=== PATIENT | female | born 1950 | race Asian ===

== ENCOUNTER → 2016-06-28 | Outpatient (CLI) | payer MEDICARE, OTHER ==
[2016-05-29 15:00] VITALS: BP 91/62
[~2016-06-28] MED LIST: ACET325T9 PO; ALPR0.5T6 PO; ALPR1TAB6 PO; CARI350T14 PO; DILT180C29 PO; DOCU-27 PO; FAMO20TA5 PO; FENT1PAT17 TD; HYDR-2672 PO; HYDR-2762 PO; LEVE500T56 PO; LEVO250T25 PO; LOSA100T6 PO; LUBI24CA5 PO; MUPI15CR8 TP; OXYC10TA32 PO; PARO20TA2 PO; PARO40TA2 PO
[2016-06-28 16:22] LABS: CREATININE 0.8 mg/dL (0.6-1.0)
== END | disposition home or self-care (01) ==
LOC: LAB 15:21
PROVIDERS: ATTEND Psychiatry & Neurology Neurology
DX: R56.9 Unspecified convulsions (principal)
CPT/HCPCS: 36415; 82565; 82607; 84443; 84450; 84460; 84520

== ENCOUNTER → 2016-06-29 | Outpatient (CLI) | payer MEDICARE, OTHER ==
[2016-05-29 15:00] VITALS: BP 91/62
--- NOTE | 2016-06-30 19:47 | SLEEP ---
DATE OF STUDY: 06/29/2016 The patient is a 65-year-old female with possible seizures, narcolepsy, excessive somnolence, possible sleep paralysis, possible restless legs. Height 5 feet 2 inches, weight 98 pounds, body mass index 18. [place] sleep score 4. INTERPRETATION: Sleep architecture is characterized by a sleep efficiency of 79% across the 7.2 hours of recording time. There is absence of stage III, slow-wave sleep and a decreased amount of REM sleep. Sleep onset latency is 21 minutes. Respiratory monitoring shows a total of 22 events for an apnea-hypopnea index of 3.9 events per hour of sleep. The minimum oxygen saturation is 83%. Periodic limb movements of sleep were not observed. There is no significant cardiac arrhythmia. IMPRESSION: Essentially normal polysomnogram, positive only for absence of slow-wave, stage III sleep, but not showing any evidence of sleep disorder breathing, restless legs, or cardiac arrhythmias. RECOMMENDATIONS: If narcolepsy remains a concern, the patient should be scheduled for a multiple sleep latency test. Also, consider psychophysiologic insomnia. The patient, it should be noted, slept in a recliner during the study and the fiber technician observed a panic attack in the second part of the night and would not go back to sleep. Thank you for letting us help with the patient's care. ANDREZ LARA MD DR: NICHOLAS/joseph JOB#: [id number] / [id number]
== END | disposition home or self-care (01) ==
LOC: RT 18:14
PROVIDERS: ATTEND Internal Medicine
DX: R56.9 Unspecified convulsions (principal); G47.411 Narcolepsy with cataplexy
CPT/HCPCS: 95810

== ENCOUNTER → 2016-08-01 | Outpatient (CLI) | payer MEDICARE, OTHER ==
[2016-05-29 15:00] VITALS: BP 91/62
[~2016-08-01] MED LIST changes: +BUPIVACAINE MPF 0.25% 10 ML VIAL. ONE; +methylPREDNISolone ACETATE 40 MG/ML VIAL. ONE
--- NOTE | 2016-08-02 03:16 | PAIN ---
DATE OF SERVICE: 08/01/2016 PROGRESS NOTE DIAGNOSES: 1. Cervical radiculopathy with post-cervical laminectomy syndrome. 2. Myofascial pain. 3. Lumbar radiculopathy with lumbar degenerative disk disease, spinal stenosis and post-laminectomy syndrome of lumbar region. HISTORY OF PRESENT ILLNESS: The patient is a 65-year-old female, who returns for followup, last seen 03/2016. The patient underwent trigger point injections for pain in neck, left upper extremity and shoulder. The patient reports that she did very well after that with about 75% improvement, but the pain is returning now over the past 3-4 weeks. The patient reports in the base of the neck, left shoulder and left arm radiating into the hand be causing numbness and tingling, also some weakness in the left arm and trying to hold that she is left handed and this makes it more noticeable for the patient reports is painful, tingling, aching and shooting into the left arm, mostly in the anterior deltoid and posterior shoulders as well in the base of the neck on the left side, worse with rotation and motion limited to the left as well as extension, but not with forward flexion. The patient reports she has been doing massage therapies with heat and stiff several different types of topical creams and rubs, noted which have been decreased in the pain more than about 10%-20%. The patient reports no complete loss of motor function, but significant weakness with left upper extremity when the pain is else worst. The patient reports her pain is at10 on a scale of 10 currently. No new motor or sensory deficits or other complaints. PHYSICAL EXAMINATION: VITAL SIGNS: The patient's blood pressure 110/59, pulse 64, respirations 18, temperature 98.1 degrees Fahrenheit, height is 5 feet 2 inches, weight is 96 pounds. GENERAL: The patient is awake, alert, oriented, appropriate, very pleasant demeanor. The patient accompanied by her . HEENT: Head shows normocephalic, atraumatic. Extraocular movements are intact and symmetrical. Oral cavity, mucous membranes are moist and pink. Dentition is intact. NECK: Shows anterior throat supple without palpable lymphadenopathy. No well-healed surgical scars noted on the right in the inferior neck. Swallow reflex is symmetrical. Posterior cervical musculatures in moderate tenderness to palpation and very firm rope-like musculature on the left part of the superior, middle and lateral aspect of the cervical paraspinous musculature is very firm, very tender with palpations with trigger point characteristics of musculature and also this is present in the left trapezius suprascapular and infrascapular regions significantly and the infrascapular region on the left side very firm rope-like musculature, very tender with palpation also in the posterior lateral and anterior aspects of the deltoid, very tender in the lateral and anterior aspect significantly on the left side and some minor pain over the acromioclavicular joint with palpation on the left side only. Right side is nontender and musculature is supple and symmetrical. CHEST: Shows normal on inspection. Breath sounds are clear to auscultation bilaterally. HEART: Shows S1 and S2 clear. ABDOMEN: Soft, nontender, nondistended. EXTREMITIES: Upper extremities show deep tendon reflexes 1+ in the biceps and triceps tendons. Motor exam is strong with approximately 3 on a scale 5 with change release manager strength on the left and ____ on the right. Bicep and tricep flexion 4/5 left, 5/5 on the right. Options were discussed with the patient. At this time, the patient's old chart was reviewed and her current medication regimen updated. Current review of systems updated today as well. We will plan on trigger point injections of the left cervical paraspinous musculature and trapezius musculature superior and infrascapular musculature and anterior and lateral deltoid musculature on the left side. Risks were again discussed including, but not limited to bleeding, infection, possibility of intravascular injection sequelae, spread of local anesthetic and numbness, pneumothorax, side effects of steroid medications and poor results regarding pain control. The patient understands and wishes to proceed. The patient will return to clinic in approximately 2 weeks for followup. She was counseled on return appointment, activity levels, and side effects to be aware of. DIAGNOSES: Myofascial pain with cervical radiculopathy and cervical post-laminectomy syndrome. PROCEDURE: Trigger point injections of the cervical paraspinous musculature, trapezius musculature, superior infrascapular musculature, anterior and lateral deltoid musculature on the left. Using sterile prep and drape and local anesthetic. Medication injected a total of 40 mg Depo-Medrol plus total of 9 mL of 0.25% bupivacaine. CONDITION AT DISCHARGE: Stable. The patient tolerated procedure well, had no complications. HIRA CARBAJAL MD DR: BRANDON/joseph JOB#: [id number] / [id number]
== END | disposition home or self-care (01) ==
LOC: PNCL 09:13
PROVIDERS: ATTEND Anesthesiology
DX: M54.12 Radiculopathy, cervical region (principal); M96.1 Postlaminectomy syndrome, not elsewhere classified; M51.16 Intervertebral disc disorders with radiculopathy, lumbar region; M48.06 Spinal stenosis, lumbar region; I10 Essential (primary) hypertension; J44.9 Chronic obstructive pulmonary disease, unspecified; F41.9 Anxiety disorder, unspecified; F32.9 Major depressive disorder, single episode, unspecified; Z90.49 Acquired absence of other specified parts of digestive tract; Z90.710 Acquired absence of both cervix and uterus; Z98.42 Cataract extraction status, left eye; Z98.41 Cataract extraction status, right eye
CPT/HCPCS: 20553; J1030; J3490

== ENCOUNTER → 2016-08-16 | Outpatient (CLI) | payer MEDICARE, OTHER ==
[2016-05-29 15:00] VITALS: BP 91/62
[~2016-08-16] MED LIST changes: -BUPIVACAINE MPF 0.25% 10 ML VIAL. ONE; -PARO20TA2 PO; +PARO20TA3 PO; -PARO40TA2 PO; +PARO40TA3 PO; +methylPREDNISolone ACETATE 80 MG/ML VIAL. ONE
--- NOTE | 2016-08-17 05:35 | PAIN ---
DATE OF SERVICE: 08/16/2016 DIAGNOSES: 1. Cervical radiculopathy with post-cervical laminectomy syndrome. 2. Myofascial pain. 3. Lumbar radiculopathy with lumbar degenerative disk disease, spinal stenosis and post-lumbar laminectomy syndrome. HISTORY OF PRESENT ILLNESS: The patient is a 65-year-old female who returns for followup status post trigger point injections with some relief and some muscular pain she had in her neck and left shoulder, but still significantly radiating pain in the left upper extremity and tingling and numbness in the left hand with some loss of strength. The patient reports no complete motor loss, but significant fatigability of the left arm and loss of strength with picking up items with repetitive motions or even carrying her purse on the left arm. The patient reports it is becoming difficult to get dressed as the pain is worse with raising her arm over her head on the left side, as well as manipulating her neck to the left side. The patient reports it is sharp, alternating with aching pain rated as 9 on a scale of 10. The patient reports no new motor or sensory deficits or other complaints, but still significant pain noted. PHYSICAL EXAMINATION: VITAL SIGNS: Shows blood pressure 122/73, pulse 73, respirations 18, temperature 98.5 degrees Fahrenheit, height 5 feet 2 inches, weight is 94 pounds. GENERAL: The patient is awake, alert, oriented, appropriate, very pleasant demeanor. HEENT: Head shows normocephalic, atraumatic. Extraocular movements are intact and symmetrical. Oral cavity, mucous membranes are moist and pink. Dentition is intact. NECK: Shows anterior throat supple without palpable lymphadenopathy noted. Swallow reflex is symmetrical. CHEST: Shows normal on inspection. Breath sounds are clear to auscultation bilaterally. HEART: Shows S1 and S2 clear. ABDOMEN: Soft, nontender, nondistended. No palpable organomegaly is noted. No rebound or guarding demonstrated. BACK: Shows spine grossly midline. Cervical paraspinous musculature shows some significant tenderness in the superior, medial and lateral trapezius as well as the superior aspect of the trapezius laterally on the left side compared to the right, appears symmetrical, no radiation on palpation. The patient still has some trigger point in the areas in the suprascapular and infrascapular region as well as the rhomboid region on the left side. EXTREMITIES: Upper extremities showed deep tendon reflexes at 1+ in the biceps and triceps tendons. Motor exam is strong with approximately 4/5 on the left and 5/5 on the right with edge sander strength. Options were discussed with the patient at this time, the patient's old chart was reviewed as her current medication regimen updated. Current review of systems updated today as well. We will proceed with a cervical epidural steroid injection today as the first in the series. Risks were again discussed including, but not limited to bleeding, infection, possibility of epidural hematoma, subsequent neurologic compromise, dural puncture, headaches, spinal cord and/or nerve damage, side effects of steroid medication and poor results regarding pain control. The patient understands and wishes to proceed. The patient will return to clinic in approximately 2 weeks for followup. She was counseled on return appointment, activity level and side effects to be aware of. DIAGNOSIS: Cervical radiculopathy with post-cervical laminectomy syndrome. PROCEDURE: Cervical epidural steroid injection in translaminar approach with C-arm fluoroscopic guidance under sterile prep and drape using local anesthetic. Medication injected 120 mg Depo-Medrol plus 5 mL of preservative-free normal saline and 0 contrast for patient allergy. CONDITION AT DISCHARGE: Stable. The patient tolerated procedure well, had no complications. HIRA CARBAJAL MD DR: BRANDON/joseph JOB#: [id number] / [id number]
== END | disposition home or self-care (01) ==
LOC: PNCL 09:16
PROVIDERS: ATTEND Anesthesiology
DX: M54.12 Radiculopathy, cervical region (principal); M96.1 Postlaminectomy syndrome, not elsewhere classified; I10 Essential (primary) hypertension; J44.9 Chronic obstructive pulmonary disease, unspecified; F41.9 Anxiety disorder, unspecified; F32.9 Major depressive disorder, single episode, unspecified; Z72.0 Tobacco use; Z90.710 Acquired absence of both cervix and uterus; Z90.49 Acquired absence of other specified parts of digestive tract; Z98.41 Cataract extraction status, right eye; Z98.42 Cataract extraction status, left eye
CPT/HCPCS: 62321; J1030; J1040

== ENCOUNTER → 2016-08-22 | Outpatient (CLI) | payer MEDICARE, OTHER ==
[2016-05-29 15:00] VITALS: BP 91/62
[~2016-08-22] MED LIST changes: -methylPREDNISolone ACETATE 40 MG/ML VIAL. ONE; -methylPREDNISolone ACETATE 80 MG/ML VIAL. ONE
--- NOTE | 2016-08-22 11:14 | KCIC ---
PROCEDURE Cervical spine MRI without contrast. HISTORY Cervical radiculopathy. TECHNIQUE Multiplanar and multi sequence magnetic resonance imaging of the cervical spine was performed without contrast. COMPARISON 03/07/2016 FINDINGS There are findings consistent with instrumented anterior spinal fusion and interbody fusion and C5 through C7. There is minimal retrolisthesis of C6 on C7 and straightening of cervical lordosis at the fused levels. There is mild anterolisthesis of C4 on C5. There is endplate remodeling at multiple levels, described in detail below. There is abnormal signal within the right C4 and C5 facets, stable compared to the prior study and slightly greater than expected for a degenerative etiology. There is slight deformation of the ventral aspect of the spinal cord at multiple levels. There is no convincing myelomalacia or demyelination. There is a prominent central canal within the cervical spinal cord, without syringohydromyelia. At C2-C3, there is a posterior central disc protrusion. There is no stenosis. At C3-C4, there is a posterior central disc protrusion. There is mild facet arthropathy. There is slight deformation of the ventral aspect of the spinal cord without significant stenosis. At C4-C5, there is a broad-based posterior disc protrusion superimposed on right posterior lateral endplate remodeling. There is moderate right and mild left facet arthropathy. There is moderate right foraminal stenosis. There is flattening of the ventral aspect of the spinal cord with mild central canal stenosis measuring 9.0 mm in anterior-posterior dimension. At C5-C6, there is a posterior central to left paracentral disc protrusion with thin inferior extrusion. There is mild right facet arthropathy. There is mild right foraminal stenosis. There is deformation of the left ventral aspect of the spinal cord without significant central canal stenosis. At C6-C7, there is a diffuse disc bulge and endplate remodeling. There is mild facet arthropathy. There is uncovertebral arthropathy. There is moderate right and moderate to severe left foraminal stenosis. At C7-T1, there is no stenosis. At T1-T2, there is a posterior central disc protrusion. There is mild facet arthropathy. There is mild bilateral foraminal stenosis. IMPRESSION 1. Instrumented anterior spinal fusion and interbody fusion at C5 through C7, stable in appearance. 2. Stable abnormal signal consistent with edema within the right C4 and C5 facets. The stability compared to the prior study does not favor a posttraumatic etiology. The differential includes a stress reaction as well as asymmetric advanced degenerative change. 3. Multilevel degenerative change within the cervical spine, similar compared to the prior study. This results in moderate right foraminal stenosis and mild central canal stenosis at C4-C5, mild right foraminal stenosis at C5-C6, and moderate right and moderate to severe left foraminal stenosis at C6-C7. There is also deformation of the spinal cord at additional levels, without evidence of myelomalacia or cord edema. Electronically signed by: Charisma Moreira (Aug 22, 2016 11:12:52)
== END | disposition home or self-care (01) ==
LOC: KCIC MRI 10:05
PROVIDERS: ATTEND Neurological Surgery
DX: M48.02 Spinal stenosis, cervical region (principal)
CPT/HCPCS: 72141

== ENCOUNTER → 2016-09-12 | Outpatient (CLI) | payer MEDICARE, OTHER ==
[2016-05-29 15:00] VITALS: BP 91/62
--- NOTE | 2016-09-12 13:11 | KCIC ---
PROCEDURE CT cervical spine without contrast. HISTORY Radiculopathy. Neck pain. Prior fusion in August,. TECHNIQUE Axial images and coronal and sagittal re-formatted images are provided. One or more of the following individualized dose reduction techniques were utilized for this exam: 1. Automated exposure control. 2. Adjustment of the mA and/or kV according to patient's size. 3. Use of iterative reconstruction technique. COMPARISON MRI from August 22, 2016. FINDINGS There is straightening of cervical lordosis. There is 2-3 millimeters of anterolisthesis at C4-C5. Anterior cervical fusion from C5 through C7 with interbody bone cages is noted, no definite incorporation of the bone cages at this time. There is no lucency about the screws. Alignment is not changed. There is no fracture. Craniovertebral junction is unremarkable. Canal and foraminal evaluation is limited without intrathecal contrast. Degenerative findings do not appear appreciably changed from the MRI from 3 weeks ago. There is a 13 millimeter right thyroid nodule. There is apical emphysema. There is a right apical opacity, could represent an area of scarring although no definite correlate on cervical radiographs from March 07, 2016 or chest radiograph from July 24, 2015. IMPRESSION 1. Anterior cervical fusion from C5 through C7. 2. No change in alignment. Degenerative findings also probably unchanged, better evaluated by the recent MRI. 3. Right thyroid nodule. 4. Apical emphysema with right apical opacity which could represent an area of scarring although appears to be a change from prior radiographs. Comparison to any prior CT chest or CT cervical spine would be of benefit. Alternatively, three-month follow-up CT chest could be considered. Electronically signed by: Carlos Barry MD (Sep 12, 2016 13:08:52)
== END | disposition home or self-care (01) ==
LOC: KCIC CT 10:53
PROVIDERS: ATTEND Neurological Surgery
DX: M54.12 Radiculopathy, cervical region (principal); M43.22 Fusion of spine, cervical region; J43.9 Emphysema, unspecified; E04.1 Nontoxic single thyroid nodule
CPT/HCPCS: 72125

== ENCOUNTER 2016-12-01 13:49 | Emergency (ER) | payer MEDICARE, OTHER ==
[~2016-12-01] VITALS: Ht 157.5 cm; Wt 44.0 kg
[~2016-12-01 13:49] MED LIST changes: +DOCU-109 PO; -DOCU-27 PO; -HYDR-2672 PO; +HYDR-2766 PO; -LUBI24CA5 PO; +LUBI24CA7 PO; -OXYC10TA32 PO; +OXYC10TA45 PO
[2016-12-01 14:00] VITALS: BP 149/71
[2016-12-01] MEDS ORDERED: HYDROcodone/APAP 5/325MG 1 TAB TABLET PO ONE (14:30)
--- NOTE | 2016-12-01 14:37 | PHYS DOC ---
Past Medical History Past Medical History: A-Fib, Anxiety, COPD, Depression, Hypertension Additional Past Medical Histor: CATARACTS Past Surgical History: Cholecystectomy, Hysterectomy, Other Additional Past Surgical Histo: BACK SX, CERVICAL SX Alcohol Use: Occasionally Drug Use: None Adult General Chief Complaint Chief Complaint: MECHANICAL FALL HPI HPI Patient is a 66 year old female with history of hypertension COPD A. fib and depression who presents today with moderate right ankle pain that began today after she fell. Patient states she was walking down some steps when she missed the last step and rolled her ankle and fell. Patient denies any loss of consciousness. Denies hitting her head on the ground. PCP Dr. Magaña Review of Systems Review of Systems Constitutional: Denies fever or chills [] Eyes: Denies change in visual acuity, redness, or eye pain [] Musculoskeletal: moderate right ankle pain Integument: Denies rash or skin lesions [] Neurologic: Denies headache, focal weakness or sensory changes [] Endocrine: Denies polyuria or polydipsia [] Current Medications Current Medications Current Medications Medications (Trade) Dose Ordered Sig/John Start Time Stop Time Status Last Admin Dose Admin Acetaminophen/ Hydrocodone Bitart (Lortab 5/325) 1 tab 1X ONCE 12/01/16 14:30 12/01/16 14:32 DC 12/01/16 14:55 1 TAB Morphine Sulfate 5 mg 1X ONCE 12/01/16 16:00 12/01/16 16:01 DC Allergies Allergies Allergies Coded Allergies Type Severity Reaction Last Updated Verified Iodinated Contrast- Oral and IV Dye Allergy Intermediate 08/28/15 Yes acyclovir Allergy Intermediate Rash 08/28/15 Yes iodine Allergy Intermediate 08/28/15 Yes I S O L A T I O N *CONTACT* Allergy Unknown 08/28/15 Yes morphine Adverse Reaction Intermediate Nausea 08/28/15 Yes Physical Exam Physical Exam Constitutional: Well developed, well nourished, no acute distress, non-toxic appearance. [] HENT: Normocephalic, atraumatic, bilateral external ears normal, oropharynx moist, no oral exudates, nose normal. [] Skin: Warm, dry, no erythema, no rash. [] Back: No tenderness, no CVA tenderness. [] Extremities: Right ankle with moderate amount of soft tissue swelling medially and laterally. Bruising noted on the medial and lateral aspect of the right ankle. Limited range of motion to the right ankle due to pain. Patient able to wiggle her toes. +2 right pedal pulse. Cap refill less than 2 seconds the right lower extremity. Neurologic: Alert and oriented X 3, normal motor function, normal sensory function, no focal deficits noted. [] Psychologic: Affect normal, judgement normal, mood normal. [] Current Patient Data Vital Signs Vital Signs Date Time Temp Pulse Resp B/P (MAP) Pulse Ox O2 Delivery O2 Flow Rate FiO2 12/01/16 14:55 20 98 Room Air 12/01/16 14:00 98.9 106 98.9 EKG EKG [] Radiology/Procedures Radiology/Procedures []PROCEDURE: ANKLE RIGHT 3V Right ankle, 3 views, 12/01/2016: History: Injury The bony structures are demineralized. The distal tibia and fibula are intact. There is flattening of Boehler's angle with apparent trabecular distortion in the calcaneus. The appearance suggests a calcaneal fracture. There is moderate diffuse soft tissue swelling about the ankle. IMPRESSION: Probable calcaneal fracture. CT scanning is suggested for further evaluation, if clinically indicated. DICTATED and SIGNED BY: TAMMIE MOHAMUD MD DATE: 12/01/16 1500 CC: MERRICK MAGAÑA MD; ALEX GAFFNEY APRN; FERNANDO,STAFF ~ PROCEDURE: LUMBAR SPINE 2-3V Lumbar spine, 3 views, 12/01/2016: History: Fall, low back pain Comparison is made to a study from 09/11/2007. The bony structures are demineralized. There has been a lower lumbar posterolateral spinal fusion from L4 through S1. A radiopaque disc spacer is in place at the L4-5 level. No fracture is identified. There is a minimal spondylolisthesis at L3-4, probably slightly worse than on the previous study. There are mild scattered marginal spurs. Aortic calcific plaquing is present. IMPRESSION: 1. Previous lower lumbar spinal fusion from L4 through S1. 2. Minimal spondylolisthesis at L3-4. 3. No acute bony abnormality is detected. DICTATED and SIGNED BY: TAMMIE MOHAMUD MD DATE: 12/01/16 1604 CC: MERRICK MAGAÑA MD; ALEX GAFFNEY APRN; FERNANDO,STAFF ~ Course & Med Decision Making Course & Med Decision Making Pertinent Labs and Imaging studies reviewed. (See chart for details) Patient is in the ED with right ankle pain after falling today. Right ankle xray interpreted by radiologist was noted for possible calcaneus fracture. Inquiry from patient if she has any back pain. She states she has history of chronic back pain no unusual pain today. Lumbar x-rays were done which were negative for any acute findings. Patient was placed in a posterior short leg splint by the optical lab technician, neurovascular exam done by me is normal, cap refill less than 2 seconds. Ice elevation encouraged. Follow-up with orthopedic doctor by calling the office tomorrow morning. Dragon Disclaimer Dragon Disclaimer This electronic medical record was generated, in whole or in part, using a voice recognition dictation system. Departure Departure Impression: Primary Impression: Fall down steps Additional Impression: Calcaneus fracture, right Disposition: 01 HOME, SELF-CARE Condition: STABLE Referrals: MERRICK MAGAÑA MD (PCP) PENNY BLACK II, MD Call his office tomorrow and follow-up Patient Instructions: Foot Fracture-Brief Additional Instructions: You were seen for possible calcaneus fracture of the right heel. Ice and elevate the extremity. Follow-up with orthopedic doctor provided by calling the office first thing tomorrow morning. Scripts Ondansetron (ZOFRAN ODT) 4 Mg Tab.rapdis 1 TAB SL Q8HRS, #15 TAB Prov: ALEX GAFFNEY APRN 12/01/16 Hydrocodone/Apap 5-325 (NORCO 5-325 TABLET) 1 Each Tablet 1-2 TAB PO Q4-6HRS, #20 TAB Prov: ALEX GAFFNEY APRN 12/01/16 Problem Qualifiers Primary Impression: Fall down steps Encounter type: initial encounter Qualified Codes: W10.8XXA - Fall (on) ( from) other stairs and steps, initial encounter Additional Impression: Calcaneus fracture, right Encounter type: initial encounter Calcaneus location: unspecified portion of calcaneus Fracture type: closed Fracture alignment: nondisplaced Qualified Codes: S92.001A - Unspecified fracture of right calcaneus, initial encounter for closed fracture ALEX GAFFNEY APRN Dec 01, 2016 14:37
--- NOTE | 2016-12-01 15:04 | RAD ---
Right ankle, 3 views, 12/01/2016: History: Injury The bony structures are demineralized. The distal tibia and fibula are intact. There is flattening of Boehler's angle with apparent trabecular distortion in the calcaneus. The appearance suggests a calcaneal fracture. There is moderate diffuse soft tissue swelling about the ankle. IMPRESSION: Probable calcaneal fracture. CT scanning is suggested for further evaluation, if clinically indicated.
[2016-12-01] MEDS ORDERED: MORPHINE SULFATE 10 MG/ML VIAL. IM ONE (16:00)
--- NOTE | 2016-12-01 16:10 | RAD ---
Lumbar spine, 3 views, 12/01/2016: History: Fall, low back pain Comparison is made to a study from 09/11/2007. The bony structures are demineralized. There has been a lower lumbar posterolateral spinal fusion from L4 through S1. A radiopaque disc spacer is in place at the L4-5 level. No fracture is identified. There is a minimal spondylolisthesis at L3-4, probably slightly worse than on the previous study. There are mild scattered marginal spurs. Aortic calcific plaquing is present. IMPRESSION: 1. Previous lower lumbar spinal fusion from L4 through S1. 2. Minimal spondylolisthesis at L3-4. 3. No acute bony abnormality is detected.
[2016-12-01] MEDS ORDERED: HYDR-971 PO (16:24)
[2016-12-01] MEDS ORDERED: ONDA4TAB10 SL (16:24)
[2016-12-01] MEDS ORDERED: fentaNYL PF VIAL 100 MCG/2 ML VIAL IM ONE (16:30)
== END 2016-12-01 16:30 | disposition home or self-care (01) ==
LOC: ER 13:49
DX: S92.001A Unspecified fracture of right calcaneus, initial encounter for closed fracture (principal); G89.29 Other chronic pain; I48.91 Unspecified atrial fibrillation; F41.9 Anxiety disorder, unspecified; J44.9 Chronic obstructive pulmonary disease, unspecified; I10 Essential (primary) hypertension; F32.9 Major depressive disorder, single episode, unspecified; Z98.1 Arthrodesis status; Z91.041 Radiographic dye allergy status; Z88.5 Allergy status to narcotic agent; Z88.8 Allergy status to other drugs, medicaments and biological substances; Z98.49 Cataract extraction status, unspecified eye; W10.9XXA Fall (on) (from) unspecified stairs and steps, initial encounter; Y93.01 Activity, walking, marching and hiking; Y92.89 Other specified places as the place of occurrence of the external cause; Y99.8 Other external cause status
CPT/HCPCS: 29515; 72100; 73610; 96372; 99284; J3010

== ENCOUNTER → 2016-12-08 | Outpatient (CLI) | payer MEDICARE, OTHER ==
[2016-12-01 14:00] VITALS: BP 149/71
[~2016-12-08] MED LIST changes: +HYDR-971 PO; +ONDA4TAB10 SL
--- NOTE | 2016-12-08 12:38 | KCIC ---
Examination: CT of the right ankle without contrast HISTORY: History of closed nondisplaced fracture of the calcaneus, fall Exposure: One or more of the following individualized dose reduction techniques were utilized for this examination: 1. Automated exposure control 2. Adjustment of the mA and/or kV according to patient size 3. Use of iterative reconstruction technique COMPARISON: Radiograph from 12/06/2016 FINDINGS: The alignment of the ankle joint grossly appears unremarkable. Mildly displaced depressed comminuted fracture of the calcaneus again identified. No evidence of bony bridging changes to suggest healing identified. Mild soft tissue swelling identified about the hindfoot likely soft tissue injury The ankle mortise appears intact. The visualized peroneal tendons, flexor tendons, anterior extensor compartment tendons grossly appears intact. IMPRESSION: Comminuted mild displaced and depressed fracture of the calcaneus identified without bony bridging changes to suggest healing. Electronically signed by: Bret Wiley MD (12/08/2016 12:35 PM)
== END | disposition home or self-care (01) ==
LOC: KCIC CT 10:25
PROVIDERS: ATTEND Nurse Practitioner Gerontology
DX: S92.014D Nondisplaced fracture of body of right calcaneus, subsequent encounter for fracture with routine healing (principal); X58.XXXD Exposure to other specified factors, subsequent encounter
CPT/HCPCS: 73700

== ENCOUNTER → 2017-01-11 | Outpatient (CLI) | payer MEDICARE, OTHER ==
--- NOTE | 2017-01-11 15:52 | KCIC ---
Thyroid ultrasound HISTORY: Right thyroid nodule. Right lobe: Measures 5.2 cm longitudinal by 1.8 cm transverse by 1.6 cm transverse. Complex cystic lesion identified in the upper pole of the right thyroid measuring 8 mm. This has a cystic appearance with solid nodule. Separate calcified nodule seen in the upper pole measures 3 mm. Complex mostly solid mass is seen in the midpole, measures 13 mm. A complex mostly cystic mass is seen in the lower pole measuring 10 mm. Thyroid isthmus measures 20 mm. Left lobe of the thyroid measures 4.9 cm longitudinal by 1.2 cm transverse by 2.1 cm transverse. There is a small cyst identified at the left upper pole measuring 5 mm. IMPRESSION: 1. Multiple complex cystic and solid nodules in the right thyroid. 2. Small cyst in the left thyroid. Electronically signed by: Marcelo Chambers MD (01/11/2017 3:49 PM) [facility]
--- NOTE | 2017-01-11 16:06 | KCIC ---
INDICATION: Bilateral carotid artery disease. Coronary artery disease. Hypertension. Smoker. COMPARISON: none TECHNIQUE: Color, grayscale and doppler ultrasound images obtained of the carotid system bilaterally. Percent stenosis is estimated using criteria that correlates with NASCET methodology. FINDINGS: Peak systolic velocities are as follows in cm/s: Right Carotid System: CCA PSV: 57 ICA PSV: 46 ICA EDV: 14 ICA/CCA Ratio 0.8 No significant luminal narrowing or occlusion identified on grayscale or color images. Right vertebral artery is patent with normal direction of flow. Left Carotid System: CCA PSV: 51 ICA PSV: 73 ICA EDV: 25 ICA/CCA Ratio 1.44 Mild focal plaque identified at the carotid bulb. No high-grade luminal narrowing or occlusion on grayscale or color images. Left vertebral artery is patent with normal directional flow. IMPRESSION: No evidence of hemodynamically significant stenosis. Electronically signed by: Marcelo Chambers MD (01/11/2017 4:02 PM) [facility]
== END | disposition home or self-care (01) ==
LOC: KCIC US 14:05
PROVIDERS: ATTEND Internal Medicine
DX: I25.10 Atherosclerotic heart disease of native coronary artery without angina pectoris (principal); I10 Essential (primary) hypertension; E04.1 Nontoxic single thyroid nodule; F17.200 Nicotine dependence, unspecified, uncomplicated; I65.23 Occlusion and stenosis of bilateral carotid arteries
CPT/HCPCS: 76536; 93880

== ENCOUNTER → 2017-03-01 | Outpatient (CLI) | payer MEDICARE, OTHER ==
--- NOTE | 2017-03-01 10:25 | KCIC ---
Indication: Right lower extremity swelling. Grayscale, color-flow and duplex Doppler evaluation of the right lower extremity deep venous system was performed. There is no evidence of a right lower extremity DVT. The right lower extremity deep venous system shows normal compressibility with normal response to augmentation and Valsalva. There is some edema in the subcutaneous tissues of the right calf. IMPRESSION: No evidence of right lower extremity DVT. Electronically signed by: Geremias Pennington MD (03/01/2017 10:22 AM) [id number]
== END | disposition home or self-care (01) ==
LOC: KCIC US 09:44
PROVIDERS: ATTEND Internal Medicine
DX: M79.89 Other specified soft tissue disorders (principal)
CPT/HCPCS: 93971

== ENCOUNTER → 2017-05-04 | Outpatient (CLI) | payer MEDICARE, OTHER ==
[~2017-05-04] MED LIST changes: +ASPI-482 PO; +MELO15TA23 PO; +PANT40TA5 PO; +methylPREDNISolone ACETATE 40 MG/ML VIAL. ONE; +methylPREDNISolone ACETATE 80 MG/ML VIAL. ONE
--- NOTE | 2017-05-04 12:37 | PAIN ---
DATE OF SERVICE: 05/04/2017 DIAGNOSES: 1. Cervical radiculopathy with cervical post-laminectomy syndrome. 2. Myofascial pain. 3. Lumbar radiculopathy with lumbar degenerative disk disease, spinal stenosis and post-lumbar laminectomy syndrome. HISTORY OF PRESENT ILLNESS: The patient is a 66-year-old female who returns for followup status post trigger point injections, last seen 04/20/2017. The patient reports they helped about 50% or so, but was short lived, for about a week, with significant pain returning in the low back, bilateral lower extremities, worse in the right knee and right leg. She had an ankle sprain and some significant pain in the left ankle, which is causing some pain in her right knee when she is ambulating, also in the low back, which has become much more painful as well with radiation to the right leg now, into the posterior and lateral thigh and calf on the right side. The patient reports it as aching and shooting, becoming more constant, rated a 10 on a scale of 10 at its worst, 9 on average and 8 at its least, and is a 9 today. The patient reports no new motor or sensory deficits. It has been waking her from sleep at night after about 4-5 hours, but not every night. She can usually reposition or get out of bed and get back to sleep essentially. The patient reports no bowel or bladder incontinence or other complaints at this time. PHYSICAL EXAMINATION: VITAL SIGNS: The patient's blood pressure 137/78, pulse 80, respirations 20, temperature 98.3 degrees Fahrenheit. Weight is 99.0 pounds. GENERAL: The patient is awake, alert, oriented, appropriate, very pleasant demeanor. HEENT: Head shows normocephalic, atraumatic. Extraocular movements are intact and symmetrical. Oral cavity: Mucous membranes moist and pink. Dentition is intact. NECK: Shows anterior throat supple without palpable lymphadenopathy noted. Swallow reflex is symmetrical. CHEST: Shows normal on inspection. Breath sounds clear to auscultation bilaterally. HEART: Shows S1 and S2 clear. ABDOMEN: Soft, nontender, nondistended. No palpable organomegaly. No rebound or guarding demonstrated. BACK: Shows spine grossly in the midline with flattening of the lumbar lordotic curvature with extensive well-healed surgical scarring noted. Lumbar paraspinous musculature is grossly symmetrical on inspection, with palpation is firm and tender throughout the upper, middle and lower distribution of paraspinous musculature, very firm, very tender diffusely bilaterally. EXTREMITIES: Lower extremities show deep tendon reflexes 1+ in the patellar and tendo calcaneus tendons. Motor exam is approximately 3 on a scale of 5 with right dorsiflexion and extension and 5/5 on the left. The patient has some significant lateral swelling noticed under the right lateral malleolus of the ankle. Right knee shows good rotational motion both passively and actively without significant pain reported without weightbearing, with weightbearing shows significant pain and limping significantly favoring her right lower extremity, but not using any assistive device to ambulate. Options were discussed with the patient and the patient's old chart was reviewed as her current medication regimen updated. Current review of systems updated today as well. We will proceed with a caudal approach epidural steroid injection today with fluoroscopic guidance. Risks were discussed including but not limited to bleeding, infection, possibility of epidural hematoma, subsequent neurologic compromise, dural puncture headaches, spinal cord and/or nerve damage, side effects of steroid medication and poor results regarding pain control. The patient understands and wishes to proceed. The patient will return to clinic in approximately 2 weeks for followup, was counseled on return appointment, activity level and side effects to be aware of. DIAGNOSES: Lumbar radiculopathy with lumbar degenerative disk disease, spinal stenosis and post-lumbar laminectomy syndrome. PROCEDURE: A caudal approach epidural steroid injection using C-arm fluoroscopic guidance under sterile prep and drape using local anesthetic. MEDICATION INJECTED: A total of 120 mg Depo-Medrol plus 10 mL of preservative-free normal saline, 2 mL Isovue for contrast. CONDITION AT DISCHARGE: Stable. The patient tolerated the procedure well, had no complications. HIRA CARBAJAL MD DR: BRANDON/joseph JOB#: [id number] / [id number]
== END ==
LOC: PNCL 09:17
PROVIDERS: ATTEND Anesthesiology
DX: M51.16 Intervertebral disc disorders with radiculopathy, lumbar region (principal); M48.061 Spinal stenosis, lumbar region without neurogenic claudication; M96.1 Postlaminectomy syndrome, not elsewhere classified; I10 Essential (primary) hypertension; F32.9 Major depressive disorder, single episode, unspecified; F41.9 Anxiety disorder, unspecified; J44.9 Chronic obstructive pulmonary disease, unspecified; Z90.49 Acquired absence of other specified parts of digestive tract; Z90.710 Acquired absence of both cervix and uterus; Z86.14 Personal history of Methicillin resistant Staphylococcus aureus infection; F17.200 Nicotine dependence, unspecified, uncomplicated
CPT/HCPCS: 62323; J1030; J1040

== ENCOUNTER → 2017-05-30 | Outpatient (CLI) | payer MEDICARE, OTHER ==
[~2017-05-30] MED LIST changes: +IOHEXOL 240 MG/ML 50ML VIAL. PO ONE; +IOHEXOL 300 MG/ML 100ML VIAL. IV ONE; -PANT40TA5 PO; -methylPREDNISolone ACETATE 40 MG/ML VIAL. ONE; -methylPREDNISolone ACETATE 80 MG/ML VIAL. ONE
--- NOTE | 2017-05-30 12:21 | KCIC ---
CT abdomen and pelvis with contrast Indication: Lower abdominal pain. Dark stools. History of cholecystectomy and appendectomy. Symptoms for a couple of weeks.. . Technique: Intravenous contrast is given. Oral contrast was given. Comparison:None available Exposure: One or more of the following individualized dose reduction techniques were utilized for this examination: 1. Automated exposure control 2. Adjustment of the mA and/or kV according to patient size 3. Use of iterative reconstruction technique. FINDINGS: Lower thorax: Minimal opacity at the anterior right and left lung base, partially visualized, likely some mild fibrosis or atelectasis. Pneumoperitoneum:No gross pneumoperitoneum. Liver: Unremarkable Spleen: Unremarkable Pancreas: Unremarkable Adrenals:No evidence of mass. Kidneys: No significant abnormality. Gallbladder: Surgically absent. Severe dilatation of the common bile duct, 3.5 cm transverse. There is also intrahepatic biliary ductal dilatation and pancreatic duct dilatation. No evidence of an obstructive calculus. Aorta: Calcified. No aneurysm. Lymph nodes: No significant enlargement GI tract: Small hiatal hernia. Moderate retained stool in the colon. There is diffuse mild dilatation of small bowel loops, likely an ileus. Wall thickening of the rectum, sigmoid colon and descending colon. Appendix: Not visualized. Ascites: No gross ascites. Urinary bladder: Mild irregular wall thickening, particularly inferiorly. No evidence of pelvic mass. Bones: Fusion of L4-L5. Degenerative disease of the lumbar spine. Spinal stenosis and neural foraminal stenosis identified at multiple lumbar levels. IMPRESSION: 1. Severe common bile duct dilatation. There is also dilatation of the hepatic bile ducts and pancreatic duct. Etiology uncertain. Findings suggest a distal common bile duct stenosis or obstruction. 2. Mild wall thickening of the descending colon, sigmoid colon and rectum. Findings are most compatible with a nonspecific infectious or inflammatory colitis. Moderate constipation. Mild small bowel dilatation, most likely an ileus. 3. Mild irregular urinary bladder wall thickening. This may represent an acute or chronic cystitis, but recommend follow-up. 4. Lumbar spondylosis and stenosis. Electronically signed by: Marcelo Chambers MD (05/30/2017 12:17 PM) [facility]
== END | disposition home or self-care (01) ==
LOC: KCIC CT 08:17
PROVIDERS: ATTEND Nurse Practitioner Family
DX: K59.00 Constipation, unspecified (principal); M47.896 Other spondylosis, lumbar region; M48.061 Spinal stenosis, lumbar region without neurogenic claudication; Z90.49 Acquired absence of other specified parts of digestive tract
CPT/HCPCS: 74177; 82565; Q9966; Q9967

== ENCOUNTER 2017-06-05 09:26 | Inpatient (IN) | payer MEDICARE, OTHER ==
[~2017-06-05] VITALS: Ht 157.5 cm; Wt 45.4 kg
[~2017-06-05 09:26] MED LIST changes: -IOHEXOL 240 MG/ML 50ML VIAL. PO ONE; -IOHEXOL 300 MG/ML 100ML VIAL. IV ONE
--- NOTE | 2017-06-05 09:46 | PHYS DOC ---
Past Medical History Past Medical History: A-Fib, Anxiety, COPD, Depression, Hypertension Additional Past Medical Histor: CATARACTS Past Surgical History: Cholecystectomy, Hysterectomy, Other Additional Past Surgical Histo: BACK SX, CERVICAL SX Alcohol Use: Occasionally Drug Use: None Adult General Chief Complaint Chief Complaint: ABDOMINAL PAIN HPI HPI Patient is a 66 year old female who presents with nausea vomiting, dark stools , abdominal discomfort. She states it all started about 3 weeks ago when she started having abdominal discomfort, dark black stools. She had a CT scan and had her stools checked for occult blood and they were negative. She states she' s had a cholecystectomy appendectomy and hysterectomy in the past. She states that she's been getting weaker and now can hardly walk. She thinks she is dehydrated. She states whenever she eats something her belly just becomes bloated and distended. She denies any chest pain fevers chills. She does admit to be a heavy alcohol abuser about 10 years ago she states she's a drink 4-6 beers 3-4 times a week. Review of Systems Review of Systems Constitutional: Denies fever or chills [] Eyes: Denies change in visual acuity, redness, or eye pain [] HENT: Denies nasal congestion or sore throat [] Respiratory: Denies cough or shortness of breath [] Cardiovascular: No additional information not addressed in HPI [] GI: Positive for abdominal pain, nausea, vomiting, black stools : Denies dysuria or hematuria [] Musculoskeletal: Denies back pain or joint pain [] Integument: Denies rash or skin lesions [] Neurologic: Denies headache, focal weakness or sensory changes [] Endocrine: Denies polyuria or polydipsia [] All other systems were reviewed and found to be within normal limits, except as documented in this note. Current Medications Current Medications Current Medications Medications (Trade) Dose Ordered Sig/John Start Time Stop Time Status Last Admin Dose Admin Fentanyl Citrate (Fentanyl 2ml Vial) 100 mcg STK-MED ONCE 06/05/17 10:46 06/05/17 10:47 DC Sodium Chloride 1,000 ml @ 1,000 mls/hr Q1H 06/05/17 10:15 06/05/17 11:14 DC 06/05/17 10:15 1,000 MLS/HR Allergies Allergies Allergies Coded Allergies Type Severity Reaction Last Updated Verified Iodinated Contrast- Oral and IV Dye Allergy Intermediate 08/28/15 Yes acyclovir Allergy Intermediate Rash 08/28/15 Yes iodine Allergy Intermediate 08/28/15 Yes I S O L A T I O N *CONTACT* Allergy Unknown 08/28/15 Yes morphine Adverse Reaction Intermediate Nausea 08/28/15 Yes Physical Exam Physical Exam Constitutional: Well developed, well nourished, no acute distress, non-toxic appearance. [] HENT: Normocephalic, atraumatic, bilateral external ears normal, oropharynx moist, no oral exudates, nose normal. [] Eyes: PERRLA, EOMI, conjunctiva normal, no discharge. [] Neck: Normal range of motion, no tenderness, supple, no stridor. [] Cardiovascular:Heart rate regular rhythm, no murmur [] Lungs & Thorax: Bilateral breath sounds clear to auscultation [] Abdomen: Bowel sounds hyperactive soft, mild tender to palpation in the epigastric area, no masses, no pulsatile masses. [] Skin: Warm, dry, no erythema, no rash. [] Back: No tenderness, no CVA tenderness. [] Extremities: No tenderness, no cyanosis, no clubbing, ROM intact, no edema. [] Neurologic: Alert and oriented X 3, normal motor function, normal sensory function, no focal deficits noted. [] Psychologic: Affect normal, judgement normal, mood normal. [] Current Patient Data Vital Signs Vital Signs Date Time Temp Pulse Resp B/P (MAP) Pulse Ox O2 Delivery O2 Flow Rate FiO2 06/05/17 10:30 90 20 145/67 (93) 97 06/05/17 09:55 98.8 Room Air 98.8 Lab Values Laboratory Tests Test 06/05/17 10:00 06/05/17 10:37 White Blood Count 8.2 x10^3/uL (4.0-11.0) Red Blood Count 2.99 x10^6/uL (3.50-5.40) L Hemoglobin 10.1 g/dL (12.0-15.5) L Hematocrit 30.3 % (36.0-47.0) L Mean Corpuscular Volume 101 fL (79-100) H Mean Corpuscular Hemoglobin 34 pg (25-35) Mean Corpuscular Hemoglobin Concent 34 g/dL (31-37) Red Cell Distribution Width 16.1 % (11.5-14.5) H Platelet Count 638 x10^3/uL (140-400) H Neutrophils (%) (Auto) 71 % (31-73) Lymphocytes (%) (Auto) 20 % (24-48) L Monocytes (%) (Auto) 8 % (0-9) Eosinophils (%) (Auto) 0 % (0-3) Basophils (%) (Auto) 1 % (0-3) Neutrophils # (Auto) 5.9 x10^3uL (1.8-7.7) Lymphocytes # (Auto) 1.6 x10^3/uL (1.0-4.8) Monocytes # (Auto) 0.6 x10^3/uL (0.0-1.1) Eosinophils # (Auto) 0.0 x10^3/uL (0.0-0.7) Basophils # (Auto) 0.1 x10^3/uL (0.0-0.2) Segmented Neutrophils % 66 % (35-66) Band Neutrophils % 6 % (0-9) Lymphocytes % 21 % (24-48) L Monocytes % 7 % (0-10) Platelet Estimate Increased (ADEQUATE) Prothrombin Time 12.2 SEC (11.7-14.0) Prothrombin Time INR 1.0 (0.8-1.1) Urine Collection Type Unknown Urine Color Straw Urine Clarity Hazy Urine pH 7.0 Urine Specific [place] 1.020 Urine Protein Negative mg/dL (NEG-TRACE) Urine Glucose (UA) Negative mg/dL (NEG) Urine Ketones (Stick) Negative mg/dL (NEG) Urine Blood Negative (NEG) Urine Nitrite Negative (NEG) Urine Bilirubin Small (NEG) Urine Urobilinogen Dipstick 0.2 mg/dL (0.2 mg/dL) Urine Leukocyte Esterase Negative (NEG) Urine RBC 0 /HPF (0-2) Urine WBC 0 /HPF (0-4) Urine Squamous Epithelial Cells Few /LPF Urine Bacteria 0 /HPF (0-FEW) Sodium Level 133 mmol/L (136-145) L Potassium Level 4.5 mmol/L (3.5-5.1) Chloride Level 97 mmol/L (98-107) L Carbon Dioxide Level 23 mmol/L (21-32) Anion Gap 13 (6-14) Blood Urea Nitrogen 22 mg/dL (7-20) H Creatinine 1.0 mg/dL (0.6-1.0) Estimated GFR (Cockcroft-Gault) 55.5 Glucose Level 122 mg/dL (70-99) H Calcium Level 8.4 mg/dL (8.5-10.1) L Magnesium Level 2.1 mg/dL (1.8-2.4) Total Bilirubin 0.2 mg/dL (0.2-1.0) Direct Bilirubin 0.1 mg/dL (0.0-0.2) Aspartate Amino Transferase (AST) 18 U/L (15-37) Alanine Aminotransferase (ALT) 15 U/L (14-59) Alkaline Phosphatase 102 U/L (46-116) Creatine Kinase 39 U/L (26-192) Creatine Kinase MB (Mass) 0.9 ng/mL (0.0-3.6) Creatine Kinase MB Relative Index % (0-4) Troponin I Quantitative < 0.017 ng/mL (0.000-0.055) CV-Tcn-W-Type Natriuretic Peptide 23 pg/mL (0-124) Total Protein 7.0 g/dL (6.4-8.2) Albumin 3.1 g/dL (3.4-5.0) L Lipase 397 U/L (73-393) H Thyroid Stimulating Hormone (TSH) 1.540 uIU/mL (0.358-3.74) Stool Occult Blood Positive (NEG) Laboratory Tests 06/05/17 10:00 Laboratory Tests 06/05/17 10:00 EKG EKG EKG shows sinus rhythm rate 94 bpm without any concerning ST elevations or T- wave inversions, left axis deviation noted, QTC 428 ms, as interpreted by me. Radiology/Procedures Radiology/Procedures [facility] [address] [place], [place] [id number] IMAGING REPORT Signed PATIENT: LINDSAY MORALES ACCOUNT: [id number] : 1950 LOCATION: ER AGE: 66 SEX: F EXAM STATUS: REG ER ORD. PHYSICIAN: JAMIE AMANDA MD REASON: abd pain PROCEDURE: ACUTE ABDOMEN SERIES Acute abdominal series to include a PA chest radiograph 06/05/2017 Clinical History: Abdominal pain. A PA digital radiograph of the chest was obtained. Supine and erect AP digital radiographs of the abdomen/pelvis were obtained. Comparison is made to a CT scan of the abdomen and pelvis dated 05/30/2017. The cardiac silhouette is normal in size. The thoracic aorta is mildly tortuous. No acute pulmonary infiltrate is seen. No pleural effusion or pneumothorax is noted. Surgical clips are seen within the right upper quadrant of the abdomen consistent with a cholecystectomy. Cagelike devices overlie the L4-5 disc space. Mild air distention of both small and large bowel loops is seen. There is no evidence of bowel obstruction. No free air is noted. The osseous structures are unchanged. Impression: Nonobstructive bowel gas pattern. DICTATED and SIGNED BY: CAROL CORDOBA MD DATE: 06/05/17 1103 CC: JAMIE AMANDA MD; MERRICK MAGAÑA MD ~ CT abdomen and pelvis was performed on 05/30/2017 shows: #1 severe, and bile duct dilation. Is also dilation of the hepatic bile ducts and pancreatic duct. Etiology uncertain. Findings suggest a distal common bile duct stenosis or infection. #2 mild wall thickening of the descending colon and sigmoid colon and rectum. Findings are most compatible with nonspecific infectious or inflammatory colitis. Moderate constipation. Mild small bowel dilation, most likely an ileus. #3 mild irregular urinary bladder wall thickening. This may represent an acute or chronic cystitis, but recommendation follow-up #4 lumbar's on the lysis and stenosis Impressions: GI bleed Generalized weakness Course & Med Decision Making Course & Med Decision Making Pertinent Labs and Imaging studies reviewed. (See chart for details) She presented with epigastric pain and history of dark stools. She had 2 bowel movement here 1 was sent down for analysis and showed positive for blood. I spoke with GI for consultation. I started the patient on Protonix and octreotide secondary to her history of alcohol abuse [address] scan that was performed on May 30 report was given to me and her inner that information above in the radiology section. At this time I will start Cipro and Flagyl on the patient and admit to the hospitalist. Type and screen has been performed with a every 6 hours H&H's. Dragjeanette Disclaimer Dragon Disclaimer This electronic medical record was generated, in whole or in part, using a voice recognition dictation system. Departure Departure Impression: Primary Impression: GI bleed Disposition: ADMITTED INPATIENT Admitting Physician: Norah Fitzgerald Condition: STABLE Referrals: MERRICK MAGAÑA MD (PCP) JAMIE AMANDA MD Jun 05, 2017 09:46
[2017-06-05] MEDS ORDERED: IV NORMAL SALINE 1000ML BAG 1,000 ML IV SCH (10:15)
[2017-06-05 10:22] LABS: BASO # 0.1 x10^3/uL (0.0-0.2); BASO % 1 % (0-3); EOS % 0 % (0-3); HEMATOCRIT 30.3 % (36.0-47.0); HEMOGLOBIN 10.1 g/dL (12.0-15.5); LYMPH # 1.6 x10^3/uL (1.0-4.8); LYMPH % 20 % (24-48); MEAN CORPUSCULAR HEMOGLOBIN 34 pg (25-35); MEAN CORPUSCULAR HGB CONC 34 g/dL (31-37); MEAN CORPUSCULAR VOLUME 101 fL (79-100); MONO % 8 % (0-9); NEUT % 71 % (31-73); PLATELET COUNT 638 x10^3/uL (140-400); RED BLOOD COUNT 2.99 x10^6/uL (3.50-5.40); RED CELL DISTRIBUTION WIDTH 16.1 % (11.5-14.5); WHITE BLOOD COUNT 8.2 x10^3/uL (4.0-11.0)
[2017-06-05 10:32] LABS: PROTHROMBIN TIME PATIENT 12.2 SEC (11.7-14.0)
[2017-06-05 10:39] LABS: CALCIUM 8.4 mg/dL (8.5-10.1); GFR 55.5; POTASSIUM 4.5 mmol/L (3.5-5.1)
[2017-06-05 10:46] LABS: NEG OBC FOB NEG; POS OBC FOB POS
[2017-06-05] MEDS ORDERED: fentaNYL PF VIAL 100 MCG/2 ML VIAL ONE (10:46)
[2017-06-05 10:48] LABS: ALBUMIN 3.1 g/dL (3.4-5.0); DIRECT BILIRUBIN 0.1 mg/dL (0.0-0.2); MAGNESIUM 2.1 mg/dL (1.8-2.4); TOTAL BILIRUBIN 0.2 mg/dL (0.2-1.0)
[2017-06-05] MEDS: fentaNYL PF VIAL 100 MCG/2 ML VIAL IV PRN ×3 (10:50→19:24)
[2017-06-05 10:56] LABS: CKMB MASS 0.9 ng/mL (0.0-3.6); CREATINE KINASE 39 U/L (26-192)
[2017-06-05 11:05] LABS: BILIRUBIN,URINE SMALL (NEG); GLUCOSE,URINE NEGATIVE (NEG); PROTEIN,URINE NEGATIVE (NEG-TRACE); UROBILINOGEN,URINE 0.2 mg/dL (0.2 mg/dL)
[2017-06-05 11:06] LABS: BACTERIA,URINE 0 /HPF (0-FEW); NITRITE,URINE NEGATIVE (NEG); RBC,URINE 0 /HPF (0-2); SQUAMOUS EPITHELIAL CELL,UR FEW /LPF; WBC,URINE 0 /HPF (0-4)
--- NOTE | 2017-06-05 11:10 | RAD ---
Acute abdominal series to include a PA chest radiograph 06/05/2017 Clinical History: Abdominal pain. A PA digital radiograph of the chest was obtained. Supine and erect AP digital radiographs of the abdomen/pelvis were obtained. Comparison is made to a CT scan of the abdomen and pelvis dated 05/30/2017. The cardiac silhouette is normal in size. The thoracic aorta is mildly tortuous. No acute pulmonary infiltrate is seen. No pleural effusion or pneumothorax is noted. Surgical clips are seen within the right upper quadrant of the abdomen consistent with a cholecystectomy. Cagelike devices overlie the L4-5 disc space. Mild air distention of both small and large bowel loops is seen. There is no evidence of bowel obstruction. No free air is noted. The osseous structures are unchanged. Impression: Nonobstructive bowel gas pattern.
[2017-06-05] MEDS ORDERED: PANTOPRAZOLE SODIUM IV DRIP 80 MG in IV NORMAL SALINE 100ML 100 ML IV ONE (12:00)
[2017-06-05] MEDS ORDERED: OCTREOTIDE 500 MCG in IV NORMAL SALINE 100ML 100 ML IV PRN (12:00)
[2017-06-05] MEDS ORDERED: ONDANSETRON PF 4 MG/2 ML VIAL. IV PRN (12:30)
--- NOTE | 2017-06-05 12:38 | PDOC2 ---
GI CONSULT Reason For Consult: Bloody diarrhea HPI: HPI: 66 y/o female who has previously seen Dr. Echevarria. Ill x 3 weeks w/ dark diarrhea, no precipitating events. Describes watery stools "all day long," worse after eating but can occur if avoids eating. More recently stools have looked "tammy" and then today appeared reddish. CT A/P on 05/30/17 showed severe common bile duct dilatation, also dilatation of the hepatic bile ducts and pancreatic duct, mild wall thickening of the descending colon, sigmoid colon and rectum (c/w nonspecific infectious or inflammatory colitis), moderate constipation, mild small bowel dilatation. Also says had stool studies and has been on 2 different antibiotics. Has chronic epigastric/right-sided abd pain. W/ diarrhea, has had significant bloating after eating and indigestion. Taking Tums and Rolaids. Takes hydrocodone for chronic back/neck pain, denies NSAIDs. Thinks has lost 1 pound. Feels hungry all the time. S/p cholecystectomy. H/ o heavy alcohol use, sober x 9 years. Some SOA attributed to smoking, no CP or dizziness. D/w office, per records: EGD 04/2011 w/ gastritis (no biopsy) and Schatzki's ring (dilated). In 2013, and normal liver US and SBS. She reports normal colonoscopy sometime before 2010. Labs: Hgb 10.1, normal INR and plt, BUN 22 w/ Cr 1, lipase 397 w/ normal LFTs, fecal occult positive. For comparison Hgb 14.1 in 05/2016, vit B12 WNL 06/2016. D/w ER physician, has been started on IV octreotide and PPI. Summary list shows Amitiza, Meloxicam, and famotidine. PMH: PMH: HTN, COPD, UTIs, fibromyalgia, depression/anxiety, hysterectomy, appendectomy, cholecystectomy, right ankle fracture, back and neck surgeries FH: Family History: No pertinent hx Social History: Smoke: 2 packs per day (1.5 ppd) ALCOHOL: other (sober 9 years, previously drank 8-9 beers daily) Drugs: None ROS: GEN: Denies fevers, chills, sweats HEENT: Denies blurred vision, sore throat CV: Denies chest pain RESP:+SOA (stable) GI: Per HPI : Denies hematuria, dysuria ENDO: +lost 1 pound NEURO: Denies confusion, dizziness MSK: +back/neck pain SKIN: Denies jaundice, pruritus Vitals: Vitals: Vital Signs Date Time Temp Pulse Resp B/P (MAP) Pulse Ox O2 Delivery O2 Flow Rate FiO2 06/05/17 11:55 102 19 141/91 (108) 94 Room Air 06/05/17 09:55 98.8 98.8 Labs: Labs: Laboratory Tests Test 06/05/17 10:00 06/05/17 10:37 White Blood Count 8.2 x10^3/uL (4.0-11.0) Red Blood Count 2.99 x10^6/uL (3.50-5.40) Hemoglobin 10.1 g/dL (12.0-15.5) Hematocrit 30.3 % (36.0-47.0) Mean Corpuscular Volume 101 fL (79-100) Mean Corpuscular Hemoglobin 34 pg (25-35) Mean Corpuscular Hemoglobin Concent 34 g/dL (31-37) Red Cell Distribution Width 16.1 % (11.5-14.5) Platelet Count 638 x10^3/uL (140-400) Neutrophils (%) (Auto) 71 % (31-73) Lymphocytes (%) (Auto) 20 % (24-48) Monocytes (%) (Auto) 8 % (0-9) Eosinophils (%) (Auto) 0 % (0-3) Basophils (%) (Auto) 1 % (0-3) Neutrophils # (Auto) 5.9 x10^3uL (1.8-7.7) Lymphocytes # (Auto) 1.6 x10^3/uL (1.0-4.8) Monocytes # (Auto) 0.6 x10^3/uL (0.0-1.1) Eosinophils # (Auto) 0.0 x10^3/uL (0.0-0.7) Basophils # (Auto) 0.1 x10^3/uL (0.0-0.2) Prothrombin Time 12.2 SEC (11.7-14.0) Prothromb Time International Ratio 1.0 (0.8-1.1) Urine Collection Type Unknown Urine Color Straw Urine Clarity Hazy Urine pH 7.0 Urine Specific [place] 1.020 Urine Protein Negative mg/dL (NEG-TRACE) Urine Glucose (UA) Negative mg/dL (NEG) Urine Ketones (Stick) Negative mg/dL (NEG) Urine Blood Negative (NEG) Urine Nitrite Negative (NEG) Urine Bilirubin Small (NEG) Urine Urobilinogen Dipstick 0.2 mg/dL (0.2 mg/dL) Urine Leukocyte Esterase Negative (NEG) Urine RBC 0 /HPF (0-2) Urine WBC 0 /HPF (0-4) Urine Squamous Epithelial Cells Few /LPF Urine Bacteria 0 /HPF (0-FEW) Sodium Level 133 mmol/L (136-145) Potassium Level 4.5 mmol/L (3.5-5.1) Chloride Level 97 mmol/L (98-107) Carbon Dioxide Level 23 mmol/L (21-32) Anion Gap 13 (6-14) Blood Urea Nitrogen 22 mg/dL (7-20) Creatinine 1.0 mg/dL (0.6-1.0) Estimated GFR (Cockcroft-Gault) 55.5 Glucose Level 122 mg/dL (70-99) Calcium Level 8.4 mg/dL (8.5-10.1) Magnesium Level 2.1 mg/dL (1.8-2.4) Total Bilirubin 0.2 mg/dL (0.2-1.0) Direct Bilirubin 0.1 mg/dL (0.0-0.2) Aspartate Amino Transf (AST/SGOT) 18 U/L (15-37) Alanine Aminotransferase (ALT/SGPT) 15 U/L (14-59) Alkaline Phosphatase 102 U/L (46-116) Creatine Kinase 39 U/L (26-192) Creatine Kinase MB (Mass) 0.9 ng/mL (0.0-3.6) Creatine Kinase MB Relative Index % (0-4) Troponin I Quantitative < 0.017 ng/mL (0.000-0.055) ML-Ahp-M-Type Natriuretic Peptide 23 pg/mL (0-124) Total Protein 7.0 g/dL (6.4-8.2) Albumin 3.1 g/dL (3.4-5.0) Lipase 397 U/L (73-393) Thyroid Stimulating Hormone (TSH) 1.540 uIU/mL (0.358-3.74) Stool Occult Blood Positive (NEG) Allergies: Coded Allergies: Iodinated Contrast- Oral and IV Dye (Verified Allergy, Intermediate, ) acyclovir (Verified Allergy, Intermediate, Rash, 08/28/15) iodine (Verified Allergy, Intermediate, 08/28/15) I S O L A T I O N *CONTACT* (Verified Allergy, Unknown, 08/28/15) mrsa + morphine (Verified Adverse Reaction, Intermediate, Nausea, 08/28/15) Medications: Current Medications Medications (Trade) Dose Ordered Sig/John Route PRN Reason Start Time Stop Time Status Last Admin Dose Admin Sodium Chloride 1,000 ml @ 1,000 mls/hr Q1H IV 06/05/17 10:15 06/05/17 11:14 DC 06/05/17 10:15 Fentanyl Citrate (Fentanyl 2ml Vial) 50 mcg PRN Q15MIN PRN IV PAIN GREATER THAN 08/2606/05/17 10:45 06/06/17 10:44 06/05/17 10:50 Imaging: Imaging: Acute Abd Series Impression: Nonobstructive bowel gas pattern. PE: GEN: NAD, thin HEENT: Atraumatic, PERRL LUNGS: diminished anteriorly HEART: tachycardic ABD: BS+, vaguely tender RUQ and epigastrium, BS+ EXTREMITY: No edema SKIN: No rashes, no jaundice NEURO/PSYCH: A & O 3 A/P: A/P: Diarrhea, dyspepsia, bloating -diarrhea x 3 weeks, has been on 2 atbx per PCP -EGD 2010: gastritis, Schatzki's ring -taking Tums/Rolaids -on IV PPI and octreotide per ER Abnormal CT A/P -on 05/30/17: severe common bile duct dilatation, dilatation of the hepatic bile ducts and pancreatic duct, mild wall thickening of the descending colon, sigmoid colon, and rectum w/ moderate constipation and mild small bowel dilatation Chronic abd pain, (also back/neck pain) - stable COPD/SOA - stable Anemia/fecal occult positive, minimally elevated lipase -Hgb 10.1 (compared to 14.1 in 05/2016); BUN 22 w/ Cr 1 -lipase 397; h/o heavy alcohol use, now sober, normal LFTs CRC screen -has had previous colonoscopy, unclear timing -- Reviewed w/ Dr. Echevarria - will check stool studies and anemia parameters. Okay to stop octreotide drip. ?choledochal cyst ORQUIDEA QUIGLEY Jun 05, 2017 12:38
[2017-06-05 12:52] LABS: PLT ESTIMATE INCREASED (ADEQUATE)
[2017-06-05 13:54] LABS: % SAT IRON 10 % (15-34); IRON,SERUM 29 ug/dL (50-170)
[2017-06-05 14:03] VITALS: BP 141/91
[2017-06-05 14:06] LABS: FOLATE 8.68 ng/ml (3.2-20.0)
--- NOTE | 2017-06-05 14:20 | EKG ---
[facility] [address] [place] [address] Test Date: 2017-06-05 Test Time: 10:38:13 Pat Name: LINDSAY MORALES Department: Room: Gender: F Scale Attendant: : 1950 Requested By: JAMIE AMANDA Order Number: [id number] Reading MD: Measurements Intervals [place] Rate: 94 P: 0 CO: 146 QRS: -34 QRSD: 82 T: 71 QT: 338 QTc: 428 Interpretive Statements SINUS RHYTHM ABNORMAL LEFT AXIS DEVIATION QRS(T) CONTOUR ABNORMALITY CONSISTENT WITH ANTEROSEPTAL INFARCT AGE UNDETERMINED T ABNORMALITY IN HIGH LATERAL LEADS ABNORMAL ECG RI6.01 No previous ECG available for comparison
[2017-06-05 14:49] VITALS: BP 148/55
[2017-06-05] MEDS ORDERED: ACETAMINOPHEN 325 MG TABLET. PO PRN (15:00)
[2017-06-05] MEDS ORDERED: oxyCODONE ER 10 MG TAB.ER.12H PO ONE (15:15)
[2017-06-05] MEDS: predniSONE 20 MG TABLET PO SCH (15:16)
[2017-06-05] MEDS: LIDOCAINE (700MG/PATCH) PATCH. TD SCH (15:21)
[2017-06-05] MEDS: NICOTINE 21MG PATCH. TD SCH (15:23)
[2017-06-05] MEDS: ONDANSETRON ODT 4 MG TAB.RAPDIS. PO SCH ×2 (15:25→21:01)
[2017-06-05] MEDS: PARoxetine 20 MG TABLET PO SCH (15:25)
[2017-06-05] MEDS: LOSARTAN POTASSIUM 50 MG TABLET. PO SCH (15:25)
[2017-06-05] MEDS: CARISOPRODOL 350 MG TABLET PO SCH ×2 (15:26→21:01)
[2017-06-05] MEDS: LUBIPROSTONE 8 MCG CAPSULE PO SCH (15:26)
--- NOTE | 2017-06-05 15:30 | PDOC1 ---
History and Physical Date of Admission Date of Admission DATE: 06/05/17 TIME: 15:24 Identification/Chief Complaint Chief Complaint diarrhea, now bloody Problems: Source Source: Caregiver, Chart review, Patient History of Present Illness History of Present Illness Ms. Ordaz is a 66 y/o female admit for blood per rectum She has been seeing Dr. Walker for diarrhea, CT scan was done (showed CBD dilating) and not conclusive (wall thickening only), she was scheduled to have a colonoscopy soon. She has had a long course of watery diarrhea with no cause. Stools got darker recently, then appeared bloody today. she has recent bloating and weight loss and indegestion. She has chroinc back and leg pain, s/p 7 prior back surgeries Past Medical History Past Medical History EGD 04/2011 w/ gastritis (no biopsy) and Schatzki's ring (dilated). In 2013, and normal liver US and SBS. Cardiovascular: HTN Psych: Anxiety, Depression, Other (insomnia) Musculoskeletal: low back pain Past Surgical History Past Surgical History: Other Family History Family History: Alzheimer's Disease Social History Smoke: 2 packs per day (1.5 ppd) ALCOHOL: other (sober 9 years, previously drank 8-9 beers daily) Drugs: None Current Medications Current Medications Current Medications Sodium Chloride 1,000 ml @ 1,000 mls/hr Q1H IV Last administered on 10:15; Start 06/05/17 at 10:15; Stop 06/05/17 at 11:14; Status DC Fentanyl Citrate (Fentanyl 2ml Vial) 50 mcg PRN Q15MIN PRN IV PAIN GREATER THAN 3/10 Last administered on 06/05/17 10:50; Start 06/05/17 at 10:45; Stop 06/06/17 at 10:44 Fentanyl Citrate (Fentanyl 2ml Vial) 100 mcg STK-MED ONCE .ROUTE ; Start at 10:46; Stop 06/05/17 at 10:47; Status DC Octreotide Acetate 500 mcg/ Sodium Chloride 101 ml @ 0 mls/hr CONT PRN IV SEE I /O RECORD Last administered on 06/05/17 12:25; Start 06/05/17 at 12:00; Stop 06/05/17 at 13:23; Status DC Pantoprazole Sodium 80 mg/ Sodium Chloride 100 ml @ 10 mls/hr 1X ONCE IV Last administered on 06/05/17t 12:22; Start 06/05/17 at 12:00; Stop 06/05/17 at 21:59 Ondansetron HCl (Zofran) 4 mg PRN Q8HRS PRN IV NAUSEA/VOMITING; Start at 12:30; Stop 06/06/17 at 12:29 Fentanyl Citrate (Fentanyl 2ml Vial) 50 mcg PRN Q2HR PRN IV PAIN Last administered on 06/05/17t 12:50; Start 06/05/17 at 12:30; Stop 06/06/17 at 12 :29 Acetaminophen (Tylenol) 325 mg PRN Q4HRS PRN PO PAIN/FEVER; Start 06/05/17 at 15:00 Alprazolam (Xanax) 1 mg PRN Q8HRS PRN PO ANXIETY / AGITATION; Start 06/05/17 at 15:00 Carisoprodol (Soma) 350 mg QID PO ; Start 06/05/17 at 17:00 Diltiazem HCl (Cardizem 24hr Cd) 240 mg DAILY PO ; Start 06/05/17 at 16:00 Docusate Sodium (Colace) 100 mg BID PO ; Start 06/05/17 at 21:00 Famotidine (Pepcid) 20 mg DAILY PO ; Start 06/06/17 at 09:00 Acetaminophen/ Hydrocodone Bitart (Lortab 7.5/325) 1 tab PRN Q6HRS PRN PO PAIN ; Start 06/05/17 at 15:00 Levetiracetam (Keppra) 500 mg BID PO ; Start 06/05/17 at 21:00 Mupirocin (Bactroban) 1 indira TID TP ; Start 06/05/17 at 21:00 Ondansetron HCl (Zofran Odt) 4 mg Q8HRS PO ; Start 06/05/17 at 16:00 Lubiprostone (Amitiza) 24 mcg BIDWMEALS PO ; Start 06/05/17 at 17:00 Meloxicam (Mobic) 15 mg DAILY PO ; Start 06/05/17 at 16:00; Stop 06/05/17 at 16:00; Status DC Paroxetine HCl (Paxil) 40 mg DAILY PO ; Start 06/05/17 at 16:00 Losartan Potassium (Cozaar) 100 mg DAILY PO ; Start 06/05/17 at 16:00 Lidocaine (Lidoderm) 1 patch DAILY TD ; Start 06/05/17 at 16:00 Prednisone (Prednisone) 20 mg DAILY PO ; Start 06/05/17 at 16:00 Oxycodone HCl (OxyCONTIN) 10 mg 1X ONCE PO ; Start 06/05/17 at 15:15; Stop at 15:16; Status DC Nicotine (Nicoderm Cq 21mg) 1 patch DAILY TD ; Start 06/05/17 at 16:00 Active Scripts Active Zofran Odt (Ondansetron) 4 Mg Tab.rapdis 1 Tab SL Q8HRS Colace (Docusate Sodium) 100 Mg Capsule 100 Mg PO BID Mupirocin Cream (Mupirocin) 15 Gm Cream..g. 1 Indira TP TID 7 Days Famotidine 20 Mg Tablet 20 Mg PO BID 28 Days Alprazolam 1 Mg Tablet 1 Mg PO PRN Q8HRS PRN 14 Days Reported Meloxicam 15 Mg Tablet 1 Tab PO DAILY Keppra (Levetiracetam) 500 Mg Tablet 1 Tab PO BID Paroxetine Hcl 40 Mg Tablet 40 Mg PO DAILY Amitiza (Lubiprostone) 24 Mcg Capsule 24 Mcg PO BID Hydrocodone-Apap 7.5-325 (Hydrocodone Bit/Acetaminophen) 1 Each Tablet 1 Tab PO PRN Q6HRS PRN Diltiazem 24HR Cd (Diltiazem Hcl) 180 Mg Cap.er.24h 240 Mg PO DAILY Tylenol (Acetaminophen) 325 Mg Tablet 1 Tab PO PRN Q4HRS Carisoprodol 350 Mg Tablet 1 Tab PO QID Losartan Potassium 100 Mg Tablet 100 Mg PO BID Allergies Allergies: Coded Allergies: Iodinated Contrast- Oral and IV Dye (Verified Allergy, Intermediate, ) acyclovir (Verified Allergy, Intermediate, Rash, 08/28/15) iodine (Verified Allergy, Intermediate, 08/28/15) I S O L A T I O N *CONTACT* (Verified Allergy, Unknown, 08/28/15) mrsa + morphine (Verified Adverse Reaction, Intermediate, Nausea, 08/28/15) ROS General: YES: Fatigue, No: Chills, Night Sweats, Malaise, Appetite, Other PSYCHOLOGICAL ROS: YES: Sleep disturbances, No: Anxiety, Behavioral Disorder, Concentration difficultie, Decreased libido , Depression, Disorientation, Hallucinations, Hostility, Irritablity, Memory difficulties, Mood Swings, Obsessive thoughts, Other Eyes: No Blurry vision, No Decreased vision, No Double vision, No Dry eyes, No Excessive tearing, No Eye Pain, No Itchy Eyes, No Loss of vision, No Photophobia , No Scotomata, No Uses contacts, No Uses glasses, No Other HEENT: No: Heacaches, Visual Changes, Hearing change, Nasal congestion, Nasal discharge, Oral lesions, Sinus pain, Sore Throat, Epistaxis, Sneezing, Snoring, Tinnitus, Vertigo, Vocal changes, Other Cardiovascular: No Chest Pain, No Palpitations, No Orthopnea, No Paroxysmal Noc. Dyspnea, No Edema, No Lt Headedness, No Other Gastrointestinal: No Nausea, No Vomiting, No Abdominal Pain, No Diarrhea, No Constipation, No Melena, No Hematochezia, No Other Genitourinary: No Dysuria, No Frequency, No Incontinence, No Hematuria, No Retention, No Discharge, No Urgency, No Pain, No Flank Pain, No Other, No , No , No , No , No , No , No Musculoskeletal: Yes Gait Disturbance, Yes Joint Pain, Yes Joint Stiffness Neurological: No Behavorial Changes, No Bowel/Bladder ControlChng, No Confusion , No Dizziness, No Gait Disturbance, No Headaches, No Impaired Coord/balance, No Memory Loss, No Numbness/Tingling, No Seizures, No Speech Problems, No Tremors, No Visual Changes, No Weakness, No Other Skin: Yes Dry Skin, No Eczema, No Hair Changes, No Lumps, No Mole Changes, No Mottling, No Nail Changes, No Pruritus, No Rash, No Skin Lesion Changes, No Other, No Acne Physical Exam General: Alert, Oriented X3, Cooperative, mild distress HEENT: PERRLA, EOMI, Mucous membr. moist/pink Lungs: Clear to auscultation Heart: S1S2, no gallops, no murmurs Extremities: No edema, Normal pulses Skin: No significant lesion Neuro: Normal tone, Sensation intact, Cranial nerves 3-12 NL Psych/Mental Status: Mood NL Vitals Vitals Vital Signs Date Time Temp Pulse Resp B/P (MAP) Pulse Ox O2 Delivery O2 Flow Rate FiO2 06/05/17 14:49 98.2 90 16 148/55 (86) 95 Room Air 98.2 Labs Labs Laboratory Tests Test 06/05/17 10:00 06/05/17 10:37 White Blood Count 8.2 x10^3/uL (4.0-11.0) Red Blood Count 2.99 x10^6/uL (3.50-5.40) Hemoglobin 10.1 g/dL (12.0-15.5) Hematocrit 30.3 % (36.0-47.0) Mean Corpuscular Volume 101 fL (79-100) Mean Corpuscular Hemoglobin 34 pg (25-35) Mean Corpuscular Hemoglobin Concent 34 g/dL (31-37) Red Cell Distribution Width 16.1 % (11.5-14.5) Platelet Count 638 x10^3/uL (140-400) Neutrophils (%) (Auto) 71 % (31-73) Lymphocytes (%) (Auto) 20 % (24-48) Monocytes (%) (Auto) 8 % (0-9) Eosinophils (%) (Auto) 0 % (0-3) Basophils (%) (Auto) 1 % (0-3) Neutrophils # (Auto) 5.9 x10^3uL (1.8-7.7) Lymphocytes # (Auto) 1.6 x10^3/uL (1.0-4.8) Monocytes # (Auto) 0.6 x10^3/uL (0.0-1.1) Eosinophils # (Auto) 0.0 x10^3/uL (0.0-0.7) Basophils # (Auto) 0.1 x10^3/uL (0.0-0.2) Segmented Neutrophils % 66 % (35-66) Band Neutrophils % 6 % (0-9) Lymphocytes % 21 % (24-48) Monocytes % 7 % (0-10) Platelet Estimate Increased (ADEQUATE) Reticulocyte Count (auto) 2.9 % (0.5-2.5) Prothrombin Time 12.2 SEC (11.7-14.0) Prothromb Time International Ratio 1.0 (0.8-1.1) Urine Collection Type Unknown Urine Color Straw Urine Clarity Hazy Urine pH 7.0 Urine Specific [place] 1.020 Urine Protein Negative mg/dL (NEG-TRACE) Urine Glucose (UA) Negative mg/dL (NEG) Urine Ketones (Stick) Negative mg/dL (NEG) Urine Blood Negative (NEG) Urine Nitrite Negative (NEG) Urine Bilirubin Small (NEG) Urine Urobilinogen Dipstick 0.2 mg/dL (0.2 mg/dL) Urine Leukocyte Esterase Negative (NEG) Urine RBC 0 /HPF (0-2) Urine WBC 0 /HPF (0-4) Urine Squamous Epithelial Cells Few /LPF Urine Bacteria 0 /HPF (0-FEW) Sodium Level 133 mmol/L (136-145) Potassium Level 4.5 mmol/L (3.5-5.1) Chloride Level 97 mmol/L (98-107) Carbon Dioxide Level 23 mmol/L (21-32) Anion Gap 13 (6-14) Blood Urea Nitrogen 22 mg/dL (7-20) Creatinine 1.0 mg/dL (0.6-1.0) Estimated GFR (Cockcroft-Gault) 55.5 Glucose Level 122 mg/dL (70-99) Calcium Level 8.4 mg/dL (8.5-10.1) Magnesium Level 2.1 mg/dL (1.8-2.4) Iron Level 29 ug/dL (50-170) Total Iron Binding Capacity 296 ug/dL (250-450) Iron Saturation 10 % (15-34) Total Bilirubin 0.2 mg/dL (0.2-1.0) Direct Bilirubin 0.1 mg/dL (0.0-0.2) Aspartate Amino Transf (AST/SGOT) 18 U/L (15-37) Alanine Aminotransferase (ALT/SGPT) 15 U/L (14-59) Alkaline Phosphatase 102 U/L (46-116) Creatine Kinase 39 U/L (26-192) Creatine Kinase MB (Mass) 0.9 ng/mL (0.0-3.6) Creatine Kinase MB Relative Index % (0-4) Troponin I Quantitative < 0.017 ng/mL (0.000-0.055) HG-Lqu-H-Type Natriuretic Peptide 23 pg/mL (0-124) Total Protein 7.0 g/dL (6.4-8.2) Albumin 3.1 g/dL (3.4-5.0) Lipase 397 U/L (73-393) Vitamin B12 Level 838 pg/mL (247-911) Serum Folate 8.68 ng/ml (3.2-20.0) Thyroid Stimulating Hormone (TSH) 1.540 uIU/mL (0.358-3.74) Stool Occult Blood Positive (NEG) Laboratory Tests Test 06/05/17 10:00 06/05/17 10:37 White Blood Count 8.2 x10^3/uL (4.0-11.0) Red Blood Count 2.99 x10^6/uL (3.50-5.40) Hemoglobin 10.1 g/dL (12.0-15.5) Hematocrit 30.3 % (36.0-47.0) Mean Corpuscular Volume 101 fL (79-100) Mean Corpuscular Hemoglobin 34 pg (25-35) Mean Corpuscular Hemoglobin Concent 34 g/dL (31-37) Red Cell Distribution Width 16.1 % (11.5-14.5) Platelet Count 638 x10^3/uL (140-400) Neutrophils (%) (Auto) 71 % (31-73) Lymphocytes (%) (Auto) 20 % (24-48) Monocytes (%) (Auto) 8 % (0-9) Eosinophils (%) (Auto) 0 % (0-3) Basophils (%) (Auto) 1 % (0-3) Neutrophils # (Auto) 5.9 x10^3uL (1.8-7.7) Lymphocytes # (Auto) 1.6 x10^3/uL (1.0-4.8) Monocytes # (Auto) 0.6 x10^3/uL (0.0-1.1) Eosinophils # (Auto) 0.0 x10^3/uL (0.0-0.7) Basophils # (Auto) 0.1 x10^3/uL (0.0-0.2) Segmented Neutrophils % 66 % (35-66) Band Neutrophils % 6 % (0-9) Lymphocytes % 21 % (24-48) Monocytes % 7 % (0-10) Platelet Estimate Increased (ADEQUATE) Reticulocyte Count (auto) 2.9 % (0.5-2.5) Prothrombin Time 12.2 SEC (11.7-14.0) Prothromb Time International Ratio 1.0 (0.8-1.1) Urine Collection Type Unknown Urine Color Straw Urine Clarity Hazy Urine pH 7.0 Urine Specific [place] 1.020 Urine Protein Negative mg/dL (NEG-TRACE) Urine Glucose (UA) Negative mg/dL (NEG) Urine Ketones (Stick) Negative mg/dL (NEG) Urine Blood Negative (NEG) Urine Nitrite Negative (NEG) Urine Bilirubin Small (NEG) Urine Urobilinogen Dipstick 0.2 mg/dL (0.2 mg/dL) Urine Leukocyte Esterase Negative (NEG) Urine RBC 0 /HPF (0-2) Urine WBC 0 /HPF (0-4) Urine Squamous Epithelial Cells Few /LPF Urine Bacteria 0 /HPF (0-FEW) Sodium Level 133 mmol/L (136-145) Potassium Level 4.5 mmol/L (3.5-5.1) Chloride Level 97 mmol/L (98-107) Carbon Dioxide Level 23 mmol/L (21-32) Anion Gap 13 (6-14) Blood Urea Nitrogen 22 mg/dL (7-20) Creatinine 1.0 mg/dL (0.6-1.0) Estimated GFR (Cockcroft-Gault) 55.5 Glucose Level 122 mg/dL (70-99) Calcium Level 8.4 mg/dL (8.5-10.1) Magnesium Level 2.1 mg/dL (1.8-2.4) Iron Level 29 ug/dL (50-170) Total Iron Binding Capacity 296 ug/dL (250-450) Iron Saturation 10 % (15-34) Total Bilirubin 0.2 mg/dL (0.2-1.0) Direct Bilirubin 0.1 mg/dL (0.0-0.2) Aspartate Amino Transf (AST/SGOT) 18 U/L (15-37) Alanine Aminotransferase (ALT/SGPT) 15 U/L (14-59) Alkaline Phosphatase 102 U/L (46-116) Creatine Kinase 39 U/L (26-192) Creatine Kinase MB (Mass) 0.9 ng/mL (0.0-3.6) Creatine Kinase MB Relative Index % (0-4) Troponin I Quantitative < 0.017 ng/mL (0.000-0.055) OB-Sde-S-Type Natriuretic Peptide 23 pg/mL (0-124) Total Protein 7.0 g/dL (6.4-8.2) Albumin 3.1 g/dL (3.4-5.0) Lipase 397 U/L (73-393) Vitamin B12 Level 838 pg/mL (247-911) Serum Folate 8.68 ng/ml (3.2-20.0) Thyroid Stimulating Hormone (TSH) 1.540 uIU/mL (0.358-3.74) Stool Occult Blood Positive (NEG) VTE Prophylaxis Ordered VTE Prophylaxis Devices: Yes VTE Pharmacological Prophylaxi: Contraindicated Assessment/Plan Assessment/Plan GI bleed, acute blood loss anemia melena, poss upper GI bleed, octreotide and PPI started acute on chronic back and leg pain, home meds, physiatry consult tobaccoism, cessation recommended ALPESH MINAYA MD Jun 05, 2017 15:30
[2017-06-05] MEDS ORDERED: MELOXICAM 7.5 MG TABLET PO SCH (16:00)
[2017-06-05] MEDS: HYDROcodone/APAP 7.5/325MG 1 TAB TABLET PO PRN ×2 (16:23→22:50)
[2017-06-05 19:00] VITALS: BP 166/87
[2017-06-05] MEDS ORDERED: methylPREDNISolone ACETATE 40 MG/ML VIAL. INT ART ONE (19:00)
[2017-06-05] MEDS ORDERED: BUPIVACAINE MPF 0.25% 10 ML VIAL. IJ ONE (19:00)
[2017-06-05] MEDS: MUPIROCIN 2 % TOPICAL CREAM 15GM TUBE. TP SCH (21:00)
[2017-06-05] MEDS: DOCUSATE SODIUM 100 MG CAPSULE. PO SCH (21:00)
[2017-06-05] MEDS: levETIRAcetam 500 MG TABLET PO SCH (21:01)
[2017-06-05 22:56] VITALS: BP 119/88
[2017-06-06] VITALS (12 sets, daily range): BP systolic 94–133; BP diastolic 51–86
--- NOTE | 2017-06-06 00:01 | CONS ---
DATE OF CONSULTATION: 06/05/2017 ATTENDING PHYSICIAN: Dr. Fitzgerald. The patient was seen at the request of Dr. Fitzgerald for rehab evaluation about her right knee pain. HISTORY OF PRESENT ILLNESS: This is a 66-year-old female patient being followed by Dr. Echevarria for diarrhea. CT scan showed CBD dilating with wall thickening only. She was scheduled to have colonoscopy soon. She had a course of watery diarrhea going on for a while without any cause. Stools got dark recently, appeared bloody today, also recent bloating and weight loss and indigestion. The patient status post 7 back surgeries. She denies any chronic back pain at the present time. She admits to pain in her right knee since she fell in November and fractured her right foot. She admits to some pain in her right foot. PAST MEDICAL HISTORY: Significant for hypertension, anxiety, depression, insomnia and chronic lower back pain. The patient lives with her , had a flight of stairs to get around. She had acute abdominal series done today, which revealed nonobstructive bowel gas pattern. FAMILY HISTORY: Muscle disease. SOCIAL HISTORY: She still smokes about 1-1/2 pack of cigarettes per day. Has been sober from alcohol for 9 years, previously had about 8-9 beers daily. PHYSICAL EXAMINATION: Today revealed a middle-aged female. She is alert; oriented to time, place, person and circumstance and follows commands appropriately. She is receiving IV fluids. She had 5/5 grade muscle strength in her lower extremities and deep tendon reflexes were 2+ and symmetrical and she had equal perception of touch and pinprick sensation bilaterally. Crepitus on range of motion on both knee joints with mild laxity of her right knee joint collateral ligament. She had flatfoot deformity of her right foot and minimal tenderness to palpation over right fifth toe at tarsometatarsal joint area. No significant pain on range of motion of her ankle itself. She had pain-free range of motion on both hip joints. No significant tenderness to palpation over lumbar spine area at the present time. She is independent with bed mobility and transfers and walking at bedside, without any significant limping. ASSESSMENT: Degenerative joint disease of right knee with recent pain after a fall and fracture of her right foot, with associated pain in her right foot. RECOMMENDATIONS: To consider injecting her right knee if there are no contraindications, which I will do tomorrow if okay with Dr. Fitzgerald. Dr. Fitzgerald, I appreciate asking me to participate in the care of this interesting patient. IDANIA ALEXANDER MD DR: YASEMIN/joseph JOB#: [id number] / [id number]
[2017-06-06] MEDS: ALPRAZolam 1 MG TABLET PO PRN ×3 (01:19→21:13)
[2017-06-06] MEDS: fentaNYL PF VIAL 100 MCG/2 ML VIAL IV PRN ×9 (01:19→21:14)
[2017-06-06] MEDS: ONDANSETRON ODT 4 MG TAB.RAPDIS. PO SCH ×3 (04:56→21:13)
[2017-06-06 06:24] LABS: BASO # 0.1 x10^3/uL (0.0-0.2); BASO % 1 % (0-3); EOS % 0 % (0-3); HEMOGLOBIN 8.6 g/dL (12.0-15.5); LYMPH # 1.9 x10^3/uL (1.0-4.8); LYMPH % 23 % (24-48); MEAN CORPUSCULAR HEMOGLOBIN 33 pg (25-35); MEAN CORPUSCULAR HGB CONC 33 g/dL (31-37); MEAN CORPUSCULAR VOLUME 101 fL (79-100); MONO % 7 % (0-9); NEUT % 69 % (31-73); PLATELET COUNT 623 x10^3/uL (140-400); RED BLOOD COUNT 2.59 x10^6/uL (3.50-5.40); RED CELL DISTRIBUTION WIDTH 15.8 % (11.5-14.5); WHITE BLOOD COUNT 8.2 x10^3/uL (4.0-11.0)
[2017-06-06 06:29] LABS: CALCIUM 7.8 mg/dL (8.5-10.1); CREATININE 0.8 mg/dL (0.6-1.0); GFR 71.8; POTASSIUM 4.5 mmol/L (3.5-5.1)
[2017-06-06] MEDS: LUBIPROSTONE 8 MCG CAPSULE PO SCH ×2 (08:00→17:01)
[2017-06-06] MEDS: PARoxetine 20 MG TABLET PO SCH (08:34)
[2017-06-06] MEDS: FAMOTIDINE 20 MG TABLET. PO SCH (08:35)
[2017-06-06] MEDS: CARISOPRODOL 350 MG TABLET PO SCH ×4 (08:35→21:13)
[2017-06-06] MEDS: predniSONE 20 MG TABLET PO SCH (08:35)
[2017-06-06] MEDS: levETIRAcetam 500 MG TABLET PO SCH ×2 (08:35→21:13)
[2017-06-06] MEDS: LOSARTAN POTASSIUM 50 MG TABLET. PO SCH (08:35)
[2017-06-06] MEDS: NICOTINE 21MG PATCH. TD SCH (08:36)
[2017-06-06] MEDS: DOCUSATE SODIUM 100 MG CAPSULE. PO SCH ×2 (08:36→21:00)
[2017-06-06] MEDS: LIDOCAINE (700MG/PATCH) PATCH. TD SCH (08:36)
[2017-06-06] MEDS: MUPIROCIN 2 % TOPICAL CREAM 15GM TUBE. TP SCH ×3 (09:00→21:00)
--- NOTE | 2017-06-06 11:32 | PDOC ---
PROGRESS NOTES Chief Complaint Chief Complaint GI bleed Melena Diarrhea HTN PMH gastritis COPD History of Present Illness History of Present Illness Patient was admitted after reporting a long course of watery diarrhea she had been following with Dr. Echevarria for that turned darker 3 weeks ago and then began having bloody stools. She was hemocolt positive and has become more anemic since her initial presentation. She is being followed by Dr Thurman and Wale and was resting comfortably in the room NPO waiting for her EGD. Vitals Vitals Vital Signs Date Time Temp Pulse Resp B/P (MAP) Pulse Ox O2 Delivery O2 Flow Rate FiO2 06/06/17 11:00 97.9 80 18 94/51 (65) 96 Room Air 97.9 Physical Exam General: Alert, Oriented X3, Cooperative, mild distress Abdomen: Normal bowel sounds, Soft, No tenderness Extremities: No edema, Normal pulses Skin: No rashes, No significant lesion Labs LABS Laboratory Tests Test 06/05/17 18:00 06/06/17 00:20 06/06/17 05:10 Hemoglobin 9.4 g/dL (12.0-15.5) 9.2 g/dL (12.0-15.5) 8.6 g/dL (12.0-15.5) Troponin I Quantitative < 0.017 ng/mL (0.000-0.055) < 0.017 ng/mL (0.000-0.055) White Blood Count 8.2 x10^3/uL (4.0-11.0) Red Blood Count 2.59 x10^6/uL (3.50-5.40) Hematocrit 26.0 % (36.0-47.0) Mean Corpuscular Volume 101 fL (79-100) Mean Corpuscular Hemoglobin 33 pg (25-35) Mean Corpuscular Hemoglobin Concent 33 g/dL (31-37) Red Cell Distribution Width 15.8 % (11.5-14.5) Platelet Count 623 x10^3/uL (140-400) Neutrophils (%) (Auto) 69 % (31-73) Lymphocytes (%) (Auto) 23 % (24-48) Monocytes (%) (Auto) 7 % (0-9) Eosinophils (%) (Auto) 0 % (0-3) Basophils (%) (Auto) 1 % (0-3) Neutrophils # (Auto) 5.7 x10^3uL (1.8-7.7) Lymphocytes # (Auto) 1.9 x10^3/uL (1.0-4.8) Monocytes # (Auto) 0.6 x10^3/uL (0.0-1.1) Eosinophils # (Auto) 0.0 x10^3/uL (0.0-0.7) Basophils # (Auto) 0.1 x10^3/uL (0.0-0.2) Sodium Level 131 mmol/L (136-145) Potassium Level 4.5 mmol/L (3.5-5.1) Chloride Level 96 mmol/L (98-107) Carbon Dioxide Level 26 mmol/L (21-32) Anion Gap 9 (6-14) Blood Urea Nitrogen 17 mg/dL (7-20) Creatinine 0.8 mg/dL (0.6-1.0) Estimated GFR (Cockcroft-Gault) 71.8 Glucose Level 129 mg/dL (70-99) Calcium Level 7.8 mg/dL (8.5-10.1) Review of Systems Review of Systems Patient denies hematemesis Patient reports BRBPR, diarrhea, and melena Assessment and Plan Assessmemt and Plan Assessment: GI bleed Melena Diarrhea HTN PMH gastritis COPD Plan: EGD today NPO until after procedure ADAT as decided by GI Appreciate subspecialist input Recheck labs Continue PPI Home meds PT/OT Discharge when determined by GI Problems: Comment Review of Relevant I have reviewed the following items minh (where applicable) has been applied. Labs Laboratory Tests Test 06/05/17 10:00 06/05/17 10:37 06/05/17 18:00 06/06/17 00:20 White Blood Count 8.2 x10^3/uL (4.0-11.0) Red Blood Count 2.99 x10^6/uL (3.50-5.40) Hemoglobin 10.1 g/dL (12.0-15.5) 9.4 g/dL (12.0-15.5) 9.2 g/dL (12.0-15.5) Hematocrit 30.3 % (36.0-47.0) Mean Corpuscular Volume 101 fL (79-100) Mean Corpuscular Hemoglobin 34 pg (25-35) Mean Corpuscular Hemoglobin Concent 34 g/dL (31-37) Red Cell Distribution Width 16.1 % (11.5-14.5) Platelet Count 638 x10^3/uL (140-400) Neutrophils (%) (Auto) 71 % (31-73) Lymphocytes (%) (Auto) 20 % (24-48) Monocytes (%) (Auto) 8 % (0-9) Eosinophils (%) (Auto) 0 % (0-3) Basophils (%) (Auto) 1 % (0-3) Neutrophils # (Auto) 5.9 x10^3uL (1.8-7.7) Lymphocytes # (Auto) 1.6 x10^3/uL (1.0-4.8) Monocytes # (Auto) 0.6 x10^3/uL (0.0-1.1) Eosinophils # (Auto) 0.0 x10^3/uL (0.0-0.7) Basophils # (Auto) 0.1 x10^3/uL (0.0-0.2) Segmented Neutrophils % 66 % (35-66) Band Neutrophils % 6 % (0-9) Lymphocytes % 21 % (24-48) Monocytes % 7 % (0-10) Platelet Estimate Increased (ADEQUATE) Reticulocyte Count (auto) 2.9 % (0.5-2.5) Prothrombin Time 12.2 SEC (11.7-14.0) Prothromb Time International Ratio 1.0 (0.8-1.1) Urine Collection Type Unknown Urine Color Straw Urine Clarity Hazy Urine pH 7.0 Urine Specific [place] 1.020 Urine Protein Negative mg/dL (NEG-TRACE) Urine Glucose (UA) Negative mg/dL (NEG) Urine Ketones (Stick) Negative mg/dL (NEG) Urine Blood Negative (NEG) Urine Nitrite Negative (NEG) Urine Bilirubin Small (NEG) Urine Urobilinogen Dipstick 0.2 mg/dL (0.2 mg/dL) Urine Leukocyte Esterase Negative (NEG) Urine RBC 0 /HPF (0-2) Urine WBC 0 /HPF (0-4) Urine Squamous Epithelial Cells Few /LPF Urine Bacteria 0 /HPF (0-FEW) Sodium Level 133 mmol/L (136-145) Potassium Level 4.5 mmol/L (3.5-5.1) Chloride Level 97 mmol/L (98-107) Carbon Dioxide Level 23 mmol/L (21-32) Anion Gap 13 (6-14) Blood Urea Nitrogen 22 mg/dL (7-20) Creatinine 1.0 mg/dL (0.6-1.0) Estimated GFR (Cockcroft-Gault) 55.5 Glucose Level 122 mg/dL (70-99) Calcium Level 8.4 mg/dL (8.5-10.1) Magnesium Level 2.1 mg/dL (1.8-2.4) Iron Level 29 ug/dL (50-170) Total Iron Binding Capacity 296 ug/dL (250-450) Iron Saturation 10 % (15-34) Total Bilirubin 0.2 mg/dL (0.2-1.0) Direct Bilirubin 0.1 mg/dL (0.0-0.2) Aspartate Amino Transf (AST/SGOT) 18 U/L (15-37) Alanine Aminotransferase (ALT/SGPT) 15 U/L (14-59) Alkaline Phosphatase 102 U/L (46-116) Creatine Kinase 39 U/L (26-192) Creatine Kinase MB (Mass) 0.9 ng/mL (0.0-3.6) Creatine Kinase MB Relative Index % (0-4) Troponin I Quantitative < 0.017 ng/mL (0.000-0.055) < 0.017 ng/mL (0.000-0.055) < 0.017 ng/mL (0.000-0.055) FN-Utq-G-Type Natriuretic Peptide 23 pg/mL (0-124) Total Protein 7.0 g/dL (6.4-8.2) Albumin 3.1 g/dL (3.4-5.0) Lipase 397 U/L (73-393) Vitamin B12 Level 838 pg/mL (247-911) Serum Folate 8.68 ng/ml (3.2-20.0) Thyroid Stimulating Hormone (TSH) 1.540 uIU/mL (0.358-3.74) Stool Occult Blood Positive (NEG) Test 06/06/17 05:10 White Blood Count 8.2 x10^3/uL (4.0-11.0) Red Blood Count 2.59 x10^6/uL (3.50-5.40) Hemoglobin 8.6 g/dL (12.0-15.5) Hematocrit 26.0 % (36.0-47.0) Mean Corpuscular Volume 101 fL (79-100) Mean Corpuscular Hemoglobin 33 pg (25-35) Mean Corpuscular Hemoglobin Concent 33 g/dL (31-37) Red Cell Distribution Width 15.8 % (11.5-14.5) Platelet Count 623 x10^3/uL (140-400) Neutrophils (%) (Auto) 69 % (31-73) Lymphocytes (%) (Auto) 23 % (24-48) Monocytes (%) (Auto) 7 % (0-9) Eosinophils (%) (Auto) 0 % (0-3) Basophils (%) (Auto) 1 % (0-3) Neutrophils # (Auto) 5.7 x10^3uL (1.8-7.7) Lymphocytes # (Auto) 1.9 x10^3/uL (1.0-4.8) Monocytes # (Auto) 0.6 x10^3/uL (0.0-1.1) Eosinophils # (Auto) 0.0 x10^3/uL (0.0-0.7) Basophils # (Auto) 0.1 x10^3/uL (0.0-0.2) Sodium Level 131 mmol/L (136-145) Potassium Level 4.5 mmol/L (3.5-5.1) Chloride Level 96 mmol/L (98-107) Carbon Dioxide Level 26 mmol/L (21-32) Anion Gap 9 (6-14) Blood Urea Nitrogen 17 mg/dL (7-20) Creatinine 0.8 mg/dL (0.6-1.0) Estimated GFR (Cockcroft-Gault) 71.8 Glucose Level 129 mg/dL (70-99) Calcium Level 7.8 mg/dL (8.5-10.1) Laboratory Tests Test 06/05/17 18:00 06/06/17 00:20 06/06/17 05:10 Hemoglobin 9.4 g/dL (12.0-15.5) 9.2 g/dL (12.0-15.5) 8.6 g/dL (12.0-15.5) Troponin I Quantitative < 0.017 ng/mL (0.000-0.055) < 0.017 ng/mL (0.000-0.055) White Blood Count 8.2 x10^3/uL (4.0-11.0) Red Blood Count 2.59 x10^6/uL (3.50-5.40) Hematocrit 26.0 % (36.0-47.0) Mean Corpuscular Volume 101 fL (79-100) Mean Corpuscular Hemoglobin 33 pg (25-35) Mean Corpuscular Hemoglobin Concent 33 g/dL (31-37) Red Cell Distribution Width 15.8 % (11.5-14.5) Platelet Count 623 x10^3/uL (140-400) Neutrophils (%) (Auto) 69 % (31-73) Lymphocytes (%) (Auto) 23 % (24-48) Monocytes (%) (Auto) 7 % (0-9) Eosinophils (%) (Auto) 0 % (0-3) Basophils (%) (Auto) 1 % (0-3) Neutrophils # (Auto) 5.7 x10^3uL (1.8-7.7) Lymphocytes # (Auto) 1.9 x10^3/uL (1.0-4.8) Monocytes # (Auto) 0.6 x10^3/uL (0.0-1.1) Eosinophils # (Auto) 0.0 x10^3/uL (0.0-0.7) Basophils # (Auto) 0.1 x10^3/uL (0.0-0.2) Sodium Level 131 mmol/L (136-145) Potassium Level 4.5 mmol/L (3.5-5.1) Chloride Level 96 mmol/L (98-107) Carbon Dioxide Level 26 mmol/L (21-32) Anion Gap 9 (6-14) Blood Urea Nitrogen 17 mg/dL (7-20) Creatinine 0.8 mg/dL (0.6-1.0) Estimated GFR (Cockcroft-Gault) 71.8 Glucose Level 129 mg/dL (70-99) Calcium Level 7.8 mg/dL (8.5-10.1) Medications Current Medications Sodium Chloride 1,000 ml @ 1,000 mls/hr Q1H IV Last administered on 10:15; Start 06/05/17 at 10:15; Stop 06/05/17 at 11:14; Status DC Fentanyl Citrate (Fentanyl 2ml Vial) 50 mcg PRN Q15MIN PRN IV PAIN GREATER THAN 3/10 Last administered on 06/05/17 19:24; Start 06/05/17 at 10:45; Stop 06/06/17 at 10:44; Status DC Fentanyl Citrate (Fentanyl 2ml Vial) 100 mcg STK-MED ONCE .ROUTE ; Start at 10:46; Stop 06/05/17 at 10:47; Status DC Octreotide Acetate 500 mcg/ Sodium Chloride 101 ml @ 0 mls/hr CONT PRN IV SEE I /O RECORD Last administered on 06/05/17 12:25; Start 06/05/17 at 12:00; Stop 06/05/17 at 13:23; Status DC Pantoprazole Sodium 80 mg/ Sodium Chloride 100 ml @ 10 mls/hr 1X ONCE IV Last administered on 06/05/17 12:22; Start 06/05/17 at 12:00; Stop 06/05/17 at 21:59; Status DC Ondansetron HCl (Zofran) 4 mg PRN Q8HRS PRN IV NAUSEA/VOMITING; Start at 12:30; Stop 06/06/17 at 12:29 Fentanyl Citrate (Fentanyl 2ml Vial) 50 mcg PRN Q2HR PRN IV PAIN Last administered on 06/06/17 04:56; Start 06/05/17 at 12:30; Stop 06/06/17 at 07 :14; Status DC Acetaminophen (Tylenol) 325 mg PRN Q4HRS PRN PO PAIN/FEVER; Start 06/05/17 at 15:00 Alprazolam (Xanax) 1 mg PRN Q8HRS PRN PO ANXIETY / AGITATION Last administered on 06/06/17 08:34; Start 06/05/17 at 15:00 Carisoprodol (Soma) 350 mg QID PO Last administered on 06/06/17 08:35; Start 06/05/17 at 17:00 Diltiazem HCl (Cardizem 24hr Cd) 240 mg DAILY PO Last administered on 08:34; Start 06/05/17 at 16:00 Docusate Sodium (Colace) 100 mg BID PO ; Start 06/05/17 at 21:00 Famotidine (Pepcid) 20 mg DAILY PO Last administered on 06/06/17 08:35; Start 06/06/17 at 09:00 Acetaminophen/ Hydrocodone Bitart (Lortab 7.5/325) 1 tab PRN Q6HRS PRN PO PAIN Last administered on 06/05/17 22:50; Start 06/05/17 at 15:00 Levetiracetam (Keppra) 500 mg BID PO Last administered on 06/06/17 08:35; Start 06/05/17 at 21:00 Mupirocin (Bactroban) 1 indira TID TP ; Start 06/05/17 at 21:00 Ondansetron HCl (Zofran Odt) 4 mg Q8HRS PO Last administered on 06/06/17 04: 56; Start 06/05/17 at 16:00 Lubiprostone (Amitiza) 24 mcg BIDWMEALS PO ; Start 06/05/17 at 17:00 Meloxicam (Mobic) 15 mg DAILY PO ; Start 06/05/17 at 16:00; Stop 06/05/17 at 16:00; Status DC Paroxetine HCl (Paxil) 40 mg DAILY PO Last administered on 06/06/17 08:34; Start 06/05/17 at 16:00 Losartan Potassium (Cozaar) 100 mg DAILY PO Last administered on 06/06/17 08: 35; Start 06/05/17 at 16:00 Lidocaine (Lidoderm) 1 patch DAILY TD Last administered on 06/06/17 08:36; Start 06/05/17 at 16:00 Prednisone (Prednisone) 20 mg DAILY PO Last administered on 06/06/17 08:35; Start 06/05/17 at 16:00 Oxycodone HCl (OxyCONTIN) 10 mg 1X ONCE PO Last administered on 06/05/17 15: 16; Start 06/05/17 at 15:15; Stop 06/05/17 at 15:16; Status DC Nicotine (Nicoderm Cq 21mg) 1 patch DAILY TD Last administered on 06/06/17 08 :36; Start 06/05/17 at 16:00 Methylprednisolone Acetate (DEPO-Medrol 40MG VIAL) 40 mg 1X ONCE INT ART ; Start 06/05/17 at 19:00; Stop 06/05/17 at 19:05; Status DC Bupivacaine HCl (Sensorcaine-Mpf 0.25%) 10 ml 1X ONCE IJ ; Start 06/05/17 at 19:00; Stop 06/05/17 at 19:05; Status DC Fentanyl Citrate (Fentanyl 2ml Vial) 75 mcg PRN Q2HR PRN IV PAIN Last administered on 06/06/17t 10:47; Start 06/06/17 at 07:15 Active Scripts Active Zofran Odt (Ondansetron) 4 Mg Tab.rapdis 1 Tab SL Q8HRS Colace (Docusate Sodium) 100 Mg Capsule 100 Mg PO BID Mupirocin Cream (Mupirocin) 15 Gm Cream..g. 1 Indira TP TID 7 Days Famotidine 20 Mg Tablet 20 Mg PO BID 28 Days Alprazolam 1 Mg Tablet 1 Mg PO PRN Q8HRS PRN 14 Days Reported Meloxicam 15 Mg Tablet 1 Tab PO DAILY Keppra (Levetiracetam) 500 Mg Tablet 1 Tab PO BID Paroxetine Hcl 40 Mg Tablet 40 Mg PO DAILY Amitiza (Lubiprostone) 24 Mcg Capsule 24 Mcg PO BID Hydrocodone-Apap 7.5-325 (Hydrocodone Bit/Acetaminophen) 1 Each Tablet 1 Tab PO PRN Q6HRS PRN Diltiazem 24HR Cd (Diltiazem Hcl) 180 Mg Cap.er.24h 240 Mg PO DAILY Tylenol (Acetaminophen) 325 Mg Tablet 1 Tab PO PRN Q4HRS Carisoprodol 350 Mg Tablet 1 Tab PO QID Losartan Potassium 100 Mg Tablet 100 Mg PO BID Vitals/I & O Vital Sign - Last 24 Hours 06/05/17 06/05/17 06/05/17 06/05/17 11:55 12:00 12:30 13:00 Pulse 102 90 98 92 Resp 30 B/P (MAP) 141/91 (108) 141/91 (108) 153/67 (95) 140/65 (90) Pulse Ox 94 97 100 94 O2 Delivery Room Air Room Air Room Air Room Air 12/1806/05/17 06/05/17 06/05/17 14:03 14:49 15:16 16:23 Temp 98.8 98.2 98.8 98.2 Pulse 102 90 Resp 16 16 16 B/P (MAP) 141/91 (108) 148/55 (86) Pulse Ox 94 95 95 95 O2 Delivery Room Air Room Air 06/05/17 06/05/17 06/05/17 06/05/17 19:00 19:16 19:24 19:54 Temp 98.3 98.3 Pulse 87 Resp 18 B/P (MAP) 166/87 (113) Pulse Ox 94 95 95 95 O2 Delivery Room Air 06/05/17 06/05/17 06/05/17 06/05/17 20:15 22:50 22:56 23:50 Temp 98.0 98.0 Pulse 94 Resp 18 B/P (MAP) 119/88 (98) Pulse Ox 95 93 93 O2 Delivery Room Air Room Air Room Air Room Air 06/06/17 06/06/17 06/06/17 06/06/17 01:19 03:04 04:56 05:26 Temp 98.3 98.3 Pulse 85 Resp 16 B/P (MAP) 133/79 (97) Pulse Ox 93 94 94 94 O2 Delivery Room Air Room Air Room Air Room Air 06/06/17 06/06/17 06/06/17 06/06/17 07:00 08:34 08:35 08:38 Temp 97.9 97.9 Pulse 61 61 61 Resp 22 18 B/P (MAP) 119/72 (88) 119/72 119/72 Pulse Ox 98 O2 Delivery Room Air 06/06/17 06/06/17 06/06/17 09:08 10:47 11:00 Temp 97.9 97.9 Pulse 80 Resp 18 18 18 B/P (MAP) 94/51 (65) Pulse Ox 96 O2 Delivery Room Air Room Air Room Air Intake and Output 06/05/17 06/05/17 06/06/17 15:00 23:00 07:00 Intake Total 1000 ml 0 ml 100 ml Balance 1000 ml 0 ml 100 ml CASTLE,NIAL K III DO Jun 06, 2017 11:32
[2017-06-06] MEDS ORDERED: PROPOFOL 20 ML IV ONE (15:57)
--- NOTE | 2017-06-06 16:07 | PDOC4 ---
Operative Note Operative Note EGD with bx Meds propofol per anesthesia Pre-op dx acute blood loss anemia/melena Post-op dx non-erosive gastritis gastric ulcer s/p bx Plan resume diet PPI therapy serial cbcs o/p colonoscopy/interval egd to confirm healing in 8 weeks BENJAMÍN DE LA TORRE MD Jun 06, 2017 16:07
--- NOTE | 2017-06-06 17:33 | PDOC4 ---
PROCEDURE Procedure At her request,I have injected painful right knee joint under aseptic skin technique with marcaine and depomedrol solution and she tolerated the procedure satisfactorily without any side effects. IDANIA ALEXANDER MD Jun 06, 2017 17:33
--- NOTE | 2017-06-06 17:37 | PDOC ---
PROGRESS NOTES Subjective Subjective She admits continued pain in her right knee. Objective Objective Vital Signs Date Time Temp Pulse Resp B/P (MAP) Pulse Ox O2 Delivery O2 Flow Rate FiO2 06/06/17 17:15 69 118/65 (82) 97 Room Air 06/06/17 17:02 18 06/06/17 17:00 98.2 98.2 06/06/17 16:19 2 Intake and Output 06/06/17 07:00 Intake Total 1100 ml Balance 1100 ml Intake Oral 0 ml IV Total 1100 ml # Voids 3 # Bowel Movements 9 Physical Exam Physical Exam She is alert and comfortable and she still walks with slight antalgic gait. She had crepitus on ROM of right knee. Plan Plan of Care To proceed with injecting her right knee and to also consider knee brace if pain persists. Comment Review of Relevant I have reviewed the following items minh (where applicable) has been applied. Labs Laboratory Tests Test 06/05/17 10:00 06/05/17 10:37 06/05/17 18:00 06/06/17 00:20 White Blood Count 8.2 x10^3/uL (4.0-11.0) Red Blood Count 2.99 x10^6/uL (3.50-5.40) Hemoglobin 10.1 g/dL (12.0-15.5) 9.4 g/dL (12.0-15.5) 9.2 g/dL (12.0-15.5) Hematocrit 30.3 % (36.0-47.0) Mean Corpuscular Volume 101 fL (79-100) Mean Corpuscular Hemoglobin 34 pg (25-35) Mean Corpuscular Hemoglobin Concent 34 g/dL (31-37) Red Cell Distribution Width 16.1 % (11.5-14.5) Platelet Count 638 x10^3/uL (140-400) Neutrophils (%) (Auto) 71 % (31-73) Lymphocytes (%) (Auto) 20 % (24-48) Monocytes (%) (Auto) 8 % (0-9) Eosinophils (%) (Auto) 0 % (0-3) Basophils (%) (Auto) 1 % (0-3) Neutrophils # (Auto) 5.9 x10^3uL (1.8-7.7) Lymphocytes # (Auto) 1.6 x10^3/uL (1.0-4.8) Monocytes # (Auto) 0.6 x10^3/uL (0.0-1.1) Eosinophils # (Auto) 0.0 x10^3/uL (0.0-0.7) Basophils # (Auto) 0.1 x10^3/uL (0.0-0.2) Segmented Neutrophils % 66 % (35-66) Band Neutrophils % 6 % (0-9) Lymphocytes % 21 % (24-48) Monocytes % 7 % (0-10) Platelet Estimate Increased (ADEQUATE) Reticulocyte Count (auto) 2.9 % (0.5-2.5) Prothrombin Time 12.2 SEC (11.7-14.0) Prothromb Time International Ratio 1.0 (0.8-1.1) Urine Collection Type Unknown Urine Color Straw Urine Clarity Hazy Urine pH 7.0 Urine Specific [place] 1.020 Urine Protein Negative mg/dL (NEG-TRACE) Urine Glucose (UA) Negative mg/dL (NEG) Urine Ketones (Stick) Negative mg/dL (NEG) Urine Blood Negative (NEG) Urine Nitrite Negative (NEG) Urine Bilirubin Small (NEG) Urine Urobilinogen Dipstick 0.2 mg/dL (0.2 mg/dL) Urine Leukocyte Esterase Negative (NEG) Urine RBC 0 /HPF (0-2) Urine WBC 0 /HPF (0-4) Urine Squamous Epithelial Cells Few /LPF Urine Bacteria 0 /HPF (0-FEW) Sodium Level 133 mmol/L (136-145) Potassium Level 4.5 mmol/L (3.5-5.1) Chloride Level 97 mmol/L (98-107) Carbon Dioxide Level 23 mmol/L (21-32) Anion Gap 13 (6-14) Blood Urea Nitrogen 22 mg/dL (7-20) Creatinine 1.0 mg/dL (0.6-1.0) Estimated GFR (Cockcroft-Gault) 55.5 Glucose Level 122 mg/dL (70-99) Calcium Level 8.4 mg/dL (8.5-10.1) Magnesium Level 2.1 mg/dL (1.8-2.4) Iron Level 29 ug/dL (50-170) Total Iron Binding Capacity 296 ug/dL (250-450) Iron Saturation 10 % (15-34) Total Bilirubin 0.2 mg/dL (0.2-1.0) Direct Bilirubin 0.1 mg/dL (0.0-0.2) Aspartate Amino Transf (AST/SGOT) 18 U/L (15-37) Alanine Aminotransferase (ALT/SGPT) 15 U/L (14-59) Alkaline Phosphatase 102 U/L (46-116) Creatine Kinase 39 U/L (26-192) Creatine Kinase MB (Mass) 0.9 ng/mL (0.0-3.6) Creatine Kinase MB Relative Index % (0-4) Troponin I Quantitative < 0.017 ng/mL (0.000-0.055) < 0.017 ng/mL (0.000-0.055) < 0.017 ng/mL (0.000-0.055) AV-Cbk-H-Type Natriuretic Peptide 23 pg/mL (0-124) Total Protein 7.0 g/dL (6.4-8.2) Albumin 3.1 g/dL (3.4-5.0) Lipase 397 U/L (73-393) Vitamin B12 Level 838 pg/mL (247-911) Serum Folate 8.68 ng/ml (3.2-20.0) Thyroid Stimulating Hormone (TSH) 1.540 uIU/mL (0.358-3.74) Stool Occult Blood Positive (NEG) Test 06/06/17 05:10 06/06/17 12:00 White Blood Count 8.2 x10^3/uL (4.0-11.0) Red Blood Count 2.59 x10^6/uL (3.50-5.40) Hemoglobin 8.6 g/dL (12.0-15.5) 8.9 g/dL (12.0-15.5) Hematocrit 26.0 % (36.0-47.0) Mean Corpuscular Volume 101 fL (79-100) Mean Corpuscular Hemoglobin 33 pg (25-35) Mean Corpuscular Hemoglobin Concent 33 g/dL (31-37) Red Cell Distribution Width 15.8 % (11.5-14.5) Platelet Count 623 x10^3/uL (140-400) Neutrophils (%) (Auto) 69 % (31-73) Lymphocytes (%) (Auto) 23 % (24-48) Monocytes (%) (Auto) 7 % (0-9) Eosinophils (%) (Auto) 0 % (0-3) Basophils (%) (Auto) 1 % (0-3) Neutrophils # (Auto) 5.7 x10^3uL (1.8-7.7) Lymphocytes # (Auto) 1.9 x10^3/uL (1.0-4.8) Monocytes # (Auto) 0.6 x10^3/uL (0.0-1.1) Eosinophils # (Auto) 0.0 x10^3/uL (0.0-0.7) Basophils # (Auto) 0.1 x10^3/uL (0.0-0.2) Sodium Level 131 mmol/L (136-145) Potassium Level 4.5 mmol/L (3.5-5.1) Chloride Level 96 mmol/L (98-107) Carbon Dioxide Level 26 mmol/L (21-32) Anion Gap 9 (6-14) Blood Urea Nitrogen 17 mg/dL (7-20) Creatinine 0.8 mg/dL (0.6-1.0) Estimated GFR (Cockcroft-Gault) 71.8 Glucose Level 129 mg/dL (70-99) Calcium Level 7.8 mg/dL (8.5-10.1) Laboratory Tests Test 06/05/17 18:00 06/06/17 00:20 06/06/17 05:10 06/06/17 12:00 Hemoglobin 9.4 g/dL (12.0-15.5) 9.2 g/dL (12.0-15.5) 8.6 g/dL (12.0-15.5) 8.9 g/dL (12.0-15.5) Troponin I Quantitative < 0.017 ng/mL (0.000-0.055) < 0.017 ng/mL (0.000-0.055) White Blood Count 8.2 x10^3/uL (4.0-11.0) Red Blood Count 2.59 x10^6/uL (3.50-5.40) Hematocrit 26.0 % (36.0-47.0) Mean Corpuscular Volume 101 fL (79-100) Mean Corpuscular Hemoglobin 33 pg (25-35) Mean Corpuscular Hemoglobin Concent 33 g/dL (31-37) Red Cell Distribution Width 15.8 % (11.5-14.5) Platelet Count 623 x10^3/uL (140-400) Neutrophils (%) (Auto) 69 % (31-73) Lymphocytes (%) (Auto) 23 % (24-48) Monocytes (%) (Auto) 7 % (0-9) Eosinophils (%) (Auto) 0 % (0-3) Basophils (%) (Auto) 1 % (0-3) Neutrophils # (Auto) 5.7 x10^3uL (1.8-7.7) Lymphocytes # (Auto) 1.9 x10^3/uL (1.0-4.8) Monocytes # (Auto) 0.6 x10^3/uL (0.0-1.1) Eosinophils # (Auto) 0.0 x10^3/uL (0.0-0.7) Basophils # (Auto) 0.1 x10^3/uL (0.0-0.2) Sodium Level 131 mmol/L (136-145) Potassium Level 4.5 mmol/L (3.5-5.1) Chloride Level 96 mmol/L (98-107) Carbon Dioxide Level 26 mmol/L (21-32) Anion Gap 9 (6-14) Blood Urea Nitrogen 17 mg/dL (7-20) Creatinine 0.8 mg/dL (0.6-1.0) Estimated GFR (Cockcroft-Gault) 71.8 Glucose Level 129 mg/dL (70-99) Calcium Level 7.8 mg/dL (8.5-10.1) Medications Current Medications Sodium Chloride 1,000 ml @ 1,000 mls/hr Q1H IV Last administered on 10:15; Start 06/05/17 at 10:15; Stop 06/05/17 at 11:14; Status DC Fentanyl Citrate (Fentanyl 2ml Vial) 50 mcg PRN Q15MIN PRN IV PAIN GREATER THAN 3/10 Last administered on 06/05/17 19:24; Start 06/05/17 at 10:45; Stop 06/06/17 at 10:44; Status DC Fentanyl Citrate (Fentanyl 2ml Vial) 100 mcg [facility] ONCE .ROUTE ; Start at 10:46; Stop 06/05/17 at 10:47; Status DC Octreotide Acetate 500 mcg/ Sodium Chloride 101 ml @ 0 mls/hr CONT PRN IV SEE I /O RECORD Last administered on 06/05/17 12:25; Start 06/05/17 at 12:00; Stop 06/05/17 at 13:23; Status DC Pantoprazole Sodium 80 mg/ Sodium Chloride 100 ml @ 10 mls/hr 1X ONCE IV Last administered on 06/05/17 12:22; Start 06/05/17 at 12:00; Stop 06/05/17 at 21:59; Status DC Ondansetron HCl (Zofran) 4 mg PRN Q8HRS PRN IV NAUSEA/VOMITING; Start at 12:30; Stop 06/06/17 at 12:29; Status DC Fentanyl Citrate (Fentanyl 2ml Vial) 50 mcg PRN Q2HR PRN IV PAIN Last administered on 06/06/17 04:56; Start 06/05/17 at 12:30; Stop 06/06/17 at 07 :14; Status DC Acetaminophen (Tylenol) 325 mg PRN Q4HRS PRN PO PAIN/FEVER; Start 06/05/17 at 15:00 Alprazolam (Xanax) 1 mg PRN Q8HRS PRN PO ANXIETY / AGITATION Last administered on 06/06/17 08:34; Start 06/05/17 at 15:00 Carisoprodol (Soma) 350 mg QID PO Last administered on 06/06/17 17:00; Start 06/05/17 at 17:00 Diltiazem HCl (Cardizem 24hr Cd) 240 mg DAILY PO Last administered on 08:34; Start 06/05/17 at 16:00 Docusate Sodium (Colace) 100 mg BID PO ; Start 06/05/17 at 21:00 Famotidine (Pepcid) 20 mg DAILY PO Last administered on 06/06/17 08:35; Start 06/06/17 at 09:00 Acetaminophen/ Hydrocodone Bitart (Lortab 7.5/325) 1 tab PRN Q6HRS PRN PO PAIN Last administered on 06/05/17 22:50; Start 06/05/17 at 15:00 Levetiracetam (Keppra) 500 mg BID PO Last administered on 06/06/17 08:35; Start 06/05/17 at 21:00 Mupirocin (Bactroban) 1 indira TID TP ; Start 06/05/17 at 21:00 Ondansetron HCl (Zofran Odt) 4 mg Q8HRS PO Last administered on 06/06/17 04: 56; Start 06/05/17 at 16:00 Lubiprostone (Amitiza) 24 mcg BIDWMEALS PO Last administered on 06/06/17 17: 01; Start 06/05/17 at 17:00 Meloxicam (Mobic) 15 mg DAILY PO ; Start 06/05/17 at 16:00; Stop 06/05/17 at 16:00; Status DC Paroxetine HCl (Paxil) 40 mg DAILY PO Last administered on 06/06/17 08:34; Start 06/05/17 at 16:00 Losartan Potassium (Cozaar) 100 mg DAILY PO Last administered on 06/06/17 08: 35; Start 06/05/17 at 16:00 Lidocaine (Lidoderm) 1 patch DAILY TD Last administered on 06/06/17 08:36; Start 06/05/17 at 16:00 Prednisone (Prednisone) 20 mg DAILY PO Last administered on 06/06/17 08:35; Start 06/05/17 at 16:00 Oxycodone HCl (OxyCONTIN) 10 mg 1X ONCE PO Last administered on 06/05/17 15: 16; Start 06/05/17 at 15:15; Stop 06/05/17 at 15:16; Status DC Nicotine (Nicoderm Cq 21mg) 1 patch DAILY TD Last administered on 06/06/17 08 :36; Start 06/05/17 at 16:00 Methylprednisolone Acetate (DEPO-Medrol 40MG VIAL) 40 mg 1X ONCE INT ART ; Start 06/05/17 at 19:00; Stop 06/05/17 at 19:05; Status DC Bupivacaine HCl (Sensorcaine-Mpf 0.25%) 10 ml 1X ONCE IJ ; Start 06/05/17 at 19:00; Stop 06/05/17 at 19:05; Status DC Fentanyl Citrate (Fentanyl 2ml Vial) 75 mcg PRN Q2HR PRN IV PAIN Last administered on 06/06/17t 17:02; Start 06/06/17 at 07:15 Propofol 20 ml @ As Directed STK-MED ONCE IV ; Start 06/06/17 at 15:57; Stop 06/06/17 at 15:58; Status DC Active Scripts Active Zofran Odt (Ondansetron) 4 Mg Tab.rapdis 1 Tab SL Q8HRS Colace (Docusate Sodium) 100 Mg Capsule 100 Mg PO BID Mupirocin Cream (Mupirocin) 15 Gm Cream..g. 1 Indira TP TID 7 Days Famotidine 20 Mg Tablet 20 Mg PO BID 28 Days Alprazolam 1 Mg Tablet 1 Mg PO PRN Q8HRS PRN 14 Days Reported Meloxicam 15 Mg Tablet 1 Tab PO DAILY Keppra (Levetiracetam) 500 Mg Tablet 1 Tab PO BID Paroxetine Hcl 40 Mg Tablet 40 Mg PO DAILY Amitiza (Lubiprostone) 24 Mcg Capsule 24 Mcg PO BID Hydrocodone-Apap 7.5-325 (Hydrocodone Bit/Acetaminophen) 1 Each Tablet 1 Tab PO PRN Q6HRS PRN Diltiazem 24HR Cd (Diltiazem Hcl) 180 Mg Cap.er.24h 240 Mg PO DAILY Tylenol (Acetaminophen) 325 Mg Tablet 1 Tab PO PRN Q4HRS Carisoprodol 350 Mg Tablet 1 Tab PO QID Losartan Potassium 100 Mg Tablet 100 Mg PO BID Vitals/I & O Vital Sign - Last 24 Hours 06/05/17 06/05/17 06/05/17 06/05/17 19:00 19:16 19:24 19:54 Temp 98.3 98.3 Pulse 87 Resp 18 B/P (MAP) 166/87 (113) Pulse Ox 94 95 95 95 O2 Delivery Room Air 06/05/17 06/05/17 06/05/17 06/05/17 20:15 22:50 22:56 23:50 Temp 98.0 98.0 Pulse 94 Resp 18 B/P (MAP) 119/88 (98) Pulse Ox 95 93 93 O2 Delivery Room Air Room Air Room Air Room Air 06/06/17 06/06/17 06/06/17 06/06/17 01:19 03:04 04:56 05:26 Temp 98.3 98.3 Pulse 85 Resp 16 B/P (MAP) 133/79 (97) Pulse Ox 93 94 94 94 O2 Delivery Room Air Room Air Room Air Room Air 06/06/17 06/06/17 06/06/17 06/06/17 07:00 08:34 08:35 08:38 Temp 97.9 97.9 Pulse 61 61 61 Resp 22 18 B/P (MAP) 119/72 (88) 119/72 119/72 Pulse Ox 98 O2 Delivery Room Air 06/06/17 06/06/17 06/06/17 06/06/17 10:47 11:00 12:52 15:00 Temp 97.9 98.3 97.9 98.3 Pulse 80 72 Resp 18 18 20 20 B/P (MAP) 94/51 (65) 130/86 (101) Pulse Ox 96 96 O2 Delivery Room Air Room Air Room Air Room Air 06/06/17 06/06/17 06/06/17 06/06/17 15:11 15:41 15:41 16:10 Temp 98.2 98.2 98.2 98.2 Pulse 74 73 Resp 18 20 B/P (MAP) 80/50 Pulse Ox 96 96 96 O2 Delivery Room Air Room Air Room Air 06/06/17 06/06/17 06/06/17 06/06/17 16:19 16:26 16:30 16:38 Temp 98.1 98.1 98.0 98.1 98.1 98.1 98.0 98.1 Pulse 73 74 78 73 Resp 18 18 20 18 B/P (MAP) 79/41 93/50 122/76 (91) 106/48 Pulse Ox 99 95 96 94 O2 Delivery Room Air Room Air Room Air O2 Flow Rate 2 06/06/17 06/06/17 06/06/17 06/06/17 16:45 17:00 17:02 17:15 Temp 98.2 98.2 Pulse 72 69 Resp 18 18 B/P (MAP) 110/74 (86) 113/78 (90) 118/65 (82) Pulse Ox 96 97 94 97 O2 Delivery Room Air Room Air Room Air Room Air Intake and Output 06/05/17 06/05/17 06/06/17 15:00 23:00 07:00 Intake Total 1000 ml 0 ml 100 ml Balance 1000 ml 0 ml 100 ml IDANIA ALEXANDER MD Jun 06, 2017 17:37
[2017-06-06] MEDS ORDERED: diphenhydrAMINE 50 MG/ML VIAL IVP PRN (18:45)
[2017-06-07] MEDS: fentaNYL PF VIAL 100 MCG/2 ML VIAL IV PRN ×5 (01:19→10:04)
[2017-06-07 03:00] VITALS: BP 114/67
[2017-06-07 05:26] LABS: BASO % 0 % (0-3); EOS % 0 % (0-3); HEMATOCRIT 24.2 % (36.0-47.0); HEMOGLOBIN 8.1 g/dL (12.0-15.5); LYMPH # 0.5 x10^3/uL (1.0-4.8); LYMPH % 11 % (24-48); MEAN CORPUSCULAR HEMOGLOBIN 34 pg (25-35); MEAN CORPUSCULAR HGB CONC 33 g/dL (31-37); MEAN CORPUSCULAR VOLUME 100 fL (79-100); MONO % 4 % (0-9); NEUT % 85 % (31-73); PLATELET COUNT 667 x10^3/uL (140-400); RED BLOOD COUNT 2.41 x10^6/uL (3.50-5.40); RED CELL DISTRIBUTION WIDTH 15.2 % (11.5-14.5); WHITE BLOOD COUNT 4.5 x10^3/uL (4.0-11.0)
[2017-06-07] MEDS: ALPRAZolam 1 MG TABLET PO PRN (05:34)
[2017-06-07] MEDS: ONDANSETRON ODT 4 MG TAB.RAPDIS. PO SCH ×2 (05:34→14:00)
[2017-06-07 05:49] LABS: ALBUMIN 2.9 g/dL (3.4-5.0); ALBUMIN/GLOBULIN RATIO 0.9 (1.0-1.7); CALCIUM 8.5 mg/dL (8.5-10.1); GFR 55.5; POTASSIUM 4.8 mmol/L (3.5-5.1); TOTAL BILIRUBIN 0.2 mg/dL (0.2-1.0); TOTAL PROTEIN 6.3 g/dL (6.4-8.2)
[2017-06-07 07:00] VITALS: BP 138/69
[2017-06-07] MEDS: LUBIPROSTONE 8 MCG CAPSULE PO SCH (07:48)
[2017-06-07] MEDS: PARoxetine 20 MG TABLET PO SCH (07:51)
[2017-06-07] MEDS: LOSARTAN POTASSIUM 50 MG TABLET. PO SCH (07:51)
[2017-06-07] MEDS: levETIRAcetam 500 MG TABLET PO SCH (07:51)
[2017-06-07] MEDS: predniSONE 20 MG TABLET PO SCH (07:51)
[2017-06-07] MEDS: CARISOPRODOL 350 MG TABLET PO SCH ×2 (07:51→12:48)
[2017-06-07] MEDS: DOCUSATE SODIUM 100 MG CAPSULE. PO SCH (07:51)
[2017-06-07] MEDS: FAMOTIDINE 20 MG TABLET. PO SCH (07:52)
[2017-06-07] MEDS: LIDOCAINE (700MG/PATCH) PATCH. TD SCH (07:53)
[2017-06-07] MEDS: NICOTINE 21MG PATCH. TD SCH (07:54)
[2017-06-07] MEDS: MUPIROCIN 2 % TOPICAL CREAM 15GM TUBE. TP SCH ×2 (07:54→14:00)
[2017-06-07] MEDS: diphenhydrAMINE HCL 25 MG CAPSULE PO PRN ×2 (09:19→15:20)
--- NOTE | 2017-06-07 09:35 | PDOC ---
PROGRESS NOTES Subjective Subjective She admits some help with right knee injection. Objective Objective Vital Signs Date Time Temp Pulse Resp B/P (MAP) Pulse Ox O2 Delivery O2 Flow Rate FiO2 06/07/17 08:25 18 Room Air 06/07/17 07:52 89 139/69 06/07/17 07:00 98.1 95 98.1 06/07/17 06:05 2.0 Intake and Output 06/07/17 07:00 Intake Total 1420 ml Output Total 2 ml Balance 1418 ml Intake Oral 1170 ml IV Total 250 ml Output Urine Total 2 ml # Voids 7 # Bowel Movements 3 Physical Exam Physical Exam She is alert and comfortable and remains independent with her mobility. Plan Plan of Care To home when medically stable. Comment Review of Relevant I have reviewed the following items minh (where applicable) has been applied. Labs Laboratory Tests Test 06/05/17 10:00 06/05/17 10:37 06/05/17 18:00 06/05/17 21:09 White Blood Count 8.2 x10^3/uL (4.0-11.0) Red Blood Count 2.99 x10^6/uL (3.50-5.40) Hemoglobin 10.1 g/dL (12.0-15.5) 9.4 g/dL (12.0-15.5) Hematocrit 30.3 % (36.0-47.0) Mean Corpuscular Volume 101 fL (79-100) Mean Corpuscular Hemoglobin 34 pg (25-35) Mean Corpuscular Hemoglobin Concent 34 g/dL (31-37) Red Cell Distribution Width 16.1 % (11.5-14.5) Platelet Count 638 x10^3/uL (140-400) Neutrophils (%) (Auto) 71 % (31-73) Lymphocytes (%) (Auto) 20 % (24-48) Monocytes (%) (Auto) 8 % (0-9) Eosinophils (%) (Auto) 0 % (0-3) Basophils (%) (Auto) 1 % (0-3) Neutrophils # (Auto) 5.9 x10^3uL (1.8-7.7) Lymphocytes # (Auto) 1.6 x10^3/uL (1.0-4.8) Monocytes # (Auto) 0.6 x10^3/uL (0.0-1.1) Eosinophils # (Auto) 0.0 x10^3/uL (0.0-0.7) Basophils # (Auto) 0.1 x10^3/uL (0.0-0.2) Segmented Neutrophils % 66 % (35-66) Band Neutrophils % 6 % (0-9) Lymphocytes % 21 % (24-48) Monocytes % 7 % (0-10) Platelet Estimate Increased (ADEQUATE) Reticulocyte Count (auto) 2.9 % (0.5-2.5) Prothrombin Time 12.2 SEC (11.7-14.0) Prothromb Time International Ratio 1.0 (0.8-1.1) Urine Collection Type Unknown Urine Color Straw Urine Clarity Hazy Urine pH 7.0 Urine Specific [place] 1.020 Urine Protein Negative mg/dL (NEG-TRACE) Urine Glucose (UA) Negative mg/dL (NEG) Urine Ketones (Stick) Negative mg/dL (NEG) Urine Blood Negative (NEG) Urine Nitrite Negative (NEG) Urine Bilirubin Small (NEG) Urine Urobilinogen Dipstick 0.2 mg/dL (0.2 mg/dL) Urine Leukocyte Esterase Negative (NEG) Urine RBC 0 /HPF (0-2) Urine WBC 0 /HPF (0-4) Urine Squamous Epithelial Cells Few /LPF Urine Bacteria 0 /HPF (0-FEW) Sodium Level 133 mmol/L (136-145) Potassium Level 4.5 mmol/L (3.5-5.1) Chloride Level 97 mmol/L (98-107) Carbon Dioxide Level 23 mmol/L (21-32) Anion Gap 13 (6-14) Blood Urea Nitrogen 22 mg/dL (7-20) Creatinine 1.0 mg/dL (0.6-1.0) Estimated GFR (Cockcroft-Gault) 55.5 Glucose Level 122 mg/dL (70-99) Calcium Level 8.4 mg/dL (8.5-10.1) Magnesium Level 2.1 mg/dL (1.8-2.4) Iron Level 29 ug/dL (50-170) Total Iron Binding Capacity 296 ug/dL (250-450) Iron Saturation 10 % (15-34) Total Bilirubin 0.2 mg/dL (0.2-1.0) Direct Bilirubin 0.1 mg/dL (0.0-0.2) Aspartate Amino Transf (AST/SGOT) 18 U/L (15-37) Alanine Aminotransferase (ALT/SGPT) 15 U/L (14-59) Alkaline Phosphatase 102 U/L (46-116) Creatine Kinase 39 U/L (26-192) Creatine Kinase MB (Mass) 0.9 ng/mL (0.0-3.6) Creatine Kinase MB Relative Index % (0-4) Troponin I Quantitative < 0.017 ng/mL (0.000-0.055) < 0.017 ng/mL (0.000-0.055) MO-[id number]-Type Natriuretic Peptide 23 pg/mL (0-124) Total Protein 7.0 g/dL (6.4-8.2) Albumin 3.1 g/dL (3.4-5.0) Lipase 397 U/L (73-393) Vitamin B12 Level 838 pg/mL (247-911) Serum Folate 8.68 ng/ml (3.2-20.0) Thyroid Stimulating Hormone (TSH) 1.540 uIU/mL (0.358-3.74) Stool Occult Blood Positive (NEG) Clostridium difficile Toxin (PCR) Negative (Negative) Test 06/06/17 00:20 06/06/17 05:10 06/06/17 12:00 06/06/17 17:55 Hemoglobin 9.2 g/dL (12.0-15.5) 8.6 g/dL (12.0-15.5) 8.9 g/dL (12.0-15.5) 8.7 g/dL (12.0-15.5) Troponin I Quantitative < 0.017 ng/mL (0.000-0.055) White Blood Count 8.2 x10^3/uL (4.0-11.0) Red Blood Count 2.59 x10^6/uL (3.50-5.40) Hematocrit 26.0 % (36.0-47.0) Mean Corpuscular Volume 101 fL (79-100) Mean Corpuscular Hemoglobin 33 pg (25-35) Mean Corpuscular Hemoglobin Concent 33 g/dL (31-37) Red Cell Distribution Width 15.8 % (11.5-14.5) Platelet Count 623 x10^3/uL (140-400) Neutrophils (%) (Auto) 69 % (31-73) Lymphocytes (%) (Auto) 23 % (24-48) Monocytes (%) (Auto) 7 % (0-9) Eosinophils (%) (Auto) 0 % (0-3) Basophils (%) (Auto) 1 % (0-3) Neutrophils # (Auto) 5.7 x10^3uL (1.8-7.7) Lymphocytes # (Auto) 1.9 x10^3/uL (1.0-4.8) Monocytes # (Auto) 0.6 x10^3/uL (0.0-1.1) Eosinophils # (Auto) 0.0 x10^3/uL (0.0-0.7) Basophils # (Auto) 0.1 x10^3/uL (0.0-0.2) Sodium Level 131 mmol/L (136-145) Potassium Level 4.5 mmol/L (3.5-5.1) Chloride Level 96 mmol/L (98-107) Carbon Dioxide Level 26 mmol/L (21-32) Anion Gap 9 (6-14) Blood Urea Nitrogen 17 mg/dL (7-20) Creatinine 0.8 mg/dL (0.6-1.0) Estimated GFR (Cockcroft-Gault) 71.8 Glucose Level 129 mg/dL (70-99) Calcium Level 7.8 mg/dL (8.5-10.1) Test 06/07/17 04:15 White Blood Count 4.5 x10^3/uL (4.0-11.0) Red Blood Count 2.41 x10^6/uL (3.50-5.40) Hemoglobin 8.1 g/dL (12.0-15.5) Hematocrit 24.2 % (36.0-47.0) Mean Corpuscular Volume 100 fL (79-100) Mean Corpuscular Hemoglobin 34 pg (25-35) Mean Corpuscular Hemoglobin Concent 33 g/dL (31-37) Red Cell Distribution Width 15.2 % (11.5-14.5) Platelet Count 667 x10^3/uL (140-400) Neutrophils (%) (Auto) 85 % (31-73) Lymphocytes (%) (Auto) 11 % (24-48) Monocytes (%) (Auto) 4 % (0-9) Eosinophils (%) (Auto) 0 % (0-3) Basophils (%) (Auto) 0 % (0-3) Neutrophils # (Auto) 3.9 x10^3uL (1.8-7.7) Lymphocytes # (Auto) 0.5 x10^3/uL (1.0-4.8) Monocytes # (Auto) 0.2 x10^3/uL (0.0-1.1) Eosinophils # (Auto) 0.0 x10^3/uL (0.0-0.7) Basophils # (Auto) 0.0 x10^3/uL (0.0-0.2) Sodium Level 129 mmol/L (136-145) Potassium Level 4.8 mmol/L (3.5-5.1) Chloride Level 93 mmol/L (98-107) Carbon Dioxide Level 24 mmol/L (21-32) Anion Gap 12 (6-14) Blood Urea Nitrogen 20 mg/dL (7-20) Creatinine 1.0 mg/dL (0.6-1.0) Estimated GFR (Cockcroft-Gault) 55.5 BUN/Creatinine Ratio 20 (6-20) Glucose Level 126 mg/dL (70-99) Calcium Level 8.5 mg/dL (8.5-10.1) Total Bilirubin 0.2 mg/dL (0.2-1.0) Aspartate Amino Transf (AST/SGOT) 20 U/L (15-37) Alanine Aminotransferase (ALT/SGPT) 13 U/L (14-59) Alkaline Phosphatase 87 U/L (46-116) Total Protein 6.3 g/dL (6.4-8.2) Albumin 2.9 g/dL (3.4-5.0) Albumin/Globulin Ratio 0.9 (1.0-1.7) Laboratory Tests Test 06/06/17 12:00 06/06/17 17:55 06/07/17 04:15 Hemoglobin 8.9 g/dL (12.0-15.5) 8.7 g/dL (12.0-15.5) 8.1 g/dL (12.0-15.5) White Blood Count 4.5 x10^3/uL (4.0-11.0) Red Blood Count 2.41 x10^6/uL (3.50-5.40) Hematocrit 24.2 % (36.0-47.0) Mean Corpuscular Volume 100 fL (79-100) Mean Corpuscular Hemoglobin 34 pg (25-35) Mean Corpuscular Hemoglobin Concent 33 g/dL (31-37) Red Cell Distribution Width 15.2 % (11.5-14.5) Platelet Count 667 x10^3/uL (140-400) Neutrophils (%) (Auto) 85 % (31-73) Lymphocytes (%) (Auto) 11 % (24-48) Monocytes (%) (Auto) 4 % (0-9) Eosinophils (%) (Auto) 0 % (0-3) Basophils (%) (Auto) 0 % (0-3) Neutrophils # (Auto) 3.9 x10^3uL (1.8-7.7) Lymphocytes # (Auto) 0.5 x10^3/uL (1.0-4.8) Monocytes # (Auto) 0.2 x10^3/uL (0.0-1.1) Eosinophils # (Auto) 0.0 x10^3/uL (0.0-0.7) Basophils # (Auto) 0.0 x10^3/uL (0.0-0.2) Sodium Level 129 mmol/L (136-145) Potassium Level 4.8 mmol/L (3.5-5.1) Chloride Level 93 mmol/L (98-107) Carbon Dioxide Level 24 mmol/L (21-32) Anion Gap 12 (6-14) Blood Urea Nitrogen 20 mg/dL (7-20) Creatinine 1.0 mg/dL (0.6-1.0) Estimated GFR (Cockcroft-Gault) 55.5 BUN/Creatinine Ratio 20 (6-20) Glucose Level 126 mg/dL (70-99) Calcium Level 8.5 mg/dL (8.5-10.1) Total Bilirubin 0.2 mg/dL (0.2-1.0) Aspartate Amino Transf (AST/SGOT) 20 U/L (15-37) Alanine Aminotransferase (ALT/SGPT) 13 U/L (14-59) Alkaline Phosphatase 87 U/L (46-116) Total Protein 6.3 g/dL (6.4-8.2) Albumin 2.9 g/dL (3.4-5.0) Albumin/Globulin Ratio 0.9 (1.0-1.7) Medications Current Medications Sodium Chloride 1,000 ml @ 1,000 mls/hr Q1H IV Last administered on 10:15; Start 06/05/17 at 10:15; Stop 06/05/17 at 11:14; Status DC Fentanyl Citrate (Fentanyl 2ml Vial) 50 mcg PRN Q15MIN PRN IV PAIN GREATER THAN 3/10 Last administered on 06/05/17 19:24; Start 06/05/17 at 10:45; Stop 06/06/17 at 10:44; Status DC Fentanyl Citrate (Fentanyl 2ml Vial) 100 mcg STK-MED ONCE .ROUTE ; Start at 10:46; Stop 06/05/17 at 10:47; Status DC Octreotide Acetate 500 mcg/ Sodium Chloride 101 ml @ 0 mls/hr CONT PRN IV SEE I /O RECORD Last administered on 06/05/17 12:25; Start 06/05/17 at 12:00; Stop 06/05/17 at 13:23; Status DC Pantoprazole Sodium 80 mg/ Sodium Chloride 100 ml @ 10 mls/hr 1X ONCE IV Last administered on 06/05/17 12:22; Start 06/05/17 at 12:00; Stop 06/05/17 at 21:59; Status DC Ondansetron HCl (Zofran) 4 mg PRN Q8HRS PRN IV NAUSEA/VOMITING; Start at 12:30; Stop 06/06/17 at 12:29; Status DC Fentanyl Citrate (Fentanyl 2ml Vial) 50 mcg PRN Q2HR PRN IV PAIN Last administered on 06/06/17 04:56; Start 06/05/17 at 12:30; Stop 06/06/17 at 07 :14; Status DC Acetaminophen (Tylenol) 325 mg PRN Q4HRS PRN PO PAIN/FEVER; Start 06/05/17 at 15:00 Alprazolam (Xanax) 1 mg PRN Q8HRS PRN PO ANXIETY / AGITATION Last administered on 12/20/17at 05:34; Start 06/05/17 at 15:00 Carisoprodol (Soma) 350 mg QID PO Last administered on 06/07/17 07:51; Start 06/05/17 at 17:00 Diltiazem HCl (Cardizem 24hr Cd) 240 mg DAILY PO Last administered on 07:52; Start 06/05/17 at 16:00 Docusate Sodium (Colace) 100 mg BID PO Last administered on 06/07/17 07:51; Start 06/05/17 at 21:00 Famotidine (Pepcid) 20 mg DAILY PO Last administered on 06/07/17 07:52; Start 06/06/17 at 09:00 Acetaminophen/ Hydrocodone Bitart (Lortab 7.5/325) 1 tab PRN Q6HRS PRN PO PAIN Last administered on 06/05/17 22:50; Start 06/05/17 at 15:00 Levetiracetam (Keppra) 500 mg BID PO Last administered on 06/07/17 07:51; Start 06/05/17 at 21:00 Mupirocin (Bactroban) 1 indira TID TP ; Start 06/05/17 at 21:00 Ondansetron HCl (Zofran Odt) 4 mg Q8HRS PO Last administered on 06/07/17 05: 34; Start 06/05/17 at 16:00 Lubiprostone (Amitiza) 24 mcg BIDWMEALS PO Last administered on 06/07/17 07: 48; Start 06/05/17 at 17:00 Meloxicam (Mobic) 15 mg DAILY PO ; Start 06/05/17 at 16:00; Stop 06/05/17 at 16:00; Status DC Paroxetine HCl (Paxil) 40 mg DAILY PO Last administered on 06/07/17 07:51; Start 06/05/17 at 16:00 Losartan Potassium (Cozaar) 100 mg DAILY PO Last administered on 06/07/17 07: 51; Start 06/05/17 at 16:00 Lidocaine (Lidoderm) 1 patch DAILY TD Last administered on 06/07/17 07:53; Start 06/05/17 at 16:00 Prednisone (Prednisone) 20 mg DAILY PO Last administered on 06/07/17 07:51; Start 06/05/17 at 16:00 Oxycodone HCl (OxyCONTIN) 10 mg 1X ONCE PO Last administered on 06/05/17 15: 16; Start 06/05/17 at 15:15; Stop 06/05/17 at 15:16; Status DC Nicotine (Nicoderm Cq 21mg) 1 patch DAILY TD Last administered on 06/07/17 07 :54; Start 06/05/17 at 16:00 Methylprednisolone Acetate (DEPO-Medrol 40MG VIAL) 40 mg 1X ONCE INT ART ; Start 06/05/17 at 19:00; Stop 06/05/17 at 19:05; Status DC Bupivacaine HCl (Sensorcaine-Mpf 0.25%) 10 ml 1X ONCE IJ ; Start 06/05/17 at 19:00; Stop 06/05/17 at 19:05; Status DC Fentanyl Citrate (Fentanyl 2ml Vial) 75 mcg PRN Q2HR PRN IV PAIN Last administered on 06/07/17 07:55; Start 06/06/17 at 07:15 Propofol 20 ml @ As Directed STK-MED ONCE IV ; Start 06/06/17 at 15:57; Stop 06/06/17 at 15:58; Status DC Diphenhydramine HCl (Benadryl) 25 mg PRN Q6HRS PRN IVP ITCHING; Start at 18:45; Status Cancel Diphenhydramine HCl (Benadryl) 25 mg PRN Q6HRS PRN PO ITCHING Last administered on 06/07/17 09:19; Start 06/06/17 at 18:45 Active Scripts Active Zofran Odt (Ondansetron) 4 Mg Tab.rapdis 1 Tab SL Q8HRS Colace (Docusate Sodium) 100 Mg Capsule 100 Mg PO BID Mupirocin Cream (Mupirocin) 15 Gm Cream..g. 1 Indira TP TID 7 Days Famotidine 20 Mg Tablet 20 Mg PO BID 28 Days Alprazolam 1 Mg Tablet 1 Mg PO PRN Q8HRS PRN 14 Days Reported Meloxicam 15 Mg Tablet 1 Tab PO DAILY Keppra (Levetiracetam) 500 Mg Tablet 1 Tab PO BID Paroxetine Hcl 40 Mg Tablet 40 Mg PO DAILY Amitiza (Lubiprostone) 24 Mcg Capsule 24 Mcg PO BID Hydrocodone-Apap 7.5-325 (Hydrocodone Bit/Acetaminophen) 1 Each Tablet 1 Tab PO PRN Q6HRS PRN Diltiazem 24HR Cd (Diltiazem Hcl) 180 Mg Cap.er.24h 240 Mg PO DAILY Tylenol (Acetaminophen) 325 Mg Tablet 1 Tab PO PRN Q4HRS Carisoprodol 350 Mg Tablet 1 Tab PO QID Losartan Potassium 100 Mg Tablet 100 Mg PO BID Vitals/I & O Vital Sign - Last 24 Hours 06/06/17 06/06/17 06/06/17 06/06/17 10:47 11:00 12:52 15:00 Temp 97.9 98.3 97.9 98.3 Pulse 80 72 Resp 18 18 20 20 B/P (MAP) 94/51 (65) 130/86 (101) Pulse Ox 96 96 O2 Delivery Room Air Room Air Room Air Room Air 06/06/17 06/06/17 06/06/17 06/06/17 15:11 15:41 16:10 16:19 Temp 98.2 98.2 98.1 98.2 98.2 98.1 Pulse 74 73 73 Resp 20 18 B/P (MAP) 80/50 79/41 Pulse Ox 96 96 96 99 O2 Delivery Room Air Room Air Room Air O2 Flow Rate 2 06/06/17 06/06/17 06/06/17 06/06/17 16:26 16:30 16:38 16:45 Temp 98.1 98.0 98.1 98.1 98.0 98.1 Pulse 74 78 73 72 Resp 18 20 18 18 B/P (MAP) 93/50 122/76 (91) 106/48 110/74 (86) Pulse Ox 95 96 94 96 O2 Delivery Room Air Room Air Room Air 06/06/17 06/06/17 06/06/17 06/06/17 17:00 17:02 17:15 17:45 Temp 98.2 98.2 Pulse 69 67 Resp 18 20 B/P (MAP) 113/78 (90) 118/65 (82) 99/64 (76) Pulse Ox 97 94 97 97 O2 Delivery Room Air Room Air Room Air Room Air 06/06/17 06/06/17 06/06/17 06/06/17 18:15 19:00 19:20 20:00 Temp 97.7 97.7 Pulse 68 86 Resp 20 18 B/P (MAP) 98/66 (77) 112/62 (79) Pulse Ox 97 94 O2 Delivery Room Air Room Air Room Air Room Air O2 Flow Rate 2.0 06/06/17 06/06/17 06/07/17 06/07/17 21:14 23:00 01:19 03:00 Temp 98.0 98.1 98.0 98.1 Pulse 85 72 Resp 20 20 B/P (MAP) 110/63 (79) 114/67 (83) Pulse Ox 97 93 93 95 O2 Delivery Room Air Room Air Room Air Room Air O2 Flow Rate 2.0 2.0 06/07/17 06/07/17 06/07/17 06/07/17 03:32 05:34 06:05 07:00 Temp 98.1 98.1 Pulse 89 Resp 17 B/P (MAP) 138/69 (92) Pulse Ox 93 93 93 95 O2 Delivery Room Air Room Air Room Air O2 Flow Rate 2.0 2.0 2.0 06/07/17 06/07/17 06/07/17 06/07/17 07:51 07:52 07:55 08:25 Pulse 89 89 Resp 18 18 B/P (MAP) 139/69 139/69 O2 Delivery Room Air Room Air Intake and Output 06/06/17 06/06/17 06/07/17 15:00 23:00 07:00 Intake Total 270 ml 850 ml 300 ml Output Total 2 ml Balance 270 ml 850 ml 298 ml IDANIA ALEXANDER MD Jun 07, 2017 09:35
[2017-06-07 10:47] VITALS: BP 116/43
[2017-06-07] MEDS: HYDROcodone/APAP 7.5/325MG 1 TAB TABLET PO PRN (12:49)
--- NOTE | 2017-06-07 13:22 | PDOC ---
PROGRESS NOTES Chief Complaint Chief Complaint GI bleed Melena Diarrhea HTN PMH gastritis COPD History of Present Illness History of Present Illness Patient received EGD which demonstrated a non-erosive gastritis without the presence of ulceration. GI recommended resuming PPI and to f/u with an outpatient colonoscopy. Patient received steroid injection of knee to help with pain by ortho. Vitals Vitals Vital Signs Date Time Temp Pulse Resp B/P (MAP) Pulse Ox O2 Delivery O2 Flow Rate FiO2 06/07/17 12:49 18 Room Air 06/07/17 10:47 97.9 93 116/43 (67) 97 97.9 06/07/17 06:05 2.0 Physical Exam General: Alert, Oriented X3, Cooperative, mild distress Heart: Regular rate Lungs: Clear Abdomen: Normal bowel sounds, Soft, No tenderness Extremities: No edema, Normal pulses Skin: No rashes, No significant lesion Labs LABS Laboratory Tests Test 06/06/17 17:55 06/07/17 04:15 06/07/17 12:05 Hemoglobin 8.7 g/dL (12.0-15.5) 8.1 g/dL (12.0-15.5) 8.4 g/dL (12.0-15.5) White Blood Count 4.5 x10^3/uL (4.0-11.0) Red Blood Count 2.41 x10^6/uL (3.50-5.40) Hematocrit 24.2 % (36.0-47.0) Mean Corpuscular Volume 100 fL (79-100) Mean Corpuscular Hemoglobin 34 pg (25-35) Mean Corpuscular Hemoglobin Concent 33 g/dL (31-37) Red Cell Distribution Width 15.2 % (11.5-14.5) Platelet Count 667 x10^3/uL (140-400) Neutrophils (%) (Auto) 85 % (31-73) Lymphocytes (%) (Auto) 11 % (24-48) Monocytes (%) (Auto) 4 % (0-9) Eosinophils (%) (Auto) 0 % (0-3) Basophils (%) (Auto) 0 % (0-3) Neutrophils # (Auto) 3.9 x10^3uL (1.8-7.7) Lymphocytes # (Auto) 0.5 x10^3/uL (1.0-4.8) Monocytes # (Auto) 0.2 x10^3/uL (0.0-1.1) Eosinophils # (Auto) 0.0 x10^3/uL (0.0-0.7) Basophils # (Auto) 0.0 x10^3/uL (0.0-0.2) Sodium Level 129 mmol/L (136-145) Potassium Level 4.8 mmol/L (3.5-5.1) Chloride Level 93 mmol/L (98-107) Carbon Dioxide Level 24 mmol/L (21-32) Anion Gap 12 (6-14) Blood Urea Nitrogen 20 mg/dL (7-20) Creatinine 1.0 mg/dL (0.6-1.0) Estimated GFR (Cockcroft-Gault) 55.5 BUN/Creatinine Ratio 20 (6-20) Glucose Level 126 mg/dL (70-99) Calcium Level 8.5 mg/dL (8.5-10.1) Total Bilirubin 0.2 mg/dL (0.2-1.0) Aspartate Amino Transf (AST/SGOT) 20 U/L (15-37) Alanine Aminotransferase (ALT/SGPT) 13 U/L (14-59) Alkaline Phosphatase 87 U/L (46-116) Total Protein 6.3 g/dL (6.4-8.2) Albumin 2.9 g/dL (3.4-5.0) Albumin/Globulin Ratio 0.9 (1.0-1.7) Review of Systems Review of Systems Patient reports feeling better and is eager to be discharged She denies abdominal pain She reports mild knee pain Assessment and Plan Assessmemt and Plan Assessment: GI bleed Melena Diarrhea HTN PMH gastritis COPD Plan: Continue PPI Home meds Outpatient colonoscopy F/u with GI outpatient PT/OT Discharge home Problems: Comment Review of Relevant I have reviewed the following items minh (where applicable) has been applied. Labs Laboratory Tests Test 06/05/17 18:00 06/05/17 21:09 06/06/17 00:20 06/06/17 05:10 Hemoglobin 9.4 g/dL (12.0-15.5) 9.2 g/dL (12.0-15.5) 8.6 g/dL (12.0-15.5) Troponin I Quantitative < 0.017 ng/mL (0.000-0.055) < 0.017 ng/mL (0.000-0.055) Clostridium difficile Toxin (PCR) Negative (Negative) White Blood Count 8.2 x10^3/uL (4.0-11.0) Red Blood Count 2.59 x10^6/uL (3.50-5.40) Hematocrit 26.0 % (36.0-47.0) Mean Corpuscular Volume 101 fL (79-100) Mean Corpuscular Hemoglobin 33 pg (25-35) Mean Corpuscular Hemoglobin Concent 33 g/dL (31-37) Red Cell Distribution Width 15.8 % (11.5-14.5) Platelet Count 623 x10^3/uL (140-400) Neutrophils (%) (Auto) 69 % (31-73) Lymphocytes (%) (Auto) 23 % (24-48) Monocytes (%) (Auto) 7 % (0-9) Eosinophils (%) (Auto) 0 % (0-3) Basophils (%) (Auto) 1 % (0-3) Neutrophils # (Auto) 5.7 x10^3uL (1.8-7.7) Lymphocytes # (Auto) 1.9 x10^3/uL (1.0-4.8) Monocytes # (Auto) 0.6 x10^3/uL (0.0-1.1) Eosinophils # (Auto) 0.0 x10^3/uL (0.0-0.7) Basophils # (Auto) 0.1 x10^3/uL (0.0-0.2) Sodium Level 131 mmol/L (136-145) Potassium Level 4.5 mmol/L (3.5-5.1) Chloride Level 96 mmol/L (98-107) Carbon Dioxide Level 26 mmol/L (21-32) Anion Gap 9 (6-14) Blood Urea Nitrogen 17 mg/dL (7-20) Creatinine 0.8 mg/dL (0.6-1.0) Estimated GFR (Cockcroft-Gault) 71.8 Glucose Level 129 mg/dL (70-99) Calcium Level 7.8 mg/dL (8.5-10.1) Test 06/06/17 12:00 06/06/17 17:55 06/07/17 04:15 06/07/17 12:05 Hemoglobin 8.9 g/dL (12.0-15.5) 8.7 g/dL (12.0-15.5) 8.1 g/dL (12.0-15.5) 8.4 g/dL (12.0-15.5) White Blood Count 4.5 x10^3/uL (4.0-11.0) Red Blood Count 2.41 x10^6/uL (3.50-5.40) Hematocrit 24.2 % (36.0-47.0) Mean Corpuscular Volume 100 fL (79-100) Mean Corpuscular Hemoglobin 34 pg (25-35) Mean Corpuscular Hemoglobin Concent 33 g/dL (31-37) Red Cell Distribution Width 15.2 % (11.5-14.5) Platelet Count 667 x10^3/uL (140-400) Neutrophils (%) (Auto) 85 % (31-73) Lymphocytes (%) (Auto) 11 % (24-48) Monocytes (%) (Auto) 4 % (0-9) Eosinophils (%) (Auto) 0 % (0-3) Basophils (%) (Auto) 0 % (0-3) Neutrophils # (Auto) 3.9 x10^3uL (1.8-7.7) Lymphocytes # (Auto) 0.5 x10^3/uL (1.0-4.8) Monocytes # (Auto) 0.2 x10^3/uL (0.0-1.1) Eosinophils # (Auto) 0.0 x10^3/uL (0.0-0.7) Basophils # (Auto) 0.0 x10^3/uL (0.0-0.2) Sodium Level 129 mmol/L (136-145) Potassium Level 4.8 mmol/L (3.5-5.1) Chloride Level 93 mmol/L (98-107) Carbon Dioxide Level 24 mmol/L (21-32) Anion Gap 12 (6-14) Blood Urea Nitrogen 20 mg/dL (7-20) Creatinine 1.0 mg/dL (0.6-1.0) Estimated GFR (Cockcroft-Gault) 55.5 BUN/Creatinine Ratio 20 (6-20) Glucose Level 126 mg/dL (70-99) Calcium Level 8.5 mg/dL (8.5-10.1) Total Bilirubin 0.2 mg/dL (0.2-1.0) Aspartate Amino Transf (AST/SGOT) 20 U/L (15-37) Alanine Aminotransferase (ALT/SGPT) 13 U/L (14-59) Alkaline Phosphatase 87 U/L (46-116) Total Protein 6.3 g/dL (6.4-8.2) Albumin 2.9 g/dL (3.4-5.0) Albumin/Globulin Ratio 0.9 (1.0-1.7) Laboratory Tests Test 06/06/17 17:55 06/07/17 04:15 06/07/17 12:05 Hemoglobin 8.7 g/dL (12.0-15.5) 8.1 g/dL (12.0-15.5) 8.4 g/dL (12.0-15.5) White Blood Count 4.5 x10^3/uL (4.0-11.0) Red Blood Count 2.41 x10^6/uL (3.50-5.40) Hematocrit 24.2 % (36.0-47.0) Mean Corpuscular Volume 100 fL (79-100) Mean Corpuscular Hemoglobin 34 pg (25-35) Mean Corpuscular Hemoglobin Concent 33 g/dL (31-37) Red Cell Distribution Width 15.2 % (11.5-14.5) Platelet Count 667 x10^3/uL (140-400) Neutrophils (%) (Auto) 85 % (31-73) Lymphocytes (%) (Auto) 11 % (24-48) Monocytes (%) (Auto) 4 % (0-9) Eosinophils (%) (Auto) 0 % (0-3) Basophils (%) (Auto) 0 % (0-3) Neutrophils # (Auto) 3.9 x10^3uL (1.8-7.7) Lymphocytes # (Auto) 0.5 x10^3/uL (1.0-4.8) Monocytes # (Auto) 0.2 x10^3/uL (0.0-1.1) Eosinophils # (Auto) 0.0 x10^3/uL (0.0-0.7) Basophils # (Auto) 0.0 x10^3/uL (0.0-0.2) Sodium Level 129 mmol/L (136-145) Potassium Level 4.8 mmol/L (3.5-5.1) Chloride Level 93 mmol/L (98-107) Carbon Dioxide Level 24 mmol/L (21-32) Anion Gap 12 (6-14) Blood Urea Nitrogen 20 mg/dL (7-20) Creatinine 1.0 mg/dL (0.6-1.0) Estimated GFR (Cockcroft-Gault) 55.5 BUN/Creatinine Ratio 20 (6-20) Glucose Level 126 mg/dL (70-99) Calcium Level 8.5 mg/dL (8.5-10.1) Total Bilirubin 0.2 mg/dL (0.2-1.0) Aspartate Amino Transf (AST/SGOT) 20 U/L (15-37) Alanine Aminotransferase (ALT/SGPT) 13 U/L (14-59) Alkaline Phosphatase 87 U/L (46-116) Total Protein 6.3 g/dL (6.4-8.2) Albumin 2.9 g/dL (3.4-5.0) Albumin/Globulin Ratio 0.9 (1.0-1.7) Medications Current Medications Sodium Chloride 1,000 ml @ 1,000 mls/hr Q1H IV Last administered on 10:15; Start 06/05/17 at 10:15; Stop 06/05/17 at 11:14; Status DC Fentanyl Citrate (Fentanyl 2ml Vial) 50 mcg PRN Q15MIN PRN IV PAIN GREATER THAN 3/10 Last administered on 06/05/17 19:24; Start 06/05/17 at 10:45; Stop 06/06/17 at 10:44; Status DC Fentanyl Citrate (Fentanyl 2ml Vial) 100 mcg STK-MED ONCE .ROUTE ; Start at 10:46; Stop 06/05/17 at 10:47; Status DC Octreotide Acetate 500 mcg/ Sodium Chloride 101 ml @ 0 mls/hr CONT PRN IV SEE I /O RECORD Last administered on 06/05/17 12:25; Start 06/05/17 at 12:00; Stop 06/05/17 at 13:23; Status DC Pantoprazole Sodium 80 mg/ Sodium Chloride 100 ml @ 10 mls/hr 1X ONCE IV Last administered on 06/05/17 12:22; Start 06/05/17 at 12:00; Stop 06/05/17 at 21:59; Status DC Ondansetron HCl (Zofran) 4 mg PRN Q8HRS PRN IV NAUSEA/VOMITING; Start at 12:30; Stop 06/06/17 at 12:29; Status DC Fentanyl Citrate (Fentanyl 2ml Vial) 50 mcg PRN Q2HR PRN IV PAIN Last administered on 06/06/17 04:56; Start 06/05/17 at 12:30; Stop 06/06/17 at 07 :14; Status DC Acetaminophen (Tylenol) 325 mg PRN Q4HRS PRN PO PAIN/FEVER; Start 06/05/17 at 15:00 Alprazolam (Xanax) 1 mg PRN Q8HRS PRN PO ANXIETY / AGITATION Last administered on 06/07/17 05:34; Start 06/05/17 at 15:00 Carisoprodol (Soma) 350 mg QID PO Last administered on 06/07/17 12:48; Start 06/05/17 at 17:00 Diltiazem HCl (Cardizem 24hr Cd) 240 mg DAILY PO Last administered on 07:52; Start 06/05/17 at 16:00 Docusate Sodium (Colace) 100 mg BID PO Last administered on 06/07/17 07:51; Start 06/05/17 at 21:00 Famotidine (Pepcid) 20 mg DAILY PO Last administered on 06/07/17 07:52; Start 06/06/17 at 09:00 Acetaminophen/ Hydrocodone Bitart (Lortab 7.5/325) 1 tab PRN Q6HRS PRN PO PAIN Last administered on 06/07/17 12:49; Start 06/05/17 at 15:00 Levetiracetam (Keppra) 500 mg BID PO Last administered on 06/07/17 07:51; Start 06/05/17 at 21:00 Mupirocin (Bactroban) 1 indira TID TP ; Start 06/05/17 at 21:00 Ondansetron HCl (Zofran Odt) 4 mg Q8HRS PO Last administered on 06/07/17 05: 34; Start 06/05/17 at 16:00 Lubiprostone (Amitiza) 24 mcg BIDWMEALS PO Last administered on 06/07/17 07: 48; Start 06/05/17 at 17:00 Meloxicam (Mobic) 15 mg DAILY PO ; Start 06/05/17 at 16:00; Stop 06/05/17 at 16:00; Status DC Paroxetine HCl (Paxil) 40 mg DAILY PO Last administered on 06/07/17 07:51; Start 06/05/17 at 16:00 Losartan Potassium (Cozaar) 100 mg DAILY PO Last administered on 06/07/17 07: 51; Start 06/05/17 at 16:00 Lidocaine (Lidoderm) 1 patch DAILY TD Last administered on 06/07/17 07:53; Start 06/05/17 at 16:00 Prednisone (Prednisone) 20 mg DAILY PO Last administered on 06/07/17 07:51; Start 06/05/17 at 16:00 Oxycodone HCl (OxyCONTIN) 10 mg 1X ONCE PO Last administered on 06/05/17 15: 16; Start 06/05/17 at 15:15; Stop 06/05/17 at 15:16; Status DC Nicotine (Nicoderm Cq 21mg) 1 patch DAILY TD Last administered on 06/07/17 07 :54; Start 06/05/17 at 16:00 Methylprednisolone Acetate (DEPO-Medrol 40MG VIAL) 40 mg 1X ONCE INT ART ; Start 06/05/17 at 19:00; Stop 06/05/17 at 19:05; Status DC Bupivacaine HCl (Sensorcaine-Mpf 0.25%) 10 ml 1X ONCE IJ ; Start 06/05/17 at 19:00; Stop 06/05/17 at 19:05; Status DC Fentanyl Citrate (Fentanyl 2ml Vial) 75 mcg PRN Q2HR PRN IV PAIN Last administered on 06/07/17 10:04; Start 06/06/17 at 07:15 Propofol 20 ml @ As Directed STK-MED ONCE IV ; Start 06/06/17 at 15:57; Stop 06/06/17 at 15:58; Status DC Diphenhydramine HCl (Benadryl) 25 mg PRN Q6HRS PRN IVP ITCHING; Start at 18:45; Status Cancel Diphenhydramine HCl (Benadryl) 25 mg PRN Q6HRS PRN PO ITCHING Last administered on 06/07/17t 09:19; Start 06/06/17 at 18:45 Active Scripts Active Zofran Odt (Ondansetron) 4 Mg Tab.rapdis 1 Tab SL Q8HRS Colace (Docusate Sodium) 100 Mg Capsule 100 Mg PO BID Mupirocin Cream (Mupirocin) 15 Gm Cream..g. 1 Indira TP TID 7 Days Famotidine 20 Mg Tablet 20 Mg PO BID 28 Days Alprazolam 1 Mg Tablet 1 Mg PO PRN Q8HRS PRN 14 Days Reported Meloxicam 15 Mg Tablet 1 Tab PO DAILY Keppra (Levetiracetam) 500 Mg Tablet 1 Tab PO BID Paroxetine Hcl 40 Mg Tablet 40 Mg PO DAILY Amitiza (Lubiprostone) 24 Mcg Capsule 24 Mcg PO BID Hydrocodone-Apap 7.5-325 (Hydrocodone Bit/Acetaminophen) 1 Each Tablet 1 Tab PO PRN Q6HRS PRN Diltiazem 24HR Cd (Diltiazem Hcl) 180 Mg Cap.er.24h 240 Mg PO DAILY Tylenol (Acetaminophen) 325 Mg Tablet 1 Tab PO PRN Q4HRS Carisoprodol 350 Mg Tablet 1 Tab PO QID Losartan Potassium 100 Mg Tablet 100 Mg PO BID Vitals/I & O Vital Sign - Last 24 Hours 06/06/17 06/06/17 06/06/17 06/06/17 15:00 15:11 15:41 16:10 Temp 98.3 98.2 98.2 98.3 98.2 98.2 Pulse 72 74 73 Resp 20 20 B/P (MAP) 130/86 (101) 80/50 Pulse Ox 96 96 96 96 O2 Delivery Room Air Room Air Room Air 06/06/17 06/06/17 06/06/17 06/06/17 16:19 16:26 16:30 16:38 Temp 98.1 98.1 98.0 98.1 98.1 98.1 98.0 98.1 Pulse 73 74 78 73 Resp 18 18 20 18 B/P (MAP) 79/41 93/50 122/76 (91) 106/48 Pulse Ox 99 95 96 94 O2 Delivery Room Air Room Air Room Air O2 Flow Rate 2 06/06/17 06/06/17 06/06/17 06/06/17 16:45 17:00 17:02 17:15 Temp 98.2 98.2 Pulse 72 69 Resp 18 18 B/P (MAP) 110/74 (86) 113/78 (90) 118/65 (82) Pulse Ox 96 97 94 97 O2 Delivery Room Air Room Air Room Air Room Air 06/06/17 06/06/17 06/06/17 06/06/17 17:45 18:15 19:00 19:20 Temp 97.7 97.7 Pulse 67 68 86 Resp 20 20 18 B/P (MAP) 99/64 (76) 98/66 (77) 112/62 (79) Pulse Ox 97 97 94 O2 Delivery Room Air Room Air Room Air Room Air 06/06/17 06/06/17 06/06/17 06/07/17 20:00 21:14 23:00 01:19 Temp 98.0 98.0 Pulse 85 Resp 20 B/P (MAP) 110/63 (79) Pulse Ox 97 93 93 O2 Delivery Room Air Room Air Room Air Room Air O2 Flow Rate 2.0 2.0 2.0 06/07/17 06/07/17 06/07/17 06/07/17 03:00 03:32 05:34 06:05 Temp 98.1 98.1 Pulse 72 Resp 20 B/P (MAP) 114/67 (83) Pulse Ox 95 93 93 O2 Delivery Room Air Room Air Room Air O2 Flow Rate 2.0 2.0 2.0 06/07/17 06/07/17 06/07/17 06/07/17 07:00 07:51 07:52 07:55 Temp 98.1 98.1 Pulse 89 89 89 Resp 17 18 B/P (MAP) 138/69 (92) 139/69 139/69 Pulse Ox 95 O2 Delivery Room Air Room Air 06/07/17 06/07/17 06/07/17 06/07/17 08:00 10:04 10:34 10:47 Temp 97.9 97.9 Pulse 93 Resp 18 18 16 B/P (MAP) 116/43 (67) Pulse Ox 97 97 O2 Delivery Room Air Room Air Room Air Room Air 06/07/17 12:49 Resp 18 O2 Delivery Room Air Intake and Output 06/06/17 06/06/17 06/07/17 15:00 23:00 07:00 Intake Total 270 ml 850 ml 300 ml Output Total 2 ml Balance 270 ml 850 ml 298 ml OSWALD VARGAS III DO Jun 07, 2017 13:21
--- NOTE | 2017-06-07 13:22 | PDOC ---
Subjective: Subjective: Wants to know what the plan is, if she's going home, why she's not having a colonoscopy today. Tolerating PO, feels bloated after eating, no diarrhea. Objective: Objective: D/w RN. Vital Signs: Vital Signs Date Time Temp Pulse Resp B/P (MAP) Pulse Ox O2 Delivery O2 Flow Rate FiO2 06/07/17 12:49 18 Room Air 06/07/17 10:47 97.9 93 116/43 (67) 97 97.9 06/07/17 06:05 2.0 Labs: Laboratory Tests Test 06/06/17 17:55 06/07/17 04:15 06/07/17 12:05 Hemoglobin 8.7 g/dL 8.1 g/dL 8.4 g/dL White Blood Count 4.5 x10^3/uL Red Blood Count 2.41 x10^6/uL Hematocrit 24.2 % Mean Corpuscular Volume 100 fL Mean Corpuscular Hemoglobin 34 pg Mean Corpuscular Hemoglobin Concent 33 g/dL Red Cell Distribution Width 15.2 % Platelet Count 667 x10^3/uL Neutrophils (%) (Auto) 85 % Lymphocytes (%) (Auto) 11 % Monocytes (%) (Auto) 4 % Eosinophils (%) (Auto) 0 % Basophils (%) (Auto) 0 % Neutrophils # (Auto) 3.9 x10^3uL Lymphocytes # (Auto) 0.5 x10^3/uL Monocytes # (Auto) 0.2 x10^3/uL Eosinophils # (Auto) 0.0 x10^3/uL Basophils # (Auto) 0.0 x10^3/uL Sodium Level 129 mmol/L Potassium Level 4.8 mmol/L Chloride Level 93 mmol/L Carbon Dioxide Level 24 mmol/L Anion Gap 12 Blood Urea Nitrogen 20 mg/dL Creatinine 1.0 mg/dL Estimated GFR (Cockcroft-Gault) 55.5 BUN/Creatinine Ratio 20 Glucose Level 126 mg/dL Calcium Level 8.5 mg/dL Total Bilirubin 0.2 mg/dL Aspartate Amino Transf (AST/SGOT) 20 U/L Alanine Aminotransferase (ALT/SGPT) 13 U/L Alkaline Phosphatase 87 U/L Total Protein 6.3 g/dL Albumin 2.9 g/dL Albumin/Globulin Ratio 0.9 Imaging: EGD 06/06/17 non-erosive gastritis gastric ulcer s/p bx PE: GEN: NAD LUNGS: clear HEART: RRR ABD: mild tenderness epigastrium NEURO/PSYCH: A & O 3 A/P: Diarrhea - improved, C Diff neg Dyspepsia, bloating Choledochocele Anemia -Hgb stable in 8s -has had previous colonoscopy, unclear timing Chronic pain -- Spent significant time w/ pt - explained diagnosis, treatment plan w/ PPI, and plans for outpt EGD and colonoscopy in 2 months. She repeatedly asked the same questions and expressed the same concerns w/ bloating, etc. Left Rx for PPI and recheck CBC x 1 week w/ RN. Pain control (for knee) per primary - note she does not have a PCP, recently "fired" from previous PCP re: pain meds. Will ask our office to call and schedule 'scopes, will also call w/ path results. She requests we call her 's cell because she doesn't answer her home phone. Advised against use of NSAIDs, has Meloxicam on home med list. She confirms she was to discharge today - defer to primary. ORQUIDEA QUIGLEY Jun 07, 2017 13:22
[2017-06-07] MEDS ORDERED: PANT40TA5 PO (16:02)
--- NOTE | 2017-06-08 13:28 | PATHOLOGY ---
PATHOLOGY REPORT * * * * * * * * FINAL DIAGNOSIS: Gastric biopsies, antral ulcer: - Reactive gastropathy. COMMENT: Sections of the gastric antral ulcer biopsy reveal segments of gastric antral mucosa and segment of gastroduodenal mucosa showing congestion, foveolar hyperplasia, and focal slight acute inflammation. An immunoperoxidase stain for Helicobacter is obtained. No Helicobacter organisms are identified. The findings are consistent with a reactive gastropathy. (JPM:mml; 06/08/2017) REPORT ELECTRONICALLY SIGNED BY: Kurt Fallon M.D. DATE/TIME: 06/08/2017 13:28 * * * * * * * * GROSS PATHOLOGY: Received in formalin labeled "Stas Ordaz, antrum ulcer BX's," are 3 segments of swann soft tissue measuring 1.5 x 0.5 x 0.4 cm in aggregate dimensions and ranging from 0.3 to 0.5 cm in maximum dimension. The specimen is submitted entirely in cassette A1. (TSD; 06/07/2017) INITIAL CPT CODE(S): A; 78323, 32279 Professional services performed by [facility] [place] [address] Technical services performed by [facility] at [address] [place] [address]. SPECIMEN(S) RECEIVED: A.Antrum gastric ulcer biopsies CLINICAL HISTORY: GI bleed PATIENT: STAS ORDAZ /AGE: 3 1950 (Age: 66) PATIENT #: [id number] ALT CASE #: SPECIMEN COLLECTION DATE: 06/06/2017 SPECIMEN RECEIVED DATE: 06/07/2017 [facility] - [address] [place] [address] - PHONE: [phone] * * * END OF REPORT * * *
== END 2017-06-07 16:40 | disposition home or self-care (01) | DRG 378 ==
LOC: ER 09:26 → 5 SOUTH 11:15
PROVIDERS: ADMIT Internal Medicine; ATTEND Internal Medicine
PROC: 0DB68ZX Excision of Stomach, Via Natural or Artificial Opening Endoscopic, Diagnostic (ICD-10-PCS; principal; 2017-06-05)
PROC: 3E0U33Z Introduction of Anti-inflammatory into Joints, Percutaneous Approach (ICD-10-PCS; 2017-06-06)
PROC: 3E0U3BZ Introduction of Anesthetic Agent into Joints, Percutaneous Approach (ICD-10-PCS; 2017-06-06)
DX: K25.4 Chronic or unspecified gastric ulcer with hemorrhage (principal); D62 Acute posthemorrhagic anemia; I48.91 Unspecified atrial fibrillation; J44.9 Chronic obstructive pulmonary disease, unspecified; K52.9 Noninfective gastroenteritis and colitis, unspecified; F17.210 Nicotine dependence, cigarettes, uncomplicated; G89.29 Other chronic pain; I10 Essential (primary) hypertension; K29.70 Gastritis, unspecified, without bleeding; M17.11 Unilateral primary osteoarthritis, right knee; F41.9 Anxiety disorder, unspecified; M79.7 Fibromyalgia; F32.9 Major depressive disorder, single episode, unspecified; Z91.81 History of falling; Z90.710 Acquired absence of both cervix and uterus; Z90.49 Acquired absence of other specified parts of digestive tract; Z88.8 Allergy status to other drugs, medicaments and biological substances; Z91.041 Radiographic dye allergy status; Z82.0 Family history of epilepsy and other diseases of the nervous system
CPT/HCPCS: 36415; 74022; 80048; 80053; 80076; 81001; 82274; 82553; 82607; 82746; 83540; 83550; 83690; 83735; 83880; 84443; 84484; 85007; 85018; 85025; 85045; 85610; 86850; 86900; 86901; 87045; 87324; 88305; 88342; 93005; C9113; J1030; J2354; J2704; J3010; J3490; J7030; J7512; Q0162; Q0163

== ENCOUNTER → 2017-06-28 | Outpatient (CLI) | payer MEDICARE, OTHER ==
[~2017-06-28] MED LIST changes: -ACET325T9 PO; -ALPR0.5T6 PO; -ALPR1TAB6 PO; -ASPI-482 PO; +BUPIVACAINE MPF 0.25% 10 ML VIAL.; -CARI350T14 PO; -DILT180C29 PO; -DOCU-109 PO; -FAMO20TA5 PO; -FENT1PAT17 TD; -HYDR-2762 PO; -HYDR-2766 PO; -HYDR-971 PO; -LEVE500T56 PO; -LEVO250T25 PO; -LOSA100T6 PO; -LUBI24CA7 PO; -MELO15TA23 PO; -MUPI15CR8 TP; -ONDA4TAB10 SL; -OXYC10TA45 PO; -PARO20TA3 PO; -PARO40TA3 PO; +methylPREDNISolone ACETATE 40 MG/ML VIAL.
== END | disposition home or self-care (01) ==
LOC: PNCL 08:09
DX: M79.1 Myalgia (principal); M96.1 Postlaminectomy syndrome, not elsewhere classified; M54.12 Radiculopathy, cervical region; M54.16 Radiculopathy, lumbar region
CPT/HCPCS: 20553; J1030; J3490

== ENCOUNTER → 2017-07-26 | Day surgery (SDC) | payer MEDICARE, OTHER ==
[~2017-07-26] MED LIST changes: -BUPIVACAINE MPF 0.25% 10 ML VIAL.; +IV RINGERS,LACTATED 1000ML 1,000 ML IV; +LIDOCAINE 1% PF 2 ML VIAL. ID; +LIDOCAINE 2% PF Vial for OR 5 ML VIAL.; +MORPHINE SULFATE 2 MG/ML DISP.SYRIN. IV; +ONDANSETRON PF 4 MG/2 ML VIAL. IV; +PROCHLORPERAZINE 10 MG/2 ML VIAL. IV; +PROPOFOL 40 ML IV; +fentaNYL PF VIAL 100 MCG/2 ML VIAL IV; -methylPREDNISolone ACETATE 40 MG/ML VIAL.
[2017-07-26] MEDS: IV RINGERS,LACTATED 1000ML 1,000 ML IV ×2 (07:00)
== END | disposition home or self-care (01) ==
LOC: ENDOS 05:41
DX: K64.0 First degree hemorrhoids (principal); D50.9 Iron deficiency anemia, unspecified; K29.50 Unspecified chronic gastritis without bleeding; I10 Essential (primary) hypertension; J44.9 Chronic obstructive pulmonary disease, unspecified; M19.90 Unspecified osteoarthritis, unspecified site; F41.9 Anxiety disorder, unspecified; F32.9 Major depressive disorder, single episode, unspecified; Z72.89 Other problems related to lifestyle; Z86.69 Personal history of other diseases of the nervous system and sense organs; Z98.41 Cataract extraction status, right eye; Z98.42 Cataract extraction status, left eye; Z90.49 Acquired absence of other specified parts of digestive tract; Z72.0 Tobacco use; Z88.8 Allergy status to other drugs, medicaments and biological substances; Z88.6 Allergy status to analgesic agent; Z91.041 Radiographic dye allergy status
CPT/HCPCS: 43235; 88305; J2704

== ENCOUNTER → 2017-08-31 | Outpatient (CLI) | payer MEDICARE, OTHER ==
[~2017-08-31] MED LIST changes: +IOHEXOL 180 MG/ML 10 ML VIAL.; -IV RINGERS,LACTATED 1000ML 1,000 ML IV; -LIDOCAINE 1% PF 2 ML VIAL. ID; -LIDOCAINE 2% PF Vial for OR 5 ML VIAL.; -MORPHINE SULFATE 2 MG/ML DISP.SYRIN. IV; -ONDANSETRON PF 4 MG/2 ML VIAL. IV; -PROCHLORPERAZINE 10 MG/2 ML VIAL. IV; -PROPOFOL 40 ML IV; -fentaNYL PF VIAL 100 MCG/2 ML VIAL IV; +methylPREDNISolone ACETATE 40 MG/ML VIAL.; +methylPREDNISolone ACETATE 80 MG/ML VIAL.
== END | disposition home or self-care (01) ==
LOC: PNCL 09:21
DX: M51.16 Intervertebral disc disorders with radiculopathy, lumbar region (principal); M48.061 Spinal stenosis, lumbar region without neurogenic claudication; M96.1 Postlaminectomy syndrome, not elsewhere classified; M79.1 Myalgia; I10 Essential (primary) hypertension; J44.9 Chronic obstructive pulmonary disease, unspecified; M19.90 Unspecified osteoarthritis, unspecified site; F17.210 Nicotine dependence, cigarettes, uncomplicated; F32.89 Other specified depressive episodes; F41.8 Other specified anxiety disorders; Z98.41 Cataract extraction status, right eye; Z98.42 Cataract extraction status, left eye; Z90.710 Acquired absence of both cervix and uterus; Z90.49 Acquired absence of other specified parts of digestive tract; Z98.890 Other specified postprocedural states; Z79.899 Other long term (current) drug therapy
CPT/HCPCS: 62323; J1030; J1040; Q9965

== ENCOUNTER → 2017-09-06 | Outpatient (CLI) | payer MEDICARE, OTHER | END | disposition home or self-care (01) | LOC: KCIC MRI 07:40 | DX: R93.8 Abnormal findings on diagnostic imaging of other specified body structures (principal); Z90.49 Acquired absence of other specified parts of digestive tract | CPT/HCPCS: 74181 ==

== ENCOUNTER → 2017-09-13 | Day surgery (SDC) | payer MEDICARE, OTHER ==
[~2017-09-13] MED LIST changes: +DEXAMETHASONE SOD PHOS 20 MG/5 ML VIAL.; -IOHEXOL 180 MG/ML 10 ML VIAL.; +IOHEXOL 300 MG/ML 100ML VIAL.; +IV RINGERS,LACTATED 1000ML 1,000 ML IV; +LIDOCAINE 2% 100 MG/5 ML SYRINGE.; +ONDANSETRON PF 4 MG/2 ML VIAL.; +PHENYLEPHRINE 10 MG/ML VIAL.; +PROPOFOL 20 ML IV; +SUCCINYLCHOLINE 200 MG/10 ML VIAL.; -methylPREDNISolone ACETATE 40 MG/ML VIAL.; -methylPREDNISolone ACETATE 80 MG/ML VIAL.
[2017-09-13] MEDS: IOHEXOL 300 MG/ML 10ML VIAL. IV (14:25)
== END | disposition home or self-care (01) ==
LOC: ENDOS 12:50
DX: K83.8 Other specified diseases of biliary tract (principal); R56.9 Unspecified convulsions; I10 Essential (primary) hypertension; J44.9 Chronic obstructive pulmonary disease, unspecified; Z90.49 Acquired absence of other specified parts of digestive tract; K21.9 Gastro-esophageal reflux disease without esophagitis; Z90.710 Acquired absence of both cervix and uterus; M19.90 Unspecified osteoarthritis, unspecified site; F41.9 Anxiety disorder, unspecified; F32.9 Major depressive disorder, single episode, unspecified; F10.99 Alcohol use, unspecified with unspecified alcohol-induced disorder; F17.210 Nicotine dependence, cigarettes, uncomplicated
CPT/HCPCS: 43262; 74328; C1726; C1757; J0330; J1100; J2405; J2704; Q9967

== ENCOUNTER 2017-09-26 09:17 | Emergency (ER) | payer MEDICARE, OTHER | END 2017-09-26 10:28 | disposition home or self-care (01) | LOC: ER 09:17 | DX: M54.41 Lumbago with sciatica, right side (principal); I10 Essential (primary) hypertension; J44.9 Chronic obstructive pulmonary disease, unspecified; I48.91 Unspecified atrial fibrillation; Z90.710 Acquired absence of both cervix and uterus; Z90.49 Acquired absence of other specified parts of digestive tract; Z88.5 Allergy status to narcotic agent; Z88.8 Allergy status to other drugs, medicaments and biological substances; Z91.041 Radiographic dye allergy status | CPT/HCPCS: 99283 ==

== ENCOUNTER → 2017-09-28 | Outpatient (CLI) | payer MEDICARE, OTHER | END | disposition home or self-care (01) | LOC: KCIC MRI 07:39 | DX: M48.02 Spinal stenosis, cervical region (principal); M48.061 Spinal stenosis, lumbar region without neurogenic claudication; G89.29 Other chronic pain | CPT/HCPCS: 72141; 72148 ==

== ENCOUNTER → 2017-10-03 | Outpatient (CLI) | payer MEDICARE, OTHER ==
[~2017-10-03] MED LIST changes: -DEXAMETHASONE SOD PHOS 20 MG/5 ML VIAL.; -IOHEXOL 300 MG/ML 100ML VIAL.; -IV RINGERS,LACTATED 1000ML 1,000 ML IV; -LIDOCAINE 2% 100 MG/5 ML SYRINGE.; -ONDANSETRON PF 4 MG/2 ML VIAL.; -PHENYLEPHRINE 10 MG/ML VIAL.; -PROPOFOL 20 ML IV; -SUCCINYLCHOLINE 200 MG/10 ML VIAL.; +methylPREDNISolone ACETATE 40 MG/ML VIAL.; +methylPREDNISolone ACETATE 80 MG/ML VIAL.
== END ==
LOC: PNCL 07:57
DX: M51.16 Intervertebral disc disorders with radiculopathy, lumbar region (principal); M54.12 Radiculopathy, cervical region; M48.061 Spinal stenosis, lumbar region without neurogenic claudication; M79.1 Myalgia; M96.1 Postlaminectomy syndrome, not elsewhere classified
CPT/HCPCS: 62323; J1030; J1040

== ENCOUNTER → 2017-11-02 | Outpatient (CLI) | payer MEDICARE, OTHER ==
[2017-11-02 13:50] LABS: ADD MAN DIFF? NO
[2017-11-02 13:52] LABS: BASO % 0 % (0-3); EOS % 0 % (0-3); HEMATOCRIT 42.6 % (36.0-47.0); HEMOGLOBIN 14.6 g/dL (12.0-15.5); LYMPH # 1.6 x10^3/uL (1.0-4.8); LYMPH % 24 % (24-48); MEAN CORPUSCULAR HEMOGLOBIN 33 pg (25-35); MEAN CORPUSCULAR HGB CONC 34 g/dL (31-37); MEAN CORPUSCULAR VOLUME 97 fL (79-100); MONO # 0.5 x10^3/uL (0.0-1.1); MONO % 8 % (0-9); NEUT # 4.5 x10^3uL (1.8-7.7); NEUT % 67 % (31-73); PLATELET COUNT 298 x10^3/uL (140-400); RED BLOOD COUNT 4.39 x10^6/uL (3.50-5.40); RED CELL DISTRIBUTION WIDTH 18.9 % (11.5-14.5); WHITE BLOOD COUNT 6.6 x10^3/uL (4.0-11.0)
[2017-11-02 14:01] LABS: INR 0.9 (0.8-1.1); PARTIAL THROMBOPLASTIN TIME 26 SEC (24-38); PROTHROMBIN TIME PATIENT 11.3 SEC (11.7-14.0)
[2017-11-02 14:08] LABS: ALBUMIN 3.8 g/dL (3.4-5.0); ALBUMIN/GLOBULIN RATIO 1.1 (1.0-1.7); ALK PHOS 123 U/L (46-116); ALT (SGPT) 16 U/L (14-59); ANION GAP 6 (6-14); AST (SGOT) 15 U/L (15-37); BLOOD UREA NITROGEN 21 mg/dL (7-20); BUN/CREATININE RATIO 30 (6-20); CALCIUM 8.9 mg/dL (8.5-10.1); CARBON DIOXIDE 29 mmol/L (21-32); CHLORIDE 102 mmol/L (98-107); CREATININE 0.7 mg/dL (0.6-1.0); GFR 83.5; GLUCOSE 108 mg/dL (70-99); POTASSIUM 4.1 mmol/L (3.5-5.1); SODIUM 137 mmol/L (136-145); TOTAL BILIRUBIN 0.3 mg/dL (0.2-1.0); TOTAL PROTEIN 7.2 g/dL (6.4-8.2)
[2017-11-02 21:17] LABS: MRSA BY PCR Positive (Negative)
== END | disposition home or self-care (01) ==
LOC: SURGPAT 14:41
DX: Z01.818 Encounter for other preprocedural examination (principal); M51.16 Intervertebral disc disorders with radiculopathy, lumbar region; M84.48XA Pathological fracture, other site, initial encounter for fracture; Z79.01 Long term (current) use of anticoagulants
CPT/HCPCS: 36415; 80053; 85025; 85610; 85730; 87641

== ENCOUNTER 2017-11-09 07:33 | Inpatient (IN) | payer MEDICARE, OTHER ==
[2017-11-09] MEDS: IV RINGERS,LACTATED 1000ML 1,000 ML IV (07:00)
[~2017-11-09 07:33] MED LIST changes: +ONDANSETRON PF 4 MG/2 ML VIAL. IV; +PROCHLORPERAZINE 10 MG/2 ML VIAL. IV; +fentaNYL PF VIAL 100 MCG/2 ML VIAL IV; -methylPREDNISolone ACETATE 40 MG/ML VIAL.; -methylPREDNISolone ACETATE 80 MG/ML VIAL.
[2017-11-09] MEDS ORDERED: PROPOFOL 20 ML IV ×2 (09:44→15:40)
[2017-11-09] MEDS ORDERED: LIDOCAINE 2% PF Vial for OR 5 ML VIAL. (09:44)
[2017-11-09] MEDS ORDERED: fentaNYL PF VIAL 100 MCG/2 ML VIAL ×4 (09:44→19:37)
[2017-11-09] MEDS ORDERED: PROTAMINE 50 MG/5 ML VIAL. IV (09:44)
[2017-11-09] MEDS ORDERED: GLYCOPYRROLATE 1 MG/5 ML VIAL. (09:45)
[2017-11-09] MEDS ORDERED: REMIFENTANIL 2 MG VIAL. IV (09:46)
[2017-11-09] MEDS ORDERED: ROCURONIUM 50 MG/5 ML VIAL. (09:46)
[2017-11-09] MEDS: fentaNYL PF VIAL 100 MCG/2 ML VIAL IV ×4 (12:55→19:40)
[2017-11-09] MEDS ORDERED: DESFLURANE > 120 MINUTES IH ×2 (13:13→17:09)
[2017-11-09] MEDS ORDERED: DEXAMETHASONE SOD PHOS 20 MG/5 ML VIAL. (13:13)
[2017-11-09] MEDS ORDERED: PHENYLEPHRINE 10 MG/ML VIAL. ×2 (14:26)
[2017-11-09] MEDS: GELATIN SPONGE SIZE 100. (14:47)
[2017-11-09] MEDS: KETOROLAC 60 MG/2 ML INJ FOR OR. (14:47)
[2017-11-09] MEDS: BUPIVAC MPF-EPI 0.5%-1:200000 30 ML VIAL. INJ (14:47)
[2017-11-09] MEDS: THROMBIN TOPICAL 20,000 UNIT SPRAY.SYRN KIT TP (14:47)
[2017-11-09] MEDS: BACITRACIN 50,000 UNIT in IV NORMAL SALINE 1000ML BAG 1,000 ML IRR (14:47)
[2017-11-09] MEDS ORDERED: MAGNESIUM HYDROXIDE 2,400 MG/30 ML ORAL.SUSP. PO (15:15)
[2017-11-09] MEDS ORDERED: fentaNYL PF VIAL 100 MCG/2 ML VIAL IV (15:15)
[2017-11-09] MEDS ORDERED: 0.9 % SODIUM CHLORIDE 10 ML DISP.SYRIN. IV (15:15)
[2017-11-09] MEDS ORDERED: DOCUSATE SODIUM 100 MG CAPSULE. PO (15:15)
[2017-11-09] MEDS ORDERED: CALCIUM CARBONATE 500 MG TAB.CHEW PO (15:15)
[2017-11-09] MEDS ORDERED: diphenhydrAMINE 50 MG/ML VIAL IV (15:15)
[2017-11-09] MEDS ORDERED: ACETAMINOPHEN 325 MG TABLET. PO (15:15)
[2017-11-09] MEDS ORDERED: cloNIDine HCL 0.2 MG TABLET PO (15:15)
[2017-11-09] MEDS ORDERED: MAG HYDROX/ALUMINUM HYD/SIMETH 30 ML ORAL.SUSP PO (15:15)
[2017-11-09] MEDS ORDERED: ONDANSETRON PF 4 MG/2 ML VIAL. IV (15:15)
[2017-11-09] MEDS ORDERED: PROPOFOL 50 ML IV ×2 (15:40)
[2017-11-09] MEDS ORDERED: ONDANSETRON PF 4 MG/2 ML VIAL. (17:49)
[2017-11-09] MEDS: LIDOCAINE 1% PF 2 ML VIAL. ID (19:38)
[2017-11-09] MEDS: oxyCODONE/APAP 5/325 1 TAB TABLET PO (19:56)
[2017-11-09] MEDS ORDERED: METHOCARBAMOL 750 MG TABLET PO (21:00)
[2017-11-09] MEDS: FAMOTIDINE 20 MG TABLET. PO (21:23)
[2017-11-09] MEDS: CARISOPRODOL 350 MG TABLET PO (21:23)
[2017-11-09] MEDS: DOCUSATE SODIUM 100 MG CAPSULE. PO (21:23)
[2017-11-09] MEDS: POTASSIUM CL 20MEQ D5-0.45NACL 1,000 ML IV (21:25)
[2017-11-09] MEDS ORDERED: ceFAZolin SODIUM 1 GM in IV DEXTROSE 5% 50 ML IV (22:00)
[2017-11-10] MEDS: ceFAZolin SODIUM IV Push 1 GM VIAL. IVP ×3 (00:18→16:46)
[2017-11-10] MEDS: oxyCODONE/APAP 5/325 1 TAB TABLET PO ×5 (00:18→20:34)
[2017-11-10] MEDS: fentaNYL PF VIAL 100 MCG/2 ML VIAL IV ×4 (03:40→14:36)
[2017-11-10] MEDS: POTASSIUM CL 20MEQ D5-0.45NACL 1,000 ML IV (04:32)
[2017-11-10] MEDS: ALPRAZolam 0.5 MG TABLET PO ×3 (05:37→20:33)
[2017-11-10] MEDS: PANTOPRAZOLE 40 MG TABLET.DR. PO (07:00)
[2017-11-10] MEDS: BUDESONIDE 0.5 MG/2 ML NEBU. NEB ×2 (08:00→20:00)
[2017-11-10] MEDS: ALBUTEROL SULFATE 2.5 MG/3 ML NEBU. NEB ×4 (08:00→20:00)
[2017-11-10] MEDS: DOCUSATE SODIUM 100 MG CAPSULE. PO ×2 (08:16→20:32)
[2017-11-10] MEDS: PARoxetine 20 MG TABLET PO (08:16)
[2017-11-10] MEDS: CARISOPRODOL 350 MG TABLET PO ×3 (08:16→20:34)
[2017-11-10] MEDS: buPROPion SR 150 MG TABLET.SA PO (08:16)
[2017-11-10] MEDS ORDERED: NON FORMULARY ITEM (Naloxegol Oxalate (Movantik) 25 MG) PO (09:00)
[2017-11-10] MEDS: LOSARTAN POTASSIUM 50 MG TABLET. PO (10:41)
[2017-11-10] MEDS: diphenhydrAMINE HCL 25 MG CAPSULE PO (20:34)
[2017-11-10] MEDS: FAMOTIDINE 20 MG TABLET. PO (20:34)
[2017-11-11] MEDS: oxyCODONE/APAP 5/325 1 TAB TABLET PO ×4 (01:11→13:05)
[2017-11-11] MEDS: PANTOPRAZOLE 40 MG TABLET.DR. PO (05:54)
[2017-11-11] MEDS: DOCUSATE SODIUM 100 MG CAPSULE. PO (08:30)
[2017-11-11] MEDS: ALPRAZolam 0.5 MG TABLET PO (08:31)
[2017-11-11] MEDS: buPROPion SR 150 MG TABLET.SA PO (08:31)
[2017-11-11] MEDS: CARISOPRODOL 350 MG TABLET PO ×2 (08:31→13:05)
[2017-11-11] MEDS: PARoxetine 20 MG TABLET PO (08:31)
[2017-11-11] MEDS: LOSARTAN POTASSIUM 50 MG TABLET. PO (08:32)
[2017-11-11] MEDS: ALBUTEROL SULFATE 2.5 MG/3 ML NEBU. NEB ×2 (09:04→12:00)
[2017-11-11] MEDS: BUDESONIDE 0.5 MG/2 ML NEBU. NEB (09:04)
== END 2017-11-11 13:25 | disposition home or self-care (01) | DRG 460 ==
LOC: OPSVCIP 07:33 → 4 NORTH 11-10 15:12 → 4 SOUTHEST 20:31
PROC: 0SG00K1 Fusion of Lumbar Vertebral Joint with Nonautologous Tissue Substitute, Posterior Approach, Posterior Column, Open Approach (ICD-10-PCS; principal; 2017-11-09 12:00)
PROC: 0SB20ZZ Excision of Lumbar Vertebral Disc, Open Approach (ICD-10-PCS; 2017-11-09 12:00)
PROC: 07DR3ZZ Extraction of Iliac Bone Marrow, Percutaneous Approach (ICD-10-PCS; 2017-11-09 12:00)
PROC: 4A11X4G Monitoring of Peripheral Nervous Electrical Activity, Intraoperative, External Approach (ICD-10-PCS; 2017-11-09 12:00)
PROC: 01NB0ZZ Release Lumbar Nerve, Open Approach (ICD-10-PCS; 2017-11-09 12:00)
PROC: BR131ZZ Fluoroscopy of Lumbar Disc(s) using Low Osmolar Contrast (ICD-10-PCS; 2017-11-09 12:00)
DX: M51.16 Intervertebral disc disorders with radiculopathy, lumbar region (principal); B02.9 Zoster without complications; M96.0 Pseudarthrosis after fusion or arthrodesis; W10.9XXA Fall (on) (from) unspecified stairs and steps, initial encounter; M81.0 Age-related osteoporosis without current pathological fracture; I10 Essential (primary) hypertension; M19.90 Unspecified osteoarthritis, unspecified site; G43.909 Migraine, unspecified, not intractable, without status migrainosus; Y83.8 Other surgical procedures as the cause of abnormal reaction of the patient, or of later complication, without mention of misadventure at the time of the procedure; M43.16 Spondylolisthesis, lumbar region; F17.200 Nicotine dependence, unspecified, uncomplicated; Y93.89 Activity, other specified; Y92.89 Other specified places as the place of occurrence of the external cause; Y99.8 Other external cause status; Z98.1 Arthrodesis status; Z90.710 Acquired absence of both cervix and uterus; Z90.49 Acquired absence of other specified parts of digestive tract; Z88.5 Allergy status to narcotic agent; Z88.8 Allergy status to other drugs, medicaments and biological substances; Z91.041 Radiographic dye allergy status
CPT/HCPCS: 36415; 72131; 76000; 86850; 86900; 86901; 88304; 88311; 94640; 94760; 97110-GP; 97116-GP; 97162-GP; 97530-GP; A7015; C1713; G8978-CK-GP; G8979-CJ-GP; J0690; J1100; J1885; J2405; J2704; J3010; J3490; J7030; J7120; J7613; J7626; Q0163

== ENCOUNTER → 2017-11-27 | Outpatient (CLI) | payer MEDICARE, OTHER | END | disposition home or self-care (01) | LOC: KCIC 10:40 | DX: M41.86 Other forms of scoliosis, lumbar region (principal); M48.061 Spinal stenosis, lumbar region without neurogenic claudication | CPT/HCPCS: 72100 ==

== ENCOUNTER → 2018-02-05 | Outpatient (CLI) | payer MEDICARE, OTHER ==
[2018-01-22 07:06] VITALS: BP 147/66
[~2018-02-05] MED LIST changes: +ACET325T9 PO; +ALPR0.5T6 PO; +ALPR1TAB6 PO; +ASPI-482 PO; +BUPR200T PO; +BUPR300T3 PO; +CARI350T14 PO; +CLON0.2T PO; +DILT180C29 PO; +DILT300C40 PO; +DILT60TA3 PO; +DOCU-109 PO; +ERGO500027 PO; +FAMO20TA5 PO; +FENT1PAT17 TD; +FERR325T14 PO; +FURO20TA3 PO; +GABA-586 PO; +GADOBUTROL 7.5 MMOL/7.5 ML VIAL IV ONE; +HYDR-2165 PO; +HYDR-2762 PO; +HYDR-2766 PO; +HYDR-971 PO; +LEVE500T56 PO; +LEVO250T25 PO; +LOSA100T6 PO; +LUBI24CA7 PO; +MELO15TA23 PO; +METH4TAB2 PO; +MUPI15CR8 TP; +NALO25TA2 PO; +NITR0.4T22 SL; +NITR100C PO; +ONDA4TAB10 SL; -ONDANSETRON PF 4 MG/2 ML VIAL. IV; +OXYC10TA45 PO; +OXYC1TAB7 PO; +OXYC5TAB95 PO; +PANT20TA2 PO; +PANT40TA5 PO; +PARO20TA3 PO; +PARO40TA3 PO; -PROCHLORPERAZINE 10 MG/2 ML VIAL. IV; +UMEC1DIS IH; -fentaNYL PF VIAL 100 MCG/2 ML VIAL IV
--- NOTE | 2018-02-05 15:39 | KCIC ---
MRI Lumbar Spine without and with contrast History: Postop lumbar infection Technique: Multiplanar, multi sequential pre and postcontrast MR imaging was performed of the lumbar spine. Contrast: 4 cc Gadavist Comparison: September 28, 2017 MRI lumbar spine exam and CT exam December 08, 2017 Findings: Lumbar vertebral body stature is similar, superior height loss of L5 unchanged. There are now bilateral pedicle screws at L3 and L4. There are again interbody grafts L4-5. There is again fairly advanced degenerative disc disease at L2-3 and L3-4. There is persistent somewhat increased endplate edema more eccentric to the left at L2-3, no new fluid in the intervertebral disc space. There is enhancement associated with sites of marrow edema. There is probably some marrow edema about the right L3 pedicle screw although artifact created by hardware. There is again grade 1 anterior spondylolisthesis at L3-4. There is straightening of the lumbar spine. There is again overall mild degenerative disc disease L1-2. Conus terminates at L1-2. There is no nodular enhancement of the conus or cauda equina. There is no significant enhancement in the intervertebral disc spaces. L1-L2: There is again broad protrusion slightly more eccentric to the left lateral recess. There is again mild to moderate narrowing of the far left lateral recess, mild narrowing of the far right lateral recess. There is mild the to moderate left and mild right neural foramina compromise. L2-L3: There is enhancing fibrosis along the posterior annular margin, mild indentation upon the ventral thecal sac greater in the far left lateral recess, minimal narrowing of the far left lateral recess. There is [id number] neural foramina compromise bilaterally greater on the left. L3-L4: There is partial uncovering of the posterior aspect of the disc due to spondylolisthesis, also mild residual bulge and some enhancing fibrosis more posteriorly. There is also enhancing fibrosis posterior to the L3 vertebral body. At and just below the L3-4 intervertebral disc space level, there is overall moderate to severe attenuation of the thecal sac, limited preserved subarachnoid space. Poorly evaluated in part due to artifact by hardware, there is protrusion extending into the inferior left neural foramen with possible at least moderate narrowing. Right neural foramen is also suboptimally visualized due to artifact from hardware, likely severe narrowing by bulge/protrusion which is partially calcified as seen on previous CT. L4-L5: There has been posterior decompression, spinal canal adequate. The neural foramina are not significantly narrowed. L5-S1: Spinal canal and neural foramina are adequate. Impression: 1. There is moderate to severe spinal stenosis L3-4, overall mild attenuation of the thecal sac at L2-3. There has been posterolateral fusion L3-4. 2. There is bilateral L3-4 neural foramina compromise greater on the right in part by partially calcified bulge/protrusion also narrowing on the left at L2-L3. 3. There is multilevel degenerative disc disease greatest L2-3 and L3-4. There is increased nonspecific edema and enhancement of the marrow greatest the left at L2-3 although findings may be reactive/degenerative in etiology, no significant fluid or enhancement in the intervertebral disc spaces as more commonly associated with infection. Electronically signed by: Ralph Paula MD (02/05/2018 3:35 PM) [id number]
== END | disposition home or self-care (01) ==
LOC: KCIC MRI 09:54
PROVIDERS: ATTEND Neurological Surgery
DX: M48.061 Spinal stenosis, lumbar region without neurogenic claudication (principal); M51.36 Other intervertebral disc degeneration, lumbar region; M43.16 Spondylolisthesis, lumbar region; I11.9 Hypertensive heart disease without heart failure; J43.9 Emphysema, unspecified; I25.10 Atherosclerotic heart disease of native coronary artery without angina pectoris; G43.909 Migraine, unspecified, not intractable, without status migrainosus; R60.0 Localized edema; Z86.2 Personal history of diseases of the blood and blood-forming organs and certain disorders involving the immune mechanism; Z87.19 Personal history of other diseases of the digestive system; Z86.69 Personal history of other diseases of the nervous system and sense organs; Z86.010 Personal history of colon polyps; Z90.49 Acquired absence of other specified parts of digestive tract; Z90.710 Acquired absence of both cervix and uterus; Z68.1 Body mass index [BMI] 19.9 or less, adult; Z79.899 Other long term (current) drug therapy; Z82.3 Family history of stroke
CPT/HCPCS: 72158; A9585

== ENCOUNTER → 2018-04-12 | Outpatient (CLI) | payer MEDICARE, OTHER ==
[2018-01-22 07:06] VITALS: BP 147/66
[~2018-04-12] MED LIST changes: +DOXY100C2 PO; -GADOBUTROL 7.5 MMOL/7.5 ML VIAL IV ONE; +LACT1CAP8 PO; -LOSA100T6 PO; +LOSA100T7 PO; +OXYC5CAP PO
[2018-04-12 10:56] LABS: BASO % 0 % (0-3); EOS % 1 % (0-3); HEMATOCRIT 37.8 % (36.0-47.0); HEMOGLOBIN 13.1 g/dL (12.0-15.5); LYMPH # 1.4 x10^3/uL (1.0-4.8); LYMPH % 27 % (24-48); MEAN CORPUSCULAR HEMOGLOBIN 33 pg (25-35); MEAN CORPUSCULAR HGB CONC 35 g/dL (31-37); MEAN CORPUSCULAR VOLUME 94 fL (79-100); MONO # 0.4 x10^3/uL (0.0-1.1); MONO % 7 % (0-9); NEUT # 3.5 x10^3uL (1.8-7.7); NEUT % 65 % (31-73); PLATELET COUNT 287 x10^3/uL (140-400); RED BLOOD COUNT 4.03 x10^6/uL (3.50-5.40); RED CELL DISTRIBUTION WIDTH 18.5 % (11.5-14.5); WHITE BLOOD COUNT 5.3 x10^3/uL (4.0-11.0)
[2018-04-12 11:03] LABS: ALBUMIN 3.5 g/dL (3.4-5.0); CALCIUM 8.8 mg/dL (8.5-10.1); CREATININE 0.9 mg/dL (0.6-1.0); GFR 62.5; POTASSIUM 3.7 mmol/L (3.5-5.1); TOTAL BILIRUBIN 0.3 mg/dL (0.2-1.0); TOTAL PROTEIN 7.1 g/dL (6.4-8.2)
== END | disposition home or self-care (01) ==
LOC: SURGPAT 10:00
PROVIDERS: ATTEND Neurological Surgery
DX: Z01.818 Encounter for other preprocedural examination (principal); M47.892 Other spondylosis, cervical region; M54.12 Radiculopathy, cervical region
CPT/HCPCS: 36415; 80053; 85025; 87641

== ENCOUNTER 2018-04-19 08:34 | Observation (INO) | payer MEDICARE, OTHER ==
[2018-04-19] VITALS (10 sets, daily range): BP systolic 116–156; BP diastolic 63–89
[~2018-04-19] VITALS: Ht 152.4 cm; Wt 43.1 kg
[~2018-04-19 08:34] MED LIST changes: +BACITRACIN 50,000 UNIT in IV NORMAL SALINE 1000ML BAG 1,000 ML IRR ONE; +BUPIVAC MPF-EPI 0.5%-1:200000 30 ML VIAL. ONE; +GELATIN SPONGE SIZE 100. ONE; +HYDROmorphone 2 MG/ML VIAL IV PRN; +IV RINGERS,LACTATED 1000ML 1,000 ML IV SCH; +KETOROLAC 60 MG/2 ML INJ FOR OR. ONE; +LIDOCAINE 1% PF 2 ML VIAL. ID PRN; +MORPHINE SULFATE 2 MG/ML VIAL. IV PRN; +ONDANSETRON PF 4 MG/2 ML VIAL. IV PRN; +THROMBIN TOPICAL 5,000 UNIT VIAL. TP ONE; +fentaNYL PF VIAL 100 MCG/2 ML VIAL IV PRN
[2018-04-19] MEDS ORDERED: REMIFENTANIL 2 MG VIAL. IV ONE (09:13)
[2018-04-19] MEDS ORDERED: PROPOFOL 50 ML IV ONE (09:13)
[2018-04-19] MEDS ORDERED: fentaNYL PF VIAL 100 MCG/2 ML VIAL ONE ×3 (09:13→14:42)
[2018-04-19] MEDS ORDERED: PROPOFOL 20 ML IV ONE (09:13)
[2018-04-19] MEDS ORDERED: 0.9 % SODIUM CHLORIDE 20 ML VIAL. IJ ONE (09:14)
[2018-04-19] MEDS ORDERED: SUCCINYLCHOLINE 200 MG/10 ML VIAL. ONE (09:14)
--- NOTE | 2018-04-19 11:09 | PREOP HP ---
DATE OF SERVICE: 04/19/2018 HISTORY OF PRESENT ILLNESS: The patient is a pleasant 67-year-old who has improved following a lumbar surgery, but is having a little lower back discomfort at this time. The principal problem currently is left-sided neck pain and pain which radiates into both of her shoulders. She notes neck stiffness. She as well notices pain, which can radiate into her left shoulder, arm and forearm and into the fingers of her left hand. Neck pain, she rates a 10/10. Any time she uses her left arm, the pain markedly increases. Heat and ice help her. She has been taking OxyContin. She has had trigger point injections without help. Rest has been of no benefit to her. PAST MEDICAL HISTORY: Arthritis, headaches and migraines, hypertension, osteoporosis, shingles. PAST SURGICAL HISTORY: Hysterectomy; lumbar surgery, multiple; appendectomy; cholecystectomy; ACDF C5-C6, C6-C7 08/2015; laminectomy L3-L4; OLIF L3-L4; posterior instrumentation and fusion L3 through L5 10/2017. FAMILY HISTORY: No family history documented. SOCIAL HISTORY: . Retired. Denies substance abuse. Quit smoking recently. Denies alcohol use. ALLERGIES: TO ACYCLOVIR. CURRENT MEDICATIONS: Diltiazem, losartan, paroxetine, alprazolam, famotidine, hydrocodone, carisoprodol, Tylenol, Soma, OxyContin. REVIEW OF SYSTEMS: A 12-point review of systems was obtained and is noncontributory except for that mentioned above. PHYSICAL EXAMINATION: NEUROSURGERY EXAMINATION: GENERAL APPEARANCE: Alert, pleasant, in no acute distress. HEAD: Normocephalic and atraumatic. SKIN: Warm and dry, well-healed lumbar and cervical incisions. MUSCULOSKELETAL: Lumbar and cervical paraspinal muscle bulk is normal, restricted range of motion of the cervical and lumbar spine. Normal tenderness of the lower lumbar spine with palpation, rfyw-[id number] tenderness of posterior cervical region with palpation, normal range of motion of the upper and lower extremities bilaterally. EXTREMITIES: No clubbing, cyanosis or edema. NEUROLOGIC: Alert and oriented x 3, normal recent and remote memory. Strength 5/5 in bilateral upper extremities except for 4+/5 left triceps, sensory was intact to light touch in the lower extremities bilaterally, reflexes were present and symmetric in bilateral lower extremities, normal gait. IMAGING: I reviewed a cervical MRI scan. On that study, there was stenosis at C6-C7 on the left and there is severe neural foraminal narrowing. Anteriorly, this region has been fused. ASSESSMENT/PLAN: I believe she has severe left cervical radiculopathy. My recommendation at this point is posterior cervical microdecompression after her and I discussed treatment options. She understood the surgery and the risks. She would strongly like to go ahead with surgery. We will make the arrangements. We again discussed the importance of smoking cessation. SHELBI FRAZIER MD DR: JOANA/joseph JOB#: [id number] / [id number] LAURENCE
[2018-04-19] MEDS ORDERED: DEXAMETHASONE SOD PHOS 20 MG/5 ML VIAL. ONE (11:22)
[2018-04-19] MEDS ORDERED: DESFLURANE 61 TO 120 MINUTES IH ONE (11:22)
[2018-04-19] MEDS ORDERED: ONDANSETRON PF 4 MG/2 ML VIAL. ONE (11:38)
[2018-04-19] MEDS ORDERED: PHENYLEPHRINE in 0.9% NACL PF 1 MG/10 ML SYRINGE. IV ONE (12:17)
[2018-04-19] MEDS ORDERED: PROCHLORPERAZINE 10 MG/2 ML VIAL. ONE (13:02)
[2018-04-19] MEDS: fentaNYL PF VIAL 100 MCG/2 ML VIAL IV PRN ×5 (13:06→22:52)
[2018-04-19] MEDS: PROCHLORPERAZINE 10 MG/2 ML VIAL. IV PRN ×2 (13:07→13:08)
--- NOTE | 2018-04-19 13:16 | OP ---
DATE OF SURGERY: 04/19/2018 PREOPERATIVE DIAGNOSES: Foraminal narrowing C6-C7 left with left cervical radiculopathy. POSTOPERATIVE DIAGNOSES: Foraminal narrowing C6-C7 left with left cervical radiculopathy. OPERATION PERFORMED: Posterior cervical hemilaminotomy, medial facetectomy C6-C7, left with decompression of left C7 nerve root. The operation was done with EMG monitoring, SSEP monitoring, motor evoked potentials, fluoroscopy and microscopic dissection. Surgeon: Cosmo Frazier M.D. TEACHER LEARNING DISABLED: ZACK Bailon assisted with the surgery. She assisted with the exposure, then microdecompression as well as the closure. OPERATIVE INDICATIONS: The patient is a pleasant 67-year-old woman who in the past underwent an anterior cervical discectomy and fusion. She developed significant left cervical radiculopathy and was found to have foraminal narrowing on the left at C6-C7 and I recommended posterior cervical microdecompressive surgery at the level. I spoke with her about the surgery, and the risks, the technique and expected postoperative course and she wished to go ahead. DESCRIPTION OF PROCEDURE: Following general endotracheal anesthesia, the patient was positioned prone on the operating room table. The posterior cervical region was then prepped and draped in standard fashion. MIRYAM hose and AV impulse boots were applied for DVT prophylaxis. A microscope was draped. Fluoroscopy was draped and brought into the field. Ancef 2 grams was given less than 1 hour prior to initiation of the surgery. Using fluoroscopic guidance, a midline posterior incision was made over the C6-C7 interspace. I dissected down through skin and subcutaneous tissue, reflected the paracervical musculature and placed a Torrey' retractor. I brought in the microscope and using high speed air drill, I drilled a hemilaminotomy and then followed the C7 nerve out laterally using the 1 and 2 mm micro Kerrison's. There was considerable foraminal narrowing and as I worked further laterally, I was able to gently work through this by thinning the bone and then popping the bone back primarily with a 1 mm micro Kerrison. As I worked, the nerve moved posteriorly nicely and became very free. I was easily able to pass a blunt hook once I passed this stenotic region out along the nerve root. Following this, I irrigated copiously with antibiotic solution. I explored carefully and assured myself that the root was very free. Hemostasis was excellent. I laid a small piece of Gelfoam over the hemilaminotomy site and then I irrigated copiously after removing the retractor, obtained perfect hemostasis and I closed the wound in layers with absorbable suture. The skin was closed with 4-0 subcuticular stitch. The operation went very well. I was quite pleased with the surgery. COSMO FRAZIER MD DR: JOANA/joseph JOB#: [id number] / [id number] [place]
--- NOTE | 2018-04-19 13:42 | DISCH ---
DISCHARGE INSTRUCTIONS Condition on Discharge Condition on Discharge: Stable Activity After Discharge Activity Instructions for Disc: Activity as tolerated, Avoid exertion Bathing Instructions: Shower-keep dressing dry Lifting Instructions after Dis: No heavy lifting, No pulling or pushing, Do not lift >10 pounds Driving Instructions after Dis: Do not drive today, No driving for 2 weeks Weight Bearing Status after Di: Full weight bearing Diet after Discharge Diet after Discharge: Regular Additional Diet Restrictions: resume home diet Diet Texture: Regular Swallowing Supervision: None needed Wound Incision Care Wound/Incision Care: Ice to area for comfort, Change dressing Other wound/incision instructi: may remove dressing in 48 hours if dry then may shower, no soaking Wound Care Equipment: Dressings Contacting the DRRosa after DC Call your doctor for: Concerns you may have Follow-Up Follow up with: Dr. Estrella's nurse in 2 weeks [phone] Treatment/Equipment after DC Adaptive Equipment Issued: SHELBI Carlos MD Apr 19, 2018 13:42
[2018-04-19] MEDS ORDERED: ONDANSETRON PF 4 MG/2 ML VIAL. IV PRN (13:45)
[2018-04-19] MEDS ORDERED: DOCUSATE SODIUM 100 MG CAPSULE. PO PRN (13:45)
[2018-04-19] MEDS ORDERED: ACETAMINOPHEN 325 MG TABLET. PO PRN ×2 (13:45)
[2018-04-19] MEDS ORDERED: NALOXONE 0.4 MG/ML VIAL. IV PRN (13:45)
[2018-04-19] MEDS ORDERED: cloNIDine HCL 0.2 MG TABLET PO PRN (13:45)
[2018-04-19] MEDS ORDERED: MAGNESIUM HYDROXIDE 2,400 MG/30 ML ORAL.SUSP. PO PRN (13:45)
[2018-04-19] MEDS ORDERED: CALCIUM CARBONATE 500 MG TAB.CHEW PO PRN (13:45)
[2018-04-19] MEDS ORDERED: MAG HYDROX/ALUMINUM HYD/SIMETH 30 ML ORAL.SUSP PO PRN (13:45)
[2018-04-19] MEDS ORDERED: NON FORMULARY ITEM (Umeclidinium Brm/Vilanterol Tr (Anoro Ellipta 62.5-25 Mcg Inh) 1 EACH) IH PRN (13:45)
[2018-04-19] MEDS ORDERED: 0.9 % SODIUM CHLORIDE 10 ML DISP.SYRIN. IV PRN (13:45)
[2018-04-19] MEDS ORDERED: diphenhydrAMINE HCL 25 MG CAPSULE PO PRN (13:45)
[2018-04-19] MEDS ORDERED: ALBUTEROL SULFATE 2.5 MG/3 ML NEBU. NEB PRN (15:00)
[2018-04-19] MEDS: POTASSIUM CL 20MEQ D5-0.45NACL 1,000 ML IV SCH (15:00)
[2018-04-19] MEDS: CARISOPRODOL 350 MG TABLET PO SCH ×2 (16:54→22:52)
[2018-04-19] MEDS: ALPRAZolam 0.5 MG TABLET PO PRN (16:57)
[2018-04-19] MEDS: oxyCODONE IR 5 MG TABLET PO PRN (19:36)
[2018-04-19] MEDS: DOXYCYCLINE HYCLATE 100 MG TABLET PO SCH (21:33)
[2018-04-19] MEDS: DOCUSATE SODIUM 100 MG CAPSULE. PO SCH (21:33)
[2018-04-20] MEDS: oxyCODONE IR 5 MG TABLET PO PRN ×2 (02:10→11:45)
[2018-04-20] MEDS: POTASSIUM CL 20MEQ D5-0.45NACL 1,000 ML IV SCH (04:20)
[2018-04-20] MEDS: ALPRAZolam 0.5 MG TABLET PO PRN (05:28)
[2018-04-20] MEDS: fentaNYL PF VIAL 100 MCG/2 ML VIAL IV PRN (05:29)
[2018-04-20 06:25] VITALS: BP 154/88
[2018-04-20] MEDS ORDERED: PANTOPRAZOLE 40 MG TABLET.DR. PO SCH (07:30)
[2018-04-20] MEDS: DOCUSATE SODIUM 100 MG CAPSULE. PO SCH (08:31)
[2018-04-20] MEDS: DOXYCYCLINE HYCLATE 100 MG TABLET PO SCH (08:35)
[2018-04-20] MEDS: CARISOPRODOL 350 MG TABLET PO SCH (08:52)
[2018-04-20] MEDS ORDERED: PARoxetine 20 MG TABLET PO SCH (09:00)
[2018-04-20] MEDS ORDERED: LOSARTAN POTASSIUM 50 MG TABLET. PO SCH (09:00)
[2018-04-20] MEDS ORDERED: buPROPion XL 150 MG TAB.ER.24H. PO SCH (09:00)
[2018-04-20] MEDS ORDERED: LACTOBACILLUS RHAMNOSUS GG 1 CAPSULE. PO SCH (09:00)
[2018-04-20 11:30] VITALS: BP 162/93
--- NOTE | 2018-04-20 21:00 | DS ---
DATE OF DISCHARGE: 04/20/2018 DISCHARGE DIAGNOSES: Foraminal narrowing C6-C7 with left cervical radiculopathy. OPERATION PERFORMED: Posterior cervical hemilaminotomy, medial facetectomy C6-C7 left with decompression of left C7 nerve root. HISTORY OF PRESENT ILLNESS: The patient is a pleasant 67-year-old woman who in the past has undergone anterior cervical diskectomy and fusion. She developed significant left cervical radiculopathy and was found to have foraminal narrowing on the left at C6-C7 and I recommended posterior cervical microdecompressive surgery at that level. She understood the surgery as well as the risk and technique and expected postoperative course and wished to proceed. HOSPITAL COURSE: She was admitted to the floor where she has done well. She has been up ambulating in the room and in the halls. Physical therapy was initiated and instruction was given to her regarding her activities. Her pain is well controlled and she is in good condition to discharge home. DISCHARGE MEDICATIONS: She will resume her medications per the MRAD. DISCHARGE INSTRUCTIONS: She was instructed regarding incision care, activity restrictions and expectations for the next several weeks. She will follow up in the office in 2 weeks. She understands to call with any questions or concerns. SHELBI FRAZIER MD DR: MARNI/joseph JOB#: [id number] / [id number] [place]
--- NOTE | 2018-04-23 23:07 | PATHOLOGY ---
[facility] Accession Number: [id number] . 01 Material submitted: . CERVICAL DECOMPRESSION . 01 Clinical history: . Cervicalgia, anthrodesis status, cervical spondylosis and radiculopathy . 02 Diagnosis: "Cervical decompression", decompression: - Decalcified bone, articular cartilage, periosteum, fibroadipose connective tissue and skeletal muscle with reactive and degenerative changes. . (CLW:mml; 04/23/18) [facility]/04/23/2018 . 02 Electronically signed: . Bindu Ku MD, Pathologist NPI- [id number] . 01 Gross description: . Received in formalin labeled "[place], [place], cervical decompression," are several pieces of glistening, fibrous tissue measuring 1.8 x 0.9 x 0.3 cm in aggregate dimensions, containing small fragments of possible bone. The tissue submitted entirely in cassette A1, following decalcification. (TSD; 04/19/2018) TOB/TOB . 02 Pathologist provided ICD-10: M50.30 . 02 CPT . 223744, 000231 Specimen Comment: A courtesy copy of this report has been sent to Specimen Comment: [phone], . Specimen Comment: Report sent to / DR LIM Specimen Comment: A duplicate report has been generated due to demographic updates. Performed at: 01 [facility] [address], [place] [id number] MD Morgan Tompkins MD Phone: [phone] Performed at: 02 [facility] [address] [place], [place] [id number] MD Kurt Fallon MD Phone: [phone]
== END 2018-04-20 12:05 | disposition home or self-care (01) ==
LOC: SURG 08:34 → 4 SOUTHEST 13:58
PROVIDERS: ADMIT Neurological Surgery; ATTEND Neurological Surgery
DX: M47.22 Other spondylosis with radiculopathy, cervical region (principal); I10 Essential (primary) hypertension; M81.0 Age-related osteoporosis without current pathological fracture; G43.909 Migraine, unspecified, not intractable, without status migrainosus; Z98.1 Arthrodesis status; Z90.710 Acquired absence of both cervix and uterus; Z88.8 Allergy status to other drugs, medicaments and biological substances
CPT/HCPCS: 63045; 76000; 96374; 96376; 97162; 97530; 99406; A7015; G0378; G0379; G8978; G8979; G8980; J0330; J0690; J0780; J1100; J1885; J2370; J2405; J2704; J3010; J3490; J7030; J7120; 88304; 88311

== ENCOUNTER → 2018-08-14 | Outpatient (CLI) | payer MEDICARE, OTHER ==
[~2018-08-14] MED LIST changes: +ALBU2.5V8 INH; -BACITRACIN 50,000 UNIT in IV NORMAL SALINE 1000ML BAG 1,000 ML IRR ONE; +BENZ-8 PO; +BUDE0.5A NEB; -BUPIVAC MPF-EPI 0.5%-1:200000 30 ML VIAL. ONE; -GABA-586 PO; +GABA300C18 PO; -GELATIN SPONGE SIZE 100. ONE; +GUAI600T47 PO; -HYDR-2762 PO; +HYDR-2765 PO; -HYDR-2766 PO; +HYDR-2769 PO; +HYDR-3164 PO; -HYDR-971 PO; -HYDROmorphone 2 MG/ML VIAL IV PRN; -IV RINGERS,LACTATED 1000ML 1,000 ML IV SCH; -KETOROLAC 60 MG/2 ML INJ FOR OR. ONE; +LEVO500T59 PO; -LIDOCAINE 1% PF 2 ML VIAL. ID PRN; +LOSA100T14 PO; -LOSA100T7 PO; -MORPHINE SULFATE 2 MG/ML VIAL. IV PRN; +NICO1PAT25 TP; +ONDA4TAB7 PO; -ONDANSETRON PF 4 MG/2 ML VIAL. IV PRN; +OXYC10TA PO; -OXYC10TA45 PO; +OXYC10TA46 PO; +OXYC5TAB4 PO; -OXYC5TAB95 PO; -THROMBIN TOPICAL 5,000 UNIT VIAL. TP ONE; -fentaNYL PF VIAL 100 MCG/2 ML VIAL IV PRN
--- NOTE | 2018-08-14 16:33 | CARD ---
MR#: [id number] Date of Study: 08/14/2018 Ordering Physician: LEWIS HAQUE, Referring Physician: LEWIS HAQUE, Tech: Meaghan Pagan JAYA APPROVED REPORT EXAM: Two-dimensional and M-mode echocardiogram with Doppler and color Doppler. Other Information Quality : Good INDICATION Pulmonary Hypertention RISK FACTORS Smoking 2D DIMENSIONS RVDd1.8 (2.9-3.5cm)Left Atrium(2D)2.4 (1.6-4.0cm) IVSd0.6 (0.7-1.1cm)Aortic Root(2D)2.4 (2.0-3.7cm) LVDd4.8 (3.9-5.9cm)LVOT Diameter1.9 (1.8-2.4cm) PWd0.8 (0.7-1.1cm)LVDs1.8 (2.5-4.0cm) FS (%) 30.0 %SV95.2 ml LVEF(%)60.0 (>50%) Aortic Valve AoV Peak Young.192.8cm/sAoV VTI34.3cm AO Peak GR.14.9mmHgLVOT Peak Young.162.7cm/s AO Mean GR.8mmHgAVA (VMAX)2.37cm2 BHARTI (VTI)2.30cm2 Mitral Valve MV E Ssnlrecr458.8cm/sMV DECEL QASC188lv MV A Pxemldoe451.5cm/sE/A Ratio1.2 Tricuspid Valve TR P. Yfoqoqgt730cn/sRAP NMKLVDAX9bzHf TR Peak Gr.17yoCsILTD94ekXi Pulmonary Vein S1 Mfszziil94.9cm/sD2 Ykgeuvpm64.9cm/s LEFT VENTRICLE The left ventricle is normal size. There is normal left ventricular wall thickness. The left ventricu lar systolic function is normal. The Ejection Fraction is 60-65%. There is normal LV segmental wall m otion. RIGHT VENTRICLE The right ventricle is normal size. The right ventricular systolic function is normal. ATRIA The left atrium size is normal. The right atrium size is normal. The interatrial septum is intact wit h no evidence for an atrial septal defect or patent foramen ovale as noted on 2-D or Doppler imaging. AORTIC VALVE The aortic valve is calcified but opens well. Doppler and Color Flow revealed no significant aortic r egurgitation. There is no significant aortic valvular stenosis. MITRAL VALVE The mitral valve is calcified but opens well. Mitral annular calcification is mild. There is no evide nce of mitral valve prolapse. There is no mitral valve stenosis. Doppler and Color-flow revealed trac e mitral regurgitation. TRICUSPID VALVE The tricuspid valve is normal in structure and function. Doppler and Color Flow revealed trace tricus pid regurgitation. There is mild pulmonary hypertension. The PA pressure was estimated at 30 mmHg. Th ere is no tricuspid valve stenosis. PULMONIC VALVE The pulmonary valve is normal in structure and function. Doppler and Color Flow revealed trace pulmon ic valvular regurgitation. There is no pulmonic valvular stenosis. GREAT VESSELS The aortic root is normal in size. The ascending aorta is normal in size. The IVC is normal in size a nd collapses >50% with inspiration. PERICARDIAL EFFUSION There is no evidence of significant pericardial effusion. Critical Notification Critical Value: No <Conclusion> The left ventricular systolic function is normal. The Ejection Fraction is 60-65%. There is normal LV segmental wall motion. Trace mitral regurgitation. Trace tricuspid regurgitation. There is mild pulmonary hypertension. The PA pressure was estimated at 30 mmHg. There is no evidence of significant pericardial effusion. Signed by : Delfino Sesay, Electronically Approved : 08/14/2018 16:33:38
== END | disposition home or self-care (01) ==
LOC: ECHO 09:51
PROVIDERS: ATTEND Internal Medicine Cardiovascular Disease
DX: I27.20 Pulmonary hypertension, unspecified (principal); I25.10 Atherosclerotic heart disease of native coronary artery without angina pectoris
CPT/HCPCS: 93306

== ENCOUNTER → 2018-08-23 | Outpatient (CLI) | payer MEDICARE, OTHER ==
[~2018-08-23] MED LIST changes: +IOHEXOL 180 MG/ML 10 ML VIAL. ONE; +methylPREDNISolone ACETATE 40 MG/ML VIAL. ONE; +methylPREDNISolone ACETATE 80 MG/ML VIAL. ONE
--- NOTE | 2018-08-24 04:52 | PAIN ---
DATE OF SERVICE: 08/23/2018 DIAGNOSES: 1. Lumbar radiculopathy with lumbar spinal stenosis, lumbar degenerative disk disease and post-lumbar laminectomy syndrome. 2. Cervical radiculopathy with post-cervical laminectomy syndrome. 3. Myofascial pain. HISTORY OF PRESENT ILLNESS: The patient is a 67-year-old female who returns for followup, last seen in 09/2017. The patient had caudal epidural steroid injection at that time, did very well with this initially. The patient reports that since the last year has gone by, she has had another decompressive surgery on her neck posteriorly and another decompressive surgery on her low back. The patient reports that both of these helped, but is still having significant pain in the back and the hips, radiating to posterior gluteus, posterior thighs bilaterally, essentially equal right and left. The patient reports some pain in the base of the neck and shoulders as well. The patient reports her pain in her back and her lower extremities is a 10 on a scale of 10 at its worst, 9 on average, 7 at its least and is a 7 today. Describes as dull and aching, sharp, stabbing, becoming more constant, more severe, worse with walking, standing, changing positions, waking her from sleep at night occasionally, but not most nights. The patient reports that she is sleeping better since her surgery, but she reports no new motor or sensory deficits and also she has increased her distance walking and doing activities at home, traveling much easier, comfort and ease, but now is becoming more difficult because she was walking and standing and change in positions, especially getting up from a seated position with the back and hips, radiating pain into the lower extremities. The patient reports no new motor or sensory deficits. No new bowel or bladder incontinence or other complaints. PHYSICAL EXAMINATION: VITAL SIGNS: The patient's blood pressure is 124/63, pulse 94, respirations 18, temperature 98.0 degrees Fahrenheit, height is 5 feet 2 inches, weight is 90 pounds. GENERAL: The patient is awake, alert, oriented, appropriate, very pleasant demeanor. HEENT: Shows normocephalic, atraumatic. Extraocular movements are intact and symmetrical. Oral cavity: Mucous membranes moist and pink. Dentition is intact. NECK: Shows anterior throat supple without palpable lymphadenopathy noted. Swallow reflex is symmetrical. CHEST: Shows normal on inspection. Breath sounds are clear to auscultation bilaterally. HEART: Shows S1, S2 clear. No murmurs auscultated. ABDOMEN: Soft, nontender, nondistended. No palpable organomegaly is noted. No rebound or guarding demonstrated. BACK: Shows spine grossly in the midline, flattening of cervical lordotic curvature, thoracic kyphotic curvature and lumbar lordotic curvature. Well healed surgical scar is noted in the cervical distribution as well as the lumbar distribution multiple. The patient's lumbar paraspinous muscle shows reasonably symmetrical on inspection. With palpation shows some moderate tenderness bilaterally diffusely, but throughout the upper, middle and lower distribution of the lumbar paraspinous muscles without significant radiation. The patient shows good rotational motion, however, both laterally as well as extension and flexion without exacerbation of pain. EXTREMITIES: Lower extremities show deep tendon reflexes 1+ in the patellar and tendo calcaneus tendons. Motor exam is approximately 4 on a scale of 5 with dorsiflexion, extension, quadriceps and hamstring flexion and equal and symmetrical bilaterally. Peripheral pulses are 1+ posterior tibia. No peripheral edema is noted. Options were discussed with the patient. The patient's old chart was reviewed as was her current medication regimen updated. Current review of systems is updated today as well. We will proceed with a caudal approach epidural steroid injection today with fluoroscopic guidance. Risks were again discussed including, but not limited to bleeding, infection, possibility of epidural hematoma, subsequent neurological compromise, dural puncture, headaches, spinal cord and/or nerve damage, side effects of steroid medication and poor results regarding pain control. The patient understands and wished to proceed. The patient will return to clinic in approximately 2 weeks for followup, was counseled on return appointment, activity level and side effects to be aware of. DIAGNOSIS: Lumbar radiculopathy with lumbar spinal stenosis, lumbar degenerative disk disease and post-lumbar laminectomy syndrome. PROCEDURE: Caudal approach epidural steroid injection using C-arm fluoroscopic guidance under sterile prep and drape using local anesthetic. MEDICATION INJECTED: A total of 120 mg Depo-Medrol plus 10 mL of preservative-free normal saline and 2 mL of Isovue for contrast. CONDITION AT DISCHARGE: Stable. The patient tolerated procedure well, had no complications. HIRA CARBAJAL MD DR: BRANDON/joseph JOB#: [id number] / [id number]
== END | disposition home or self-care (01) ==
LOC: PNCL 09:41
PROVIDERS: ATTEND Anesthesiology
DX: M51.16 Intervertebral disc disorders with radiculopathy, lumbar region (principal); M48.061 Spinal stenosis, lumbar region without neurogenic claudication; M96.1 Postlaminectomy syndrome, not elsewhere classified; M79.18 Myalgia, other site
CPT/HCPCS: 62323; J1030; J1040; Q9965

== ENCOUNTER → 2018-08-24 | Outpatient (CLI) | payer MEDICARE, OTHER ==
[~2018-08-24] MED LIST changes: -IOHEXOL 180 MG/ML 10 ML VIAL. ONE; -methylPREDNISolone ACETATE 40 MG/ML VIAL. ONE; -methylPREDNISolone ACETATE 80 MG/ML VIAL. ONE
--- NOTE | 2018-08-24 09:23 | KCIC ---
PQRS Compliance statement: One or more of the following individualized dose reduction techniques were utilized for this examination: 1. Automated exposure control. 2. Adjustment of the mA and/or kV according to patient size. 3. Use of iterative reconstruction technique. Indication:Abdominal pain. TECHNIQUE: CT abdomen and pelvis without IV contrast with multiplanar reformats. COMPARISON: 05/30/2017 FINDINGS: Limited evaluation of solid abdominal and pelvic organs due to lack of IV contrast. Heart is normal in size. No pericardial or pleural effusion. Clear lung bases. Noncontrast appearance of the liver, spleen, pancreas, adrenals within normal limits. Status post cholecystectomy. Stable dilation of the CBD likely secondary to reservoir effect from cholecystectomy. Stable mild prominence of the main pancreatic duct. No nephrolithiasis or hydronephrosis. Mild to moderate diffuse atherosclerotic disease of the abdominal aorta and bilateral iliac arteries. No enlarged retroperitoneal or pelvic adenopathy. No free pelvic fluid or ascites. No bowel obstruction. Status post hysterectomy. Urinary bladder demonstrates no radiopaque stones. No pneumoperitoneum. Interval anterior T12 compression deformity with fracture with no retropulsion the spinal canal. Status post posterior fusion at L3-L4. IMPRESSION: Limited evaluation of solid abdominal and pelvic organs due to lack of IV contrast. 1. No bowel obstruction. No nephrolithiasis or hydronephrosis. 2. Interval anterior compression fracture of the T12 vertebral body with no retropulsion in the spinal canal. Electronically signed by: Nishant Crawley DO (08/24/2018 9:21 AM) [id number]
--- NOTE | 2018-08-24 12:53 | KCIC ---
EXAM: Dual energy x-ray absorptiometry (DEXA). HISTORY: Postmenopausal female presents for osteoporosis screening. Vertebral fracture. COMPARISON: None. TECHNIQUE: Dual energy x-ray absorptiometry of the lumbar spine and left hip was performed. Calculation of bone mineral density based on standard deviations above or below the expected young adult normal value (T-score) was completed. FINDINGS: The average bone mineral density in the first through third lumbar vertebrae is 0.737 g/cmxcm, corresponding with a T-score of -2.6. The average total bone mineral density in the left hip is 0.546 g/cmxcm, corresponding with a T-score of -3.2. IMPRESSION: Osteoporosis measured at the lumbar spine and left hip. Note: Definitions established by the World Health Organization: 1. Normal: T-score is -1.0 or above. 2. Osteopenia: T-score is between -1.0 and -2.5 . 3. Osteoporosis: T-score is -2.5 or below. Electronically signed by: Charisma Moreira MD (08/24/2018 12:50 PM) [place] [id number]
--- NOTE | 2018-08-24 14:54 | KCIC ---
History: Screening Bilateral digital CC and MLO views were obtained with mammography and tomosynthesis. Computer aided detection was utilized with iCAD Second Look 7.2-H. Previous: No priors available. This serves as a new baseline.. The breast tissue is heterogeneously dense, which could obscure detection of small masses (Level 3 density). There are no suspicious masses, suspicious microcalcifications or areas of architectural distortion. Benign vascular calcifications. IMPRESSION: Negative mammogram. Patient information was entered into the [employer] reminder system with a target due date for the next screening mammogram. Routine annual screening mammogram in one year advised. BI-RADS Category 1: Negative. Your mammogram demonstrates that you have dense breast tissue, which could hide abnormalities, and if you have other risk factors for breast cancer that have been identified, you might benefit from supplemental screening tests that may be suggested by your ordering physician. Dense breast tissue, in and of itself, is a relatively common condition. This information is not provided to cause undue concern, but rather to raise your awareness and to promote discussion with your physician regarding the presence of other risk factors, in addition to dense breast tissue. A report of your mammography results will be sent to you and your physician. You should contact your physician if you have any questions or concerns regarding this report. A mammogram does not have 100% sensitivity and therefore a negative imaging study should not delay further work up of a suspicious abnormality. "Our facility is accredited by the [employer] Mammography Program." Electronically signed by: Alexei Miller MD (08/24/2018 2:51 PM) [id number]
--- NOTE | 2018-08-24 15:26 | KCIC ---
PQRS Compliance statement: One or more of the following individualized dose reduction techniques were utilized for this examination: 1. Automated exposure control. 2. Adjustment of the mA and/or kV according to patient size. 3. Use of iterative reconstruction technique. Indication:Nicotine dependency. Screening for lung cancer. Smoker for 40 years. TECHNIQUE: Low-dose CT chest without IV contrast with multiplanar reformats. COMPARISON:None FINDINGS: Heart is normal in size. No pericardial or pleural effusion. No enlarged axillary adenopathy. Enlarged mediastinal lymph node is seen measuring 1.8 x 1.6 cm (series 2 image 16) is. Evaluation of hilar lymphadenopathy is limited due to lack of IV contrast. Central airways are patent. Mild diffuse emphysema. 7 mm thick. Opacities seen in the right lung apex (series 6 image 55) (. Noncontrast appearance of the visualized sections through the liver, spleen, adrenals and left kidney within normal limits. Anterior fracture is seen of the T12 vertebral body with no involvement of the posterior elements or retropulsion the spinal canal. IMPRESSION: 1. Right upper lobe spiculated opacity. Lung RADS category 4A: Suspicious. Follow-up low-dose CT chest in 3 months recommended. 2. Likely pathologic fracture in T12 vertebral body with no involvement of the posterior elements or retropulsion the spinal canal. Clinically correlate with recent history of trauma. 3. Enlarged solitary mediastinal lymph node which may be reactive or metastatic. Electronically signed by: Nishant Crawley DO (08/24/2018 3:22 PM) [id number]
== END | disposition home or self-care (01) ==
LOC: KCIC CT 08:29
PROVIDERS: ATTEND Nurse Practitioner Family
DX: Z12.31 Encounter for screening mammogram for malignant neoplasm of breast (principal); Z12.2 Encounter for screening for malignant neoplasm of respiratory organs; Z13.820 Encounter for screening for osteoporosis; M80.88XA Other osteoporosis with current pathological fracture, vertebra(e), initial encounter for fracture; R92.8 Other abnormal and inconclusive findings on diagnostic imaging of breast; R10.9 Unspecified abdominal pain; R59.0 Localized enlarged lymph nodes; F17.210 Nicotine dependence, cigarettes, uncomplicated; Z78.0 Asymptomatic menopausal state; Z90.49 Acquired absence of other specified parts of digestive tract
CPT/HCPCS: 74176; 77063; 77067; 77080; G0297

== ENCOUNTER 2018-08-30 07:23 | Emergency (ER) | payer MEDICARE, OTHER ==
[~2018-08-30] VITALS: Ht 157.5 cm; Wt 37.6 kg
[~2018-08-30 07:23] MED LIST changes: -ALBU2.5V8 INH; -BENZ-8 PO; -BUDE0.5A NEB; -GUAI600T47 PO; -LEVO500T59 PO; -NICO1PAT25 TP; -ONDA4TAB7 PO; -OXYC10TA PO
[2018-08-30] MEDS ORDERED: IV NORMAL SALINE 1000ML BAG 1,000 ML IV SCH (08:05)
--- NOTE | 2018-08-30 08:14 | PHYS DOC ---
Past Medical History Past Medical History: A-Fib, Anxiety, COPD, Depression, Hypertension Additional Past Medical Histor: CATARACTS Past Surgical History: Appendectomy, Cholecystectomy, Hysterectomy, Other Additional Past Surgical Histo: BACK SX, CERVICAL SX Alcohol Use: None Drug Use: None Adult General Chief Complaint Chief Complaint: NAUSEA/VOMITING/DIARRHA HPI HPI Patient is a 67-year-old female who presents to the emergency department for evaluation. She states that for the past 2-3 days, she has had numerous episodes of vomiting and diarrhea, without any bloody emesis or bloody stools. She denies any abdominal pain per se, but does report an increase in her chronic back pain, secondary to not being able to hold her pain medication down. She takes OxyContin for pain. She has not had any fevers or chills, urinary symptoms, dizziness or lightheadedness. She has not had any recent travel or antibiotic use. There are no alleviating or exacerbating factors to her symptoms, except as noted above. Review of Systems Review of Systems Constitutional: Denies fever or chills [] Eyes: Denies change in visual acuity, redness, or eye pain [] HENT: Denies nasal congestion or sore throat [] Respiratory: Denies cough or shortness of breath [] Cardiovascular: The patient denies any shortness of breath, chest pain, palpitations, or orthopnea [] GI: Denies abdominal pain, or bloody stools.[] : Denies dysuria or hematuria [] Musculoskeletal: Denies new back pain or joint pain [] Integument: Denies rash or skin lesions [] Neurologic: Denies headache, focal weakness or sensory changes [] Endocrine: Denies polyuria or polydipsia [] All other systems were reviewed and found to be within normal limits, except as documented in this note. Current Medications Current Medications Current Medications Medications (Trade) Dose Ordered Sig/John Start Time Stop Time Status Last Admin Dose Admin Hydromorphone HCl (Dilaudid) 1 mg 1X ONCE 08/30/18 08:15 08/30/18 08:16 DC 08/30/18 08:36 1 MG Ondansetron HCl (Zofran) 4 mg 1X ONCE 08/30/18 08:15 08/30/18 08:16 DC 08/30/18 08:34 4 MG Sodium Chloride 1,000 ml @ 1,000 mls/hr Q1H 08/30/18 08:05 08/30/18 09:04 DC 08/30/18 08:27 1,000 MLS/HR Allergies Allergies Allergies Coded Allergies Type Severity Reaction Last Updated Verified Iodinated Contrast- Oral and IV Dye Allergy Intermediate 01/22/18 Yes acyclovir Allergy Intermediate Rash 01/22/18 Yes iodine Allergy Intermediate 01/22/18 Yes I S O L A T I O N *CONTACT* Allergy Unknown 01/22/18 Yes morphine Adverse Reaction Intermediate Nausea 01/22/18 Yes Physical Exam Physical Exam PHYSICAL EXAM: CONSTITUTIONAL: Well developed, well nourished HEAD: normocephalic, atraumatic EENT: PERRL, EOMI. Conjunctivae normal color, sclerae non-icteric; moist mucous membranes. NECK: Supple, non-tender; no meningismus. LUNGS: Lungs CTA, breathing even and unlabored. Normal air movement. HEART: Regular rate and rhythm, no murmur CHEST: No deformity; non-tender ABDOMEN: The abdomen is soft, there is mild diffuse tenderness to palpation of the been predominantly, without any rebound or guarding, normal bowel sounds are present, the left side of the abdomen is relatively non-tender, no masses or bruits. EXTREM: Normal ROM; no deformity, no calf tenderness. Normal pulses palpable in all extremities. There is no pedal edema. SKIN: No rash; no diaphoresis NEURO: Alert; normal speech and cognition; CN's grossly intact; strength grossly intact without focal deficit. BACK: No CVA TTP. Current Patient Data Vital Signs Vital Signs Date Time Temp Pulse Resp B/P (MAP) Pulse Ox O2 Delivery O2 Flow Rate FiO2 08/30/18 08:36 20 98 Room Air 08/30/18 07:53 98.9 107 156/78 (104) 98.9 Lab Values Laboratory Tests Test 08/30/18 08:10 08/30/18 09:20 White Blood Count 11.2 x10^3/uL (4.0-11.0) H Red Blood Count 4.49 x10^6/uL (3.50-5.40) Hemoglobin 14.1 g/dL (12.0-15.5) Hematocrit 44.0 % (36.0-47.0) Mean Corpuscular Volume 98 fL (79-100) Mean Corpuscular Hemoglobin 31 pg (25-35) Mean Corpuscular Hemoglobin Concent 32 g/dL (31-37) Red Cell Distribution Width 17.0 % (11.5-14.5) H Platelet Count 411 x10^3/uL (140-400) H Neutrophils (%) (Auto) 84 % (31-73) H Lymphocytes (%) (Auto) 12 % (24-48) L Monocytes (%) (Auto) 4 % (0-9) Eosinophils (%) (Auto) 0 % (0-3) Basophils (%) (Auto) 0 % (0-3) Neutrophils # (Auto) 9.4 x10^3uL (1.8-7.7) H Lymphocytes # (Auto) 1.3 x10^3/uL (1.0-4.8) Monocytes # (Auto) 0.5 x10^3/uL (0.0-1.1) Eosinophils # (Auto) 0.0 x10^3/uL (0.0-0.7) Basophils # (Auto) 0.0 x10^3/uL (0.0-0.2) Sodium Level 141 mmol/L (136-145) Potassium Level 4.1 mmol/L (3.5-5.1) Chloride Level 103 mmol/L (98-107) Carbon Dioxide Level 24 mmol/L (21-32) Anion Gap 14 (6-14) Blood Urea Nitrogen 23 mg/dL (7-20) H Creatinine 0.8 mg/dL (0.6-1.0) Estimated GFR (Cockcroft-Gault) 71.5 BUN/Creatinine Ratio 29 (6-20) H Glucose Level 141 mg/dL (70-99) H Calcium Level 9.1 mg/dL (8.5-10.1) Total Bilirubin 0.5 mg/dL (0.2-1.0) Aspartate Amino Transferase (AST) 21 U/L (15-37) Alanine Aminotransferase (ALT) 25 U/L (14-59) Alkaline Phosphatase 122 U/L (46-116) H Total Protein 7.3 g/dL (6.4-8.2) Albumin 3.7 g/dL (3.4-5.0) Albumin/Globulin Ratio 1.0 (1.0-1.7) Lipase 159 U/L (73-393) Urine Collection Type Void Urine Color Yellow Urine Clarity Clear Urine pH 6.5 Urine Specific [place] 1.015 Urine Protein Negative mg/dL (NEG-TRACE) Urine Glucose (UA) Negative mg/dL (NEG) Urine Ketones (Stick) Negative mg/dL (NEG) Urine Blood Negative (NEG) Urine Nitrite Negative (NEG) Urine Bilirubin Negative (NEG) Urine Urobilinogen Dipstick 0.2 mg/dL (0.2 mg/dL) Urine Leukocyte Esterase Negative (NEG) Urine RBC Occ /HPF (0-2) Urine WBC Occ /HPF (0-4) Urine Squamous Epithelial Cells Many /LPF Urine Bacteria Few /HPF (0-FEW) Urine Hyaline Casts Moderate /HPF Urine Mucus Slight /LPF Laboratory Tests 08/30/18 08:10 Laboratory Tests 08/30/18 08:10 EKG EKG [] Radiology/Procedures Radiology/Procedures [] Course & Med Decision Making Course & Med Decision Making Pertinent Labs and Imaging studies reviewed. (See chart for details) [10:15 AM: The patient's condition remains stable, I discussed test results in detail with the patient, the need for close follow-up, use of Imodium and Zofran for symptoms, and return precautions.] Dragon Disclaimer Dragon Disclaimer This electronic medical record was generated, in whole or in part, using a voice recognition dictation system. Departure Departure Impression: Primary Impression: Nausea vomiting and diarrhea Disposition: HOME, SELF-CARE Condition: STABLE Referrals: RANDI LIM (PCP) Patient Instructions: Viral Gastroenteritis Scripts Ondansetron Hcl (ZOFRAN) 4 Mg Tablet 1 TAB PO Q6HRS PRN for NAUSEA/VOMITING, #20 TAB Prov: WIL CHOWDARY MD 08/30/18 WIL CHOWDARY MD Aug 30, 2018 08:14
[2018-08-30] MEDS ORDERED: HYDROmorphone 2 MG/ML VIAL IV ONE (08:15)
[2018-08-30] MEDS ORDERED: ONDANSETRON PF 4 MG/2 ML VIAL. IV ONE (08:15)
[2018-08-30 08:30] LABS: BASO % 0 % (0-3); EOS % 0 % (0-3); HEMOGLOBIN 14.1 g/dL (12.0-15.5); LYMPH # 1.3 x10^3/uL (1.0-4.8); LYMPH % 12 % (24-48); MEAN CORPUSCULAR HEMOGLOBIN 31 pg (25-35); MEAN CORPUSCULAR HGB CONC 32 g/dL (31-37); MEAN CORPUSCULAR VOLUME 98 fL (79-100); MONO # 0.5 x10^3/uL (0.0-1.1); MONO % 4 % (0-9); NEUT # 9.4 x10^3uL (1.8-7.7); NEUT % 84 % (31-73); PLATELET COUNT 411 x10^3/uL (140-400); RED BLOOD COUNT 4.49 x10^6/uL (3.50-5.40); WHITE BLOOD COUNT 11.2 x10^3/uL (4.0-11.0)
[2018-08-30 08:46] LABS: CALCIUM 9.1 mg/dL (8.5-10.1); CREATININE 0.8 mg/dL (0.6-1.0); GFR 71.5; POTASSIUM 4.1 mmol/L (3.5-5.1)
[2018-08-30 08:52] LABS: ALBUMIN 3.7 g/dL (3.4-5.0); TOTAL BILIRUBIN 0.5 mg/dL (0.2-1.0); TOTAL PROTEIN 7.3 g/dL (6.4-8.2)
[2018-08-30 09:38] LABS: BILIRUBIN,URINE NEGATIVE (NEG); CLARITY,URINE CLEAR; COLOR,URINE YELLOW; NITRITE,URINE NEGATIVE (NEG); PH,URINE 6.5; PROTEIN,URINE NEGATIVE (NEG-TRACE); UROBILINOGEN,URINE 0.2 mg/dL (0.2 mg/dL)
[2018-08-30 09:44] LABS: HYALINE CASTS, URINE MODERATE /HPF; SQUAMOUS EPITHELIAL CELL,UR MANY /LPF
[2018-08-30 09:45] LABS: BACTERIA,URINE FEW /HPF (0-FEW); RBC,URINE OCC /HPF (0-2); WBC,URINE OCC /HPF (0-4)
[2018-08-30] MEDS ORDERED: ONDA4TAB7 PO (10:19)
[2018-08-30 10:21] VITALS: BP 167/66
[2018-09-13] MEDS ORDERED: OXYC10TA46 PO (11:33)
[2018-10-26] MEDS ORDERED: NICO1PAT25 TP (10:00)
== END 2018-08-30 10:45 | disposition home or self-care (01) ==
LOC: ER 07:23
DX: R11.2 Nausea with vomiting, unspecified (principal); R19.7 Diarrhea, unspecified; I48.91 Unspecified atrial fibrillation; F41.9 Anxiety disorder, unspecified; J44.9 Chronic obstructive pulmonary disease, unspecified; J32.9 Chronic sinusitis, unspecified; I10 Essential (primary) hypertension; Z90.89 Acquired absence of other organs; Z90.710 Acquired absence of both cervix and uterus; Z90.49 Acquired absence of other specified parts of digestive tract; Z91.041 Radiographic dye allergy status; Z88.5 Allergy status to narcotic agent; Z91.018 Allergy to other foods
CPT/HCPCS: 36415; 80053; 81001; 83690; 85025; 96361; 96374; 96375; 99283; J1170; J2405; J7030

== ENCOUNTER → 2018-09-13 | Outpatient (CLI) | payer MEDICARE, OTHER ==
[2018-08-30 10:21] VITALS: BP 167/66
[~2018-09-13] MED LIST changes: +ALBU2.5V8 INH; +BENZ-8 PO; +BUDE0.5A NEB; +GUAI600T47 PO; +IOHEXOL 180 MG/ML 10 ML VIAL. ONE; +LEVO500T59 PO; +NICO1PAT25 TP; +ONDA4TAB7 PO; +OXYC10TA PO; +methylPREDNISolone ACETATE 40 MG/ML VIAL. ONE; +methylPREDNISolone ACETATE 80 MG/ML VIAL. ONE
--- NOTE | 2018-09-13 21:35 | PAIN ---
DATE OF SERVICE: 09/13/2018 PROGRESS NOTE FOR PAIN CLINIC DIAGNOSIS: Lumbar radiculopathy with lumbar spinal stenosis, lumbar degenerative disk disease and post-lumbar laminectomy syndrome. HISTORY OF PRESENT ILLNESS: The patient is a 68-year-old female who returns for followup status post caudal approach epidural steroid injection x 1 in this series on 08/23/2018. The patient reports she did well for several days with about 25% overall. The patient reports there is still significant pain in the low back and in the bilateral lower extremities, more on the right than the left into the posterior gluteus, posterior thigh and posterior calves. The patient reports it is tingling, sharp, aching, radiating and dull and cramping along the low back. The patient reports initially she was increasing her distance walking with better ability to do household activities. The pain has returned now. It is beginning to awaken her from sleep again about every 4-5 hours. The patient reports no new motor or sensory deficits, no new bowel or bladder incontinence or other complaints. PHYSICAL EXAMINATION: VITAL SIGNS: The patient's blood pressure is 116/65, pulse 77, respirations 20, temperature 98.1 degrees Fahrenheit, and weight is 96.6 pounds. GENERAL: The patient is awake, alert, oriented, appropriate, very pleasant demeanor. HEENT: Head shows normocephalic, atraumatic. Extraocular movements are intact and symmetrical. Oral cavity: Mucous membranes are moist and pink. Dentition is intact. NECK: Shows anterior throat supple without palpable lymphadenopathy noted. Swallow reflex is symmetrical. CHEST: Shows normal on inspection. Breath sounds are clear to auscultation bilaterally. HEART: Shows S1, S2 clear. No murmurs auscultated. ABDOMEN: Soft, nontender, nondistended. No palpable organomegaly is noted. No rebound or guarding demonstrated. BACK: Shows spine grossly in the midline. Normal appearing thoracic kyphosis and some flattening of lumbar lordotic curvature with well-healed surgical scarring. Lumbar paraspinous musculature is symmetrical, but with palpation shows some moderate tenderness diffusely bilaterally without radiation. The patient shows good rotational motion of lumbar spine, but somewhat limited secondary to previous surgeries, but not limited because of pain. EXTREMITIES: The patient's lower extremities show deep tendon reflexes 1+ in the patellar and tendo calcaneus tendons are equal. Motor exam is approximately 4 on a scale of 5, but equal and symmetrical with dorsiflexion, extension, quadriceps and hamstring flexion. Peripheral pulses are 1+ posterior tibia. No peripheral edema is noted. Options were discussed with the patient. The patient's old chart was reviewed as her current medication regimen updated. Current review of systems updated today as well and we will proceed with a second in this series of caudal approach epidural steroid injection today with fluoroscopic guidance. Risks were again discussed including, but not limited to bleeding, infection, possibility of epidural hematoma and subsequent neurological compromise, dural puncture, headaches, spinal cord and/or nerve damage, side effects of steroid medication and poor results regarding pain control. The patient understands and wished to proceed. The patient will return to the clinic in approximately 2 weeks for followup, was counseled on return appointment, activity level and side effects to be aware of. DIAGNOSIS: Lumbar radiculopathy with lumbar spinal stenosis, lumbar degenerative disk disease and lumbar post-laminectomy syndrome. PROCEDURE: Caudal approach epidural steroid injection using C-arm fluoroscopic guidance under sterile prep and drape using local anesthetic. MEDICATION INJECTED: A total of 120 mg Depo-Medrol plus 10 mL of preservative-free normal saline. CONDITION AT DISCHARGE: Stable. The patient tolerated the procedure well, had no complications. HIRA CARBAJAL MD DR: BRANDON/joseph JOB#: [id number] / [id number]
== END | disposition home or self-care (01) ==
LOC: PNCL 10:57
PROVIDERS: ATTEND Anesthesiology
DX: M51.16 Intervertebral disc disorders with radiculopathy, lumbar region (principal); M48.061 Spinal stenosis, lumbar region without neurogenic claudication; M96.1 Postlaminectomy syndrome, not elsewhere classified; Z88.5 Allergy status to narcotic agent; Z88.8 Allergy status to other drugs, medicaments and biological substances; Z91.041 Radiographic dye allergy status
CPT/HCPCS: 62323; J1030; J1040; Q9965

== ENCOUNTER → 2018-09-27 | Outpatient (CLI) | payer MEDICARE, OTHER ==
[2018-08-30 10:21] VITALS: BP 167/66
[~2018-09-27] MED LIST changes: +BUPIVACAINE MPF 0.25% 10 ML VIAL. ONE; -IOHEXOL 180 MG/ML 10 ML VIAL. ONE; -methylPREDNISolone ACETATE 80 MG/ML VIAL. ONE
--- NOTE | 2018-09-28 00:49 | PAIN ---
DATE OF SERVICE: 09/27/2018 DIAGNOSES: 1. Cervical radiculopathy with cervical degenerative disk disease and cervical post-laminectomy syndrome. 2. Lumbar radiculopathy with lumbar degenerative disk disease, lumbar spinal stenosis and post-lumbar laminectomy syndrome. 3. Myofascial pain. HISTORY OF PRESENT ILLNESS: The patient is a 68-year-old female who returns for followup status post caudal epidural steroid injection x 2. The patient reports she did fairly well with only about 50% improvement, but only for about a week or so after the injection, but the pain in the low back is much better. She has still some pain in the posterior hips and gluteus, also her main complaint is in the right medial and anterior thigh, very difficult with working, walking, standing, even light touch on the right medial thigh is painful. The patient reports that back is aching, cramping in the leg, becoming more constant in the leg and in the posterior gluteus bilaterally, worse on the left than the right, but worse on the right leg. The patient reports the pain is a 10 on a scale of 10 at its worst, over the past week, 8 on average, 7 at its least, and is a 7 today. The patient reports no new motor or sensory deficits, no new bowel or bladder incontinence. Her low back does feel better itself, but the inferior aspect of the gluteus is more painful. The patient also complains of some pain in the right lower quadrant of the abdomen and is being worked up for a hernia currently. PHYSICAL EXAMINATION: VITAL SIGNS: The patient's blood pressure is 122/92, pulse 75, respirations 16, temperature is 98.2 degrees Fahrenheit, weight is 91 pounds. GENERAL: The patient is awake, alert, oriented, appropriate, very pleasant demeanor. HEENT: Shows normocephalic, atraumatic. Extraocular movements are intact and symmetrical. Oral cavity: Mucous membranes moist and pink. Dentition is intact. NECK: Shows anterior throat supple without palpable lymphadenopathy noted. Swallow reflex is symmetrical. CHEST: Shows normal on inspection. Breath sounds are clear to auscultation bilaterally. HEART: Shows S1, S2 clear. No murmurs auscultated. ABDOMEN: Soft, nontender, nondistended. No palpable organomegaly is noted. No rebound or guarding demonstrated. BACK: Shows spine grossly in the midline. Normal appearing thoracic kyphosis and some flattening of lumbar lordotic curvature. Well-healed surgical scar noted. The patient's back shows moderate tenderness throughout the lumbar paraspinous musculature, but mainly in the lower distribution, also in the superior and medial aspect of the gluteus, very firm rope-like musculature, very consistent with trigger point areas of musculature, some of those in the lumbar paraspinous musculature, but without specific radiation, but very firm, very tender as in the lower lumbar distribution as well as the gluteus bilaterally, again slightly worse on the left than the right with palpation, but no radiation. EXTREMITIES: The patient's lower extremities show deep tendon reflexes 1+ in the patellar and tendo calcaneus tendons. Motor exam is approximately 4 on a scale of 5, but equal with dorsiflexion, extension, quadriceps and hamstring flexion. With palpation of the right quadriceps and anterior medial thigh, very firm rope-like musculature consistent with trigger point areas of muscles throughout the superior and middle aspect of the medial quadriceps on the right side only. Left side is nontender. Again, no radiation, but significant firm rope-like musculature consistent with trigger point areas of muscle in the right medial quadriceps. Peripheral pulses are 1+ posterior tibia. No peripheral edema is noted bilaterally. Options were discussed with the patient. The patient's old chart was reviewed as was her current medication regimen updated. Current review of systems is updated today as well. We will proceed with trigger point injections of the bilateral lumbar paraspinous musculature, bilateral gluteus musculature, and the right quadriceps medial distribution. Risks were discussed including but not limited to bleeding, infection, possibility of intravascular injection sequelae, spread of local anesthetic and numbness, side effects of steroid medication as well as poor results regarding pain control. The patient understands and wished to proceed. The patient will return to the clinic in approximately 2 weeks for followup, was counseled on return appointment, activity level and side effects to be aware of. DIAGNOSIS: Myofascial pain. PROCEDURE: Trigger point injections, bilateral lumbar paraspinous musculature, bilateral gluteus musculature and right medial quadriceps musculature under sterile prep and drape using local anesthetic. MEDICATION INJECTED: A total of 9 mL of 0.25% bupivacaine and 40 mg total of Depo-Medrol after negative aspiration at each injection site. CONDITION AT DISCHARGE: Stable. The patient tolerated the procedure well, had no complications. HIRA CARBAJAL MD DR: BRANDON/joseph JOB#: [id number] / [id number]
== END | disposition home or self-care (01) ==
LOC: PNCL 10:11
PROVIDERS: ATTEND Anesthesiology
DX: M79.18 Myalgia, other site (principal); M51.16 Intervertebral disc disorders with radiculopathy, lumbar region; M48.061 Spinal stenosis, lumbar region without neurogenic claudication; M96.1 Postlaminectomy syndrome, not elsewhere classified; M50.10 Cervical disc disorder with radiculopathy, unspecified cervical region; Z88.5 Allergy status to narcotic agent; Z88.8 Allergy status to other drugs, medicaments and biological substances; Z91.041 Radiographic dye allergy status
CPT/HCPCS: 20553; J1030; J3490

== ENCOUNTER 2018-10-08 07:50 | Inpatient (IN) | payer MEDICARE, OTHER ==
[~2018-10-08] VITALS: Ht 157.5 cm; Wt 46.8 kg
[~2018-10-08 07:50] MED LIST changes: -ALBU2.5V8 INH; -BENZ-8 PO; -BUDE0.5A NEB; -BUPIVACAINE MPF 0.25% 10 ML VIAL. ONE; -GUAI600T47 PO; -LEVO500T59 PO; -NICO1PAT25 TP; -OXYC10TA PO; -methylPREDNISolone ACETATE 40 MG/ML VIAL. ONE
[2018-10-08] MEDS ORDERED: IV NORMAL SALINE 1000ML BAG 1,000 ML IV SCH (08:09)
[2018-10-08] MEDS ORDERED: IPRATRPIUM/ALBUTEROL 0.5/2.5MG 3 ML NEBU. NEB ONE (08:15)
[2018-10-08] MEDS ORDERED: methylPREDNISolone SOD SUCC PF 125 MG/2 ML VIAL. IV ONE (08:15)
[2018-10-08 08:27] LABS: BASO % 0 % (0-3); EOS % 0 % (0-3); HEMATOCRIT 37.7 % (36.0-47.0); HEMOGLOBIN 12.7 g/dL (12.0-15.5); LYMPH # 0.7 x10^3/uL (1.0-4.8); LYMPH % 3 % (24-48); MEAN CORPUSCULAR HEMOGLOBIN 33 pg (25-35); MEAN CORPUSCULAR HGB CONC 34 g/dL (31-37); MEAN CORPUSCULAR VOLUME 97 fL (79-100); MONO # 0.9 x10^3/uL (0.0-1.1); MONO % 4 % (0-9); NEUT # 21.6 x10^3uL (1.8-7.7); NEUT % 93 % (31-73); PLATELET COUNT 301 x10^3/uL (140-400); RED BLOOD COUNT 3.89 x10^6/uL (3.50-5.40); RED CELL DISTRIBUTION WIDTH 18.5 % (11.5-14.5); WHITE BLOOD COUNT 23.3 x10^3/uL (4.0-11.0)
[2018-10-08 08:39] LABS: BASE EXCESS ABG 3 mmol/L (-3-3); FIO2 ABG 36; HCO3 ABG 27 mmol/L (21-28); PCO2 ABG 42 mmHg (35-46); PO2 ABG 57 mmHg (65-108); SAT O2 ABG 88 % (92-99)
[2018-10-08 08:44] LABS: ALBUMIN 2.5 g/dL (3.4-5.0); ALBUMIN/GLOBULIN RATIO 0.6 (1.0-1.7); CALCIUM 8.7 mg/dL (8.5-10.1); CREATININE 0.7 mg/dL (0.6-1.0); GFR 83.2; TOTAL BILIRUBIN 0.3 mg/dL (0.2-1.0); TOTAL PROTEIN 6.4 g/dL (6.4-8.2)
[2018-10-08 08:47] LABS: POTASSIUM 2.7 mmol/L (3.5-5.1)
[2018-10-08] MEDS ORDERED: PIPERACILLIN/TAZOBACTAM 3.375 GM in IV NORMAL SALINE 50ML 50 ML IV ONE (09:00)
[2018-10-08] MEDS ORDERED: VANCOMYCIN 1GM IVPB FOR OMNI 250 ML IV ONE (09:00)
[2018-10-08] MEDS ORDERED: IV NORMAL SALINE 1000ML BAG 1,000 ML IV ONE (09:00)
[2018-10-08 09:07] LABS: INFLUENZA A PATIENT NEGATIVE (NEGATIVE); INFLUENZA B PATIENT NEGATIVE (NEGATIVE)
--- NOTE | 2018-10-08 09:14 | PHYS DOC ---
Past Medical History Past Medical History: Hypertension Additional Past Medical Histor: CATARACTS Past Surgical History: Appendectomy, Cholecystectomy, Hysterectomy Additional Past Surgical Histo: BACK SURGERY Alcohol Use: None Drug Use: None Adult General Chief Complaint Chief Complaint: SHORTNESS OF BREATH [facility] HPI Patient is a 68 year old female who protein by her because of shortness of breath. Patient has history of COPD with 50 years of smoking of a pack a day and currently smoking one pack a day without having home oxygen. Patient complaining of productive cough with green sputum and subjective fever and shortness of breath for the last 5 days that gradually getting worse. Patient complaining of chest pain in left side of her chest as an aching pain that getting worse with coughing and taking deep breaths. Patient complaining of nausea without vomiting, diarrhea and constipation, abdominal pain, sick contact, urinary symptom. Review of Systems Review of Systems Constitutional: Ports subjective fever and chills Eyes: Denies change in visual acuity, redness, or eye pain [] HENT: Reports nasal congestion Respiratory: Reports cough and shortness of breath Cardiovascular: No additional information not addressed in HPI [] GI: Denies abdominal pain, vomiting, bloody stools or diarrhea ,reports nausea, [] : Denies dysuria or hematuria [] Musculoskeletal: Denies back pain or joint pain [] Integument: Denies rash or skin lesions [] Neurologic: Denies headache, focal weakness or sensory changes [] Endocrine: Denies polyuria or polydipsia [] All other systems were reviewed and found to be within normal limits, except as documented in this note. Current Medications Current Medications Current Medications Medications (Trade) Dose Ordered Sig/John Start Time Stop Time Status Last Admin Dose Admin Albuterol/ Ipratropium (Duoneb) 3 ml 1X ONCE 10/08/18 08:15 10/08/18 08:16 DC 10/08/18 08:56 3 ML Methylprednisolone Sodium Succinate (SOLU-Medrol 125MG VIAL) 125 mg 1X ONCE 10/08/18 08:15 10/08/18 08:16 DC 10/08/18 08:39 125 MG Sodium Chloride 1,000 ml @ 1,000 mls/hr Q1H 10/08/18 08:09 10/08/18 09:08 DC 10/08/18 08:09 1,000 MLS/HR Allergies Allergies Allergies Coded Allergies Type Severity Reaction Last Updated Verified Iodinated Contrast- Oral and IV Dye Allergy Intermediate 01/22/18 Yes acyclovir Allergy Intermediate Rash 01/22/18 Yes iodine Allergy Intermediate 01/22/18 Yes I S O L A T I O N *CONTACT* Allergy Unknown 01/22/18 Yes morphine Adverse Reaction Intermediate Nausea 01/22/18 Yes Physical Exam Physical Exam Constitutional: Moderate distress, non-toxic appearance. [] HENT: Normocephalic, atraumatic, oropharynx dry, no oral exudates, nose normal. [] Eyes: PERRLA, EOMI, conjunctiva normal, no discharge. [] Neck: Normal range of motion, no tenderness, supple, no stridor. [] Cardiovascular:Heart rate regular rhythm, no murmur [] Lungs & Thorax: Moderate respiratory distress with intercostal retraction and nasal flaring, diffused wheezing and rhonchi, tachypnea Abdomen: Bowel sounds normal, soft, no tenderness, no masses, no pulsatile masses. [] Skin: Warm, dry, no erythema, no rash. [] Back: No tenderness, no CVA tenderness. [] Extremities: No tenderness, no cyanosis, no clubbing, ROM intact, no edema. [] Neurologic: Alert and oriented . Psychologic: Affect anxious Current Patient Data Vital Signs Vital Signs Date Time Temp Pulse Resp B/P (MAP) Pulse Ox O2 Delivery O2 Flow Rate FiO2 10/08/18 08:07 99.0 82 16 133/63 (86) 90 Nasal Cannula 4.0 99.0 Lab Values Laboratory Tests Test 10/08/18 08:09 10/08/18 08:13 O2 Saturation 88 % (92-99) L Arterial Blood pH 7.43 (7.35-7.45) Arterial Blood pCO2 at Patient Temp 42 mmHg (35-46) Arterial Blood pO2 at Patient Temp 57 mmHg (65-108) L Arterial Blood HCO3 27 mmol/L (21-28) Arterial Blood Base Excess 3 mmol/L (-3-3) FiO2 36 White Blood Count 23.3 x10^3/uL (4.0-11.0) H Red Blood Count 3.89 x10^6/uL (3.50-5.40) Hemoglobin 12.7 g/dL (12.0-15.5) Hematocrit 37.7 % (36.0-47.0) Mean Corpuscular Volume 97 fL (79-100) Mean Corpuscular Hemoglobin 33 pg (25-35) Mean Corpuscular Hemoglobin Concent 34 g/dL (31-37) Red Cell Distribution Width 18.5 % (11.5-14.5) H Platelet Count 301 x10^3/uL (140-400) Neutrophils (%) (Auto) 93 % (31-73) H Lymphocytes (%) (Auto) 3 % (24-48) L Monocytes (%) (Auto) 4 % (0-9) Eosinophils (%) (Auto) 0 % (0-3) Basophils (%) (Auto) 0 % (0-3) Neutrophils # (Auto) 21.6 x10^3uL (1.8-7.7) H Lymphocytes # (Auto) 0.7 x10^3/uL (1.0-4.8) L Monocytes # (Auto) 0.9 x10^3/uL (0.0-1.1) Eosinophils # (Auto) 0.0 x10^3/uL (0.0-0.7) Basophils # (Auto) 0.0 x10^3/uL (0.0-0.2) Segmented Neutrophils % 80 % (35-66) H Band Neutrophils % 14 % (0-9) H Lymphocytes % 5 % (24-48) L Monocytes % 1 % (0-10) Platelet Estimate Adequate (ADEQUATE) Sodium Level 137 mmol/L (136-145) Potassium Level 2.7 mmol/L (3.5-5.1) *L Chloride Level 97 mmol/L (98-107) L Carbon Dioxide Level 26 mmol/L (21-32) Anion Gap 14 (6-14) Blood Urea Nitrogen 20 mg/dL (7-20) Creatinine 0.7 mg/dL (0.6-1.0) Estimated GFR (Cockcroft-Gault) 83.2 BUN/Creatinine Ratio 29 (6-20) H Glucose Level 130 mg/dL (70-99) H Lactic Acid Level 1.6 mmol/L (0.4-2.0) Calcium Level 8.7 mg/dL (8.5-10.1) Magnesium Level 2.2 mg/dL (1.8-2.4) Total Bilirubin 0.3 mg/dL (0.2-1.0) Aspartate Amino Transferase (AST) 22 U/L (15-37) Alanine Aminotransferase (ALT) 20 U/L (14-59) Alkaline Phosphatase 127 U/L (46-116) H Creatine Kinase 147 U/L (26-192) Troponin I Quantitative < 0.017 ng/mL (0.000-0.055) FC-Foq-S-Type Natriuretic Peptide 396 pg/mL (0-124) H Total Protein 6.4 g/dL (6.4-8.2) Albumin 2.5 g/dL (3.4-5.0) L Albumin/Globulin Ratio 0.6 (1.0-1.7) L Laboratory Tests 10/08/18 08:13 Laboratory Tests 10/08/18 08:13 EKG EKG EKG interpreted by me. EKG at 0807 showed normal sinus rhythm at rate of 87, abnormal right superior axis deviation, poor R-wave progress in anteroseptal and inferior leads, no acute ST and T-wave abnormalities. Radiology/Procedures Radiology/Procedures [facility] [address] [place] [address] IMAGING REPORT Signed PATIENT: LINDSAY MORALES ACCOUNT: [id number] : 1950 LOCATION: ER AGE: 68 SEX: F EXAM STATUS: REG ER ORD. PHYSICIAN: NUSRAT LARSON MD REASON: shortness of breath, low 02 level PROCEDURE: PORTABLE CHEST 1V Examination: PORTABLE CHEST 1V History: SHORT OF BREATH AND LOW 02 Comparison/Correlation: 08/27/2015 two-view chest x-ray exam Findings: Portable frontal view chest was obtained. Heart size is normal. Interstitial thickening of the lung landa is noted diffusely. Dense consolidation at the left lung base is present. No pneumothorax. Small left pleural effusion may be present. No acute bony process. Spinal rods are partially seen at the upper lumbar spine. Impression: Dense consolidation of the left lung base. Diffuse interstitial thickening which also may represent infiltrates and/or interstitial edema. Small left pleural effusion may present. Electronically signed by: Virgilio Vasques MD (10/08/2018 9:09 AM) [facility] DICTATED and SIGNED BY: VIRGILIO VASQUES MD DATE: 10/08/18 0909 Course & Med Decision Making Course & Med Decision Making Pertinent Labs and Imaging studies reviewed. (See chart for details) Dilution of patient in ER showed 68-year-old female patient with history of COPD and currently smoking without home oxygen brought in because of shortness of breath in moderate respiratory distress with tachypnea and hypoxia. Patient had O2 sat of 62% at room air with improvement of O2 sat on 4 L of nasal cannula to 95%. Patient had temperature of 99 without hypotension. Patient had leukocytosis of 23,000 with left lung infiltration. ABG showed PO2 of 51 and PCO2 of 47. Patient was started on Venturi mask with improvement of respiratory distress. Patient treated with IV fluid for sepsis and antibiotic after obtaining blood culture and Solu-Medrol and DuoNeb. 1 dose of fentanyl for chest pain was given. Potassium was 2.7 and IV potassium was started.Patient requiring admission for further evaluation and treatment. Discussed with Dr. Fitzgerald who is in agreement with admission. Discussed findings and plan with patient and family, who acknowledge understanding and agreement. Dragon Disclaimer Dragon Disclaimer This electronic medical record was generated, in whole or in part, using a voice recognition dictation system. Departure Departure Impression: Primary Impression: Acute respiratory distress Additional Impressions: Sepsis CAP (community acquired pneumonia) Hypoxemia Hypokalemia Tobacco abuse Tobacco abuse counseling Disposition: ADMITTED INPATIENT (at 0819) Admitting Physician: Norah Fitzgerald (accepted admission at 0816) Condition: GUARDED Referrals: SINDY MERA MD (PCP) Critical Care Time Critical care time was 60 minutes exclusive of procedures. Problem Qualifiers Additional Impressions: Sepsis Sepsis type: sepsis due to unspecified organism Qualified Codes: A41.9 - Sepsis, unspecified organism CAP (community acquired pneumonia) Laterality: unspecified laterality Qualified Codes: J18.9 - Pneumonia, unspecified organism NUSRAT LARSON MD Oct 08, 2018 09:14
[2018-10-08 09:25] LABS: BILIRUBIN,URINE NEGATIVE (NEG); CLARITY,URINE CLEAR; COLOR,URINE YELLOW; NITRITE,URINE NEGATIVE (NEG); PROTEIN,URINE NEGATIVE (NEG-TRACE)
--- NOTE | 2018-10-08 09:30 | NUR ---
RN NOTE THIS RN CALLED FOR REPORT FOR PATIENT FROM ED LUDIN RN STATED SHE WOULD CALL ME BACK. AT THIS TIME PATIENT IS STILL IN ED
[2018-10-08 09:32] LABS: BACTERIA,URINE 0 /HPF (0-FEW); HYALINE CASTS, URINE MODERATE /HPF; RBC,URINE 0 /HPF (0-2); SQUAMOUS EPITHELIAL CELL,UR FEW /LPF; WBC,URINE 0 /HPF (0-4)
[2018-10-08 09:38] LABS: % BANDS 14 % (0-9); % LYMPHS 5 % (24-48); % MONOS 1 % (0-10); % SEGS 80 % (35-66); PLT ESTIMATE ADEQUATE (ADEQUATE)
[2018-10-08] MEDS: POTASSIUM CHLORIDE 10MEQ 100 ML IV SCH ×2 (09:45→12:36)
[2018-10-08] MEDS ORDERED: fentaNYL PF VIAL 100 MCG/2 ML VIAL IV ONE (10:00)
--- NOTE | 2018-10-08 10:22 | EKG ---
[facility] [address] [place] [address] Test Date: 2018-10-08 Test Time: 08:07:09 Pat Name: LINDSAY MORALES Department: Room: 206 1 Gender: F [employer] Operator: : 1950 Requested By: NUSRAT LARSON Order Number: [id number] Reading MD: Kameron Juan MD Measurements Intervals [place] Rate: 87 P: -143 WA: 136 QRS: -145 QRSD: 92 T: 111 QT: 370 QTc: 446 Interpretive Statements SINUS RHYTHM LIMB LEAD MISPLACEMENT Electronically Signed On 10-12-2018 14:51:34 CDT by Kameron Juan MD
[2018-10-08 12:00] VITALS: BP 139/63
[2018-10-08] MEDS ORDERED: cloNIDine HCL 0.2 MG TABLET PO PRN (12:15)
[2018-10-08] MEDS ORDERED: DOCUSATE SODIUM 100 MG CAPSULE. PO PRN (12:15)
[2018-10-08] MEDS ORDERED: OXYC10TA PO (12:24)
[2018-10-08] MEDS ORDERED: ONDANSETRON ODT 4 MG TAB.RAPDIS. PO PRN (12:30)
[2018-10-08] MEDS: PANTOPRAZOLE 40 MG TABLET.DR. PO SCH (13:45)
[2018-10-08] MEDS: oxyCODONE IR 5 MG TABLET PO SCH ×3 (13:45→20:20)
[2018-10-08] MEDS: PARoxetine 20 MG TABLET PO SCH (13:45)
[2018-10-08] MEDS: LACTOBACILLUS RHAMNOSUS GG 1 CAPSULE. PO SCH (13:46)
[2018-10-08] MEDS: buPROPion SR 150 MG TABLET.SA PO SCH (13:46)
[2018-10-08] MEDS: LOSARTAN POTASSIUM 50 MG TABLET. PO SCH (13:46)
[2018-10-08] MEDS: IV NORMAL SALINE 1000ML BAG 1,000 ML IV SCH ×2 (13:53→17:16)
[2018-10-08] MEDS: CARISOPRODOL 350 MG PO SCH ×3 (14:00→20:20)
[2018-10-08 15:00] VITALS: BP 143/62
[2018-10-08] MEDS ORDERED: PIP/TAZO PER PHARMACY MC PRN (15:45)
--- NOTE | 2018-10-08 15:46 | PDOC ---
PULMONARY PROGRESS NOTES Vitals Vital Signs Date Time Temp Pulse Resp B/P (MAP) Pulse Ox O2 Delivery O2 Flow Rate FiO2 10/08/18 13:46 85 139/63 10/08/18 13:45 Nasal Cannula 10/08/18 12:35 14.0 10/08/18 12:00 98.0 16 93 98.0 Lungs: Clear Labs Laboratory Tests Test 10/08/18 08:09 10/08/18 08:13 10/08/18 08:33 10/08/18 09:05 O2 Saturation 88 % (92-99) Arterial Blood pH 7.43 (7.35-7.45) Arterial Blood pCO2 at Patient Temp 42 mmHg (35-46) Arterial Blood pO2 at Patient Temp 57 mmHg (65-108) Arterial Blood HCO3 27 mmol/L (21-28) Arterial Blood Base Excess 3 mmol/L (-3-3) FiO2 36 White Blood Count 23.3 x10^3/uL (4.0-11.0) Red Blood Count 3.89 x10^6/uL (3.50-5.40) Hemoglobin 12.7 g/dL (12.0-15.5) Hematocrit 37.7 % (36.0-47.0) Mean Corpuscular Volume 97 fL (79-100) Mean Corpuscular Hemoglobin 33 pg (25-35) Mean Corpuscular Hemoglobin Concent 34 g/dL (31-37) Red Cell Distribution Width 18.5 % (11.5-14.5) Platelet Count 301 x10^3/uL (140-400) Neutrophils (%) (Auto) 93 % (31-73) Lymphocytes (%) (Auto) 3 % (24-48) Monocytes (%) (Auto) 4 % (0-9) Eosinophils (%) (Auto) 0 % (0-3) Basophils (%) (Auto) 0 % (0-3) Neutrophils # (Auto) 21.6 x10^3uL (1.8-7.7) Lymphocytes # (Auto) 0.7 x10^3/uL (1.0-4.8) Monocytes # (Auto) 0.9 x10^3/uL (0.0-1.1) Eosinophils # (Auto) 0.0 x10^3/uL (0.0-0.7) Basophils # (Auto) 0.0 x10^3/uL (0.0-0.2) Segmented Neutrophils % 80 % (35-66) Band Neutrophils % 14 % (0-9) Lymphocytes % 5 % (24-48) Monocytes % 1 % (0-10) Platelet Estimate Adequate (ADEQUATE) Sodium Level 137 mmol/L (136-145) Potassium Level 2.7 mmol/L (3.5-5.1) Chloride Level 97 mmol/L (98-107) Carbon Dioxide Level 26 mmol/L (21-32) Anion Gap 14 (6-14) Blood Urea Nitrogen 20 mg/dL (7-20) Creatinine 0.7 mg/dL (0.6-1.0) Estimated GFR (Cockcroft-Gault) 83.2 BUN/Creatinine Ratio 29 (6-20) Glucose Level 130 mg/dL (70-99) Lactic Acid Level 1.6 mmol/L (0.4-2.0) Calcium Level 8.7 mg/dL (8.5-10.1) Magnesium Level 2.2 mg/dL (1.8-2.4) Total Bilirubin 0.3 mg/dL (0.2-1.0) Aspartate Amino Transf (AST/SGOT) 22 U/L (15-37) Alanine Aminotransferase (ALT/SGPT) 20 U/L (14-59) Alkaline Phosphatase 127 U/L (46-116) Creatine Kinase 147 U/L (26-192) Troponin I Quantitative < 0.017 ng/mL (0.000-0.055) ES-Onj-S-Type Natriuretic Peptide 396 pg/mL (0-124) Total Protein 6.4 g/dL (6.4-8.2) Albumin 2.5 g/dL (3.4-5.0) Albumin/Globulin Ratio 0.6 (1.0-1.7) Influenza Type A Antigen Negative (NEGATIVE) Influenza Type B Antigen Negative (NEGATIVE) Urine Collection Type Unknown Urine Color Yellow Urine Clarity Clear Urine pH 6.0 Urine Specific [place] 1.020 Urine Protein Negative mg/dL (NEG-TRACE) Urine Glucose (UA) Negative mg/dL (NEG) Urine Ketones (Stick) Negative mg/dL (NEG) Urine Blood Negative (NEG) Urine Nitrite Negative (NEG) Urine Bilirubin Negative (NEG) Urine Urobilinogen Dipstick 1.0 mg/dL (0.2 mg/dL) Urine Leukocyte Esterase Negative (NEG) Urine RBC 0 /HPF (0-2) Urine WBC 0 /HPF (0-4) Urine Squamous Epithelial Cells Few /LPF Urine Bacteria 0 /HPF (0-FEW) Urine Hyaline Casts Moderate /HPF Test 10/08/18 12:10 Lactic Acid Level 0.8 mmol/L (0.4-2.0) Laboratory Tests Test 10/08/18 08:09 10/08/18 08:13 10/08/18 08:33 10/08/18 09:05 O2 Saturation 88 % (92-99) Arterial Blood pH 7.43 (7.35-7.45) Arterial Blood pCO2 at Patient Temp 42 mmHg (35-46) Arterial Blood pO2 at Patient Temp 57 mmHg (65-108) Arterial Blood HCO3 27 mmol/L (21-28) Arterial Blood Base Excess 3 mmol/L (-3-3) FiO2 36 White Blood Count 23.3 x10^3/uL (4.0-11.0) Red Blood Count 3.89 x10^6/uL (3.50-5.40) Hemoglobin 12.7 g/dL (12.0-15.5) Hematocrit 37.7 % (36.0-47.0) Mean Corpuscular Volume 97 fL (79-100) Mean Corpuscular Hemoglobin 33 pg (25-35) Mean Corpuscular Hemoglobin Concent 34 g/dL (31-37) Red Cell Distribution Width 18.5 % (11.5-14.5) Platelet Count 301 x10^3/uL (140-400) Neutrophils (%) (Auto) 93 % (31-73) Lymphocytes (%) (Auto) 3 % (24-48) Monocytes (%) (Auto) 4 % (0-9) Eosinophils (%) (Auto) 0 % (0-3) Basophils (%) (Auto) 0 % (0-3) Neutrophils # (Auto) 21.6 x10^3uL (1.8-7.7) Lymphocytes # (Auto) 0.7 x10^3/uL (1.0-4.8) Monocytes # (Auto) 0.9 x10^3/uL (0.0-1.1) Eosinophils # (Auto) 0.0 x10^3/uL (0.0-0.7) Basophils # (Auto) 0.0 x10^3/uL (0.0-0.2) Segmented Neutrophils % 80 % (35-66) Band Neutrophils % 14 % (0-9) Lymphocytes % 5 % (24-48) Monocytes % 1 % (0-10) Platelet Estimate Adequate (ADEQUATE) Sodium Level 137 mmol/L (136-145) Potassium Level 2.7 mmol/L (3.5-5.1) Chloride Level 97 mmol/L (98-107) Carbon Dioxide Level 26 mmol/L (21-32) Anion Gap 14 (6-14) Blood Urea Nitrogen 20 mg/dL (7-20) Creatinine 0.7 mg/dL (0.6-1.0) Estimated GFR (Cockcroft-Gault) 83.2 BUN/Creatinine Ratio 29 (6-20) Glucose Level 130 mg/dL (70-99) Lactic Acid Level 1.6 mmol/L (0.4-2.0) Calcium Level 8.7 mg/dL (8.5-10.1) Magnesium Level 2.2 mg/dL (1.8-2.4) Total Bilirubin 0.3 mg/dL (0.2-1.0) Aspartate Amino Transf (AST/SGOT) 22 U/L (15-37) Alanine Aminotransferase (ALT/SGPT) 20 U/L (14-59) Alkaline Phosphatase 127 U/L (46-116) Creatine Kinase 147 U/L (26-192) Troponin I Quantitative < 0.017 ng/mL (0.000-0.055) NX-Cpo-T-Type Natriuretic Peptide 396 pg/mL (0-124) Total Protein 6.4 g/dL (6.4-8.2) Albumin 2.5 g/dL (3.4-5.0) Albumin/Globulin Ratio 0.6 (1.0-1.7) Influenza Type A Antigen Negative (NEGATIVE) Influenza Type B Antigen Negative (NEGATIVE) Urine Collection Type Unknown Urine Color Yellow Urine Clarity Clear Urine pH 6.0 Urine Specific [place] 1.020 Urine Protein Negative mg/dL (NEG-TRACE) Urine Glucose (UA) Negative mg/dL (NEG) Urine Ketones (Stick) Negative mg/dL (NEG) Urine Blood Negative (NEG) Urine Nitrite Negative (NEG) Urine Bilirubin Negative (NEG) Urine Urobilinogen Dipstick 1.0 mg/dL (0.2 mg/dL) Urine Leukocyte Esterase Negative (NEG) Urine RBC 0 /HPF (0-2) Urine WBC 0 /HPF (0-4) Urine Squamous Epithelial Cells Few /LPF Urine Bacteria 0 /HPF (0-FEW) Urine Hyaline Casts Moderate /HPF Test 10/08/18 12:10 Lactic Acid Level 0.8 mmol/L (0.4-2.0) Medications Active Scripts Medications Dose Route/Sig Max Daily Dose Days Date Category Oxycodone Hcl Immed.release (Oxycodone Hcl) 10 Mg Tablet 10 Mg PO QID 10/08/18 Reported Zofran (Ondansetron Hcl) 4 Mg Tablet 1 Tab PO Q6HRS PRN 08/30/18 Rx Doxycycline Hyclate 100 Mg Capsule 1 Cap PO BID 04/12/18 Reported Probiotic (Lactobacillus Combo No.11) 1 Each Cap.sprink 3 Each PO DAILY 04/12/18 Reported Tylenol (Acetaminophen) 325 Mg Tablet 650 Mg PO TID PRN PRN 04/12/18 Reported Anoro Ellipta 62.5-25 Mcg Inh (Umeclidinium Brm/Vilanterol Tr) 1 Each Disk.w.dev 1 Each IH DAILY PRN 11/02/17 Reported Clonidine Hcl 0.2 Mg Tablet 1 Tab PO BID PRN 11/02/17 Reported Carisoprodol 350 Mg Tablet 1 Tab PO TID 11/02/17 Reported Alprazolam 0.5 Mg Tablet 1 Tab PO TID PRN 11/02/17 Reported Protonix (Pantoprazole Sodium) 20 Mg Tablet.dr 40 Mg PO DAILY 11/02/17 Reported Colace (Docusate Sodium) 100 Mg Capsule 200 Mg PO DAILY PRN 11/02/17 Reported Bupropion Hcl Sr (Bupropion Hcl) 200 Mg Tablet.er 300 Mg PO DAILY 11/02/17 Reported Paroxetine Hcl 40 Mg Tablet 1 Tab PO DAILY 11/02/17 Reported Losartan Potassium 100 Mg Tablet 100 Mg PO DAILY 11/02/17 Reported Cardizem Tablet (Diltiazem Hcl) 60 Mg Tablet 300 Mg PO DAILY 11/02/17 Reported Impression . NOTE DICTATED THANKS PNEUMONIA AECOPD SEE ORDERS TY SOTO MD Oct 08, 2018 15:46
[2018-10-08] MEDS: PIPERACILLIN/TAZOBACTAM 2.25 GM in IV NORMAL SALINE 50ML 50 ML IV SCH ×2 (15:59→23:50)
[2018-10-08] MEDS: methylPREDNISolone SOD SUCC PF 40 MG/ML VIAL. IV SCH ×2 (16:02→20:21)
[2018-10-08] MEDS: ENOXAPARIN 30 MG/0.3 ML SYRINGE. SQ SCH (16:03)
--- NOTE | 2018-10-08 16:27 | PDOC1 ---
History and Physical Date of Admission Date of Admission DATE: 10/08/18 TIME: 16:23 Identification/Chief Complaint Chief Complaint cough with green sputum Source Source: Chart review, Patient History of Present Illness History of Present Illness Mrs. Ordaz is a 68 year old female w/ acute dyspnea over 24 horus and new cough with productive sputum over the past 2 days, her tried mucinex yesterday, but no change, and was much worse today. She has a history of COPD with smoking Hx, and no home oxygen she had subjective fever and shortness of breath for the last 5 days left sided chest and abd pain, 4/10 from coughing, noticed today only, worse with deep breaths. Past Medical History Cardiovascular: HTN Psych: Anxiety, Depression, Other Musculoskeletal: low back pain Past Surgical History Past Surgical History: Other Family History Family History: Alzheimer's Disease Social History Smoke: <1 pack per day ALCOHOL: rare Drugs: None Current Problem List Problem List Problems Medical Problems: (1) Acute respiratory distress Status: Acute (2) CAP (community acquired pneumonia) Status: Acute (3) Hypokalemia Status: Acute (4) Hypoxemia Status: Acute (5) Sepsis Status: Acute (6) Tobacco abuse Status: Acute (7) Tobacco abuse counseling Status: Acute Current Medications Current Medications Current Medications Sodium Chloride 1,000 ml @ 1,000 mls/hr Q1H IV Last administered on 10/08/18at 08:09; Start 10/08/18 at 08:09; Stop 10/08/18 at 09:08; Status DC Albuterol/ Ipratropium (Duoneb) 3 ml 1X ONCE NEB Last administered on 10/08/18at 08:56; Start 10/08/18 at 08:15; Stop 10/08/18 at 08:16; Status DC Methylprednisolone Sodium Succinate (SOLU-Medrol 125MG VIAL) 125 mg 1X ONCE IV Last administered on 10/08/18at 08:39; Start 10/08/18 at 08:15; Stop 10/08/18 at 08:16; Status DC Sodium Chloride 1,000 ml @ 1,000 mls/hr 1X ONCE IV Last administered on 10/08/18at 09:44; Start 10/08/18 at 09:00; Stop 10/08/18 at 09:59; Status DC Piperacillin Sod/ Tazobactam Sod 3.375 gm/Sodium Chloride 50 ml @ 100 mls/hr 1X ONCE IV Last administered on 10/08/18at 09:14; Start 10/08/18 at 09:00; Stop 10/08/18 at 09:29; Status DC Vancomycin HCl 250 ml @ 250 mls/hr 1X ONCE IV Last administered on 10/08/18at 09:46; Start 10/08/18 at 09:00; Stop 10/08/18 at 09:59; Status DC Sodium Chloride 1,000 ml @ 75 mls/hr [id number] IV Last administered on 10/08/18at 13:53; Start 10/08/18 at 08:47; Stop 10/09/18 at 08:46 Potassium Chloride/Water 100 ml @ 100 mls/hr Q1H IV Last administered on 10/08/18at 12:36; Start 10/08/18 at 09:00; Stop 10/08/18 at 10:59; Status DC Fentanyl Citrate (Fentanyl 2ml Vial) 25 mcg 1X ONCE IV Last administered on 10/08/18at 10:13; Start 10/08/18 at 10:00; Stop 10/08/18 at 10:01; Status DC Acetaminophen (Tylenol) 650 mg TID PRN PRN PO HEADACHE/TEMP; Start 10/08/18 at 12:15 Alprazolam (Xanax) 0.5 mg PRN TID PRN PO ANXIETY / AGITATION; Start 10/08/18 at 12:15 Clonidine HCl (Catapres) 0.2 mg PRN BID PRN PO ELEVATED BP, SEE COMMENTS; Start 10/08/18 at 12:15 Docusate Sodium (Colace) 200 mg PRN DAILY PRN PO CONSTIPATION; Start 10/08/18 at 12:15 Oxycodone HCl (Roxicodone) 10 mg QID PO Last administered on 10/08/18at 13:45; Start 10/08/18 at 13:00 Bupropion HCl (Wellbutrin Sr) 300 mg DAILY PO Last administered on 10/08/18at 13:46; Start 10/08/18 at 13:00 Non-Formulary Medication (Carisoprodol ) 1 tab TID PO ; Start 10/08/18 at 14:00; Status UNV Diltiazem HCl (Cardizem 24hr Cd) 300 mg DAILY PO Last administered on 10/08/18 13:45; Start 10/08/18 at 13:00 Lactobacillus Rhamnosus (Culturelle) 3 cap DAILY PO Last administered on 10/08/18 13:46; Start 10/08/18 at 13:00 Losartan Potassium (Cozaar) 100 mg DAILY PO Last administered on 10/08/18 13:46; Start 10/08/18 at 13:00 Ondansetron HCl (Zofran Odt) 4 mg PRN Q6HRS PRN PO NAUSEA/VOMITING; Start 10/08/18 at 12:30 Pantoprazole Sodium (Protonix) 40 mg DAILYAC PO Last administered on 10/08/18 13:45; Start 10/08/18 at 13:00 Paroxetine HCl (Paxil) 40 mg DAILY PO Last administered on 10/08/18 13:45; Start 10/08/18 at 13:00 Albuterol Sulfate (Ventolin Neb Soln) 2.5 mg RTQID NEB ; Start 10/08/18 at 16:00 Budesonide (Pulmicort) 0.5 mg RTBID NEB ; Start 10/08/18 at 20:00 Piperacillin Sod/ Tazobactam Sod (Zosyn Per Pharmacy) 1 each PRN DAILY PRN MC SEE COMMENTS; Start 10/08/18 at 15:45 Methylprednisolone Sodium Succinate (SOLU-Medrol 40MG VIAL) 80 mg Q8HRS IV Last administered on 10/08/18at 16:02; Start 10/08/18 at 16:00 Enoxaparin Sodium (Lovenox 30mg Syringe) 30 mg Q24H SQ Last administered on 10/08/18at 16:03; Start 10/08/18 at 16:00 Piperacillin Sod/ Tazobactam Sod 2.25 gm/Sodium Chloride 50 ml @ 100 mls/hr Q6HRS IV Last administered on 10/08/18at 15:59; Start 10/08/18 at 16:00 Active Scripts Active Zofran (Ondansetron Hcl) 4 Mg Tablet 1 Tab PO Q6HRS PRN Reported Oxycodone Hcl Immed.release (Oxycodone Hcl) 10 Mg Tablet 10 Mg PO QID Doxycycline Hyclate 100 Mg Capsule 1 Cap PO BID Probiotic (Lactobacillus Combo No.11) 1 Each Cap.sprink 3 Each PO DAILY Tylenol (Acetaminophen) 325 Mg Tablet 650 Mg PO TID PRN PRN Anoro Ellipta 62.5-25 Mcg Inh (Umeclidinium Brm/Vilanterol Tr) 1 Each Disk.w.dev 1 Each IH DAILY PRN Clonidine Hcl 0.2 Mg Tablet 1 Tab PO BID PRN Carisoprodol 350 Mg Tablet 1 Tab PO TID Alprazolam 0.5 Mg Tablet 1 Tab PO TID PRN Protonix (Pantoprazole Sodium) 20 Mg Tablet.dr 40 Mg PO DAILY Colace (Docusate Sodium) 100 Mg Capsule 200 Mg PO DAILY PRN Bupropion Hcl Sr (Bupropion Hcl) 200 Mg Tablet.er 300 Mg PO DAILY Paroxetine Hcl 40 Mg Tablet 1 Tab PO DAILY Losartan Potassium 100 Mg Tablet 100 Mg PO DAILY Cardizem Tablet (Diltiazem Hcl) 60 Mg Tablet 300 Mg PO DAILY Allergies Allergies: Coded Allergies: Iodinated Contrast- Oral and IV Dye (Verified Allergy, Intermediate, 01/22/18) acyclovir (Verified Allergy, Intermediate, Rash, 01/22/18) iodine (Verified Allergy, Intermediate, 01/22/18) I S O L A T I O N *CONTACT* (Verified Allergy, Unknown, 01/22/18) mrsa morphine (Verified Adverse Reaction, Intermediate, Nausea, 01/22/18) ROS General: YES: Chills, Fatigue; No: Night Sweats, Malaise, Appetite, Other PSYCHOLOGICAL ROS: No: Anxiety, Behavioral Disorder, Concentration difficultie, Decreased libido, Depression, Disorientation, Hallucinations, Hostility, Irritablity, Memory difficulties, Mood Swings, Obsessive thoughts, Physical abuse, Sexual abuse, Sleep disturbances, Suicidal ideation, Other Eyes: No Blurry vision, No Decreased vision, No Double vision, No Dry eyes, No Excessive tearing, No Eye Pain, No Itchy Eyes, No Loss of vision, No Photophobi a, No Scotomata, No Uses contacts, No Uses glasses, No Other Respiratory: YES: Cough, Shortness of breath, SOB with excertion, Sputum Changes, Tachypnea, Wheezing; No: Hemoptysis, Orthopnea, Pleuritic Pain, Stridor, Other Cardiovascular: yes Chest Pain Gastrointestinal: No Nausea, No Vomiting, No Abdominal Pain, No Diarrhea, No Constipation, No Melena, No Hematochezia, No Other Genitourinary: No Dysuria, No Frequency, No Incontinence, No Hematuria, No Retention, No Discharge, No Urgency, No Pain, No Flank Pain, No Other, No , No , No , No , No , No , No Musculoskeletal: No Gait Disturbance, No Joint Pain, No Joint Stiffness, No Joint Swelling, No Muscle Pain, No Muscular Weakness, No Pain In:, No Swelling In:, No Other Neurological: No Behavorial Changes, No Bowel/Bladder ControlChng, No Confusion, No Dizziness, No Gait Disturbance, No Headaches, No Impaired Coord/balance, No Memory Loss, No Numbness/Tingling, No Seizures, No Speech Problems, No Tremors, No Visual Changes, No Weakness, No Other Skin: Yes Dry Skin Physical Exam General: Alert, Oriented X3, Cooperative, mild distress HEENT: EOMI Lungs: Other (lmited volume, rales, no wheeze, ) Heart: S1S2, murmurs Abdomen: Normal bowel sounds, Soft Rectal Exam: not examined, deferred Extremities: No edema, Normal pulses Neuro: Normal speech, Sensation intact Psych/Mental Status: Mood NL Vitals Vitals Vital Signs Date Time Temp Pulse Resp B/P (MAP) Pulse Ox O2 Delivery O2 Flow Rate FiO2 10/08/18 15:00 98.4 92 16 143/62 (89) 91 Nasal Cannula 98.4 10/08/18 12:35 14.0 Labs Labs Laboratory Tests Test 10/08/18 08:09 10/08/18 08:13 10/08/18 08:33 10/08/18 09:05 O2 Saturation 88 % (92-99) Arterial Blood pH 7.43 (7.35-7.45) Arterial Blood pCO2 at Patient Temp 42 mmHg (35-46) Arterial Blood pO2 at Patient Temp 57 mmHg (65-108) Arterial Blood HCO3 27 mmol/L (21-28) Arterial Blood Base Excess 3 mmol/L (-3-3) FiO2 36 White Blood Count 23.3 x10^3/uL (4.0-11.0) Red Blood Count 3.89 x10^6/uL (3.50-5.40) Hemoglobin 12.7 g/dL (12.0-15.5) Hematocrit 37.7 % (36.0-47.0) Mean Corpuscular Volume 97 fL (79-100) Mean Corpuscular Hemoglobin 33 pg (25-35) Mean Corpuscular Hemoglobin Concent 34 g/dL (31-37) Red Cell Distribution Width 18.5 % (11.5-14.5) Platelet Count 301 x10^3/uL (140-400) Neutrophils (%) (Auto) 93 % (31-73) Lymphocytes (%) (Auto) 3 % (24-48) Monocytes (%) (Auto) 4 % (0-9) Eosinophils (%) (Auto) 0 % (0-3) Basophils (%) (Auto) 0 % (0-3) Neutrophils # (Auto) 21.6 x10^3uL (1.8-7.7) Lymphocytes # (Auto) 0.7 x10^3/uL (1.0-4.8) Monocytes # (Auto) 0.9 x10^3/uL (0.0-1.1) Eosinophils # (Auto) 0.0 x10^3/uL (0.0-0.7) Basophils # (Auto) 0.0 x10^3/uL (0.0-0.2) Segmented Neutrophils % 80 % (35-66) Band Neutrophils % 14 % (0-9) Lymphocytes % 5 % (24-48) Monocytes % 1 % (0-10) Platelet Estimate Adequate (ADEQUATE) Sodium Level 137 mmol/L (136-145) Potassium Level 2.7 mmol/L (3.5-5.1) Chloride Level 97 mmol/L (98-107) Carbon Dioxide Level 26 mmol/L (21-32) Anion Gap 14 (6-14) Blood Urea Nitrogen 20 mg/dL (7-20) Creatinine 0.7 mg/dL (0.6-1.0) Estimated GFR (Cockcroft-Gault) 83.2 BUN/Creatinine Ratio 29 (6-20) Glucose Level 130 mg/dL (70-99) Lactic Acid Level 1.6 mmol/L (0.4-2.0) Calcium Level 8.7 mg/dL (8.5-10.1) Magnesium Level 2.2 mg/dL (1.8-2.4) Total Bilirubin 0.3 mg/dL (0.2-1.0) Aspartate Amino Transf (AST/SGOT) 22 U/L (15-37) Alanine Aminotransferase (ALT/SGPT) 20 U/L (14-59) Alkaline Phosphatase 127 U/L (46-116) Creatine Kinase 147 U/L (26-192) Troponin I Quantitative < 0.017 ng/mL (0.000-0.055) WB-Tvb-U-Type Natriuretic Peptide 396 pg/mL (0-124) Total Protein 6.4 g/dL (6.4-8.2) Albumin 2.5 g/dL (3.4-5.0) Albumin/Globulin Ratio 0.6 (1.0-1.7) Influenza Type A Antigen Negative (NEGATIVE) Influenza Type B Antigen Negative (NEGATIVE) Urine Collection Type Unknown Urine Color Yellow Urine Clarity Clear Urine pH 6.0 Urine Specific [place] 1.020 Urine Protein Negative mg/dL (NEG-TRACE) Urine Glucose (UA) Negative mg/dL (NEG) Urine Ketones (Stick) Negative mg/dL (NEG) Urine Blood Negative (NEG) Urine Nitrite Negative (NEG) Urine Bilirubin Negative (NEG) Urine Urobilinogen Dipstick 1.0 mg/dL (0.2 mg/dL) Urine Leukocyte Esterase Negative (NEG) Urine RBC 0 /HPF (0-2) Urine WBC 0 /HPF (0-4) Urine Squamous Epithelial Cells Few /LPF Urine Bacteria 0 /HPF (0-FEW) Urine Hyaline Casts Moderate /HPF Test 10/08/18 12:10 Lactic Acid Level 0.8 mmol/L (0.4-2.0) Laboratory Tests Test 10/08/18 08:09 10/08/18 08:13 10/08/18 08:33 10/08/18 09:05 O2 Saturation 88 % (92-99) Arterial Blood pH 7.43 (7.35-7.45) Arterial Blood pCO2 at Patient Temp 42 mmHg (35-46) Arterial Blood pO2 at Patient Temp 57 mmHg (65-108) Arterial Blood HCO3 27 mmol/L (21-28) Arterial Blood Base Excess 3 mmol/L (-3-3) FiO2 36 White Blood Count 23.3 x10^3/uL (4.0-11.0) Red Blood Count 3.89 x10^6/uL (3.50-5.40) Hemoglobin 12.7 g/dL (12.0-15.5) Hematocrit 37.7 % (36.0-47.0) Mean Corpuscular Volume 97 fL (79-100) Mean Corpuscular Hemoglobin 33 pg (25-35) Mean Corpuscular Hemoglobin Concent 34 g/dL (31-37) Red Cell Distribution Width 18.5 % (11.5-14.5) Platelet Count 301 x10^3/uL (140-400) Neutrophils (%) (Auto) 93 % (31-73) Lymphocytes (%) (Auto) 3 % (24-48) Monocytes (%) (Auto) 4 % (0-9) Eosinophils (%) (Auto) 0 % (0-3) Basophils (%) (Auto) 0 % (0-3) Neutrophils # (Auto) 21.6 x10^3uL (1.8-7.7) Lymphocytes # (Auto) 0.7 x10^3/uL (1.0-4.8) Monocytes # (Auto) 0.9 x10^3/uL (0.0-1.1) Eosinophils # (Auto) 0.0 x10^3/uL (0.0-0.7) Basophils # (Auto) 0.0 x10^3/uL (0.0-0.2) Segmented Neutrophils % 80 % (35-66) Band Neutrophils % 14 % (0-9) Lymphocytes % 5 % (24-48) Monocytes % 1 % (0-10) Platelet Estimate Adequate (ADEQUATE) Sodium Level 137 mmol/L (136-145) Potassium Level 2.7 mmol/L (3.5-5.1) Chloride Level 97 mmol/L (98-107) Carbon Dioxide Level 26 mmol/L (21-32) Anion Gap 14 (6-14) Blood Urea Nitrogen 20 mg/dL (7-20) Creatinine 0.7 mg/dL (0.6-1.0) Estimated GFR (Cockcroft-Gault) 83.2 BUN/Creatinine Ratio 29 (6-20) Glucose Level 130 mg/dL (70-99) Lactic Acid Level 1.6 mmol/L (0.4-2.0) Calcium Level 8.7 mg/dL (8.5-10.1) Magnesium Level 2.2 mg/dL (1.8-2.4) Total Bilirubin 0.3 mg/dL (0.2-1.0) Aspartate Amino Transf (AST/SGOT) 22 U/L (15-37) Alanine Aminotransferase (ALT/SGPT) 20 U/L (14-59) Alkaline Phosphatase 127 U/L (46-116) Creatine Kinase 147 U/L (26-192) Troponin I Quantitative < 0.017 ng/mL (0.000-0.055) KN-Dtd-L-Type Natriuretic Peptide 396 pg/mL (0-124) Total Protein 6.4 g/dL (6.4-8.2) Albumin 2.5 g/dL (3.4-5.0) Albumin/Globulin Ratio 0.6 (1.0-1.7) Influenza Type A Antigen Negative (NEGATIVE) Influenza Type B Antigen Negative (NEGATIVE) Urine Collection Type Unknown Urine Color Yellow Urine Clarity Clear Urine pH 6.0 Urine Specific [place] 1.020 Urine Protein Negative mg/dL (NEG-TRACE) Urine Glucose (UA) Negative mg/dL (NEG) Urine Ketones (Stick) Negative mg/dL (NEG) Urine Blood Negative (NEG) Urine Nitrite Negative (NEG) Urine Bilirubin Negative (NEG) Urine Urobilinogen Dipstick 1.0 mg/dL (0.2 mg/dL) Urine Leukocyte Esterase Negative (NEG) Urine RBC 0 /HPF (0-2) Urine WBC 0 /HPF (0-4) Urine Squamous Epithelial Cells Few /LPF Urine Bacteria 0 /HPF (0-FEW) Urine Hyaline Casts Moderate /HPF Test 10/08/18 12:10 Lactic Acid Level 0.8 mmol/L (0.4-2.0) VTE Prophylaxis Ordered VTE Prophylaxis Devices: No VTE Pharmacological Prophylaxi: Yes Assessment/Plan Assessment/Plan acute on chronic hypoxic respiratory faiulre COPD, with acute bronchitis admit, PULM consult pt would like to dc soon tobaccoism htn ALPESH JEAN MD Oct 08, 2018 16:27
[2018-10-08] MEDS: ALBUTEROL SULFATE 2.5 MG/3 ML NEBU. NEB SCH ×2 (17:03→19:59)
[2018-10-08 19:35] VITALS: BP 119/59
[2018-10-08] MEDS: BUDESONIDE 0.5 MG/2 ML NEBU. NEB SCH (20:00)
[2018-10-08] MEDS: ALPRAZolam 0.5 MG TABLET PO PRN (20:24)
[2018-10-08 22:55] VITALS: BP 134/61
[2018-10-09] MEDS: IV NORMAL SALINE 1000ML BAG 1,000 ML IV SCH (02:50)
[2018-10-09 03:05] VITALS: BP 132/72
--- NOTE | 2018-10-09 03:05 | CONS ---
DATE OF CONSULTATION: 10/08/2018 ATTENDING PHYSICIAN: Dr. Fitzgerlad. REASON FOR CONSULTATION: The patient seen in pulmonary consultation at the request of Dr. Fitzgerald for abnormal chest x-ray. HISTORY OF PRESENT ILLNESS: The patient is a 68-year-old with a history of tobacco dependence, most of her adult life, presented with increasing shortness of breath for the last 2-3 days, coughing up some green sputum, subjective fever. She normally uses some Breo at home. No oxygen supplementation. She smokes up to 1 pack of cigarettes a day. She had a chest x-ray revealing bilateral infiltrates, left greater than right, most of the infiltrate is in the left lower lobe. The patient denies any sick contacts. No nausea, vomiting, diarrhea. PAST MEDICAL HISTORY: 1. Tobacco dependent. 2. COPD, unknown FEV1. 3. Abnormal CT chest dated 08/24/2018 revealing right upper lobe nodule. 4. Hypertension. 5. Cataracts. PAST SURGICAL HISTORY: Status post cholecystectomy, hysterectomy, back surgery. ALLERGIES: She is intolerant to CONTRAST DYE, ACYCLOVIR, IODINE and MORPHINE. REVIEW OF SYSTEMS: CONSTITUTIONAL: Subjective fever. EYES: No change in visual acuity. HENT: No nasal congestion or sore throat. PULMONARY: As indicated above. CARDIOVASCULAR: No chest pain. No pressure. GASTROINTESTINAL: No nausea, vomiting, diarrhea. GENITOURINARY: No dysuria or frequency. MUSCULOSKELETAL: No localized muscle aches or joint pain. SKIN: No new skin rashes. NEUROLOGIC: No headaches, diplopia or blurred vision. MEDICATION LIST: Reviewed. SOCIAL HISTORY: She smokes, denies any excessive alcohol intake. PHYSICAL EXAMINATION: GENERAL: The patient appeared to be older than stated age. VITAL SIGNS: Stable. O2 saturation was greater than 92%, currently on 4 liters. She was initially around 10 liters of oxygen supplementation. HEENT: Eyes, the sclerae were nonicteric. NECK: Jugular venous distention was not elevated. No lymphadenopathy. CHEST: Full expansion. LUNGS: Bilateral crackles with no wheezes. CARDIOVASCULAR: Regular rate and rhythm with S1, S2, no S3. ABDOMEN: Soft, nontender, nondistended. EXTREMITIES: No clubbing, cyanosis or edema. NEUROLOGIC: The patient was awake, alert, following commands. A detailed neuro exam was not performed. Chest x-ray and CT dated 08/24/2018 was reviewed. Chest x-ray revealed left lower lobe consolidation, diffuse interstitial increased lung markings possible. LABORATORY DATA: Reviewed. White count was elevated. Serology for influenza was negative. UA was noted. BNP was slightly elevated. Troponin level was not elevated. Potassium was low. Albumin was low. Arterial blood gas; pH of 7.43, PaCO2 of 42, pO2 of 57 on 36% FIO2. IMPRESSION: 1. Acute hypoxemic respiratory failure, multifactorial secondary to pneumonia and chronic obstructive pulmonary disease exacerbation. 2. Abnormal x-ray compatible with pneumonia, suspect gram negative. 3. Leukocytosis. 4. Hypokalemia. 5. Severe malnutrition, present upon admission. 6. Abnormal x-ray as indicated above, revealing possible interstitial edema. 7. Abnormal CT chest dated 09/03/2018 revealing right upper lobe nodule. PLAN: 1. Continue IV antibiotics. 2. Oxygen supplementation. 3. Steroids. 4. Repeat CT chest in November. 5. The patient's was given my business card for followup. 6. Consult dietitian. 7. The patient instructed on the importance of discontinuing tobacco use. I do appreciate the privilege in sharing in the patient's care. TY SOTO MD DR: RADHA/joseph JOB#: [id number] / [id number]
[2018-10-09] MEDS: ACETAMINOPHEN 325 MG TABLET. PO PRN (03:40)
[2018-10-09] MEDS: methylPREDNISolone SOD SUCC PF 40 MG/ML VIAL. IV SCH ×3 (05:49→19:42)
[2018-10-09] MEDS: PIPERACILLIN/TAZOBACTAM 2.25 GM in IV NORMAL SALINE 50ML 50 ML IV SCH ×4 (05:49→22:59)
[2018-10-09] MEDS: ALPRAZolam 0.5 MG TABLET PO PRN ×3 (05:49→23:00)
[2018-10-09 07:00] VITALS: BP 114/56
[2018-10-09] MEDS: buPROPion SR 150 MG TABLET.SA PO SCH (07:34)
[2018-10-09] MEDS: CARISOPRODOL 350 MG PO SCH ×3 (07:35→19:43)
[2018-10-09] MEDS: PARoxetine 20 MG TABLET PO SCH (07:35)
[2018-10-09] MEDS: PANTOPRAZOLE 40 MG TABLET.DR. PO SCH (07:35)
[2018-10-09] MEDS: oxyCODONE IR 5 MG TABLET PO SCH ×4 (07:43→19:42)
[2018-10-09] MEDS: LACTOBACILLUS RHAMNOSUS GG 1 CAPSULE. PO SCH (07:44)
[2018-10-09] MEDS: BUDESONIDE 0.5 MG/2 ML NEBU. NEB SCH ×2 (07:48→19:45)
[2018-10-09] MEDS: ALBUTEROL SULFATE 2.5 MG/3 ML NEBU. NEB SCH ×4 (07:48→19:45)
--- NOTE | 2018-10-09 08:39 | NUR ---
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
[2018-10-09] MEDS ORDERED: OXYCODONE HCL 10 MG PO SCH (09:00)
[2018-10-09] MEDS: LOSARTAN POTASSIUM 50 MG TABLET. PO SCH (09:20)
--- NOTE | 2018-10-09 09:28 | PDOC ---
PROGRESS NOTES Chief Complaint Chief Complaint 1. Acute hypoxemic respiratory failure, multifactorial secondary to pneumonia and chronic obstructive pulmonary disease exacerbation. 2. Abnormal x-ray compatible with pneumonia, suspect gram negative. 3. Leukocytosis. 4. Hypokalemia. 5. Severe malnutrition, present upon admission. 6. Abnormal x-ray as indicated above, revealing possible interstitial edema. 7. Abnormal CT chest dated 09/03/2018 revealing right upper lobe nodule. History of Present Illness History of Present Illness Wheezy We have replace potassium She does smoke a pack a day at least Smoking cessation counseling done one-to-one less than 30 minutes I provided her her chest x-ray copy She is on nonrebreather currently She has not ambulated yet PLAn: Not ready for DC Nicotine patch CPM-on Solu-Medrol 80 IV every 8 Follow pulmonary recommendations Vitals Vitals Vital Signs Date Time Temp Pulse Resp B/P (MAP) Pulse Ox O2 Delivery O2 Flow Rate FiO2 10/09/18 09:20 87 122/60 10/09/18 08:43 Venturi Mask 12.0 10/09/18 07:45 89 10/09/18 07:00 98.1 16 98.1 Physical Exam General: Alert, Oriented X3, Cooperative, No acute distress, mild distress Heart: Regular rate, Normal S1, Normal S2 Lungs: Wheezing Abdomen: Normal bowel sounds, Soft Extremities: No clubbing, No cyanosis, No edema, Normal pulses Skin: No rashes, No breakdown Labs LABS Laboratory Tests Test 10/08/18 12:10 10/08/18 14:00 Lactic Acid Level 0.8 mmol/L (0.4-2.0) Nasal Screen MRSA (PCR) Positive (Negative) Review of Systems Review of Systems SOA, no cough, no fever, still wheezy, no abdominal symptoms, no chest pain Assessment and Plan Assessmemt and Plan Problems Medical Problems: (1) Acute respiratory distress Status: Acute (2) CAP (community acquired pneumonia) Status: Acute (3) Hypokalemia Status: Acute (4) Hypoxemia Status: Acute (5) Sepsis Status: Acute (6) Tobacco abuse Status: Acute (7) Tobacco abuse counseling Status: Acute Comment Review of Relevant I have reviewed the following items minh (where applicable) has been applied. Labs Laboratory Tests Test 10/08/18 08:09 10/08/18 08:13 10/08/18 08:33 10/08/18 09:05 O2 Saturation 88 % (92-99) Arterial Blood pH 7.43 (7.35-7.45) Arterial Blood pCO2 at Patient Temp 42 mmHg (35-46) Arterial Blood pO2 at Patient Temp 57 mmHg (65-108) Arterial Blood HCO3 27 mmol/L (21-28) Arterial Blood Base Excess 3 mmol/L (-3-3) FiO2 36 White Blood Count 23.3 x10^3/uL (4.0-11.0) Red Blood Count 3.89 x10^6/uL (3.50-5.40) Hemoglobin 12.7 g/dL (12.0-15.5) Hematocrit 37.7 % (36.0-47.0) Mean Corpuscular Volume 97 fL (79-100) Mean Corpuscular Hemoglobin 33 pg (25-35) Mean Corpuscular Hemoglobin Concent 34 g/dL (31-37) Red Cell Distribution Width 18.5 % (11.5-14.5) Platelet Count 301 x10^3/uL (140-400) Neutrophils (%) (Auto) 93 % (31-73) Lymphocytes (%) (Auto) 3 % (24-48) Monocytes (%) (Auto) 4 % (0-9) Eosinophils (%) (Auto) 0 % (0-3) Basophils (%) (Auto) 0 % (0-3) Neutrophils # (Auto) 21.6 x10^3uL (1.8-7.7) Lymphocytes # (Auto) 0.7 x10^3/uL (1.0-4.8) Monocytes # (Auto) 0.9 x10^3/uL (0.0-1.1) Eosinophils # (Auto) 0.0 x10^3/uL (0.0-0.7) Basophils # (Auto) 0.0 x10^3/uL (0.0-0.2) Segmented Neutrophils % 80 % (35-66) Band Neutrophils % 14 % (0-9) Lymphocytes % 5 % (24-48) Monocytes % 1 % (0-10) Platelet Estimate Adequate (ADEQUATE) Sodium Level 137 mmol/L (136-145) Potassium Level 2.7 mmol/L (3.5-5.1) Chloride Level 97 mmol/L (98-107) Carbon Dioxide Level 26 mmol/L (21-32) Anion Gap 14 (6-14) Blood Urea Nitrogen 20 mg/dL (7-20) Creatinine 0.7 mg/dL (0.6-1.0) Estimated GFR (Cockcroft-Gault) 83.2 BUN/Creatinine Ratio 29 (6-20) Glucose Level 130 mg/dL (70-99) Lactic Acid Level 1.6 mmol/L (0.4-2.0) Calcium Level 8.7 mg/dL (8.5-10.1) Magnesium Level 2.2 mg/dL (1.8-2.4) Total Bilirubin 0.3 mg/dL (0.2-1.0) Aspartate Amino Transf (AST/SGOT) 22 U/L (15-37) Alanine Aminotransferase (ALT/SGPT) 20 U/L (14-59) Alkaline Phosphatase 127 U/L (46-116) Creatine Kinase 147 U/L (26-192) Troponin I Quantitative < 0.017 ng/mL (0.000-0.055) UL-Xrw-O-Type Natriuretic Peptide 396 pg/mL (0-124) Total Protein 6.4 g/dL (6.4-8.2) Albumin 2.5 g/dL (3.4-5.0) Albumin/Globulin Ratio 0.6 (1.0-1.7) Influenza Type A Antigen Negative (NEGATIVE) Influenza Type B Antigen Negative (NEGATIVE) Urine Collection Type Unknown Urine Color Yellow Urine Clarity Clear Urine pH 6.0 Urine Specific [place] 1.020 Urine Protein Negative mg/dL (NEG-TRACE) Urine Glucose (UA) Negative mg/dL (NEG) Urine Ketones (Stick) Negative mg/dL (NEG) Urine Blood Negative (NEG) Urine Nitrite Negative (NEG) Urine Bilirubin Negative (NEG) Urine Urobilinogen Dipstick 1.0 mg/dL (0.2 mg/dL) Urine Leukocyte Esterase Negative (NEG) Urine RBC 0 /HPF (0-2) Urine WBC 0 /HPF (0-4) Urine Squamous Epithelial Cells Few /LPF Urine Bacteria 0 /HPF (0-FEW) Urine Hyaline Casts Moderate /HPF Test 10/08/18 12:10 10/08/18 14:00 Lactic Acid Level 0.8 mmol/L (0.4-2.0) Nasal Screen MRSA (PCR) Positive (Negative) Laboratory Tests Test 10/08/18 12:10 10/08/18 14:00 Lactic Acid Level 0.8 mmol/L (0.4-2.0) Nasal Screen MRSA (PCR) Positive (Negative) Medications Current Medications Sodium Chloride 1,000 ml @ 1,000 mls/hr Q1H IV Last administered on 10/08/18at 08:09; Start 10/08/18 at 08:09; Stop 10/08/18 at 09:08; Status DC Albuterol/ Ipratropium (Duoneb) 3 ml 1X ONCE NEB Last administered on 10/08/18at 08:56; Start 10/08/18 at 08:15; Stop 10/08/18 at 08:16; Status DC Methylprednisolone Sodium Succinate (SOLU-Medrol 125MG VIAL) 125 mg 1X ONCE IV Last administered on 10/08/18at 08:39; Start 10/08/18 at 08:15; Stop 10/08/18 at 08:16; Status DC Sodium Chloride 1,000 ml @ 1,000 mls/hr 1X ONCE IV Last administered on 10/08/18at 09:44; Start 10/08/18 at 09:00; Stop 10/08/18 at 09:59; Status DC Piperacillin Sod/ Tazobactam Sod 3.375 gm/Sodium Chloride 50 ml @ 100 mls/hr 1X ONCE IV Last administered on 10/08/18at 09:14; Start 10/08/18 at 09:00; Stop 10/08/18 at 09:29; Status DC Vancomycin HCl 250 ml @ 250 mls/hr 1X ONCE IV Last administered on 10/08/18at 09:46; Start 10/08/18 at 09:00; Stop 10/08/18 at 09:59; Status DC Sodium Chloride 1,000 ml @ 75 mls/hr [id number] IV Last administered on 10/09/18at 02:50; Start 10/08/18 at 08:47; Stop 10/09/18 at 08:46; Status DC Potassium Chloride/Water 100 ml @ 100 mls/hr Q1H IV Last administered on 10/08/18at 12:36; Start 10/08/18 at 09:00; Stop 10/08/18 at 10:59; Status DC Fentanyl Citrate (Fentanyl 2ml Vial) 25 mcg 1X ONCE IV Last administered on 10/08/18at 10:13; Start 10/08/18 at 10:00; Stop 10/08/18 at 10:01; Status DC Acetaminophen (Tylenol) 650 mg TID PRN PRN PO HEADACHE/TEMP Last administered on 10/09/18 03:40; Start 10/08/18 at 12:15 Alprazolam (Xanax) 0.5 mg PRN TID PRN PO ANXIETY / AGITATION Last administered on 10/09/18at 05:49; Start 10/08/18 at 12:15 Clonidine HCl (Catapres) 0.2 mg PRN BID PRN PO ELEVATED BP, SEE COMMENTS; Start 10/08/18 at 12:15 Docusate Sodium (Colace) 200 mg PRN DAILY PRN PO CONSTIPATION; Start 10/08/18 at 12:15 Oxycodone HCl (Roxicodone) 10 mg QID PO Last administered on 10/09/18 07:43; Start 10/08/18 at 13:00 Bupropion HCl (Wellbutrin Sr) 300 mg DAILY PO Last administered on 10/09/18 07:34; Start 10/08/18 at 13:00 Non-Formulary Medication (Carisoprodol ) 1 tab TID PO Last administered on 10/09/18 07:35; Start 10/08/18 at 14:00 Diltiazem HCl (Cardizem 24hr Cd) 300 mg DAILY PO Last administered on 10/09/18 07:34; Start 10/08/18 at 13:00 Lactobacillus Rhamnosus (Culturelle) 3 cap DAILY PO Last administered on 10/09/18 07:44; Start 10/08/18 at 13:00 Losartan Potassium (Cozaar) 100 mg DAILY PO Last administered on 10/09/18 09:20; Start 10/08/18 at 13:00 Ondansetron HCl (Zofran Odt) 4 mg PRN Q6HRS PRN PO NAUSEA/VOMITING; Start 10/08/18 at 12:30 Pantoprazole Sodium (Protonix) 40 mg DAILYAC PO Last administered on 10/09/18 07:35; Start 10/08/18 at 13:00 Paroxetine HCl (Paxil) 40 mg DAILY PO Last administered on 10/09/18at 07:35; Start 10/08/18 at 13:00 Albuterol Sulfate (Ventolin Neb Soln) 2.5 mg RTQID NEB Last administered on 10/09/18at 07:48; Start 10/08/18 at 16:00 Budesonide (Pulmicort) 0.5 mg RTBID NEB Last administered on 10/09/18at 07:48; Start 10/08/18 at 20:00 Piperacillin Sod/ Tazobactam Sod (Zosyn Per Pharmacy) 1 each PRN DAILY PRN MC SEE COMMENTS; Start 10/08/18 at 15:45 Methylprednisolone Sodium Succinate (SOLU-Medrol 40MG VIAL) 80 mg Q8HRS IV Last administered on 10/09/18at 05:49; Start 10/08/18 at 16:00 Enoxaparin Sodium (Lovenox 30mg Syringe) 30 mg Q24H SQ Last administered on 10/08/18at 16:03; Start 10/08/18 at 16:00 Piperacillin Sod/ Tazobactam Sod 2.25 gm/Sodium Chloride 50 ml @ 100 mls/hr Q6HRS IV Last administered on 10/09/18at 05:49; Start 10/08/18 at 16:00 Enoxaparin Sodium (Lovenox Per Pharmacy Prophylaxis Dosing) 1 each PRN DAILY PRN MC SEE COMMENTS; Start 10/08/18 at 16:30; Status UNV Non-Formulary Medication (Oxycodone Hcl (Oxycodone Hcl Immed.release)) 10 mg QID PO ; Start 10/09/18 at 09:00; Status UNV Active Scripts Active Zofran (Ondansetron Hcl) 4 Mg Tablet 1 Tab PO Q6HRS PRN Reported Oxycodone Hcl Immed.release (Oxycodone Hcl) 10 Mg Tablet 10 Mg PO QID Doxycycline Hyclate 100 Mg Capsule 1 Cap PO BID Probiotic (Lactobacillus Combo No.11) 1 Each Cap.sprink 3 Each PO DAILY Tylenol (Acetaminophen) 325 Mg Tablet 650 Mg PO TID PRN PRN Anoro Ellipta 62.5-25 Mcg Inh (Umeclidinium Brm/Vilanterol Tr) 1 Each Disk.w.dev 1 Each IH DAILY PRN Clonidine Hcl 0.2 Mg Tablet 1 Tab PO BID PRN Carisoprodol 350 Mg Tablet 1 Tab PO TID Alprazolam 0.5 Mg Tablet 1 Tab PO TID PRN Protonix (Pantoprazole Sodium) 20 Mg Tablet.dr 40 Mg PO DAILY Colace (Docusate Sodium) 100 Mg Capsule 200 Mg PO DAILY PRN Bupropion Hcl Sr (Bupropion Hcl) 200 Mg Tablet.er 300 Mg PO DAILY Paroxetine Hcl 40 Mg Tablet 1 Tab PO DAILY Losartan Potassium 100 Mg Tablet 100 Mg PO DAILY Cardizem Tablet (Diltiazem Hcl) 60 Mg Tablet 300 Mg PO DAILY Vitals/I & O Vital Sign - Last 24 Hours 10/08/18 10/08/18 10/08/18 10/08/18 09:30 10:00 10:13 12:00 Pulse 72 77 Resp 19 17 B/P (MAP) 105/51 (69) 107/66 (80) Pulse Ox 94 96 90 O2 Delivery Venturi Mask Venturi Mask Venturi Mask O2 Flow Rate 12.0 12.0 12.0 12.0 10/08/18 10/08/18 10/08/18 10/08/18 12:00 12:35 13:45 13:45 Temp 98.0 98.0 Pulse 85 85 Resp 16 B/P (MAP) 139/63 (88) 139/63 Pulse Ox 93 O2 Delivery Venturi Mask Venturi Mask Nasal Cannula O2 Flow Rate 12.0 14.0 10/08/18 10/08/18 10/08/18 10/08/18 13:46 15:00 17:05 17:17 Temp 98.4 98.4 Pulse 85 92 Resp 16 B/P (MAP) 139/63 143/62 (89) Pulse Ox 91 O2 Delivery Nasal Cannula Nasal Cannula Nasal Cannula O2 Flow Rate 4.0 4.0 10/08/18 10/08/18 10/08/18 10/08/18 19:35 20:00 20:06 20:20 Temp 98.7 98.7 Pulse 83 Resp 20 20 B/P (MAP) 119/59 (79) Pulse Ox 89 88 O2 Delivery Nasal Cannula Venturi Mask Nasal Cannula Ventilator O2 Flow Rate 4.0 12.0 4.0 10/08/18 10/08/18 10/09/18 10/09/18 21:20 22:55 03:05 07:00 Temp 98.4 98.3 98.1 98.4 98.3 98.1 Pulse 88 89 74 Resp 20 18 20 16 B/P (MAP) 134/61 (85) 132/72 (92) 114/56 (75) Pulse Ox 95 93 93 96 O2 Delivery Nasal Cannula Simple Mask Room Air O2 Flow Rate 4.0 10.0 10/09/18 10/09/18 10/09/18 10/09/18 07:34 07:43 07:45 08:43 Pulse 75 B/P (MAP) 114/56 Pulse Ox 89 O2 Delivery Venturi Mask Venturi Mask Venturi Mask O2 Flow Rate 12.0 12.0 12.0 10/09/18 09:20 Pulse 87 B/P (MAP) 122/60 Intake and Output 10/08/18 10/08/18 10/09/18 15:00 23:00 07:00 Intake Total 2150 ml 1450 ml Output Total 500 ml Balance 2150 ml 950 ml KORI DEJESUS MD Oct 09, 2018 09:28
[2018-10-09 10:38] VITALS: BP 134/65
--- NOTE | 2018-10-09 11:53 | PDOC ---
PULMONARY PROGRESS NOTES Subjective Pt. is currently on 40% facr mask. She reports her breathing is better and denies SOB. However she reports she has been doing lots of coughing, green sputum. Vitals Laboratory Tests Test 10/08/18 14:00 Nasal Screen MRSA (PCR) Positive Current Medications Medications (Trade) Dose Ordered Sig/John Route PRN Reason Start Time Stop Time Status Last Admin Dose Admin Sodium Chloride 1,000 ml @ 1,000 mls/hr Q1H IV 10/08/18 08:09 10/08/18 09:08 DC 10/08/18 08:09 Albuterol/ Ipratropium (Duoneb) 3 ml 1X ONCE NEB 10/08/18 08:15 10/08/18 08:16 DC 10/08/18 08:56 Methylprednisolone Sodium Succinate (SOLU-Medrol 125MG VIAL) 125 mg 1X ONCE IV 10/08/18 08:15 10/08/18 08:16 DC 10/08/18 08:39 Sodium Chloride 1,000 ml @ 1,000 mls/hr 1X ONCE IV 10/08/18 09:00 10/08/18 09:59 DC 10/08/18 09:44 Piperacillin Sod/ Tazobactam Sod 3.375 gm/Sodium Chloride 50 ml @ 100 mls/hr 1X ONCE IV 10/08/18 09:00 10/08/18 09:29 DC 10/08/18 09:14 Vancomycin HCl 250 ml @ 250 mls/hr 1X ONCE IV 10/08/18 09:00 10/08/18 09:59 DC 10/08/18 09:46 Sodium Chloride 1,000 ml @ 75 mls/hr [id number] IV 10/08/18 08:47 10/09/18 08:46 DC 10/09/18 02:50 Potassium Chloride/Water 100 ml @ 100 mls/hr Q1H IV 10/08/18 09:00 10/08/18 10:59 DC 10/08/18 12:36 Fentanyl Citrate (Fentanyl 2ml Vial) 25 mcg 1X ONCE IV 10/08/18 10:00 10/08/18 10:01 DC 10/08/18 10:13 Acetaminophen (Tylenol) 650 mg TID PRN PRN PO HEADACHE/TEMP 10/08/18 12:15 10/09/18 03:40 Alprazolam (Xanax) 0.5 mg PRN TID PRN PO ANXIETY / AGITATION 10/08/18 12:15 10/09/18 05:49 Clonidine HCl (Catapres) 0.2 mg PRN BID PRN PO ELEVATED BP, SEE COMMENTS 10/08/18 12:15 Docusate Sodium (Colace) 200 mg PRN DAILY PRN PO CONSTIPATION 10/08/18 12:15 Oxycodone HCl (Roxicodone) 10 mg QID PO 10/08/18 13:00 10/09/18 12:22 Bupropion HCl (Wellbutrin Sr) 300 mg DAILY PO 10/08/18 13:00 10/09/18 07:34 Non-Formulary Medication (Carisoprodol ) 1 tab TID PO 10/08/18 14:00 10/09/18 07:35 Diltiazem HCl (Cardizem 24hr Cd) 300 mg DAILY PO 10/08/18 13:00 10/09/18 07:34 Lactobacillus Rhamnosus (Culturelle) 3 cap DAILY PO 10/08/18 13:00 10/09/18 07:44 Losartan Potassium (Cozaar) 100 mg DAILY PO 10/08/18 13:00 10/09/18 09:20 Ondansetron HCl (Zofran Odt) 4 mg PRN Q6HRS PRN PO NAUSEA/VOMITING 10/08/18 12:30 Pantoprazole Sodium (Protonix) 40 mg DAILYAC PO 10/08/18 13:00 10/09/18 07:35 Paroxetine HCl (Paxil) 40 mg DAILY PO 10/08/18 13:00 10/09/18 07:35 Albuterol Sulfate (Ventolin Neb Soln) 2.5 mg RTQID NEB 10/08/18 16:00 10/09/18 11:49 Budesonide (Pulmicort) 0.5 mg RTBID NEB 10/08/18 20:00 10/09/18 07:48 Piperacillin Sod/ Tazobactam Sod (Zosyn Per Pharmacy) 1 each PRN DAILY PRN MC SEE COMMENTS 10/08/18 15:45 Methylprednisolone Sodium Succinate (SOLU-Medrol 40MG VIAL) 80 mg Q8HRS IV 10/08/18 16:00 10/09/18 05:49 Enoxaparin Sodium (Lovenox 30mg Syringe) 30 mg Q24H SQ 10/08/18 16:00 10/08/18 16:03 Piperacillin Sod/ Tazobactam Sod 2.25 gm/Sodium Chloride 50 ml @ 100 mls/hr Q6HRS IV 10/08/18 16:00 10/09/18 12:23 Enoxaparin Sodium (Lovenox Per Pharmacy Prophylaxis Dosing) 1 each PRN DAILY PRN MC SEE COMMENTS 10/08/18 16:30 UNV Non-Formulary Medication (Oxycodone Hcl (Oxycodone Hcl Immed.release)) 10 mg QID PO 10/09/18 09:00 UNV Vital Signs Date Time Temp Pulse Resp B/P (MAP) Pulse Ox O2 Delivery O2 Flow Rate FiO2 10/09/18 10:38 98.2 87 18 134/65 (88) 97 Venturi Mask 15.0 98.2 ROS: No Nausea, No Chest Pain, No Abdominal Pain General: Alert, Oriented X4 Lungs: Wheezing Cardiovascular: S1, S2 Abdomen: Soft, Non-tender Neuro Exam: Alert, Oriented, Normal Speech Extremities: No Edema Skin: Warm, Dry Labs Laboratory Tests Test 10/08/18 14:00 Nasal Screen MRSA (PCR) Positive Current Medications Medications (Trade) Dose Ordered Sig/John Route PRN Reason Start Time Stop Time Status Last Admin Dose Admin Sodium Chloride 1,000 ml @ 1,000 mls/hr Q1H IV 10/08/18 08:09 10/08/18 09:08 DC 10/08/18 08:09 Albuterol/ Ipratropium (Duoneb) 3 ml 1X ONCE NEB 10/08/18 08:15 10/08/18 08:16 DC 10/08/18 08:56 Methylprednisolone Sodium Succinate (SOLU-Medrol 125MG VIAL) 125 mg 1X ONCE IV 10/08/18 08:15 10/08/18 08:16 DC 10/08/18 08:39 Sodium Chloride 1,000 ml @ 1,000 mls/hr 1X ONCE IV 10/08/18 09:00 10/08/18 09:59 DC 10/08/18 09:44 Piperacillin Sod/ Tazobactam Sod 3.375 gm/Sodium Chloride 50 ml @ 100 mls/hr 1X ONCE IV 10/08/18 09:00 10/08/18 09:29 DC 10/08/18 09:14 Vancomycin HCl 250 ml @ 250 mls/hr 1X ONCE IV 10/08/18 09:00 10/08/18 09:59 DC 10/08/18 09:46 Sodium Chloride 1,000 ml @ 75 mls/hr [id number] IV 10/08/18 08:47 10/09/18 08:46 DC 10/09/18 02:50 Potassium Chloride/Water 100 ml @ 100 mls/hr Q1H IV 10/08/18 09:00 10/08/18 10:59 DC 10/08/18 12:36 Fentanyl Citrate (Fentanyl 2ml Vial) 25 mcg 1X ONCE IV 10/08/18 10:00 10/08/18 10:01 DC 10/08/18 10:13 Acetaminophen (Tylenol) 650 mg TID PRN PRN PO HEADACHE/TEMP 10/08/18 12:15 10/09/18 03:40 Alprazolam (Xanax) 0.5 mg PRN TID PRN PO ANXIETY / AGITATION 10/08/18 12:15 10/09/18 05:49 Clonidine HCl (Catapres) 0.2 mg PRN BID PRN PO ELEVATED BP, SEE COMMENTS 10/08/18 12:15 Docusate Sodium (Colace) 200 mg PRN DAILY PRN PO CONSTIPATION 10/08/18 12:15 Oxycodone HCl (Roxicodone) 10 mg QID PO 10/08/18 13:00 10/09/18 12:22 Bupropion HCl (Wellbutrin Sr) 300 mg DAILY PO 10/08/18 13:00 10/09/18 07:34 Non-Formulary Medication (Carisoprodol ) 1 tab TID PO 10/08/18 14:00 10/09/18 07:35 Diltiazem HCl (Cardizem 24hr Cd) 300 mg DAILY PO 10/08/18 13:00 10/09/18 07:34 Lactobacillus Rhamnosus (Culturelle) 3 cap DAILY PO 10/08/18 13:00 10/09/18 07:44 Losartan Potassium (Cozaar) 100 mg DAILY PO 10/08/18 13:00 10/09/18 09:20 Ondansetron HCl (Zofran Odt) 4 mg PRN Q6HRS PRN PO NAUSEA/VOMITING 10/08/18 12:30 Pantoprazole Sodium (Protonix) 40 mg DAILYAC PO 10/08/18 13:00 10/09/18 07:35 Paroxetine HCl (Paxil) 40 mg DAILY PO 10/08/18 13:00 10/09/18 07:35 Albuterol Sulfate (Ventolin Neb Soln) 2.5 mg RTQID NEB 10/08/18 16:00 10/09/18 11:49 Budesonide (Pulmicort) 0.5 mg RTBID NEB 10/08/18 20:00 10/09/18 07:48 Piperacillin Sod/ Tazobactam Sod (Zosyn Per Pharmacy) 1 each PRN DAILY PRN MC SEE COMMENTS 10/08/18 15:45 Methylprednisolone Sodium Succinate (SOLU-Medrol 40MG VIAL) 80 mg Q8HRS IV 10/08/18 16:00 10/09/18 05:49 Enoxaparin Sodium (Lovenox 30mg Syringe) 30 mg Q24H SQ 10/08/18 16:00 10/08/18 16:03 Piperacillin Sod/ Tazobactam Sod 2.25 gm/Sodium Chloride 50 ml @ 100 mls/hr Q6HRS IV 10/08/18 16:00 10/09/18 12:23 Enoxaparin Sodium (Lovenox Per Pharmacy Prophylaxis Dosing) 1 each PRN DAILY PRN MC SEE COMMENTS 10/08/18 16:30 UNV Non-Formulary Medication (Oxycodone Hcl (Oxycodone Hcl Immed.release)) 10 mg QID PO 10/09/18 09:00 UNV Laboratory Tests Test 10/08/18 08:09 10/08/18 08:13 10/08/18 08:33 10/08/18 09:05 O2 Saturation 88 % (92-99) Arterial Blood pH 7.43 (7.35-7.45) Arterial Blood pCO2 at Patient Temp 42 mmHg (35-46) Arterial Blood pO2 at Patient Temp 57 mmHg (65-108) Arterial Blood HCO3 27 mmol/L (21-28) Arterial Blood Base Excess 3 mmol/L (-3-3) FiO2 36 White Blood Count 23.3 x10^3/uL (4.0-11.0) Red Blood Count 3.89 x10^6/uL (3.50-5.40) Hemoglobin 12.7 g/dL (12.0-15.5) Hematocrit 37.7 % (36.0-47.0) Mean Corpuscular Volume 97 fL (79-100) Mean Corpuscular Hemoglobin 33 pg (25-35) Mean Corpuscular Hemoglobin Concent 34 g/dL (31-37) Red Cell Distribution Width 18.5 % (11.5-14.5) Platelet Count 301 x10^3/uL (140-400) Neutrophils (%) (Auto) 93 % (31-73) Lymphocytes (%) (Auto) 3 % (24-48) Monocytes (%) (Auto) 4 % (0-9) Eosinophils (%) (Auto) 0 % (0-3) Basophils (%) (Auto) 0 % (0-3) Neutrophils # (Auto) 21.6 x10^3uL (1.8-7.7) Lymphocytes # (Auto) 0.7 x10^3/uL (1.0-4.8) Monocytes # (Auto) 0.9 x10^3/uL (0.0-1.1) Eosinophils # (Auto) 0.0 x10^3/uL (0.0-0.7) Basophils # (Auto) 0.0 x10^3/uL (0.0-0.2) Segmented Neutrophils % 80 % (35-66) Band Neutrophils % 14 % (0-9) Lymphocytes % 5 % (24-48) Monocytes % 1 % (0-10) Platelet Estimate Adequate (ADEQUATE) Sodium Level 137 mmol/L (136-145) Potassium Level 2.7 mmol/L (3.5-5.1) Chloride Level 97 mmol/L (98-107) Carbon Dioxide Level 26 mmol/L (21-32) Anion Gap 14 (6-14) Blood Urea Nitrogen 20 mg/dL (7-20) Creatinine 0.7 mg/dL (0.6-1.0) Estimated GFR (Cockcroft-Gault) 83.2 BUN/Creatinine Ratio 29 (6-20) Glucose Level 130 mg/dL (70-99) Lactic Acid Level 1.6 mmol/L (0.4-2.0) Calcium Level 8.7 mg/dL (8.5-10.1) Magnesium Level 2.2 mg/dL (1.8-2.4) Total Bilirubin 0.3 mg/dL (0.2-1.0) Aspartate Amino Transf (AST/SGOT) 22 U/L (15-37) Alanine Aminotransferase (ALT/SGPT) 20 U/L (14-59) Alkaline Phosphatase 127 U/L (46-116) Creatine Kinase 147 U/L (26-192) Troponin I Quantitative < 0.017 ng/mL (0.000-0.055) [id number]-Type Natriuretic Peptide 396 pg/mL (0-124) Total Protein 6.4 g/dL (6.4-8.2) Albumin 2.5 g/dL (3.4-5.0) Albumin/Globulin Ratio 0.6 (1.0-1.7) Influenza Type A Antigen Negative (NEGATIVE) Influenza Type B Antigen Negative (NEGATIVE) Urine Collection Type Unknown Urine Color Yellow Urine Clarity Clear Urine pH 6.0 Urine Specific Beatrice 1.020 Urine Protein Negative mg/dL (NEG-TRACE) Urine Glucose (UA) Negative mg/dL (NEG) Urine Ketones (Stick) Negative mg/dL (NEG) Urine Blood Negative (NEG) Urine Nitrite Negative (NEG) Urine Bilirubin Negative (NEG) Urine Urobilinogen Dipstick 1.0 mg/dL (0.2 mg/dL) Urine Leukocyte Esterase Negative (NEG) Urine RBC 0 /HPF (0-2) Urine WBC 0 /HPF (0-4) Urine Squamous Epithelial Cells Few /LPF Urine Bacteria 0 /HPF (0-FEW) Urine Hyaline Casts Moderate /HPF Test 10/08/18 12:10 10/08/18 14:00 Lactic Acid Level 0.8 mmol/L (0.4-2.0) Nasal Screen MRSA (PCR) Positive (Negative) Laboratory Tests Test 10/08/18 12:10 10/08/18 14:00 Lactic Acid Level 0.8 mmol/L (0.4-2.0) Nasal Screen MRSA (PCR) Positive (Negative) Medications Active Scripts Medications Dose Route/Sig Max Daily Dose Days Date Category Oxycodone Hcl Immed.release (Oxycodone Hcl) 10 Mg Tablet 10 Mg PO QID 10/08/18 Reported Zofran (Ondansetron Hcl) 4 Mg Tablet 1 Tab PO Q6HRS PRN 08/30/18 Rx Doxycycline Hyclate 100 Mg Capsule 1 Cap PO BID 04/12/18 Reported Probiotic (Lactobacillus Combo No.11) 1 Each Cap.sprink 3 Each PO DAILY 04/12/18 Reported Tylenol (Acetaminophen) 325 Mg Tablet 650 Mg PO TID PRN PRN 04/12/18 Reported Anoro Ellipta 62.5-25 Mcg Inh (Umeclidinium Brm/Vilanterol Tr) 1 Each Disk.w.dev 1 Each IH DAILY PRN 11/02/17 Reported Clonidine Hcl 0.2 Mg Tablet 1 Tab PO BID PRN 11/02/17 Reported Carisoprodol 350 Mg Tablet 1 Tab PO TID 11/02/17 Reported Alprazolam 0.5 Mg Tablet 1 Tab PO TID PRN 11/02/17 Reported Protonix (Pantoprazole Sodium) 20 Mg Tablet.dr 40 Mg PO DAILY 11/02/17 Reported Colace (Docusate Sodium) 100 Mg Capsule 200 Mg PO DAILY PRN 11/02/17 Reported Bupropion Hcl Sr (Bupropion Hcl) 200 Mg Tablet.er 300 Mg PO DAILY 11/02/17 Reported Paroxetine Hcl 40 Mg Tablet 1 Tab PO DAILY 11/02/17 Reported Losartan Potassium 100 Mg Tablet 100 Mg PO DAILY 11/02/17 Reported Cardizem Tablet (Diltiazem Hcl) 60 Mg Tablet 300 Mg PO DAILY 11/02/17 Reported Active Scripts Medications Dose Route/Sig Max Daily Dose Days Date Category Oxycodone Hcl Immed.release (Oxycodone Hcl) 10 Mg Tablet 10 Mg PO QID 10/08/18 Reported Zofran (Ondansetron Hcl) 4 Mg Tablet 1 Tab PO Q6HRS PRN 08/30/18 Rx Doxycycline Hyclate 100 Mg Capsule 1 Cap PO BID 04/12/18 Reported Probiotic (Lactobacillus Combo No.11) 1 Each Cap.sprink 3 Each PO DAILY 04/12/18 Reported Tylenol (Acetaminophen) 325 Mg Tablet 650 Mg PO TID PRN PRN 04/12/18 Reported Anoro Ellipta 62.5-25 Mcg Inh (Umeclidinium Brm/Vilanterol Tr) 1 Each Disk.w.dev 1 Each IH DAILY PRN 5/17/18 Reported Clonidine Hcl 0.2 Mg Tablet 1 Tab PO BID PRN 11/02/17 Reported Carisoprodol 350 Mg Tablet 1 Tab PO TID 11/02/17 Reported Alprazolam 0.5 Mg Tablet 1 Tab PO TID PRN 11/02/17 Reported Protonix (Pantoprazole Sodium) 20 Mg Tablet.dr 40 Mg PO DAILY 11/02/17 Reported Colace (Docusate Sodium) 100 Mg Capsule 200 Mg PO DAILY PRN 11/02/17 Reported Bupropion Hcl Sr (Bupropion Hcl) 200 Mg Tablet.er 300 Mg PO DAILY 11/02/17 Reported Paroxetine Hcl 40 Mg Tablet 1 Tab PO DAILY 11/02/17 Reported Losartan Potassium 100 Mg Tablet 100 Mg PO DAILY 11/02/17 Reported Cardizem Tablet (Diltiazem Hcl) 60 Mg Tablet 300 Mg PO DAILY 11/02/17 Reported Impression . 1. Acute hypoxemic respiratory failure, multifactorial secondary to pneumonia and chronic obstructive pulmonary disease exacerbation. 2. Abnormal x-ray compatible with pneumonia, suspect gram negative. 3. Leukocytosis. 4. Hypokalemia. 5. Severe malnutrition, present upon admission. 6. Abnormal x-ray as indicated above, revealing possible interstitial edema. 7. Abnormal CT chest dated 09/03/2018 revealing right upper lobe nodule. Plan . Acute hypoxemic respiratory failure, * multifactorial secondary to pneumonia * Abnormal x-ray compatible with pneumonia, suspect gram negative.and revealing possible interstitial edema. * cont. IV abx * cont. supplemental oxygen to keep sats above 92% * cont. bronchodilators Chronic obstructive pulmonary disease exacerbation. * cont. IV steroids * cont. above Leukocytosis. * labs pending today * monitor Hypokalemia. * replace and monitor Severe malnutrition, present upon admission. 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 intake Pulmonary nodule * Abnormal CT chest dated 09/03/2018 revealing right upper lobe nodule. * follow up CT in November Tobaccoism * encourage cessation TY SOTO MD Oct 09, 2018 11:53
[2018-10-09] MEDS: BENZONATATE 100 MG CAPSULE. PO SCH ×2 (14:23→19:42)
[2018-10-09 14:27] LABS: HEMATOCRIT 35.7 % (36.0-47.0); HEMOGLOBIN 11.6 g/dL (12.0-15.5); RED BLOOD COUNT 3.61 x10^6/uL (3.50-5.40); RED CELL DISTRIBUTION WIDTH 18.4 % (11.5-14.5); WHITE BLOOD COUNT 26.7 x10^3/uL (4.0-11.0)
[2018-10-09 14:35] LABS: CALCIUM 8.9 mg/dL (8.5-10.1); CREATININE 0.9 mg/dL (0.6-1.0); GFR 62.3; POTASSIUM 3.1 mmol/L (3.5-5.1)
[2018-10-09 14:48] VITALS: BP 133/62
--- NOTE | 2018-10-09 14:50 | NUR ---
SS following for discharge planning. SS reviewed pt's chart. Pt is from home with spouse and is currently requiring high flow oxygen. PT/OT ordered. SS will monitor oxygen and will await PT/OT evaluations and recommendations and will proceed accordingly.
[2018-10-09] MEDS: ENOXAPARIN 30 MG/0.3 ML SYRINGE. SQ SCH (16:20)
[2018-10-09 19:25] VITALS: BP 123/61
[2018-10-09] MEDS ORDERED: POTASSIUM CHLORIDE 20 MEQ TABLET.ER. PO ONE (20:45)
[2018-10-09 23:05] VITALS: BP 137/62
[2018-10-10] MEDS: ACETAMINOPHEN 325 MG TABLET. PO PRN (00:53)
[2018-10-10 04:07] VITALS: BP 177/77
[2018-10-10] MEDS: PIPERACILLIN/TAZOBACTAM 2.25 GM in IV NORMAL SALINE 50ML 50 ML IV SCH ×4 (05:30→23:41)
[2018-10-10] MEDS: methylPREDNISolone SOD SUCC PF 40 MG/ML VIAL. IV SCH ×3 (05:30→20:40)
[2018-10-10 07:30] VITALS: BP 132/74
[2018-10-10] MEDS: oxyCODONE IR 5 MG TABLET PO SCH ×4 (08:08→20:38)
[2018-10-10] MEDS: PANTOPRAZOLE 40 MG TABLET.DR. PO SCH (08:09)
[2018-10-10] MEDS: LACTOBACILLUS RHAMNOSUS GG 1 CAPSULE. PO SCH (08:10)
[2018-10-10] MEDS: buPROPion SR 150 MG TABLET.SA PO SCH (08:10)
[2018-10-10] MEDS: BENZONATATE 100 MG CAPSULE. PO SCH ×3 (08:10→20:39)
[2018-10-10] MEDS: LOSARTAN POTASSIUM 50 MG TABLET. PO SCH (08:11)
[2018-10-10] MEDS: PARoxetine 20 MG TABLET PO SCH (08:11)
[2018-10-10] MEDS: CARISOPRODOL 350 MG PO SCH ×3 (08:12→20:37)
[2018-10-10] MEDS: ALBUTEROL SULFATE 2.5 MG/3 ML NEBU. NEB SCH ×4 (09:17→19:02)
[2018-10-10] MEDS: BUDESONIDE 0.5 MG/2 ML NEBU. NEB SCH ×2 (09:17→19:03)
[2018-10-10 10:53] VITALS: BP 165/74
--- NOTE | 2018-10-10 10:57 | PDOC ---
PULMONARY PROGRESS NOTES Subjective NO BETTER TODAY STILL SOA AND VM Vitals Vital Signs Date Time Temp Pulse Resp B/P (MAP) Pulse Ox O2 Delivery O2 Flow Rate FiO2 10/10/18 10:53 98.2 94 165/74 (104) 97 Venturi Mask 98.2 10/10/18 09:19 4.0 10/10/18 04:07 20 ROS: No Nausea, No Chest Pain, No Abdominal Pain General: Alert, Oriented X4 Lungs: Wheezing Cardiovascular: S1, S2 Abdomen: Soft, Non-tender Neuro Exam: Alert, Oriented, Normal Speech Extremities: No Edema Skin: Warm, Dry Labs Laboratory Tests Test 10/08/18 12:10 10/08/18 14:00 10/09/18 14:20 Lactic Acid Level 0.8 mmol/L (0.4-2.0) Nasal Screen MRSA (PCR) Positive (Negative) White Blood Count 26.7 x10^3/uL (4.0-11.0) Red Blood Count 3.61 x10^6/uL (3.50-5.40) Hemoglobin 11.6 g/dL (12.0-15.5) Hematocrit 35.7 % (36.0-47.0) Mean Corpuscular Volume 99 fL (79-100) Mean Corpuscular Hemoglobin 32 pg (25-35) Mean Corpuscular Hemoglobin Concent 33 g/dL (31-37) Red Cell Distribution Width 18.4 % (11.5-14.5) Platelet Count 355 x10^3/uL (140-400) Sodium Level 142 mmol/L (136-145) Potassium Level 3.1 mmol/L (3.5-5.1) Chloride Level 104 mmol/L (98-107) Carbon Dioxide Level 24 mmol/L (21-32) Anion Gap 14 (6-14) Blood Urea Nitrogen 19 mg/dL (7-20) Creatinine 0.9 mg/dL (0.6-1.0) Estimated GFR (Cockcroft-Gault) 62.3 Glucose Level 204 mg/dL (70-99) Calcium Level 8.9 mg/dL (8.5-10.1) Laboratory Tests Test 10/09/18 14:20 White Blood Count 26.7 x10^3/uL (4.0-11.0) Red Blood Count 3.61 x10^6/uL (3.50-5.40) Hemoglobin 11.6 g/dL (12.0-15.5) Hematocrit 35.7 % (36.0-47.0) Mean Corpuscular Volume 99 fL (79-100) Mean Corpuscular Hemoglobin 32 pg (25-35) Mean Corpuscular Hemoglobin Concent 33 g/dL (31-37) Red Cell Distribution Width 18.4 % (11.5-14.5) Platelet Count 355 x10^3/uL (140-400) Sodium Level 142 mmol/L (136-145) Potassium Level 3.1 mmol/L (3.5-5.1) Chloride Level 104 mmol/L (98-107) Carbon Dioxide Level 24 mmol/L (21-32) Anion Gap 14 (6-14) Blood Urea Nitrogen 19 mg/dL (7-20) Creatinine 0.9 mg/dL (0.6-1.0) Estimated GFR (Cockcroft-Gault) 62.3 Glucose Level 204 mg/dL (70-99) Calcium Level 8.9 mg/dL (8.5-10.1) Medications Active Scripts Medications Dose Route/Sig Max Daily Dose Days Date Category Oxycodone Hcl Immed.release (Oxycodone Hcl) 10 Mg Tablet 10 Mg PO QID 10/08/18 Reported Zofran (Ondansetron Hcl) 4 Mg Tablet 1 Tab PO Q6HRS PRN 08/30/18 Rx Doxycycline Hyclate 100 Mg Capsule 1 Cap PO BID 04/12/18 Reported Probiotic (Lactobacillus Combo No.11) 1 Each Cap.sprink 3 Each PO DAILY 04/12/18 Reported Tylenol (Acetaminophen) 325 Mg Tablet 650 Mg PO TID PRN PRN 04/12/18 Reported Anoro Ellipta 62.5-25 Mcg Inh (Umeclidinium Brm/Vilanterol Tr) 1 Each Disk.w.dev 1 Each IH DAILY PRN 11/02/17 Reported Clonidine Hcl 0.2 Mg Tablet 1 Tab PO BID PRN 11/02/17 Reported Carisoprodol 350 Mg Tablet 1 Tab PO TID 11/02/17 Reported Alprazolam 0.5 Mg Tablet 1 Tab PO TID PRN 11/02/17 Reported Protonix (Pantoprazole Sodium) 20 Mg Tablet.dr 40 Mg PO DAILY 11/02/17 Reported Colace (Docusate Sodium) 100 Mg Capsule 200 Mg PO DAILY PRN 11/02/17 Reported Bupropion Hcl Sr (Bupropion Hcl) 200 Mg Tablet.er 300 Mg PO DAILY 11/02/17 Reported Paroxetine Hcl 40 Mg Tablet 1 Tab PO DAILY 11/02/17 Reported Losartan Potassium 100 Mg Tablet 100 Mg PO DAILY 11/02/17 Reported Cardizem Tablet (Diltiazem Hcl) 60 Mg Tablet 300 Mg PO DAILY 11/02/17 Reported Active Scripts Medications Dose Route/Sig Max Daily Dose Days Date Category Oxycodone Hcl Immed.release (Oxycodone Hcl) 10 Mg Tablet 10 Mg PO QID 10/08/18 Reported Zofran (Ondansetron Hcl) 4 Mg Tablet 1 Tab PO Q6HRS PRN 08/30/18 Rx Doxycycline Hyclate 100 Mg Capsule 1 Cap PO BID 04/12/18 Reported Probiotic (Lactobacillus Combo No.11) 1 Each Cap.sprink 3 Each PO DAILY 04/12/18 Reported Tylenol (Acetaminophen) 325 Mg Tablet 650 Mg PO TID PRN PRN 04/12/18 Reported Anoro Ellipta 62.5-25 Mcg Inh (Umeclidinium Brm/Vilanterol Tr) 1 Each Disk.w.dev 1 Each IH DAILY PRN 11/02/17 Reported Clonidine Hcl 0.2 Mg Tablet 1 Tab PO BID PRN 11/02/17 Reported Carisoprodol 350 Mg Tablet 1 Tab PO TID 11/02/17 Reported Alprazolam 0.5 Mg Tablet 1 Tab PO TID PRN 11/02/17 Reported Protonix (Pantoprazole Sodium) 20 Mg Tablet.dr 40 Mg PO DAILY 11/02/17 Reported Colace (Docusate Sodium) 100 Mg Capsule 200 Mg PO DAILY PRN 11/02/17 Reported Bupropion Hcl Sr (Bupropion Hcl) 200 Mg Tablet.er 300 Mg PO DAILY 11/02/17 Reported Paroxetine Hcl 40 Mg Tablet 1 Tab PO DAILY 11/02/17 Reported Losartan Potassium 100 Mg Tablet 100 Mg PO DAILY 11/02/17 Reported Cardizem Tablet (Diltiazem Hcl) 60 Mg Tablet 300 Mg PO DAILY 11/02/17 Reported Impression . 1. Acute hypoxemic respiratory failure, multifactorial secondary to pneumonia and chronic obstructive pulmonary disease exacerbation. 2. Abnormal x-ray compatible with pneumonia, suspect gram negative. 3. Leukocytosis. 4. Hypokalemia. 5. Severe malnutrition, present upon admission. 6. Abnormal x-ray as indicated above, revealing possible interstitial edema. 7. Abnormal CT chest dated 09/03/2018 revealing right upper lobe nodule. Plan . Acute hypoxemic respiratory failure, HOPEFULLY HOME 10/11/ * multifactorial secondary to pneumonia * Abnormal x-ray compatible with pneumonia, suspect gram negative.and revealing possible interstitial edema. * cont. IV abx * cont. supplemental oxygen to keep sats above 92% WILL NEED A 6 MW * cont. bronchodilators Chronic obstructive pulmonary disease exacerbation. * cont. IV steroids * cont. above Leukocytosis. * labs pending today * monitor Hypokalemia. * replace and monitor Severe malnutrition, present upon admission. 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 intake Pulmonary nodule * Abnormal CT chest dated 09/03/2018 revealing right upper lobe nodule. * follow up CT in November Tobaccoism * encourage cessation TY SOTO MD Oct 10, 2018 10:57
--- NOTE | 2018-10-10 12:04 | PDOC ---
PROGRESS NOTES Chief Complaint Chief Complaint 1. Acute hypoxemic respiratory failure, multifactorial secondary to pneumonia and chronic obstructive pulmonary disease exacerbation. 2. Abnormal x-ray compatible with pneumonia, suspect gram negative. 3. Leukocytosis. 4. Hypokalemia. 5. Severe malnutrition, present upon admission. 6. Abnormal x-ray as indicated above, revealing possible interstitial edema. 7. Abnormal CT chest dated 09/03/2018 revealing right upper lobe nodule. History of Present Illness History of Present Illness Wheezy, easily desats per RN We have replaced potassium She does smoke a pack a day at least Smoking cessation counseling done one-to-one less than 30 minutes I provided her her chest x-ray copy she has just ambulated inside her room PLAn: Not ready for DC Nicotine patch CPM-on Solu-Medrol 80 IV every 8 smoking cessation 6 Minute walk-she does take oxygen at home-see if she needs more/settings need to be changed Vitals Vitals Vital Signs Date Time Temp Pulse Resp B/P (MAP) Pulse Ox O2 Delivery O2 Flow Rate FiO2 10/10/18 10:53 98.2 94 165/74 (104) 97 Venturi Mask 98.2 10/10/18 09:19 4.0 10/10/18 04:07 20 Physical Exam General: Alert, Oriented X3, Cooperative, No acute distress, mild distress Heart: Regular rate, Normal S1, Normal S2 Lungs: Wheezing Abdomen: Normal bowel sounds, Soft Extremities: No clubbing, No cyanosis, No edema, Normal pulses Skin: No rashes, No breakdown Labs LABS Laboratory Tests Test 10/09/18 14:20 White Blood Count 26.7 x10^3/uL (4.0-11.0) Red Blood Count 3.61 x10^6/uL (3.50-5.40) Hemoglobin 11.6 g/dL (12.0-15.5) Hematocrit 35.7 % (36.0-47.0) Mean Corpuscular Volume 99 fL (79-100) Mean Corpuscular Hemoglobin 32 pg (25-35) Mean Corpuscular Hemoglobin Concent 33 g/dL (31-37) Red Cell Distribution Width 18.4 % (11.5-14.5) Platelet Count 355 x10^3/uL (140-400) Sodium Level 142 mmol/L (136-145) Potassium Level 3.1 mmol/L (3.5-5.1) Chloride Level 104 mmol/L (98-107) Carbon Dioxide Level 24 mmol/L (21-32) Anion Gap 14 (6-14) Blood Urea Nitrogen 19 mg/dL (7-20) Creatinine 0.9 mg/dL (0.6-1.0) Estimated GFR (Cockcroft-Gault) 62.3 Glucose Level 204 mg/dL (70-99) Calcium Level 8.9 mg/dL (8.5-10.1) Review of Systems Review of Systems A 14 point ROS was completed with the following noted as positive: Other systems reviewed and negative. \CONSTITUTIONAL: No fever or chills EYES: No recent changes SKIN: No rash or itching CARDIOVASCULAR: No chest pain, syncope, palpitations, or edema RESPIRATORY: No SOB or cough GASTROINTESTINAL: No nausea, vomiting or abdominal pain NEUROLOGICAL: No headaches or weakness ENDOCRINE: No cold or heat intolerance GENITOURINARY: No urgency or frequency of urination MUSCULOSKELETAL: No back pain or joint pain LYMPHATICS: No enlarged lymph nodes PSYCHIATRIC: No anxiety or depression Assessment and Plan Assessmemt and Plan Problems Medical Problems: (1) Acute respiratory distress Status: Acute (2) CAP (community acquired pneumonia) Status: Acute (3) Hypokalemia Status: Acute (4) Hypoxemia Status: Acute (5) Sepsis Status: Acute (6) Tobacco abuse Status: Acute (7) Tobacco abuse counseling Status: Acute Comment Review of Relevant I have reviewed the following items minh (where applicable) has been applied. Labs Laboratory Tests Test 10/08/18 12:10 10/08/18 14:00 10/09/18 14:20 Lactic Acid Level 0.8 mmol/L (0.4-2.0) Nasal Screen MRSA (PCR) Positive (Negative) White Blood Count 26.7 x10^3/uL (4.0-11.0) Red Blood Count 3.61 x10^6/uL (3.50-5.40) Hemoglobin 11.6 g/dL (12.0-15.5) Hematocrit 35.7 % (36.0-47.0) Mean Corpuscular Volume 99 fL (79-100) Mean Corpuscular Hemoglobin 32 pg (25-35) Mean Corpuscular Hemoglobin Concent 33 g/dL (31-37) Red Cell Distribution Width 18.4 % (11.5-14.5) Platelet Count 355 x10^3/uL (140-400) Sodium Level 142 mmol/L (136-145) Potassium Level 3.1 mmol/L (3.5-5.1) Chloride Level 104 mmol/L (98-107) Carbon Dioxide Level 24 mmol/L (21-32) Anion Gap 14 (6-14) Blood Urea Nitrogen 19 mg/dL (7-20) Creatinine 0.9 mg/dL (0.6-1.0) Estimated GFR (Cockcroft-Gault) 62.3 Glucose Level 204 mg/dL (70-99) Calcium Level 8.9 mg/dL (8.5-10.1) Laboratory Tests Test 10/09/18 14:20 White Blood Count 26.7 x10^3/uL (4.0-11.0) Red Blood Count 3.61 x10^6/uL (3.50-5.40) Hemoglobin 11.6 g/dL (12.0-15.5) Hematocrit 35.7 % (36.0-47.0) Mean Corpuscular Volume 99 fL (79-100) Mean Corpuscular Hemoglobin 32 pg (25-35) Mean Corpuscular Hemoglobin Concent 33 g/dL (31-37) Red Cell Distribution Width 18.4 % (11.5-14.5) Platelet Count 355 x10^3/uL (140-400) Sodium Level 142 mmol/L (136-145) Potassium Level 3.1 mmol/L (3.5-5.1) Chloride Level 104 mmol/L (98-107) Carbon Dioxide Level 24 mmol/L (21-32) Anion Gap 14 (6-14) Blood Urea Nitrogen 19 mg/dL (7-20) Creatinine 0.9 mg/dL (0.6-1.0) Estimated GFR (Cockcroft-Gault) 62.3 Glucose Level 204 mg/dL (70-99) Calcium Level 8.9 mg/dL (8.5-10.1) Medications Current Medications Sodium Chloride 1,000 ml @ 1,000 mls/hr Q1H IV Last administered on 10/08/18at 08:09; Start 10/08/18 at 08:09; Stop 10/08/18 at 09:08; Status DC Albuterol/ Ipratropium (Duoneb) 3 ml 1X ONCE NEB Last administered on 10/08/18at 08:56; Start 10/08/18 at 08:15; Stop 10/08/18 at 08:16; Status DC Methylprednisolone Sodium Succinate (SOLU-Medrol 125MG VIAL) 125 mg 1X ONCE IV Last administered on 10/08/18at 08:39; Start 10/08/18 at 08:15; Stop 10/08/18 at 08:16; Status DC Sodium Chloride 1,000 ml @ 1,000 mls/hr 1X ONCE IV Last administered on 10/08/18at 09:44; Start 10/08/18 at 09:00; Stop 10/08/18 at 09:59; Status DC Piperacillin Sod/ Tazobactam Sod 3.375 gm/Sodium Chloride 50 ml @ 100 mls/hr 1X ONCE IV Last administered on 10/08/18at 09:14; Start 10/08/18 at 09:00; Stop 10/08/18 at 09:29; Status DC Vancomycin HCl 250 ml @ 250 mls/hr 1X ONCE IV Last administered on 10/08/18at 09:46; Start 10/08/18 at 09:00; Stop 10/08/18 at 09:59; Status DC Sodium Chloride 1,000 ml @ 75 mls/hr [id number] IV Last administered on 10/09/18at 02:50; Start 10/08/18 at 08:47; Stop 10/09/18 at 08:46; Status DC Potassium Chloride/Water 100 ml @ 100 mls/hr Q1H IV Last administered on 10/08/18at 12:36; Start 10/08/18 at 09:00; Stop 10/08/18 at 10:59; Status DC Fentanyl Citrate (Fentanyl 2ml Vial) 25 mcg 1X ONCE IV Last administered on 10/08/18at 10:13; Start 10/08/18 at 10:00; Stop 10/08/18 at 10:01; Status DC Acetaminophen (Tylenol) 650 mg TID PRN PRN PO HEADACHE/TEMP Last administered on 10/10/18at 00:53; Start 10/08/18 at 12:15 Alprazolam (Xanax) 0.5 mg PRN TID PRN PO ANXIETY / AGITATION Last administered on 10/09/18 23:00; Start 10/08/18 at 12:15 Clonidine HCl (Catapres) 0.2 mg PRN BID PRN PO ELEVATED BP, SEE COMMENTS; Start 10/08/18 at 12:15 Docusate Sodium (Colace) 200 mg PRN DAILY PRN PO CONSTIPATION; Start 10/08/18 at 12:15 Oxycodone HCl (Roxicodone) 10 mg QID PO Last administered on 10/10/18 08:08; Start 10/08/18 at 13:00 Bupropion HCl (Wellbutrin Sr) 300 mg DAILY PO Last administered on 10/10/18 08:10; Start 10/08/18 at 13:00 Non-Formulary Medication (Carisoprodol ) 1 tab TID PO Last administered on 10/10/18 08:12; Start 10/08/18 at 14:00 Diltiazem HCl (Cardizem 24hr Cd) 300 mg DAILY PO Last administered on 10/10/18 08:09; Start 10/08/18 at 13:00 Lactobacillus Rhamnosus (Culturelle) 3 cap DAILY PO Last administered on 09/18 08:10; Start 10/08/18 at 13:00 Losartan Potassium (Cozaar) 100 mg DAILY PO Last administered on 10/10/18 08:11; Start 10/08/18 at 13:00 Ondansetron HCl (Zofran Odt) 4 mg PRN Q6HRS PRN PO NAUSEA/VOMITING; Start 10/08/18 at 12:30 Pantoprazole Sodium (Protonix) 40 mg DAILYAC PO Last administered on 10/10/18 08:09; Start 10/08/18 at 13:00 Paroxetine HCl (Paxil) 40 mg DAILY PO Last administered on 10/10/18 08:11; Start 10/08/18 at 13:00 Albuterol Sulfate (Ventolin Neb Soln) 2.5 mg RTQID NEB Last administered on 10/10/18 09:17; Start 10/08/18 at 16:00 Budesonide (Pulmicort) 0.5 mg RTBID NEB Last administered on 10/10/18 09:17; Start 10/08/18 at 20:00 Piperacillin Sod/ Tazobactam Sod (Zosyn Per Pharmacy) 1 each PRN DAILY PRN MC SEE COMMENTS; Start 10/08/18 at 15:45 Methylprednisolone Sodium Succinate (SOLU-Medrol 40MG VIAL) 80 mg Q8HRS IV Last administered on 10/10/18at 05:30; Start 10/08/18 at 16:00 Enoxaparin Sodium (Lovenox 30mg Syringe) 30 mg Q24H SQ Last administered on 10/09/18at 16:20; Start 10/08/18 at 16:00 Piperacillin Sod/ Tazobactam Sod 2.25 gm/Sodium Chloride 50 ml @ 100 mls/hr Q6HRS IV Last administered on 10/10/18 05:30; Start 10/08/18 at 16:00 Enoxaparin Sodium (Lovenox Per Pharmacy Prophylaxis Dosing) 1 each PRN DAILY PRN MC SEE COMMENTS; Start 10/08/18 at 16:30; Status UNV Non-Formulary Medication (Oxycodone Hcl (Oxycodone Hcl Immed.release)) 10 mg QID PO ; Start 10/09/18 at 09:00; Status UNV Guaifenesin (Mucinex) 600 mg BID PO Last administered on 10/10/18at 08:09; Start 10/09/18 at 21:00 Benzonatate (Tessalon Perle) 100 mg [id number] PO Last administered on 10/10/18at 08:10; Start 10/09/18 at 14:00 Potassium Chloride (Klor-Con) 40 meq 1X ONCE PO Last administered on 10/09/18at 20:55; Start 10/09/18 at 20:45; Stop 10/09/18 at 20:46; Status DC Active Scripts Active Zofran (Ondansetron Hcl) 4 Mg Tablet 1 Tab PO Q6HRS PRN Reported Oxycodone Hcl Immed.release (Oxycodone Hcl) 10 Mg Tablet 10 Mg PO QID Doxycycline Hyclate 100 Mg Capsule 1 Cap PO BID Probiotic (Lactobacillus Combo No.11) 1 Each Cap.sprink 3 Each PO DAILY Tylenol (Acetaminophen) 325 Mg Tablet 650 Mg PO TID PRN PRN Anoro Ellipta 62.5-25 Mcg Inh (Umeclidinium Brm/Vilanterol Tr) 1 Each Disk.w.dev 1 Each IH DAILY PRN Clonidine Hcl 0.2 Mg Tablet 1 Tab PO BID PRN Carisoprodol 350 Mg Tablet 1 Tab PO TID Alprazolam 0.5 Mg Tablet 1 Tab PO TID PRN Protonix (Pantoprazole Sodium) 20 Mg Tablet.dr 40 Mg PO DAILY Colace (Docusate Sodium) 100 Mg Capsule 200 Mg PO DAILY PRN Bupropion Hcl Sr (Bupropion Hcl) 200 Mg Tablet.er 300 Mg PO DAILY Paroxetine Hcl 40 Mg Tablet 1 Tab PO DAILY Losartan Potassium 100 Mg Tablet 100 Mg PO DAILY Cardizem Tablet (Diltiazem Hcl) 60 Mg Tablet 300 Mg PO DAILY Vitals/I & O Vital Sign - Last 24 Hours 10/09/18 10/09/18 10/09/18 10/09/18 12:22 14:48 15:44 17:12 Temp 98.4 98.4 Pulse 99 Resp 18 B/P (MAP) 133/62 (85) Pulse Ox 91 92 O2 Delivery Venturi Mask Venturi Mask Venturi Mask Venturi Mask O2 Flow Rate 12.0 15.0 12.0 12.0 10/09/18 10/09/18 10/09/18 10/09/18 19:25 19:42 19:45 20:00 Temp 97.7 97.7 Pulse 76 Resp 20 20 B/P (MAP) 123/61 (81) Pulse Ox 96 92 92 O2 Delivery Venturi Mask Venturi Mask Venturi Mask Venturi Mask O2 Flow Rate 12.0 12.0 12.0 10/09/18 10/09/18 10/10/18 10/10/18 20:42 23:05 03:00 04:07 Temp 97.8 98.2 97.8 98.2 Pulse 79 82 84 Resp 20 20 20 B/P (MAP) 137/62 (87) 177/77 (110) Pulse Ox 95 96 O2 Delivery Venturi Mask Venturi Mask 10/10/18 10/10/18 10/10/18 10/10/18 07:30 08:00 08:08 08:09 Temp 97.6 97.6 Pulse 86 92 B/P (MAP) 132/74 (93) 175/74 Pulse Ox 100 99 O2 Delivery Venturi Mask Venturi Mask O2 Flow Rate 12.0 12.0 10/10/18 10/10/18 10/10/18 10/10/18 08:11 09:08 09:19 10:53 Temp 98.2 98.2 Pulse 92 94 B/P (MAP) 175/74 165/74 (104) Pulse Ox 95 98 97 O2 Delivery Nasal Cannula Nasal Cannula Venturi Mask O2 Flow Rate 4.0 4.0 Intake and Output 10/09/18 10/09/18 10/10/18 14:59 22:59 06:59 Intake Total 240 ml 360 ml 680 ml Output Total 800 ml 400 ml 1200 ml Balance -560 ml -40 ml -520 ml Nutrition Consultation Dietary Evaluation: Recommendations by RD: Increase Calorie Intake, Protein supplementation Comments: Ensure TID Expected Outcomes/Goals: P.O. intake to meet >75% estimated nutrition needs All nutrition related questions answered before d/c Malnutrition Findings: Food and Nutrition Intake (Mod: <75% est energy req 7days Body Fat Depletion (Non Severe: Mod to Severe Weight Status: Appropriate KORI DEJESUS MD Oct 10, 2018 12:04
[2018-10-10 14:43] VITALS: BP 140/63
[2018-10-10] MEDS ORDERED: DEXTROSE 50% 25 GM / 50ML DISP.SYRIN. IV PRN (14:45)
--- NOTE | 2018-10-10 16:13 | NUR ---
SS following up with discharge planning. PT/OT evaluated pt and recommended home with assistance. SS will continue to follow for discharge planning.
[2018-10-10] MEDS: ENOXAPARIN 30 MG/0.3 ML SYRINGE. SQ SCH (16:51)
[2018-10-10] MEDS: INSULIN LISPRO 300 UNITS/3 ML INSULN.PEN. SQ SCH (17:58)
[2018-10-10 19:00] VITALS: BP 153/75
--- NOTE | 2018-10-10 19:06 | NUR ---
Patient complaining of her legs being swollen. Elevated patient's legs. Legs are 2+ generalized swelling.
[2018-10-10] MEDS: ALPRAZolam 0.5 MG TABLET PO PRN (20:39)
[2018-10-10 23:00] VITALS: BP 153/64
[2018-10-11] MEDS: ACETAMINOPHEN 325 MG TABLET. PO PRN ×2 (01:54→13:05)
[2018-10-11 03:00] VITALS: BP 182/83
[2018-10-11 04:40] LABS: CALCIUM 9.3 mg/dL (8.5-10.1); CREATININE 0.6 mg/dL (0.6-1.0); GFR 99.4
[2018-10-11] MEDS: PANTOPRAZOLE 40 MG TABLET.DR. PO SCH (05:23)
[2018-10-11] MEDS: ALPRAZolam 0.5 MG TABLET PO PRN ×2 (05:24→11:03)
[2018-10-11] MEDS: methylPREDNISolone SOD SUCC PF 40 MG/ML VIAL. IV SCH (05:24)
[2018-10-11] MEDS: PIPERACILLIN/TAZOBACTAM 2.25 GM in IV NORMAL SALINE 50ML 50 ML IV SCH ×2 (05:24→12:00)
[2018-10-11 07:00] VITALS: BP 177/86
[2018-10-11] MEDS: INSULIN LISPRO 300 UNITS/3 ML INSULN.PEN. SQ SCH ×2 (07:53→12:00)
[2018-10-11] MEDS: oxyCODONE IR 5 MG TABLET PO SCH ×2 (07:55→11:03)
[2018-10-11] MEDS: LACTOBACILLUS RHAMNOSUS GG 1 CAPSULE. PO SCH (07:56)
[2018-10-11] MEDS: PARoxetine 20 MG TABLET PO SCH (07:56)
[2018-10-11] MEDS: buPROPion SR 150 MG TABLET.SA PO SCH (07:56)
[2018-10-11] MEDS: BENZONATATE 100 MG CAPSULE. PO SCH ×2 (07:57→13:05)
[2018-10-11] MEDS: LOSARTAN POTASSIUM 50 MG TABLET. PO SCH (07:57)
[2018-10-11] MEDS: CARISOPRODOL 350 MG PO SCH ×2 (07:58→13:05)
--- NOTE | 2018-10-11 09:17 | PDOC ---
PULMONARY PROGRESS NOTES Subjective BETTER TODAY Vitals Vital Signs Date Time Temp Pulse Resp B/P (MAP) Pulse Ox O2 Delivery O2 Flow Rate FiO2 10/11/18 07:57 105 177/86 10/11/18 07:55 20 Nasal Cannula 4.0 10/11/18 07:00 98.3 96 98.3 ROS: No Nausea, No Chest Pain, No Abdominal Pain General: Alert, Oriented X4 Lungs: Wheezing Cardiovascular: S1, S2 Abdomen: Soft, Non-tender Neuro Exam: Alert, Oriented, Normal Speech Extremities: No Edema Skin: Warm, Dry Labs Laboratory Tests Test 10/09/18 14:20 10/10/18 16:31 10/10/18 20:51 10/11/18 03:50 White Blood Count 26.7 x10^3/uL (4.0-11.0) Red Blood Count 3.61 x10^6/uL (3.50-5.40) Hemoglobin 11.6 g/dL (12.0-15.5) Hematocrit 35.7 % (36.0-47.0) Mean Corpuscular Volume 99 fL (79-100) Mean Corpuscular Hemoglobin 32 pg (25-35) Mean Corpuscular Hemoglobin Concent 33 g/dL (31-37) Red Cell Distribution Width 18.4 % (11.5-14.5) Platelet Count 355 x10^3/uL (140-400) Sodium Level 142 mmol/L (136-145) 144 mmol/L (136-145) Potassium Level 3.1 mmol/L (3.5-5.1) 3.0 mmol/L (3.5-5.1) Chloride Level 104 mmol/L (98-107) 101 mmol/L (98-107) Carbon Dioxide Level 24 mmol/L (21-32) 33 mmol/L (21-32) Anion Gap 14 (6-14) 10 (6-14) Blood Urea Nitrogen 19 mg/dL (7-20) 15 mg/dL (7-20) Creatinine 0.9 mg/dL (0.6-1.0) 0.6 mg/dL (0.6-1.0) Estimated GFR (Cockcroft-Gault) 62.3 99.4 Glucose Level 204 mg/dL (70-99) 157 mg/dL (70-99) Calcium Level 8.9 mg/dL (8.5-10.1) 9.3 mg/dL (8.5-10.1) Glucose (Fingerstick) 159 mg/dL (70-99) 203 mg/dL (70-99) Test 10/11/18 07:13 Glucose (Fingerstick) 137 mg/dL (70-99) Laboratory Tests Test 10/10/18 16:31 10/10/18 20:51 10/11/18 03:50 10/11/18 07:13 Glucose (Fingerstick) 159 mg/dL (70-99) 203 mg/dL (70-99) 137 mg/dL (70-99) Sodium Level 144 mmol/L (136-145) Potassium Level 3.0 mmol/L (3.5-5.1) Chloride Level 101 mmol/L (98-107) Carbon Dioxide Level 33 mmol/L (21-32) Anion Gap 10 (6-14) Blood Urea Nitrogen 15 mg/dL (7-20) Creatinine 0.6 mg/dL (0.6-1.0) Estimated GFR (Cockcroft-Gault) 99.4 Glucose Level 157 mg/dL (70-99) Calcium Level 9.3 mg/dL (8.5-10.1) Medications Active Scripts Medications Dose Route/Sig Max Daily Dose Days Date Category Oxycodone Hcl Immed.release (Oxycodone Hcl) 10 Mg Tablet 10 Mg PO QID 10/08/18 Reported Zofran (Ondansetron Hcl) 4 Mg Tablet 1 Tab PO Q6HRS PRN 08/30/18 Rx Doxycycline Hyclate 100 Mg Capsule 1 Cap PO BID 04/12/18 Reported Probiotic (Lactobacillus Combo No.11) 1 Each Cap.sprink 3 Each PO DAILY 04/12/18 Reported Tylenol (Acetaminophen) 325 Mg Tablet 650 Mg PO TID PRN PRN 04/12/18 Reported Anoro Ellipta 62.5-25 Mcg Inh (Umeclidinium Brm/Vilanterol Tr) 1 Each Disk.w.dev 1 Each IH DAILY PRN 11/02/17 Reported Clonidine Hcl 0.2 Mg Tablet 1 Tab PO BID PRN 11/02/17 Reported Carisoprodol 350 Mg Tablet 1 Tab PO TID 11/02/17 Reported Alprazolam 0.5 Mg Tablet 1 Tab PO TID PRN 11/02/17 Reported Protonix (Pantoprazole Sodium) 20 Mg Tablet.dr 40 Mg PO DAILY 11/02/17 Reported Colace (Docusate Sodium) 100 Mg Capsule 200 Mg PO DAILY PRN 11/02/17 Reported Bupropion Hcl Sr (Bupropion Hcl) 200 Mg Tablet.er 300 Mg PO DAILY 11/02/17 Reported Paroxetine Hcl 40 Mg Tablet 1 Tab PO DAILY 11/02/17 Reported Losartan Potassium 100 Mg Tablet 100 Mg PO DAILY 11/02/17 Reported Cardizem Tablet (Diltiazem Hcl) 60 Mg Tablet 300 Mg PO DAILY 11/02/17 Reported Active Scripts Medications Dose Route/Sig Max Daily Dose Days Date Category Oxycodone Hcl Immed.release (Oxycodone Hcl) 10 Mg Tablet 10 Mg PO QID 10/08/18 Reported Zofran (Ondansetron Hcl) 4 Mg Tablet 1 Tab PO Q6HRS PRN 08/30/18 Rx Doxycycline Hyclate 100 Mg Capsule 1 Cap PO BID 04/12/18 Reported Probiotic (Lactobacillus Combo No.11) 1 Each Cap.sprink 3 Each PO DAILY 04/12/18 Reported Tylenol (Acetaminophen) 325 Mg Tablet 650 Mg PO TID PRN PRN 04/12/18 Reported Anoro Ellipta 62.5-25 Mcg Inh (Umeclidinium Brm/Vilanterol Tr) 1 Each Disk.w.dev 1 Each IH DAILY PRN 11/02/17 Reported Clonidine Hcl 0.2 Mg Tablet 1 Tab PO BID PRN 11/02/17 Reported Carisoprodol 350 Mg Tablet 1 Tab PO TID 11/02/17 Reported Alprazolam 0.5 Mg Tablet 1 Tab PO TID PRN 11/02/17 Reported Protonix (Pantoprazole Sodium) 20 Mg Tablet.dr 40 Mg PO DAILY 11/02/17 Reported Colace (Docusate Sodium) 100 Mg Capsule 200 Mg PO DAILY PRN 11/02/17 Reported Bupropion Hcl Sr (Bupropion Hcl) 200 Mg Tablet.er 300 Mg PO DAILY 11/02/17 Reported Paroxetine Hcl 40 Mg Tablet 1 Tab PO DAILY 11/02/17 Reported Losartan Potassium 100 Mg Tablet 100 Mg PO DAILY 11/02/17 Reported Cardizem Tablet (Diltiazem Hcl) 60 Mg Tablet 300 Mg PO DAILY 11/02/17 Reported Impression . 1. Acute hypoxemic respiratory failure, multifactorial secondary to pneumonia and chronic obstructive pulmonary disease exacerbation. 2. Abnormal x-ray compatible with pneumonia, suspect gram negative. 3. Leukocytosis. 4. Hypokalemia. 5. Severe malnutrition, present upon admission. 6. Abnormal x-ray as indicated above, revealing possible interstitial edema. 7. Abnormal CT chest dated 09/03/2018 revealing right upper lobe nodule. 8. CHRONIC RESP FAILURE Plan . BETTER TODAY HOME RX FOR 02 2 LITERS WITH EXERTION FOLLOW UP IN NOVEMBER NEEDS REPEAT CT IN NOVEMBER SPOKE WITH 10/10 Acute hypoxemic respiratory failure, HOPEFULLY HOME 10/11/ * multifactorial secondary to pneumonia * Abnormal x-ray compatible with pneumonia, suspect gram negative.and revealing possible interstitial edema. * cont. IV abx * cont. supplemental oxygen to keep sats above 92% WILL NEED A 6 MW * cont. bronchodilators Chronic obstructive pulmonary disease exacerbation. * cont. IV steroids * cont. above Leukocytosis. * labs pending today * monitor Hypokalemia. * replace and monitor Severe malnutrition, present upon admission. * impregnator helper to follow ensure with meals * encourage p.o. intake Pulmonary nodule * Abnormal CT chest dated 09/03/2018 revealing right upper lobe nodule. * follow up CT in November Tobaccoism * encourage cessation TY SOTO MD Oct 11, 2018 09:17
[2018-10-11] MEDS ORDERED: GUAI600T47 PO (10:08)
[2018-10-11] MEDS ORDERED: BENZ-8 PO (10:08)
[2018-10-11] MEDS ORDERED: BUDE0.5A NEB (10:08)
[2018-10-11] MEDS ORDERED: LEVO500T59 PO (10:08)
[2018-10-11] MEDS ORDERED: ALBU2.5V8 INH (10:08)
--- NOTE | 2018-10-11 10:10 | PDOC3 ---
Discharge Summary Visit Information Date of Admission: Oct 08, 2018 Date of Discharge: Oct 11, 2018 Admitting Diagnosis Comment: 1. Acute hypoxemic respiratory failure, multifactorial secondary to pneumonia and chronic obstructive pulmonary disease exacerbation. 2. Abnormal x-ray compatible with pneumonia, suspect gram negative. 3. Leukocytosis. 4. Hypokalemia. 5. Severe malnutrition, present upon admission. 6. Abnormal x-ray as indicated above, revealing possible interstitial edema. 7. Abnormal CT chest dated 09/03/2018 revealing right upper lobe nodule. Final Diagnosis Problems Medical Problems: (1) Acute respiratory distress Status: Acute (2) CAP (community acquired pneumonia) Status: Acute (3) Hypokalemia Status: Acute (4) Hypoxemia Status: Acute (5) Sepsis Status: Acute (6) Tobacco abuse Status: Acute (7) Tobacco abuse counseling Status: Acute Brief Hospital Course Allergies Allergies Coded Allergies Type Severity Reaction Last Updated Verified Iodinated Contrast- Oral and IV Dye Allergy Intermediate 01/22/18 Yes acyclovir Allergy Intermediate Rash 01/22/18 Yes iodine Allergy Intermediate 01/22/18 Yes I S O L A T I O N *CONTACT* Allergy Unknown 01/22/18 Yes morphine Adverse Reaction Intermediate Nausea 01/22/18 Yes Vital Signs Vital Signs Date Time Temp Pulse Resp B/P (MAP) Pulse Ox O2 Delivery O2 Flow Rate FiO2 10/11/18 08:00 Nasal Cannula 4.0 10/11/18 07:57 105 177/86 10/11/18 07:55 20 10/11/18 07:00 98.3 96 98.3 Lab Results Laboratory Tests Test 10/09/18 14:20 10/10/18 16:31 10/10/18 20:51 10/11/18 03:50 White Blood Count 26.7 x10^3/uL (4.0-11.0) Red Blood Count 3.61 x10^6/uL (3.50-5.40) Hemoglobin 11.6 g/dL (12.0-15.5) Hematocrit 35.7 % (36.0-47.0) Mean Corpuscular Volume 99 fL (79-100) Mean Corpuscular Hemoglobin 32 pg (25-35) Mean Corpuscular Hemoglobin Concent 33 g/dL (31-37) Red Cell Distribution Width 18.4 % (11.5-14.5) Platelet Count 355 x10^3/uL (140-400) Sodium Level 142 mmol/L (136-145) 144 mmol/L (136-145) Potassium Level 3.1 mmol/L (3.5-5.1) 3.0 mmol/L (3.5-5.1) Chloride Level 104 mmol/L (98-107) 101 mmol/L (98-107) Carbon Dioxide Level 24 mmol/L (21-32) 33 mmol/L (21-32) Anion Gap 14 (6-14) 10 (6-14) Blood Urea Nitrogen 19 mg/dL (7-20) 15 mg/dL (7-20) Creatinine 0.9 mg/dL (0.6-1.0) 0.6 mg/dL (0.6-1.0) Estimated GFR (Cockcroft-Gault) 62.3 99.4 Glucose Level 204 mg/dL (70-99) 157 mg/dL (70-99) Calcium Level 8.9 mg/dL (8.5-10.1) 9.3 mg/dL (8.5-10.1) Glucose (Fingerstick) 159 mg/dL (70-99) 203 mg/dL (70-99) Test 10/11/18 07:13 Glucose (Fingerstick) 137 mg/dL (70-99) Laboratory Tests Test 10/10/18 16:31 10/10/18 20:51 10/11/18 03:50 10/11/18 07:13 Glucose (Fingerstick) 159 mg/dL (70-99) 203 mg/dL (70-99) 137 mg/dL (70-99) Sodium Level 144 mmol/L (136-145) Potassium Level 3.0 mmol/L (3.5-5.1) Chloride Level 101 mmol/L (98-107) Carbon Dioxide Level 33 mmol/L (21-32) Anion Gap 10 (6-14) Blood Urea Nitrogen 15 mg/dL (7-20) Creatinine 0.6 mg/dL (0.6-1.0) Estimated GFR (Cockcroft-Gault) 99.4 Glucose Level 157 mg/dL (70-99) Calcium Level 9.3 mg/dL (8.5-10.1) Brief Hospital Course Ms. Ordaz is a 68 old female who continues to smoke, admitted for COPD exacerbation with large wheezing component. Comanage with pulmonary Treated for pneumonia/acute bronchitis Not on O2 but most likely might need O2 as she desats quickly 6 minute walk is pending No element of CHF or other medical issues But high wheezing component as mentioned above Discharge disposition home with Meds, pro-air, Pulmicort, cough medicine, Levaquin by mouth, etc. Discharge Information Condition at Discharge: Improved, Stable Follow Up: Weeks (PCP or pulmo 4 weeks) Disposition/Orders: D/C to Home Scheduled Benzonatate (Benzonatate) 100 Mg Capsule, 100 MG PO [id number] for cough MDD 1, #30 Prescribed by: KORI DEJESUS on 10/11/18 1008 Budesonide (Budesonide) 0.5 Mg/2 Ml Ampul.neb, 0.5 MG NEB RTBID for copd MDD 1, #60 Prescribed by: KORI DEJESUS on 10/11/18 1008 Bupropion Hcl (Bupropion Hcl Sr) 200 Mg Tablet.er, 300 MG PO DAILY, (Reported) Entered as Reported by: MADALYN DASILVA on 11/02/17 1424 Last Action: Converted on 10/08/18 1213 by ALPESH MINAYA Carisoprodol (Carisoprodol) 350 Mg Tablet, 1 TAB PO TID, #90 (Reported) Entered as Reported by: MADALYN DASILVA on 11/02/17 1426 Last Action: Converted on 10/08/18 1213 by ALPESH MINAYA Diltiazem Hcl (Cardizem Tablet) 60 Mg Tablet, 300 MG PO DAILY for FOR HYPERTENSION, #30 Ref 0 (Reported) Entered as Reported by: MADALYN DASILVA on 11/02/17 1420 Last Action: Converted on 10/08/18 1213 by ALPESH MINAYA Doxycycline Hyclate (Doxycycline Hyclate) 100 Mg Capsule, 1 CAP PO BID, #14 (Reported) Entered as Reported by: MADALYN DASILVA on 04/12/18 1023 Last Action: HELD on 10/09/18 0826 by KORI DEJESUS Guaifenesin (Mucinex) 600 Mg Tablet.er, 600 MG PO BID for cough MDD 1, #30 Prescribed by: KORI DEJESUS on 10/11/18 1008 Lactobacillus Combo No.11 (Probiotic) 1 Each Cap.sprink, 3 EACH PO DAILY, (Reported) Entered as Reported by: MADALYN DASILVA on 04/12/18 1022 Last Action: Converted on 10/08/181212 by ALPESH MINAYA Levofloxacin (Levaquin) 500 Mg Tablet, 1 TAB PO DAILY for pna, #7 Prescribed by: KORI DEJESUS on 10/11/18 1008 Losartan Potassium (Losartan Potassium) 100 Mg Tablet, 100 MG PO DAILY, (Reported) Entered as Reported by: MADALYN DASILVA on 11/02/171420 Last Action: Converted on 10/08/181212 by ALPESH MINAYA Oxycodone Hcl (Oxycodone Hcl Immed.release) 10 Mg Tablet, 10 MG PO QID, (Reported) Entered as Reported by: JUAN RAMON LEE RPH on 10/08/18 1224 Last Action: Converted on 10/09/18 0826 by KORI DEJESUS Pantoprazole Sodium (Protonix) 20 Mg Tablet.dr, 40 MG PO DAILY, (Reported) Entered as Reported by: MADALYN DASILVA on 11/02/171424 Last Action: Converted on 10/08/181212 by ALPESH MINAYA Paroxetine Hcl (Paroxetine Hcl) 40 Mg Tablet, 1 TAB PO DAILY, #30 Ref 5 (Reported) Entered as Reported by: MADALYN DASILVA on 11/02/171420 Last Action: Converted on 10/08/181212 by ALPESH MINAYA Scheduled PRN Acetaminophen (Tylenol) 325 Mg Tablet, 650 MG PO TID PRN PRN for PAIN, (Reported) Entered as Reported by: MADALYN DASILVA on 04/12/18 1022 Last Action: Continued on 10/08/181212 by ALPESH MINAYA Albuterol Sulfate (Proair Hfa Inhaler) 8.5 Gm Hfa.aer.ad, 1 PUFF INH PRN Q6HRS PRN for SHORTNESS OF BREATH for 14 Days, Ref 0 Prescribed by: KORI DEJESUS on 10/11/18 1008 Alprazolam (Alprazolam) 0.5 Mg Tablet, 1 TAB PO TID PRN for ANXIETY / AGITATION, #90 (Reported) Entered as Reported by: MADALYN DASILVA on 11/02/171424 Last Action: Continued on 10/08/181212 by ALPESH MINAYA Clonidine Hcl (Clonidine Hcl) 0.2 Mg Tablet, 1 TAB PO BID PRN for ELEVATED BP, SEE COMMENTS, #60 Ref 5 (Reported) Entered as Reported by: MADALYN DASILVA on 11/02/171426 Last Action: Continued on 10/08/181212 by ALPESH MINAYA Docusate Sodium (Colace) 100 Mg Capsule, 200 MG PO DAILY PRN for CONSTIPATION, (Reported) Entered as Reported by: MADALYN DASILVA on 11/02/17 1425 Last Action: Continued on 10/08/181212 by ALPESH MINAYA Ondansetron Hcl (Zofran) 4 Mg Tablet, 1 TAB PO Q6HRS PRN for NAUSEA/VOMITING, #20 Prescribed by: WIL CHOWDARY MD on 08/30/18 1019 Last Action: Converted on 10/08/181212 by ALPESH MINAYA Umeclidinium Brm/Vilanterol Tr (Anoro Ellipta 62.5-25 Mcg Inh) 1 Each Disk.w.dev, 1 EACH IH DAILY PRN for CONGESTION, (Reported) Entered as Reported by: MADALYN DASILVA on 11/02/171428 Last Action: Converted on 10/08/181212 by ALPESH MINAYA Discontinued Medications Oxycodone Hcl (Oxycontin ) 10 Mg Tab.er.12h, 10 MG PO QID for PAIN, (Reported) Discontinued Reason: NOT ER Entered as Reported by: IRA ZIMMERMAN on 09/13/18 1133 Last Action: Discontinued on 10/08/18 1224 by JUAN RAMON LEE [facility] KORI DEJESUS MD Oct 11, 2018 10:10
[2018-10-11 10:59] VITALS: BP 161/72
--- NOTE | 2018-10-11 13:58 | NUR ---
Dr. Vazquez here to see patient. Lisa Social Work here to see patient for home oxygen and brought tank for home use and phone number for patient to call when arrives home to notify oxygen company for concentrator. Patient and verb. understanding. Patient verb. understanding home instructions, medications and prescriptions and patient received her home medication Soma back.
--- NOTE | 2018-10-11 14:07 | NUR ---
Patient discharge to home with her with home oxygen tank with oxygen at 2 liters per NC, all instructions, prescriptions and belongings.
--- NOTE | 2018-10-11 15:23 | NUR ---
SS following up with discharge planning. Prior to discharge SS received order for oxygen. SS phoned and faxed order and clinical to [facility], ; fax [phone]. SS provided pt and spouse with oxygen tank for home. Pt's RN notified.
[2018-10-26] MEDS ORDERED: NICO1PAT25 TP (10:00)
== END 2018-10-11 14:12 | disposition home or self-care (01) | DRG 871 ==
LOC: ER 07:50 → 2 NORTH 08:30
PROVIDERS: ADMIT Internal Medicine; ATTEND Internal Medicine
DX: A41.9 Sepsis, unspecified organism (principal); J15.6 Pneumonia due to other Gram-negative bacteria; J96.21 Acute and chronic respiratory failure with hypoxia; E43 Unspecified severe protein-calorie malnutrition; J44.0 Chronic obstructive pulmonary disease with (acute) lower respiratory infection; J44.1 Chronic obstructive pulmonary disease with (acute) exacerbation; Z68.1 Body mass index [BMI] 19.9 or less, adult; I10 Essential (primary) hypertension; E87.6 Hypokalemia; F32.9 Major depressive disorder, single episode, unspecified; F41.9 Anxiety disorder, unspecified; F17.210 Nicotine dependence, cigarettes, uncomplicated; J20.9 Acute bronchitis, unspecified; K21.9 Gastro-esophageal reflux disease without esophagitis; Z90.710 Acquired absence of both cervix and uterus; Z90.49 Acquired absence of other specified parts of digestive tract; Z91.041 Radiographic dye allergy status; Z88.5 Allergy status to narcotic agent; Z88.8 Allergy status to other drugs, medicaments and biological substances; Z82.0 Family history of epilepsy and other diseases of the nervous system
CPT/HCPCS: 36415; 36600; 71045; 80048; 80053; 81001; 82550; 82805; 82962; 83605; 83735; 83880; 84484; 85007; 85025; 85027; 87641; 87804; 93005; 94618; 94640; 94760; 96361; 96365; 96367; 96375; J1650; J1815; J2543; J2920; J2930; J3010; J3370; J3480; J7030; J7613; J7620; J7626; 97116; 99291-25

== ENCOUNTER → 2018-10-25 | Outpatient (CLI) | payer MEDICARE, OTHER ==
[2018-10-11 10:59] VITALS: BP 161/72
[~2018-10-25] MED LIST changes: +ALBU2.5V8 INH; +BENZ-8 PO; +BUDE0.5A NEB; +GUAI600T47 PO; +IOHEXOL 240 MG/ML 50ML VIAL. PO ONE; +IOHEXOL 300 MG/ML 100ML VIAL. IV ONE; +LEVO500T59 PO; +NICO1PAT25 TP; +OXYC10TA PO; -PANT40TA5 PO; +PANT40TA77 PO
--- NOTE | 2018-10-25 17:28 | KCIC ---
CT study of the abdomen and pelvis with contrast Clinical indications: Right lower quadrant pain. TECHNIQUE: After IV infusion of 67 cc of Omnipaque 300, helical CT scanning of the abdomen and pelvis was performed. GI contrast was administered per mouth. PQRS compliance Statement One or more of the following individualized dose reduction techniques were utilized for this study: 1. Automated exposure control 2. Adjustment of the mA and/or kV according to patient size 3. Use of iterative reconstruction technique COMPARISON: August 24, 2018. FINDINGS: The liver and spleen are unremarkable. No focal enlargement of the pancreas is seen. There is mild dilatation of the main pancreatic duct. There is dilatation of the extra hepatic biliary tree down into the distal common bile duct. Gallbladder surgically absent. Common bile duct measures up to 14 mm. No adrenal mass is evident. No renal mass or hydronephrosis or hydroureter is evident. Urinary bladder is not distended. No focal aneurysmal dilatation of the abdominal aorta is seen. No enlarged abdominal or pelvic lymphadenopathy is evident. Rectal prolapse is seen. No obstructive bowel pattern or bowel wall thickening is seen. The appendix is not visualized but there are no secondary CT findings of appendicitis. No free air or free fluid or mesenteric edema is seen. There is an irregular nodular infiltrate of the posterior left lower lobe measuring at least 13 mm in size. This was not seen previously 2 months ago. Therefore, this is consistent with an inflammatory or infectious infiltrate rather than a neoplasm. No lytic process is seen. Fusion from L3 through L5 is evident. There is a compression deformity of T12. This was seen previously. IMPRESSION: New irregular nodular infiltrate of the left lower lobe. Since this was not seen 2 months ago, this is consistent with a new infectious or inflammatory infiltrate of the left lower lobe. No new abnormality of the abdomen or pelvis. Rectal prolapse is evident extending through a defect of the right side of the pelvic floor. Persistent dilatation of the extra hepatic biliary tree and main pancreatic duct which is unchanged from the prior study. This may be secondary to reservoir effect after cholecystectomy. Correlation with liver function tests may be helpful. Electronically signed by: Tulio Hagen MD (10/25/2018 5:26 PM) [place] [id number]
== END | disposition home or self-care (01) ==
LOC: KCIC CT 07:23
PROVIDERS: ATTEND Surgery
DX: K62.3 Rectal prolapse (principal); R91.8 Other nonspecific abnormal finding of lung field; I10 Essential (primary) hypertension; F17.200 Nicotine dependence, unspecified, uncomplicated; Z90.49 Acquired absence of other specified parts of digestive tract
CPT/HCPCS: 74177; Q9966; Q9967

== ENCOUNTER → 2018-10-26 | Outpatient (CLI) | payer MEDICARE, OTHER ==
[2018-10-11 10:59] VITALS: BP 161/72
[~2018-10-26] MED LIST changes: +IOHEXOL 180 MG/ML 10 ML VIAL. ONE; -IOHEXOL 240 MG/ML 50ML VIAL. PO ONE; -IOHEXOL 300 MG/ML 100ML VIAL. IV ONE; +PANT40TA5 PO; -PANT40TA77 PO; +methylPREDNISolone ACETATE 40 MG/ML VIAL. ONE
--- NOTE | 2018-10-26 21:44 | PAIN ---
DATE OF SERVICE: 10/26/2018 DIAGNOSES: 1. Cervical radiculopathy with cervical post-laminectomy syndrome. 2. Myofascial pain. 3. Lumbar radiculopathy with lumbar degenerative disk disease, spinal stenosis and post laminectomy syndrome, lumbar. HISTORY OF PRESENT ILLNESS: The patient is a 68-year-old female who returns for followup status post both trigger point injections as well as caudal epidural steroid injections, most recently 09/27/2018 and caudal injection on 09/13/2018. The patient reports about 50% improvement after each of these, but the pain is returning in the low back and radiating to posterior gluteus, posterior thighs and especially on the right side more than they had previously, but is worse with walking, but she has continued to walk daily as she is walking about half a mile a day each day, also is trying to quit smoking, is using a Nicoderm patch and some nicotine gum. The patient reports the pain is a 10 on a scale of 10 at its worst, 8-9 on average, 7-8 at its least, and is an 8 today. The patient reports no new motor or sensory deficits, no new bowel or bladder incontinence. Describes the pain as tingling and aching, radiating to the lower extremities, especially on the right side and becoming more constant with walking and standing. The patient reports it is better at night, does not awaken her from sleep, better with sitting, but with walking and standing, the pain is significant. The patient reports no new motor or sensory deficits. No new bowel or bladder incontinence or other complaints. 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 PHYSICAL EXAMINATION: VITAL SIGNS: Today, the patient's blood pressure 118/65, pulse 94, respirations 16, temperature is 99.0 degrees Fahrenheit, weight is 88 pounds. GENERAL: The patient is awake, alert, oriented, appropriate, very pleasant demeanor. HEENT: Shows normocephalic, atraumatic. Extraocular movements are intact and symmetrical. Oral cavity: Mucous membranes moist and pink. Dentition is intact. NECK: Shows anterior throat supple without palpable lymphadenopathy noted. Swallow reflex is symmetrical. CHEST: Shows normal on inspection. Breath sounds are clear to auscultation bilaterally. HEART: Shows S1, S2 clear. No murmurs auscultated. ABDOMEN: Soft, nontender, nondistended. No palpable organomegaly is noted. No rebound or guarding demonstrated. BACK: Shows spine grossly in the midline. Normal appearing thoracic kyphosis and lumbar lordotic curvature is quite flattened in the lumbar distribution with well-healed multiple surgical scars. Lumbar paraspinous musculature is firm and taut, diffusely tender bilaterally throughout without specific trigger points or radiation, but significant pain bilaterally. EXTREMITIES: The patient's lower extremities show deep tendon reflexes 1+ in the patellar and tendo calcaneus tendons. Motor exam is approximately 4 on a scale of 5, but equal and symmetrical dorsiflexion, extension, quadriceps and hamstring flexion and equal bilaterally. Options were discussed with the patient. The patient's old chart was reviewed as was her current medication regimen updated. Current review of systems is updated today as well. We will proceed with a third in the series of caudal approach epidural steroid injection today with fluoroscopic guidance. Risks were again discussed including, but not limited to bleeding, infection, possibility of epidural hematoma, subsequent neurological compromise, dural puncture, headaches, spinal cord and/or nerve damage, side effects of steroid medication and poor results regarding pain control. The patient understands and wished to proceed. The patient will return to the clinic in approximately 2 weeks for followup, was counseled on return appointment, activity level and side effects to be aware of. DIAGNOSES: Lumbar radiculopathy with lumbar degenerative disk disease, lumbar spinal stenosis and post-lumbar laminectomy syndrome. PROCEDURE: Caudal approach epidural steroid injection under sterile prep and drape using local anesthetic. MEDICATION INJECTED: A total of 120 mg Depo-Medrol plus 10 mL of preservative-free normal saline and zero ISOVUE THE PATIENT IS ALLERGIC. CONDITION AT DISCHARGE: Stable. The patient tolerated the procedure well, had no complications. HIRA CARBAJAL MD DR: BRANDON/joseph JOB#: [id number] / [id number]
== END | disposition home or self-care (01) ==
LOC: PNCL 08:54
PROVIDERS: ATTEND Anesthesiology
DX: M51.16 Intervertebral disc disorders with radiculopathy, lumbar region (principal); M48.061 Spinal stenosis, lumbar region without neurogenic claudication; M96.1 Postlaminectomy syndrome, not elsewhere classified; M79.18 Myalgia, other site; Z88.5 Allergy status to narcotic agent; Z88.8 Allergy status to other drugs, medicaments and biological substances; Z91.041 Radiographic dye allergy status
CPT/HCPCS: 62323; J1030; Q9965

== ENCOUNTER → 2019-01-04 | Outpatient (CLI) | payer MEDICARE, OTHER ==
[~2019-01-04] MED LIST changes: -IOHEXOL 180 MG/ML 10 ML VIAL. ONE; -PANT40TA5 PO; +PANT40TA77 PO; -methylPREDNISolone ACETATE 40 MG/ML VIAL. ONE
--- NOTE | 2019-01-04 15:10 | RAD ---
Bilateral lower extremity arterial Doppler 01/04/2019 INDICATION: Calf pain and claudication COMPARISON: None available. TECHNIQUE: Sonographic evaluation of the bilateral lower extremity arterial system was performed utilizing grayscale, color Doppler and spectral waveform analysis. FINDINGS: Right: Triphasic waveforms identified throughout the right lower extremity with mild plaque identified in the common femoral artery. Common femoral artery: 155 cm/s Profunda artery: 57 cm/s Superficial femoral artery, proximal: 84 cm/s Superficial femoral artery, mid: 82 cm/s Superficial femoral artery, distal: 133 cm/s Popliteal artery: 62 cm/s Posterior tibial artery: 34-59 cm/s Dorsalis pedis artery: 52 cm/s Anterior tibial artery: 56 cm/s Peroneal artery: 28 cm/s Left: There are triphasic waveforms throughout the left lower extremity. Mild plaque is identified in the proximal left common femoral artery. Common femoral artery: 138 cm/s Profunda artery: 44 cm/s Superficial femoral artery, proximal: 81 cm/s Superficial femoral artery, mid: 100 cm/s Superficial femoral artery, distal: 76 cm/s Popliteal artery: 49 cm/s Posterior tibial artery: 35-59 cm/s Anterior tibial artery: 71 cm/s Peroneal artery: 46 cm/s Dorsalis pedis artery: 46 cm/s IMPRESSION: Atherosclerotic plaque identified in the proximal bilateral lower extremities. No high-grade stenosis or large vessel occlusion. Electronically signed by: Susana Beaver MD (01/04/2019 3:07 PM) [id number]
== END | disposition home or self-care (01) ==
LOC: US 14:02
PROVIDERS: ATTEND Family Medicine
DX: I70.203 Unspecified atherosclerosis of native arteries of extremities, bilateral legs (principal); I10 Essential (primary) hypertension
CPT/HCPCS: 93925

== ENCOUNTER → 2019-02-01 | Outpatient (CLI) | payer MEDICARE, OTHER ==
--- NOTE | 2019-02-01 11:39 | RAD ---
EXAM: CT Chest without IV contrast CLINICAL HISTORY: Lung nodule, follow-up COMPARISON: CT Abdomen and pelvis 10/25/2018, CT chest 08/24/2018 TECHNIQUE: CT of the chest without intravenous contrast. Axial, coronal and sagittal reformatted images were generated. ---PQRS compliance statement - One or more of the following individualized dose reduction techniques were utilized for this study: 1. Automated exposure control 2. Adjustment of the mA and/or kV according to patient size 3. Use of iterative reconstruction technique--- FINDINGS: Lack of intravenous contrast limits evaluation of solid organs, vasculature, and lymph nodes. Chest: Heart is not enlarged. Coronary artery calcifications are seen. Aortic calcifications are noted. Mild ectasia of ascending aorta measuring 3.1 cm. No pericardial effusion. No pleural effusion or pneumothorax. Emphysematous changes are seen. A 7 mm right apical lung nodule (series 3 image 59) is seen. A 3 mm middle lobe lung nodule (series 8 image 157). Right apical pleural/parenchymal scarring/thickening. Bronchiectasis is most prominent in the lingula. Visualized Upper abdomen: Cholecystectomy clips are seen. There is dilation of the common bile duct measuring up to 2.3 cm. Atherosclerotic calcifications of aorta are seen. Bones: Spinal fusion hardware is partially profiled. Degenerative changes of the spine are seen. Decreased bone mineral density. Compared to 08/24/2018, there are now rib fractures of the posterior lateral ninth and 10th ribs with trace pleural thickening about these fractures. Multiple compression fractures are stable. IMPRESSION: 1. The left lower lobe nodular opacity seen on prior CT abdomen pelvis (October 2018) has since resolved 2. The right upper lobe spiculated lung nodule is stable. Follow-up in 6 months is recommended. 3. Emphysematous changes are seen. Electronically signed by: Scooby Sanz MD (02/01/2019 11:36 AM) [facility]
== END | disposition home or self-care (01) ==
LOC: CT 09:42
PROVIDERS: ATTEND Internal Medicine Pulmonary Disease
DX: J47.9 Bronchiectasis, uncomplicated (principal); J43.9 Emphysema, unspecified; I25.10 Atherosclerotic heart disease of native coronary artery without angina pectoris; I70.0 Atherosclerosis of aorta; I77.819 Aortic ectasia, unspecified site; M47.814 Spondylosis without myelopathy or radiculopathy, thoracic region; Z90.49 Acquired absence of other specified parts of digestive tract
CPT/HCPCS: 71250

== ENCOUNTER → 2019-02-14 | Outpatient (CLI) | payer MEDICARE, OTHER ==
[~2019-02-14] MED LIST changes: +BUPIVACAINE MPF 0.25% 10 ML VIAL. ONE; +methylPREDNISolone ACETATE 40 MG/ML VIAL. ONE
--- NOTE | 2019-02-14 21:12 | PAIN ---
DATE OF SERVICE: 02/14/2019 PROGRESS NOTE FOR PAIN CLINIC DIAGNOSES: 1. Cervical radiculopathy with cervical post-laminectomy syndrome. 2. Lumbar radiculopathy with lumbar degenerative disk disease and lumbar spinal stenosis and post-lumbar laminectomy syndrome. 3. Myofascial pain. HISTORY OF PRESENT ILLNESS: The patient is a 68-year-old female, who returns for followup, status post caudal epidural steroid injections x 3, most recently 10/26/2018. The patient did very well with about a 50% improvement overall. The patient reports the pain is beginning to return now, but is in the neck, shoulders, upper back, mid back, low back as well as in the lower extremities, posterior gluteus, posterior thighs bilaterally. The patient reports she has recently been hospitalized with pneumonia, has had a significant cough, which has caused the neck and low back pain be exacerbated. She has just recently finished her antibiotics and is feeling better in that guarding, but has had significant pain in the base of the neck, shoulders, upper back, mid back, low back. The patient reports the pain is 10 on a scale of 10 at its worst. In the past week, 8 on average, 8 at its least and is an 8 today. It is aching, stabbing, shooting, severe at times, worse with activity, keeping her awake at night, increased with activity with use of her upper extremities, any weightbearing at all, walking, standing, changing positions or sitting. The patient reports no loss of motor function. No bowel or bladder incontinence. PHYSICAL EXAMINATION: VITAL SIGNS: The patient's blood pressure is 124/74, pulse 107, respirations are 18, temperature 97.6 degrees Fahrenheit, height is 5 feet 2 inches and weight is 88 pounds. GENERAL: The patient is awake, alert, oriented, appropriate, very pleasant demeanor. The patient is accompanied by her . HEENT: Shows normocephalic, atraumatic. Extraocular movements are intact and symmetrical. Oral cavity: Mucous membranes moist and pink. Dentition is intact. NECK: Shows anterior throat supple without palpable lymphadenopathy noted. Swallow reflex symmetrical. CHEST: Shows normal on inspection. Breath sounds clear to auscultation bilaterally. HEART: Shows S1, S2 clear. No murmurs auscultated. ABDOMEN: Soft, nontender, nondistended. No palpable organomegaly is noted. No rebound or guarding demonstrated. BACK: The patient's back shows significant tenderness throughout the cervical paraspinous musculature. Bilateral trapezius is very firm, rope-like musculature identified bilaterally, right essentially equal to left without specific radiation, but very firm, rope-like musculature consistent with trigger point areas of the muscle in the cervical and trapezius musculature, also in the [id number] thoracic paraspinous muscles bilaterally as well as some bilateral lumbar paraspinous musculature, very firm, rope-like musculature as well without specific radiation, but very tender with palpation. EXTREMITIES: The patient's lower extremities show deep tendon reflexes 1+ in the patellar and tendo-calcaneus tendons. Motor exam is approximately 4 on a scale of 5, but symmetrical with dorsiflexion, extension, quadriceps and hamstring flexion equal. Options were discussed with the patient. The patient's old chart was reviewed as her current medication regimen updated. Current review of systems updated today as well. We will proceed with trigger point injections of the aforementioned musculature. Risks were again discussed including, but not limited to bleeding, infection, possibility of intravascular injection sequelae, spread of local anesthetic and numbness, pneumothorax, side effects of steroid medication and poor results regarding pain control. The patient understands and wished to proceed. The patient will return to the clinic in approximately 2 weeks to follow up. She was counseled on return appointment, activity level and side effects to be aware of. DIAGNOSIS: Myofascial pain. PROCEDURE: Trigger point injections, bilateral cervical paraspinous musculature, bilateral trapezius musculature, bilateral thoracic paraspinous musculature, bilateral lumbar paraspinous musculature under sterile prep and drape using local anesthetic. MEDICATION INJECTED: Total of 14 mL of 0.25% bupivacaine after negative aspiration at each injection site as well as 40 mg total of Depo-Medrol. CONDITION AT DISCHARGE: Stable. The patient tolerated procedure well, had no complications. HIRA CARBAJAL MD DR: BRANDON/joseph JOB#: [id number] / [id number]
== END ==
LOC: PNCL 08:54
PROVIDERS: ATTEND Anesthesiology
DX: M79.18 Myalgia, other site (principal); M51.16 Intervertebral disc disorders with radiculopathy, lumbar region; M50.10 Cervical disc disorder with radiculopathy, unspecified cervical region
CPT/HCPCS: 20553; J1030; J3490

== ENCOUNTER → 2019-03-08 | Outpatient (CLI) | payer MEDICARE, OTHER ==
[~2019-03-08] MED LIST changes: -BUPIVACAINE MPF 0.25% 10 ML VIAL. ONE; +IOHEXOL 180 MG/ML 10 ML VIAL. ONE; +methylPREDNISolone ACETATE 80 MG/ML VIAL. ONE
--- NOTE | 2019-03-08 11:58 | PAIN ---
DATE OF SERVICE: 03/08/2019 PROGRESS NOTE FOR PAIN CLINIC DIAGNOSES: 1. Lumbar radiculopathy with lumbar degenerative disk disease and lumbar spinal stenosis with post-lumbar laminectomy syndrome. 2. Cervical radiculopathy with post-cervical laminectomy syndrome. 3. Myofascial pain. HISTORY OF PRESENT ILLNESS: The patient is a 68-year-old female who returns for followup status post caudal epidural steroid injection as well as trigger point injections. The patient reports the caudal injections were helpful about 50% improved. She has increased weight since her last visit and has better appetite, has been increasing her walking activity and doing better overall after some trigger point injections we performed on 02/14. The patient reports they were uncomfortable while they were being performed, but the benefit was significant about 50%. The patient reports no new motor or sensory deficits. Reports the pain is returning now in the low back itself into the right lower extremity, posterior gluteus and thigh. The patient is a 10 on a scale of 10 at its worst over the past week 10 on average, 8 at its least and is a 10 today. The patient reports no new motor or sensory deficits, no bowel or bladder incontinence or other complaints. PHYSICAL EXAMINATION: VITAL SIGNS: The patient's blood pressure 109/62, pulse 85, respirations 16, temperature 98.4 degrees Fahrenheit, height is 5 feet 2 inches, weight is 95.4 pounds. GENERAL: The patient is awake, alert, oriented, appropriate, very pleasant demeanor. The patient is accompanied by her . HEENT: Shows normocephalic, atraumatic. Extraocular movements are intact and symmetrical. Oral cavity: Mucous membranes moist and pink. Dentition is intact. NECK: Shows anterior throat supple without palpable lymphadenopathy noted. Swallow reflex symmetrical. CHEST: Shows normal on inspection. Breath sounds are clear bilaterally. HEART: Shows S1, S2 clear. ABDOMEN: Soft, nontender, nondistended. BACK: Shows spine grossly in the midline. Significant flattening of lumbar lordotic curvature with well-healed extensive surgical scarring noted. Lumbar paraspinous muscle shows symmetrical on inspection, with palpation shows some moderate tenderness diffusely throughout the upper, middle and lower distribution of paraspinous muscles, which are firm bilaterally, but without trigger points, without radiation. The patient has good rotational motion of lumbar spine without exacerbation of pain with extension, flexion, right and left lateral rotation. EXTREMITIES: Lower extremities show deep tendon reflexes at 1+ in the patellar and tendo calcaneus tendons. Motor exam is approximately 4 on a scale of 5, but symmetrical with dorsiflexion, extension, quadriceps and hamstring flexion and equal. Peripheral pulses are 1+ posterior tibia. No peripheral edema is noted. Options were discussed with the patient. The patient's old chart was reviewed as her current medication regimen updated. Current review of systems updated today as well. We will proceed with a caudal approach epidural steroid injection today with fluoroscopic guidance. Risks were again discussed including, but not limited to bleeding, infection, possibility of epidural hematoma, subsequent neurological compromise, dural puncture, headaches, spinal cord and/or nerve damage, side effects of steroid medication and poor results regarding pain control. The patient understands and wished to proceed. The patient will return to clinic in approximately 2 weeks for followup. She was counseled on return appointment, activity level and side effects to be aware of. DIAGNOSES: Lumbar radiculopathy with lumbar degenerative disk disease and lumbar spinal stenosis and post-lumbar laminectomy syndrome. PROCEDURE: Lumbar epidural steroid injection, caudal approach using C-arm fluoroscopic guidance under sterile prep and drape using local anesthetic. MEDICATION INJECTED: The patient received a total of 120 mg Depo-Medrol plus 10 mL of preservative-free normal saline and 2 mL of contrast. CONDITION AT DISCHARGE: Stable. The patient tolerated procedure well, had no complications. HIRA CARBAJAL MD DR: BRANDON/joseph JOB#: [id number] / [id number]
== END ==
LOC: PNCL 08:44
PROVIDERS: ATTEND Anesthesiology
DX: M51.16 Intervertebral disc disorders with radiculopathy, lumbar region (principal); M96.1 Postlaminectomy syndrome, not elsewhere classified; M48.061 Spinal stenosis, lumbar region without neurogenic claudication; M50.10 Cervical disc disorder with radiculopathy, unspecified cervical region; M79.18 Myalgia, other site
CPT/HCPCS: 62323; J1030; J1040; Q9965

== ENCOUNTER 2019-04-21 09:10 | Inpatient (IN) | payer MEDICARE, OTHER ==
[~2019-04-21] VITALS: Ht 157.5 cm; Wt 42.7 kg
[~2019-04-21 09:10] MED LIST changes: -IOHEXOL 180 MG/ML 10 ML VIAL. ONE; -methylPREDNISolone ACETATE 40 MG/ML VIAL. ONE; -methylPREDNISolone ACETATE 80 MG/ML VIAL. ONE
[2019-04-21] MEDS ORDERED: IV NORMAL SALINE 1000ML BAG 1,000 ML IV SCH (09:30)
--- NOTE | 2019-04-21 09:42 | PHYS DOC ---
Past Medical History Past Medical History: COPD, Hypertension Additional Past Medical Histor: CATARACTS Past Surgical History: Appendectomy, Cholecystectomy, Hysterectomy Additional Past Surgical Histo: BACK SURGERY Alcohol Use: None Drug Use: None Adult General Chief Complaint Chief Complaint: NAUSEA/VOMITING/DIARRHA HPI HPI Patient is a 68 year old female who presents with vomiting, body aches, pain with urination, difficulty urinating for the last 3 days. Patient started having diarrhea this morning 1. Patient finished a Z-Myles one week ago for pneumonia and is currently on Tessalon Perles for cough suppressant. Patient rates her generalized pain cannot 10. Patient states she's been coughing so much that she has back pain, generalized chest soreness, abdominal pain. Review of Systems Review of Systems Constitutional: Denies fever or chills [] Eyes: Denies change in visual acuity, redness, or eye pain [] HENT: Denies nasal congestion or sore throat [] Respiratory: cough or denies shortness of breath [] Cardiovascular: No additional information not addressed in HPI [] GI: Denies abdominal pain,+ nausea,+ vomiting, denies bloody stools or +diarrhea [] : dysuria or denies hematuria [] Musculoskeletal: Generalized and chronic back pain or joint pain [] All other systems were reviewed and found to be within normal limits, except as documented in this note. Current Medications Current Medications Current Medications Medications (Trade) Dose Ordered Sig/John Start Time Stop Time Status Last Admin Dose Admin Fentanyl Citrate (Fentanyl 2ml Vial) 50 mcg 1X ONCE 04/21/19 10:00 04/21/19 10:01 DC 04/21/19 09:53 50 MCG Ondansetron HCl (Zofran) 4 mg 1X ONCE 04/21/19 09:45 04/21/19 09:46 DC 04/21/19 09:34 4 MG Pantoprazole Sodium (PROTONIX VIAL for IV PUSH) 40 mg 1X ONCE 04/21/19 09:45 04/21/19 09:46 DC 04/21/19 09:35 40 MG Potassium Chloride/Water 100 ml @ 100 mls/hr Q1H 04/21/19 11:00 04/21/19 12:59 04/21/19 11:49 100 MLS/HR Potassium Chloride (Klor-Con) 40 meq 1X ONCE 04/21/19 11:00 04/21/19 11:01 DC 04/21/19 10:34 40 MEQ Ringer's Solution 500 ml @ 500 mls/hr 1X ONCE 04/21/19 11:00 04/21/19 11:59 DC 04/21/19 11:00 500 MLS/HR Sodium Chloride 1,000 ml @ 1,000 mls/hr Q1H 04/21/19 09:30 04/21/19 10:29 DC 04/21/19 09:33 1,000 MLS/HR Allergies Allergies Allergies Coded Allergies Type Severity Reaction Last Updated Verified Iodinated Contrast Media Allergy Intermediate 01/22/18 Yes acyclovir Allergy Intermediate Rash 01/22/18 Yes iodine Allergy Intermediate 01/22/18 Yes I S O L A T I O N *CONTACT* Allergy Unknown 01/22/18 Yes morphine Adverse Reaction Intermediate Nausea 01/22/18 Yes Physical Exam Physical Exam Constitutional: Well developed, well nourished, no acute distress, non-toxic a ppearance. [] HENT: Normocephalic, atraumatic, bilateral external ears normal, oropharynx moist, no oral exudates, nose normal. [] Eyes: PERRLA, EOMI, conjunctiva normal, no discharge. [] Neck: Normal range of motion, no tenderness, supple, no stridor. [] Cardiovascular:Heart rate regular rhythm, no murmur [] Lungs & Thorax: upper Bilateral breath sounds clear, lower diminished to auscultation [] Abdomen: Bowel sounds normal, soft, generalized tenderness, no masses, no pulsatile masses. [] Skin: Warm, dry, no erythema, no rash. [] Back: No tenderness, no CVA tenderness. [] Extremities: No tenderness, no cyanosis, no clubbing, ROM intact, no edema. [] Neurologic: Alert and oriented X 3, normal motor function, normal sensory function, no focal deficits noted. [] Psychologic: Affect normal, judgement normal, mood normal. [] Current Patient Data Vital Signs Vital Signs Date Time Temp Pulse Resp B/P (MAP) Pulse Ox O2 Delivery O2 Flow Rate FiO2 04/21/19 11:29 88 122/88 (99) Room Air 04/21/19 09:53 17 04/21/19 09:20 97.7 95 97.7 Lab Values Laboratory Tests Test 11/3/19 09:30 04/21/19 10:05 04/21/19 10:43 04/21/19 11:40 White Blood Count 15.7 x10^3/uL (4.0-11.0) H Red Blood Count 3.94 x10^6/uL (3.50-5.40) Hemoglobin 12.8 g/dL (12.0-15.5) Hematocrit 37.2 % (36.0-47.0) Mean Corpuscular Volume 94 fL (79-100) Mean Corpuscular Hemoglobin 32 pg (25-35) Mean Corpuscular Hemoglobin Concent 34 g/dL (31-37) Red Cell Distribution Width 17.4 % (11.5-14.5) H Platelet Count 375 x10^3/uL (140-400) Neutrophils (%) (Auto) 87 % (31-73) H Lymphocytes (%) (Auto) 5 % (24-48) L Monocytes (%) (Auto) 9 % (0-9) Eosinophils (%) (Auto) 0 % (0-3) Basophils (%) (Auto) 0 % (0-3) Neutrophils # (Auto) 13.6 x10^3/uL (1.8-7.7) H Lymphocytes # (Auto) 0.7 x10^3/uL (1.0-4.8) L Monocytes # (Auto) 1.3 x10^3/uL (0.0-1.1) H Eosinophils # (Auto) 0.0 x10^3/uL (0.0-0.7) Basophils # (Auto) 0.0 x10^3/uL (0.0-0.2) Platelet Estimate Pending Sodium Level 115 mmol/L (136-145) *L Potassium Level 2.2 mmol/L (3.5-5.1) *L Chloride Level 72 mmol/L (98-107) L Carbon Dioxide Level 32 mmol/L (21-32) Anion Gap 11 (6-14) Blood Urea Nitrogen 32 mg/dL (7-20) H Creatinine 1.5 mg/dL (0.6-1.0) H Estimated GFR (Cockcroft-Gault) 34.5 BUN/Creatinine Ratio 21 (6-20) H Glucose Level 151 mg/dL (70-99) H Calcium Level 9.2 mg/dL (8.5-10.1) Magnesium Level 2.3 mg/dL (1.8-2.4) Total Bilirubin 0.7 mg/dL (0.2-1.0) Aspartate Amino Transferase (AST) 49 U/L (15-37) H Alanine Aminotransferase (ALT) 18 U/L (14-59) Alkaline Phosphatase 117 U/L (46-116) H Troponin I Quantitative < 0.017 ng/mL (0.000-0.055) Total Protein 8.0 g/dL (6.4-8.2) Albumin 4.1 g/dL (3.4-5.0) Albumin/Globulin Ratio 1.1 (1.0-1.7) Lipase 150 U/L (73-393) Urine Collection Type Unknown Urine Color Yellow Urine Clarity Clear Urine pH 6.5 Urine Specific [place] 1.015 Urine Protein Negative mg/dL (NEG-TRACE) Urine Glucose (UA) Negative mg/dL (NEG) Urine Ketones (Stick) Negative mg/dL (NEG) Urine Blood Negative (NEG) Urine Nitrite Negative (NEG) Urine Bilirubin Negative (NEG) Urine Urobilinogen Dipstick 1.0 mg/dL (0.2 mg/dL) Urine Leukocyte Esterase Negative (NEG) Urine RBC 1-2 /HPF (0-2) Urine WBC Occ /HPF (0-4) Urine Squamous Epithelial Cells Occ /LPF Urine Bacteria 0 /HPF (0-FEW) Urine Hyaline Casts Few /HPF Urine Mucus Slight /LPF Influenza Type A Antigen Negative (NEGATIVE) Influenza Type B Antigen Negative (NEGATIVE) Lactic Acid Level 1.5 mmol/L (0.4-2.0) Laboratory Tests 04/21/19 09:30 Laboratory Tests 04/21/19 09:30 EKG EKG Sinus Rhythm and no STEMI[] Interpretation Time: [address] Campos Radiology/Procedures Radiology/Procedures [] Impressions: [facility] [address] [place] [address] IMAGING REPORT Signed PATIENT: LINDSAY MORALES ACCOUNT: [id number] : 1950 LOCATION: ER AGE: 68 SEX: F EXAM STATUS: REG ER ORD. PHYSICIAN: VERONICA PAEZ APRN REASON: vomiting. NOT READY@10:02. CATHETER PLACEMENT,20 PROCEDURE: PORTABLE CHEST 1V AP chest x-ray HISTORY: Vomiting. FINDINGS: ACDF hardware. Heart size normal. Aortic arch calcified plaque. Mild symmetric nodular densities as with nipple shadows. There is also mild density associated with the left posterior ninth rib corresponding to a healing fracture which was present on CT imaging from January 2019. No pneumothorax, pulmonary opacities or pleural effusions. IMPRESSION: No acute process. Healing subacute posterior left ninth rib fracture with bony sclerosis and callus. Electronically signed by: Mango Miller MD (04/21/2019 11:20 AM) [facility] DICTATED and SIGNED BY: MANGO MILLER MD DATE: 04/21/19 1120 [facility] [address] [place] [address] IMAGING REPORT Signed PATIENT: LINDSAY MORALES ACCOUNT: [id number] : 1950 LOCATION: ER AGE: 68 SEX: F EXAM STATUS: REG ER ORD. PHYSICIAN: VERONICA PAEZ APRN REASON: pain, nausea and vomiting PROCEDURE: CT ABDOMEN PELVIS WO CONTRAST CT abdomen and pelvis without contrast: Reason for examination: Abdominal pain with nausea and vomiting. History is given of patient being allergic to iodine. Comparison is made to previous study dated 10/25/2018. Helical images were obtained through the abdomen and pelvis with no intravenous or oral contrast administered. Reconstruction was performed in sagittal and coronal planes. The evaluation is limited with no intravenous or oral contrast present. Exposure: One or more of the following individualized dose reduction techniques were utilized for this examination: 1. Automated exposure control 2. Adjustment of the mA and/or kV according to patient size 3. Use of iterative reconstruction technique. The lung bases are clear. The heart size is normal with no pericardial effusion evident. No focal abnormality seen at the liver spleen, adrenal glands or pancreas. Gallbladder surgically absent. There continues to be a dilated common bile duct. The abdominal aorta shows some arteriosclerotic vascular calcification especially distally with extends into the iliac arteries. No aneurysmal dilatation is present. No abnormality seen at the inferior vena cava. The right kidney shows no renal mass, renal calculus, hydronephrosis or evidence of obstructive uropathy. The left kidney appears be without mass, calculus or hydronephrosis but is displaced anteriorly by an enlarged heterogeneous left psoas muscle which may reflect retroperitoneal hemorrhage which also extends posterior to the left kidney and spleen. No abnormality is seen at the iliacus muscle. The stomach is not distended and the wall appears thickened. The intestinal tract does not appear to be abnormally dilated or show evidence of obstruction. There is no evidence of diverticulosis or diverticulitis. Bernabe catheter is in the bladder bladder is not distended. No abnormality seen at the vaginal cuff. There is again note made of some bulging right pelvic floor is unchanged. There are postop changes in the lumbar spine with degenerative disc disease. Compression deformity of T12 vertebral body. IMPRESSION: Examination is compromised without intravenous or oral contrast. Enlarged heterogeneous appearance to the left psoas muscle consistent with retroperitoneal/intramuscular hemorrhage. There is also some fluid extending posterior to the left kidney and spleen consistent with some retroperitoneal hemorrhage. No other apparent change. Electronically signed by: Maggie Mishra MD (04/21/2019 11:05 AM) [facility] DICTATED and SIGNED BY: MAGGIE MISHRA MD DATE: 04/21/19 1105 Course & Med Decision Making Course & Med Decision Making History of COPD, hypertension, cervical spine stenosis, back surgeries, seizure, weakness, tremors, GI bleed, UTI, anxiety, smokes one pack a day. Patient denies chest pain although she states my chest a sore from coughing. Patient denies shortness of breath or abdominal pain. Patient states she is nauseated. Abdomen has generalized tenderness with palpation but is soft. Lungs are clear in upper lobes but diminished in lower lobes. Patient is ambulatory with a steady gait. Skin pink warm and dry. Patient states she's been trying to take all her medications but she is not sure how well she is ingesting them due to vomiting. Patient denies any blood in her vomit or stool. Alert and oriented. Speaks in full clear sentences. Alert and oriented. Patient denies any dizziness, headache, numbness feeling, visual changes, focal weaknesses. No CVA tenderness. Neurologically intact. White blood count is 15.7, sodium 115, potassium 2.2, BUN is 32, creatinine 0.5. Patient has no history of kidney problems. Patient is given 20MEQ potassium IV and 40MEQ by mouth at this time. Patient's bladder scanned as she states she was unable to urinate here in the ED and she has been having trouble urinating. Patient's bladder scan is 474 and a Bernabe catheter is in placed. Patient states she told her doctor about having trouble getting her bladder and they stated th at she would need to see a road supervisor. Patient denies any recent falls or trauma to her left side. Patient has a old fracture ninth rib on the left side. There is no bruising to the flanks. I have spoken to Dr Razo concerning this patient workup findings. Patient is admitted. Dr Razo states to start the patient on LR@150, consult surgery and GI and keep the patient NPO. Dragon Disclaimer Dragon Disclaimer This electronic medical record was generated, in whole or in part, using a voice recognition dictation system. Departure Departure Impression: Primary Impression: Hypokalemia Additional Impressions: Hyponatremia Retroperitoneal hemorrhage Disposition: ADMITTED INPATIENT Admitting Physician: HIMPatrica Condition: STABLE Referrals: SINDY MERA MD (PCP) Problem Qualifiers VERONICA PAEZ APRN Apr 21, 2019 09:42
[2019-04-21] MEDS ORDERED: PANTOPRAZOLE IV PUSH 40 MG VIAL. IVP ONE (09:45)
[2019-04-21] MEDS ORDERED: ONDANSETRON PF 4 MG/2 ML VIAL. IV ONE (09:45)
[2019-04-21 10:00] LABS: BASO % 0 % (0-3); EOS % 0 % (0-3); HEMATOCRIT 37.2 % (36.0-47.0); HEMOGLOBIN 12.8 g/dL (12.0-15.5); LYMPH # 0.7 x10^3/uL (1.0-4.8); LYMPH % 5 % (24-48); MEAN CORPUSCULAR HEMOGLOBIN 32 pg (25-35); MEAN CORPUSCULAR HGB CONC 34 g/dL (31-37); MEAN CORPUSCULAR VOLUME 94 fL (79-100); MONO # 1.3 x10^3/uL (0.0-1.1); MONO % 9 % (0-9); NEUT # 13.6 x10^3/uL (1.8-7.7); NEUT % 87 % (31-73); PLATELET COUNT 375 x10^3/uL (140-400); RED BLOOD COUNT 3.94 x10^6/uL (3.50-5.40); RED CELL DISTRIBUTION WIDTH 17.4 % (11.5-14.5); WHITE BLOOD COUNT 15.7 x10^3/uL (4.0-11.0)
[2019-04-21] MEDS ORDERED: fentaNYL PF VIAL 100 MCG/2 ML VIAL IVP ONE (10:00)
[2019-04-21 10:09] LABS: ALBUMIN 4.1 g/dL (3.4-5.0); ALBUMIN/GLOBULIN RATIO 1.1 (1.0-1.7); CALCIUM 9.2 mg/dL (8.5-10.1); CREATININE 1.5 mg/dL (0.6-1.0); GFR 34.5; TOTAL BILIRUBIN 0.7 mg/dL (0.2-1.0)
[2019-04-21 10:13] LABS: POTASSIUM 2.2 mmol/L (3.5-5.1)
[2019-04-21 10:22] LABS: BILIRUBIN,URINE NEGATIVE (NEG); CLARITY,URINE CLEAR; COLOR,URINE YELLOW; NITRITE,URINE NEGATIVE (NEG); PH,URINE 6.5; PROTEIN,URINE NEGATIVE (NEG-TRACE)
[2019-04-21] MEDS ORDERED: POTASSIUM CHL 20MEQ PREMIX 50 ML IV ONE (10:30)
[2019-04-21] MEDS: POTASSIUM CHLORIDE 10MEQ 100 ML IV SCH ×4 (10:34→23:40)
[2019-04-21] MEDS ORDERED: POTASSIUM CHLORIDE 20 MEQ TABLET.ER. PO ONE ×2 (11:00→21:45)
[2019-04-21] MEDS ORDERED: IV RINGERS,LACTATED 500ML 500 ML IV ONE (11:00)
[2019-04-21 11:03] LABS: BACTERIA,URINE 0 /HPF (0-FEW); SQUAMOUS EPITHELIAL CELL,UR OCC /LPF; WBC,URINE OCC /HPF (0-4)
[2019-04-21 11:04] LABS: HYALINE CASTS, URINE FEW /HPF
--- NOTE | 2019-04-21 11:08 | RAD ---
CT abdomen and pelvis without contrast: Reason for examination: Abdominal pain with nausea and vomiting. History is given of patient being allergic to iodine. Comparison is made to previous study dated 10/25/2018. Helical images were obtained through the abdomen and pelvis with no intravenous or oral contrast administered. Reconstruction was performed in sagittal and coronal planes. The evaluation is limited with no intravenous or oral contrast present. Exposure: One or more of the following individualized dose reduction techniques were utilized for this examination: 1. Automated exposure control 2. Adjustment of the mA and/or kV according to patient size 3. Use of iterative reconstruction technique. The lung bases are clear. The heart size is normal with no pericardial effusion evident. No focal abnormality seen at the liver spleen, adrenal glands or pancreas. Gallbladder surgically absent. There continues to be a dilated common bile duct. The abdominal aorta shows some arteriosclerotic vascular calcification especially distally with extends into the iliac arteries. No aneurysmal dilatation is present. No abnormality seen at the inferior vena cava. The right kidney shows no renal mass, renal calculus, hydronephrosis or evidence of obstructive uropathy. The left kidney appears be without mass, calculus or hydronephrosis but is displaced anteriorly by an enlarged heterogeneous left psoas muscle which may reflect retroperitoneal hemorrhage which also extends posterior to the left kidney and spleen. No abnormality is seen at the iliacus muscle. The stomach is not distended and the wall appears thickened. The intestinal tract does not appear to be abnormally dilated or show evidence of obstruction. There is no evidence of diverticulosis or diverticulitis. Bernabe catheter is in the bladder bladder is not distended. No abnormality seen at the vaginal cuff. There is again note made of some bulging right pelvic floor is unchanged. There are postop changes in the lumbar spine with degenerative disc disease. Compression deformity of T12 vertebral body. IMPRESSION: Examination is compromised without intravenous or oral contrast. Enlarged heterogeneous appearance to the left psoas muscle consistent with retroperitoneal/intramuscular hemorrhage. There is also some fluid extending posterior to the left kidney and spleen consistent with some retroperitoneal hemorrhage. No other apparent change. Electronically signed by: Arlette Green MD (04/21/2019 11:05 AM) [facility]
[2019-04-21 11:19] LABS: INFLUENZA A PATIENT NEGATIVE (NEGATIVE); INFLUENZA B PATIENT NEGATIVE (NEGATIVE)
--- NOTE | 2019-04-21 11:23 | RAD ---
AP chest x-ray HISTORY: Vomiting. FINDINGS: ACDF hardware. Heart size normal. Aortic arch calcified plaque. Mild symmetric nodular densities as with nipple shadows. There is also mild density associated with the left posterior ninth rib corresponding to a healing fracture which was present on CT imaging from January 2019. No pneumothorax, pulmonary opacities or pleural effusions. IMPRESSION: No acute process. Healing subacute posterior left ninth rib fracture with bony sclerosis and callus. Electronically signed by: Alexei Miller MD (04/21/2019 11:20 AM) [facility]
--- NOTE | 2019-04-21 12:07 | PDOC1 ---
History and Physical Date of Admission Date of Admission DATE: 04/21/19 TIME: 12:03 Identification/Chief Complaint Chief Complaint Diarrhea Source Source: Chart review, Patient History of Present Illness History of Present Illness Ms Ordaz is a 68yo F w/ PMHx COPD, HTN, chronic lower back pain, smoker who presents with vomiting, body aches, pain with urination, difficulty urinating for the last 3 days. Patient started having diarrhea this morning that was voluminous. She has vomited multiple times the past 3 days and notes LLQ and severe left lower back pain and groin pain for the past 3 weeks. Patient denies any recent falls or trauma to her left side. Patient has a old fracture ninth rib on the left side. There is no bruising to the flanks. Patient finished a doxycycline and azithromycin one week ago for pneumonia and still has a cough. Pain is 10/10, radiates from LLQ to back. EKG NSR, Negative Flu screen In the ED she had 400cc PVR and had a mancera catheter placed with > 400cc out immediately. She has a contrast dye allergy, underwent non-contrast CT abdomen revealing concern for enlarged heterogeneous appearance to the left psoas muscle consistent with retroperitoneal/intramuscular hemorrhage with fluid extending to left kidney and spleen. WBC 15.7, Na 115, K 2.2, BUN 32, Cr 0.5. Received 20MEQ potassium IV and 40MEQ by mouth in ED. Past Medical History Cardiovascular: HTN Pulmonary: COPD GI: Constipation Heme/Onc: No pertinent hx Psych: Anxiety, Depression, Other Musculoskeletal: low back pain Rheumatologic: No pertinent hx Infectious disease: No pertinent hx ENT: No pertinent hx Renal/: No pertinent hx Endocrine: No pertinent hx Dermatology: No pertinent hx Past Surgical History Past Surgical History: Other (Spinal ACDF) Family History Family History: Alzheimer's Disease Social History Smoke: 1 pack per day ALCOHOL: rare Drugs: None Current Medications Current Medications Current Medications Sodium Chloride 1,000 ml @ 1,000 mls/hr Q1H IV Last administered on 04/21/19at 09:33; Start 04/21/19 at 09:30; Stop 04/21/19 at 10:29; Status DC Ondansetron HCl (Zofran) 4 mg 1X ONCE IV Last administered on 04/21/19at 09:34; Start 04/21/19 at 09:45; Stop 04/21/19 at 09:46; Status DC Pantoprazole Sodium (PROTONIX VIAL for IV PUSH) 40 mg 1X ONCE IVP Last administered on 04/21/19at 09:35; Start 04/21/19 at 09:45; Stop 04/21/19 at 09:46; Status DC Fentanyl Citrate (Fentanyl 2ml Vial) 50 mcg 1X ONCE IVP Last administered on 04/21/19at 09:53; Start 04/21/19 at 10:00; Stop 04/21/19 at 10:01; Status DC Potassium Chloride/Water 50 ml @ 50 mls/hr 1X ONCE IV ; Start 04/21/19 at 10:30; Stop 04/21/19 at 11:29; Status UNV Potassium Chloride/Water 100 ml @ 100 mls/hr Q1H IV Last administered on 04/21/19at 11:49; Start 04/21/19 at 11:00; Stop 04/21/19 at 12:59 Potassium Chloride (Klor-Con) 40 meq 1X ONCE PO Last administered on 04/21/19at 10:34; Start 04/21/19 at 11:00; Stop 04/21/19 at 11:01; Status DC Ringer's Solution 500 ml @ 500 mls/hr 1X ONCE IV Last administered on 04/21/19at 11:00; Start 04/21/19 at 11:00; Stop 04/21/19 at 11:59; Status DC Active Scripts Active Proair Hfa Inhaler (Albuterol Sulfate) 8.5 Gm Hfa.aer.ad 1 Puff INH PRN Q6HRS PRN 14 Days Mucinex (Guaifenesin) 600 Mg Tablet.er 600 Mg PO BID MDD 1 Budesonide 0.5 Mg/2 Ml Ampul.neb 0.5 Mg NEB RTBID MDD 1 Benzonatate 100 Mg Capsule 100 Mg PO [id number] MDD 1 Zofran (Ondansetron Hcl) 4 Mg Tablet 1 Tab PO Q6HRS PRN Reported NICODERM CQ 14mg (Nicotine) 1 Each Patch.td24 1 Patch TP DAILY Oxycodone Hcl Immed.release (Oxycodone Hcl) 10 Mg Tablet 10 Mg PO QID Probiotic (Lactobacillus Combo No.11) 1 Each Cap.sprink 3 Each PO DAILY Tylenol (Acetaminophen) 325 Mg Tablet 650 Mg PO TID PRN PRN Anoro Ellipta 62.5-25 Mcg Inh (Umeclidinium Brm/Vilanterol Tr) 1 Each Disk.w.dev 1 Each IH DAILY PRN Clonidine Hcl 0.2 Mg Tablet 1 Tab PO BID PRN Carisoprodol 350 Mg Tablet 1 Tab PO TID Alprazolam 0.5 Mg Tablet 1 Tab PO TID PRN Protonix (Pantoprazole Sodium) 20 Mg Tablet.dr 40 Mg PO DAILY Colace (Docusate Sodium) 100 Mg Capsule 200 Mg PO DAILY PRN Bupropion Hcl Sr (Bupropion Hcl) 200 Mg Tablet.er 300 Mg PO DAILY Paroxetine Hcl 40 Mg Tablet 1 Tab PO DAILY Losartan Potassium 100 Mg Tablet 100 Mg PO DAILY Cardizem Tablet (Diltiazem Hcl) 60 Mg Tablet 300 Mg PO DAILY Allergies Allergies: Coded Allergies: Iodinated Contrast Media (Verified Allergy, Intermediate, 01/22/18) acyclovir (Verified Allergy, Intermediate, Rash, 01/22/18) iodine (Verified Allergy, Intermediate, 01/22/18) I S O L A T I O N *CONTACT* (Verified Allergy, Unknown, 01/22/18) mrsa morphine (Verified Adverse Reaction, Intermediate, Nausea, 01/22/18) ROS General: YES: Fatigue, Malaise; No: Chills, Night Sweats, Appetite, Other PSYCHOLOGICAL ROS: YES: Anxiety, Depression; No: Behavioral Disorder, Concentration difficultie, Decreased libido, Disorientation, Hallucinations, Hostility, Irritablity, Memory difficulties, Mood Swings, Obsessive thoughts, Physical abuse, Sexual abuse, Sleep disturbances, Suicidal ideation, Other Eyes: No Blurry vision, No Decreased vision, No Double vision, No Dry eyes, No Excessive tearing, No Eye Pain, No Itchy Eyes, No Loss of vision, No Photophobia, No Scotomata, No Uses contacts, No Uses glasses, No Other HEENT: No: Heacaches, Visual Changes, Hearing change, Nasal congestion, Nasal discharge, Oral lesions, Sinus pain, Sore Throat, Epistaxis, Sneezing, Snoring, Tinnitus, Vertigo, Vocal changes, Other ALLERGY AND IMMUNOLOGY: No: Hives, Insect Bite Sensitivity, Itchy/Watery Eyes, Nasal Congestion, Post Nasal Drip, Seasonal Allergies, Other Hematological and Lymphatic: No: Bleeding Problems, Blood Clots, Blood Transfusions, Brusing, Night Sweats, Pallor, Swollen Lymph Nodes, Other ENDOCRINE: No: Breast Changes, Galactorrhea, Hair Pattern Changes, Hot Flashes, Malaise/lethargy, Mood Swings, Palpitations, Polydipsia/polyuria, Skin Changes, Temperature Intolerance, Unexpected Weight Changes, Other Breast: No New/Changing Breast Lumps, No Nipple changes, No Nipple discharge, No Other Respiratory: YES: Cough, Shortness of breath, Tachypnea, Wheezing; No: Hemoptysis, Orthopnea, Pleuritic Pain, SOB with excertion, Sputum Changes, Stridor, Other Cardiovascular: No Chest Pain, No Palpitations, No Orthopnea, No Paroxysmal Noc. Dyspnea, No Edema, No Lt Headedness, No Other Gastrointestinal: Yes Nausea, Yes Vomiting, Yes Abdominal Pain, Yes Diarrhea; No Constipation, No Melena, No Hematochezia, No Other Genitourinary: YES Dysuria, YES Retention; No Frequency, No Incontinence, No Hematuria, No Discharge, No Urgency, No Pain, No Flank Pain, No Other, No , No , No , No , No , No , No Musculoskeletal: Yes Gait Disturbance, Yes Joint Pain, Yes Muscle Pain, Yes Muscular Weakness; No Joint Stiffness, No Joint Swelling, No Pain In:, No Swelling In:, No Other Neurological: No Behavorial Changes, No Bowel/Bladder ControlChng, No Confusion, No Dizziness, No Gait Disturbance, No Headaches, No Impaired Coord/balance, No Memory Loss, No Numbness/Tingling, No Seizures, No Speech Problems, No Tremors, No Visual Changes, No Weakness, No Other Skin: No Dry Skin, No Eczema, No Hair Changes, No Lumps, No Mole Changes, No Mottling, No Nail Changes, No Pruritus, No Rash, No Skin Lesion Changes, No Other, No Acne Physical Exam General: Alert, Oriented X3, Cooperative, No acute distress HEENT: Atraumatic, PERRLA, EOMI, Mucous membr. moist/pink Lungs: Other (Scattered wheezes) Heart: S1S2, RRR, no thrills, no rubs Abdomen: Normal bowel sounds, Other (LLQ tender) Rectal Exam: not examined Extremities: No clubbing, No cyanosis, No edema, Normal pulses, No tenderness/swelling Skin: No rashes, No breakdown, No significant lesion Neuro: Normal speech, Strength at 5/5 X4 ext, Normal tone, Sensation intact, Cranial nerves 3-12 NL, Reflexes 2+ Psych/Mental Status: Mental status NL, Mood NL Vitals Vitals Vital Signs Date Time Temp Pulse Resp B/P (MAP) Pulse Ox O2 Delivery O2 Flow Rate FiO2 04/21/19 11:29 88 122/88 (99) Room Air 04/21/19 09:53 17 04/21/19 09:20 97.7 95 97.7 Labs Labs Laboratory Tests Test 04/21/19 09:30 04/21/19 10:05 04/21/19 10:43 White Blood Count 15.7 x10^3/uL (4.0-11.0) Red Blood Count 3.94 x10^6/uL (3.50-5.40) Hemoglobin 12.8 g/dL (12.0-15.5) Hematocrit 37.2 % (36.0-47.0) Mean Corpuscular Volume 94 fL (79-100) Mean Corpuscular Hemoglobin 32 pg (25-35) Mean Corpuscular Hemoglobin Concent 34 g/dL (31-37) Red Cell Distribution Width 17.4 % (11.5-14.5) Platelet Count 375 x10^3/uL (140-400) Neutrophils (%) (Auto) 87 % (31-73) Lymphocytes (%) (Auto) 5 % (24-48) Monocytes (%) (Auto) 9 % (0-9) Eosinophils (%) (Auto) 0 % (0-3) Basophils (%) (Auto) 0 % (0-3) Neutrophils # (Auto) 13.6 x10^3/uL (1.8-7.7) Lymphocytes # (Auto) 0.7 x10^3/uL (1.0-4.8) Monocytes # (Auto) 1.3 x10^3/uL (0.0-1.1) Eosinophils # (Auto) 0.0 x10^3/uL (0.0-0.7) Basophils # (Auto) 0.0 x10^3/uL (0.0-0.2) Sodium Level 115 mmol/L (136-145) Potassium Level 2.2 mmol/L (3.5-5.1) Chloride Level 72 mmol/L (98-107) Carbon Dioxide Level 32 mmol/L (21-32) Anion Gap 11 (6-14) Blood Urea Nitrogen 32 mg/dL (7-20) Creatinine 1.5 mg/dL (0.6-1.0) Estimated GFR (Cockcroft-Gault) 34.5 BUN/Creatinine Ratio 21 (6-20) Glucose Level 151 mg/dL (70-99) Calcium Level 9.2 mg/dL (8.5-10.1) Magnesium Level 2.3 mg/dL (1.8-2.4) Total Bilirubin 0.7 mg/dL (0.2-1.0) Aspartate Amino Transf (AST/SGOT) 49 U/L (15-37) Alanine Aminotransferase (ALT/SGPT) 18 U/L (14-59) Alkaline Phosphatase 117 U/L (46-116) Troponin I Quantitative < 0.017 ng/mL (0.000-0.055) Total Protein 8.0 g/dL (6.4-8.2) Albumin 4.1 g/dL (3.4-5.0) Albumin/Globulin Ratio 1.1 (1.0-1.7) Lipase 150 U/L (73-393) Urine Collection Type Unknown Urine Color Yellow Urine Clarity Clear Urine pH 6.5 Urine Specific [place] 1.015 Urine Protein Negative mg/dL (NEG-TRACE) Urine Glucose (UA) Negative mg/dL (NEG) Urine Ketones (Stick) Negative mg/dL (NEG) Urine Blood Negative (NEG) Urine Nitrite Negative (NEG) Urine Bilirubin Negative (NEG) Urine Urobilinogen Dipstick 1.0 mg/dL (0.2 mg/dL) Urine Leukocyte Esterase Negative (NEG) Urine RBC 1-2 /HPF (0-2) Urine WBC Occ /HPF (0-4) Urine Squamous Epithelial Cells Occ /LPF Urine Bacteria 0 /HPF (0-FEW) Urine Hyaline Casts Few /HPF Urine Mucus Slight /LPF Influenza Type A Antigen Negative (NEGATIVE) Influenza Type B Antigen Negative (NEGATIVE) Laboratory Tests Test 04/21/19 09:30 04/21/19 10:05 04/21/19 10:43 White Blood Count 15.7 x10^3/uL (4.0-11.0) Red Blood Count 3.94 x10^6/uL (3.50-5.40) Hemoglobin 12.8 g/dL (12.0-15.5) Hematocrit 37.2 % (36.0-47.0) Mean Corpuscular Volume 94 fL (79-100) Mean Corpuscular Hemoglobin 32 pg (25-35) Mean Corpuscular Hemoglobin Concent 34 g/dL (31-37) Red Cell Distribution Width 17.4 % (11.5-14.5) Platelet Count 375 x10^3/uL (140-400) Neutrophils (%) (Auto) 87 % (31-73) Lymphocytes (%) (Auto) 5 % (24-48) Monocytes (%) (Auto) 9 % (0-9) Eosinophils (%) (Auto) 0 % (0-3) Basophils (%) (Auto) 0 % (0-3) Neutrophils # (Auto) 13.6 x10^3/uL (1.8-7.7) Lymphocytes # (Auto) 0.7 x10^3/uL (1.0-4.8) Monocytes # (Auto) 1.3 x10^3/uL (0.0-1.1) Eosinophils # (Auto) 0.0 x10^3/uL (0.0-0.7) Basophils # (Auto) 0.0 x10^3/uL (0.0-0.2) Sodium Level 115 mmol/L (136-145) Potassium Level 2.2 mmol/L (3.5-5.1) Chloride Level 72 mmol/L (98-107) Carbon Dioxide Level 32 mmol/L (21-32) Anion Gap 11 (6-14) Blood Urea Nitrogen 32 mg/dL (7-20) Creatinine 1.5 mg/dL (0.6-1.0) Estimated GFR (Cockcroft-Gault) 34.5 BUN/Creatinine Ratio 21 (6-20) Glucose Level 151 mg/dL (70-99) Calcium Level 9.2 mg/dL (8.5-10.1) Magnesium Level 2.3 mg/dL (1.8-2.4) Total Bilirubin 0.7 mg/dL (0.2-1.0) Aspartate Amino Transf (AST/SGOT) 49 U/L (15-37) Alanine Aminotransferase (ALT/SGPT) 18 U/L (14-59) Alkaline Phosphatase 117 U/L (46-116) Troponin I Quantitative < 0.017 ng/mL (0.000-0.055) Total Protein 8.0 g/dL (6.4-8.2) Albumin 4.1 g/dL (3.4-5.0) Albumin/Globulin Ratio 1.1 (1.0-1.7) Lipase 150 U/L (73-393) Urine Collection Type Unknown Urine Color Yellow Urine Clarity Clear Urine pH 6.5 Urine Specific [place] 1.015 Urine Protein Negative mg/dL (NEG-TRACE) Urine Glucose (UA) Negative mg/dL (NEG) Urine Ketones (Stick) Negative mg/dL (NEG) Urine Blood Negative (NEG) Urine Nitrite Negative (NEG) Urine Bilirubin Negative (NEG) Urine Urobilinogen Dipstick 1.0 mg/dL (0.2 mg/dL) Urine Leukocyte Esterase Negative (NEG) Urine RBC 1-2 /HPF (0-2) Urine WBC Occ /HPF (0-4) Urine Squamous Epithelial Cells Occ /LPF Urine Bacteria 0 /HPF (0-FEW) Urine Hyaline Casts Few /HPF Urine Mucus Slight /LPF Influenza Type A Antigen Negative (NEGATIVE) Influenza Type B Antigen Negative (NEGATIVE) Images Images CT Abdomen/Pelvis - The lung bases are clear. The heart size is normal with no pericardial effusion evident. No focal abnormality seen at the liver spleen, adrenal glands or pancreas.Gallbladder surgically absent. There continues to be a dilated common bile duct. The abdominal aorta shows some arteriosclerotic vascular calcification especially distally with extends into the iliac arteries. No aneurysmal dilatation is present. No abnormality seen at the inferior vena cava. The right kidney shows no renal mass, renal calculus, hydronephrosis or evidence of obstructive uropathy. The left kidney appears be without mass, calculus or hydronephrosis but is displaced anteriorly by an enlarged heterogeneous left psoas muscle which may reflect retroperitoneal hemorrhage which also extends posterior to the left kidney and spleen. No abnormality is seen at the iliacus muscle. The stomach is not distended and the wall appears thickened. The intestinal tract does not appear to be abnormally dilated or show evidence of obstruction. There is no evidence of diverticulosis or diverticulitis. Mancera catheter is in the bladder bladder is not distended. No abnormality seen at the vaginal cuff. There is again note made of some bulging right pelvic floor is unchanged. There are postop changes in the lumbar spine with degenerative disc disease. Compression deformity of T12 vertebral body. IMPRESSION: Examination is compromised without intravenous or oral contrast. Enlarged heterogeneous appearance to the left psoas muscle consistent with retroperitoneal/intramuscular hemorrhage. There is also some fluid extending posterior to the left kidney and spleen consistent with some retroperitoneal hemorrhage. No other apparent change. CXR - ACDF hardware. Heart size normal. Aortic arch calcified plaque. Mild symmetric nodular densities as with nipple shadows. There is also mild density associated with the left posterior ninth rib corresponding to a healing fracture which was present on CT imaging from January 2019. No pneumothorax, pulmonary opacities or pleural effusions. IMPRESSION: No acute process. Healing subacute posterior left ninth rib fracture with bony sclerosis and callus. VTE Prophylaxis Ordered VTE Prophylaxis Devices: Yes VTE Pharmacological Prophylaxi: No Assessment/Plan Assessment/Plan A/P: Intractable nausea and vomiting - likely gastroenteritis, with diarrhea, will check fecal leukocytes and with recent antibiotics will check c. difficile. Anti-emetics. GI consulted Abdominal pain - likely related to what appears to be a retroperitoneal hematoma. There is no free air that I can see. Will consult general surgery for retroperitoneal hematoma concern, hold blood thinners Diarrhea - will check fecal leukocytes and c. difficile Hyponatremia - Na 115, last normal 144 in september, this is acute, will correct, given LR and NSS already. Will consult nephrology Hypokalemia - likely from GI losses, replaced per ED already. will trend. MARVIN - Cr 1.5. Likely vasomotor nephropathy from poor PO intake and GI losses Transaminitis - mild. Will trend Leukocytosis - WBC 15.7, meets SIRS criteria, uncertain if this is infectious or she has a source, most likely gastroenteritis FEN - NPO PPX - SCDs FULL CODE (does not want to be on a vent more than 3 days) Dispo - CVC for hypokalemia, needs telemetry monitoring RICHARD ARELLANO MD Apr 21, 2019 12:07
[2019-04-21] MEDS ORDERED: ONDANSETRON PF 4 MG/2 ML VIAL. IV PRN (12:15)
[2019-04-21] MEDS: fentaNYL PF VIAL 100 MCG/2 ML VIAL IV PRN ×3 (12:22→21:55)
[2019-04-21] MEDS ORDERED: IV RINGERS,LACTATED 1000ML 1,000 ML IV ONE (12:30)
[2019-04-21 12:46] LABS: % BANDS 1 % (0-9); % LYMPHS 3 % (24-48); % MONOS 12 % (0-10); % SEGS 84 % (35-66)
[2019-04-21 12:48] LABS: ANISOCYTOSIS SLIGHT; PLT ESTIMATE ADEQUATE (ADEQUATE)
[2019-04-21] MEDS ORDERED: NICO1PAT21 TP (13:21)
[2019-04-21 13:30] VITALS: BP 112/55
[2019-04-21] MEDS ORDERED: HYDROmorphone 2 MG/ML VIAL IVP PRN (13:45)
[2019-04-21] MEDS: BUDESONIDE 0.5 MG/2 ML NEBU. NEB SCH ×2 (14:00→20:24)
[2019-04-21] MEDS ORDERED: ALBUTEROL SULFATE 2.5 MG/3 ML NEBU. NEB PRN (14:00)
[2019-04-21] MEDS: NICOTINE 21MG PATCH. TD SCH (14:04)
[2019-04-21] MEDS: buPROPion XL 150 MG TAB.ER.24H. PO SCH (14:28)
--- NOTE | 2019-04-21 14:31 | PDOC2 ---
GI CONSULT Reason For Consult: Diarrhea/possible retroperitoneal bleed. HPI: HPI: 68 y/o female known to us. Presented to ER with 4-5 days of N, V, non-bloody and w/o much real upper abdominal pain. Last 2 days diarrhea 3-4 times daily, also w/o blood, melena. May have had malaise, etc for a couple days before ons et of syndrome. Most discomfort suprapubic with feeling of need to urinate; only "dribbles" per her and . Occasional mild right or left LQ transient pain. Did finish Z-radha about a week ago. Does have some upper abdominal discomfort she feels from the coughing and retching. Denies other than occasional heartburn; maybe occasional non-progressive dysphagia. EGD 05/2017 with prepyloric ulcer; path c/w NSAID/ASA effect. Repeat EGD 08/2016 with healed ulcer. No mention of any esophagitis. On chronic PPI. S/p bridgett. Evaluated for biliary dilation in past with MRCP and ultimately ERCP. LFT"s were normal. At ER[facility] 08/2017, ES done for papillary stenosis. No pancreatic or primary liver issues. Prior h/o alcohol abuse. Was w/o diarrhea or constipation prior to current illness. Colonoscopy 07/2017 as well normal with normal random biopsies. GIFH negative. On CT today still with stable biliary dilation, but questions of left psoas/retroperitoneal bleed. Unclear if back pain above chronic baseline. PMH: PMH: HTN, cataracts, seizures, COPD, PNA, endometriosis, uterine fibroids, FMS, OA, depression, anxiety. S/p ECCE, appy, bridgett, hysterectomy/BSO, multiple spinal/cervical procedures. FH: Family History: No pertinent hx Social History: ALCOHOL: rare Drugs: None ROS: GEN: Denies fevers, chills, sweats HEENT: Denies blurred vision, sore throat CV: Denies chest pain RESP: Denies shortness of air, + cough GI: Per HPI : Denies hematuria, dysuria, + incomplete bladder emptying ENDO: Denies weight changes NEURO: Denies confusion, dizziness MSK: Denies weakness, joint pain/swelling SKIN: Denies jaundice, pruritus Vitals: Vitals: Vital Signs Date Time Temp Pulse Resp B/P (MAP) Pulse Ox O2 Delivery O2 Flow Rate FiO2 11/3/19 13:30 98.7 89 18 112/55 (74) 100 Room Air 98.7 Labs: Labs: Laboratory Tests Test 04/21/19 09:30 04/21/19 10:05 04/21/19 10:43 04/21/19 11:40 White Blood Count 15.7 x10^3/uL (4.0-11.0) Red Blood Count 3.94 x10^6/uL (3.50-5.40) Hemoglobin 12.8 g/dL (12.0-15.5) Hematocrit 37.2 % (36.0-47.0) Mean Corpuscular Volume 94 fL (79-100) Mean Corpuscular Hemoglobin 32 pg (25-35) Mean Corpuscular Hemoglobin Concent 34 g/dL (31-37) Red Cell Distribution Width 17.4 % (11.5-14.5) Platelet Count 375 x10^3/uL (140-400) Neutrophils (%) (Auto) 87 % (31-73) Lymphocytes (%) (Auto) 5 % (24-48) Monocytes (%) (Auto) 9 % (0-9) Eosinophils (%) (Auto) 0 % (0-3) Basophils (%) (Auto) 0 % (0-3) Neutrophils # (Auto) 13.6 x10^3/uL (1.8-7.7) Lymphocytes # (Auto) 0.7 x10^3/uL (1.0-4.8) Monocytes # (Auto) 1.3 x10^3/uL (0.0-1.1) Eosinophils # (Auto) 0.0 x10^3/uL (0.0-0.7) Basophils # (Auto) 0.0 x10^3/uL (0.0-0.2) Segmented Neutrophils % 84 % (35-66) Band Neutrophils % 1 % (0-9) Lymphocytes % 3 % (24-48) Monocytes % 12 % (0-10) Platelet Estimate Adequate (ADEQUATE) Large Platelets Few Giant Platelets Few Anisocytosis Slight Sodium Level 115 mmol/L (136-145) Potassium Level 2.2 mmol/L (3.5-5.1) Chloride Level 72 mmol/L (98-107) Carbon Dioxide Level 32 mmol/L (21-32) Anion Gap 11 (6-14) Blood Urea Nitrogen 32 mg/dL (7-20) Creatinine 1.5 mg/dL (0.6-1.0) Estimated GFR (Cockcroft-Gault) 34.5 BUN/Creatinine Ratio 21 (6-20) Glucose Level 151 mg/dL (70-99) Calcium Level 9.2 mg/dL (8.5-10.1) Magnesium Level 2.3 mg/dL (1.8-2.4) Total Bilirubin 0.7 mg/dL (0.2-1.0) Aspartate Amino Transf (AST/SGOT) 49 U/L (15-37) Alanine Aminotransferase (ALT/SGPT) 18 U/L (14-59) Alkaline Phosphatase 117 U/L (46-116) Troponin I Quantitative < 0.017 ng/mL (0.000-0.055) Total Protein 8.0 g/dL (6.4-8.2) Albumin 4.1 g/dL (3.4-5.0) Albumin/Globulin Ratio 1.1 (1.0-1.7) Lipase 150 U/L (73-393) Urine Collection Type Unknown Urine Color Yellow Urine Clarity Clear Urine pH 6.5 Urine Specific [place] 1.015 Urine Protein Negative mg/dL (NEG-TRACE) Urine Glucose (UA) Negative mg/dL (NEG) Urine Ketones (Stick) Negative mg/dL (NEG) Urine Blood Negative (NEG) Urine Nitrite Negative (NEG) Urine Bilirubin Negative (NEG) Urine Urobilinogen Dipstick 1.0 mg/dL (0.2 mg/dL) Urine Leukocyte Esterase Negative (NEG) Urine RBC 1-2 /HPF (0-2) Urine WBC Occ /HPF (0-4) Urine Squamous Epithelial Cells Occ /LPF Urine Bacteria 0 /HPF (0-FEW) Urine Hyaline Casts Few /HPF Urine Mucus Slight /LPF Influenza Type A Antigen Negative (NEGATIVE) Influenza Type B Antigen Negative (NEGATIVE) Lactic Acid Level 1.5 mmol/L (0.4-2.0) Leukocytosis, hyponatremia/chloremia, normal LFT's. Urine not maximally concentrated. Allergies: Coded Allergies: Iodinated Contrast Media (Verified Allergy, Intermediate, 01/22/18) acyclovir (Verified Allergy, Intermediate, Rash, 01/22/18) iodine (Verified Allergy, Intermediate, 01/22/18) I S O L A T I O N *CONTACT* (Verified Allergy, Unknown, 01/22/18) mrsa morphine (Verified Adverse Reaction, Intermediate, Nausea, 01/22/18) Medications: Current Medications Medications (Trade) Dose Ordered Sig/John Route PRN Reason Start Time Stop Time Status Last Admin Dose Admin Sodium Chloride 1,000 ml @ 1,000 mls/hr Q1H IV 04/21/19 09:30 04/21/19 10:29 DC 04/21/19 09:33 Ondansetron HCl (Zofran) 4 mg 1X ONCE IV 04/21/19 09:45 04/21/19 09:46 DC 04/21/19 09:34 Pantoprazole Sodium (PROTONIX VIAL for IV PUSH) 40 mg 1X ONCE IVP 04/21/19 09:45 04/21/19 09:46 DC 04/21/19 09:35 Fentanyl Citrate (Fentanyl 2ml Vial) 50 mcg 1X ONCE IVP 04/21/19 10:00 04/21/19 10:01 DC 04/21/19 09:53 Potassium Chloride/Water 100 ml @ 100 mls/hr Q1H IV 04/21/19 11:00 04/21/19 12:59 DC 04/21/19 11:49 Potassium Chloride (Klor-Con) 40 meq 1X ONCE PO 04/21/19 11:00 04/21/19 11:01 DC 04/21/19 10:34 Ringer's Solution 500 ml @ 500 mls/hr 1X ONCE IV 04/21/19 11:00 04/21/19 11:59 DC 04/21/19 11:00 Ondansetron HCl (Zofran) 4 mg PRN Q8HRS PRN IV NAUSEA/VOMITING 04/21/19 12:15 04/21/19 13:44 DC 04/21/19 13:28 Fentanyl Citrate (Fentanyl 2ml Vial) 50 mcg PRN Q1HR PRN IV PAIN 04/21/19 12:15 04/22/19 12:14 04/21/19 13:30 Ringer's Solution 1,000 ml @ 150 mls/hr 1X ONCE IV 04/21/19 12:30 04/21/19 19:09 04/21/19 12:23 Imaging: Imaging: On CT: CT abdomen and pelvis without contrast: Reason for examination: Abdominal pain with nausea and vomiting. History is given of patient being allergic to iodine. Comparison is made to previous study dated 10/25/2018. Helical images were obtained through the abdomen and pelvis with no intravenous or oral contrast administered. Reconstruction was performed in sagittal and coronal planes. The evaluation is limited with no intravenous or oral contrast present. Exposure: One or more of the following individualized dose reduction techniques were utilized for this examination: 1. Automated exposure control 2. Adjustment of the mA and/or kV according to patient size 3. Use of iterative reconstruction technique. The lung bases are clear. The heart size is normal with no pericardial effusion evident. No focal abnormality seen at the liver spleen, adrenal glands or pancreas. Gallbladder surgically absent. There continues to be a dilated common bile duct. The abdominal aorta shows some arteriosclerotic vascular calcification especially distally with extends into the iliac arteries. No aneurysmal dilatation is present. No abnormality seen at the inferior vena cava. The right kidney shows no renal mass, renal calculus, hydronephrosis or evidence of obstructive uropathy. The left kidney appears be without mass, calculus or hydronephrosis but is displaced anteriorly by an enlarged heterogeneous left psoas muscle which may reflect retroperitoneal hemorrhage which also extends posterior to the left kidney and spleen. No abnormality is seen at the iliacus muscle. The stomach is not distended and the wall appears thickened. The intestinal tract does not appear to be abnormally dilated or show evidence of obstruction. There is no evidence of diverticulosis or diverticulitis. Bernabe catheter is in the bladder bladder is not distended. No abnormality seen at the vaginal cuff. There is again note made of some bulging right pelvic floor is unchanged. There are postop changes in the lumbar spine with degenerative disc disease. Compression deformity of T12 vertebral body. IMPRESSION: Examination is compromised without intravenous or oral contrast. Enlarged heterogeneous appearance to the left psoas muscle consistent with retroperitoneal/intramuscular hemorrhage. There is also some fluid extending posterior to the left kidney and spleen consistent with some retroperitoneal hemorrhage. No other apparent change. PE: GEN: NAD HEENT: Atraumatic, PERRLA LUNGS: CTAB HEART: RRR, no murmurs ABD: NABS, S/ND/tender most suprapubically/some milder diffuse tenderness, no masses EXTREMITY: No edema SKIN: No rashes, no jaundice NEURO/PSYCH: A & O 3 A/P: A/P: IMP: N, V, D with prodrome suggestive of viral syndrome. Has been on antibiotics, but Zithromax not big offender when comes to C.diff. H/o ulcer, on chronic PPI. S/p bridgett. H/o papillary stenosis, s/p ERCP/ES Hyponatremia--urine not concentrated, so probably not classic SIADH. No history of thyroid disease and TSH normal here in 2016. Has had abnormal lung imaging, but says not felt to have lung tumor. 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 CRC screening; up to date. Possible psoas/retroperitoneal bleeding--not on AC's. Unclear real. REC: Stool tests (fecal wbc's, c.diff, rotazyme, norovirus) PPI, IV initially as N, V. Check TSH, INR. Consider re-image re: the possible bleeding--MRI? OK to try clears po. Other pending. DIONNE WHYTE MD Apr 21, 2019 14:31
--- NOTE | 2019-04-21 17:16 | RAD ---
Abdominal ultrasound complete: Reason for examination: Left lower quadrant with possible retroperitoneal hematoma. Contrast allergy. Comparison is made to CT examination dated 04/21/2019. No gross abnormality seen in the region of the pancreas. The liver is normal in size at 15 cm. There is a small hyperechoic 8 mm nodule in the right lobe of the liver posteriorly consistent with a small hemangioma. The gallbladder is surgically absent. Common bile duct is normal in caliber at 1.1 mm. Right kidney measures 9.3 x 4.6 x 4.3 cm in greatest dimension and shows good cortical medullary differentiation and vascular flow with no mass or hydronephrosis. Left kidney measures 10.7 x 5.5 x 5.6 cm in greatest dimension and shows normal cortical medullary differentiation with no mass or hydronephrosis. The spleen is normal in size at 6.4 cm. The abdominal aorta is normal in caliber measuring 2.3 cm proximally. There is focal arteriosclerotic plaque at the mid abdominal aorta causing some stenosis but there is still a 1 cm diameter but patent aorta adjacent to the plaque. No abnormality seen at the inferior vena cava. There appears to be free fluid posterior and superior to the left kidney. There is also heterogeneous echogenicity in the left lower quadrant which probably reflects retroperitoneal hematoma. The bladder is not distended and evaluation of the pelvis is limited. IMPRESSION: Small 8 mm hyperechoic lesion in the right lobe of the liver posteriorly consistent with a small hemangioma. Free fluid in the left upper quadrant posterior and superior to the left kidney. Heterogeneous echogenicity in the left lower quadrant corresponds with the retroperitoneal abnormality seen on CT and probably representing hematoma. Focal plaque at the mid abdominal aorta causing stenosis of the abdominal aorta with the patent lumen measuring 1 cm diameter. Electronically signed by: Arlette Green MD (04/21/2019 5:13 PM) [facility]
[2019-04-21] MEDS ORDERED: SODIUM CHLORIDE 3 % 150 ML IV ONE (18:00)
[2019-04-21] MEDS: IV NORMAL SALINE 1000ML BAG 1,000 ML IV SCH (18:06)
[2019-04-21 18:25] VITALS: BP 111/55
[2019-04-21 21:16] LABS: PROTHROMBIN TIME PATIENT 11.5 SEC (11.7-14.0)
[2019-04-21 21:23] LABS: CALCIUM 8.4 mg/dL (8.5-10.1); CREATININE 0.6 mg/dL (0.6-1.0); GFR 99.4
[2019-04-21 21:27] LABS: POTASSIUM 2.6 mmol/L (3.5-5.1)
[2019-04-21 22:10] VITALS: BP 122/58
[2019-04-22] MEDS: ONDANSETRON PF 4 MG/2 ML VIAL. IV PRN ×2 (00:35→06:31)
[2019-04-22] MEDS: POTASSIUM CHLORIDE 10MEQ 100 ML IV SCH ×2 (00:36→01:44)
[2019-04-22 02:48] VITALS: BP 141/70
[2019-04-22] MEDS: fentaNYL PF VIAL 100 MCG/2 ML VIAL IV PRN ×2 (02:54→06:32)
[2019-04-22] MEDS: IV NORMAL SALINE 1000ML BAG 1,000 ML IV SCH ×2 (04:25→14:00)
[2019-04-22 06:54] LABS: BASO % 0 % (0-3); EOS % 0 % (0-3); HEMATOCRIT 32.2 % (36.0-47.0); HEMOGLOBIN 10.9 g/dL (12.0-15.5); LYMPH # 0.8 x10^3/uL (1.0-4.8); LYMPH % 9 % (24-48); MEAN CORPUSCULAR HEMOGLOBIN 33 pg (25-35); MEAN CORPUSCULAR HGB CONC 34 g/dL (31-37); MEAN CORPUSCULAR VOLUME 96 fL (79-100); MONO # 0.8 x10^3/uL (0.0-1.1); MONO % 9 % (0-9); NEUT # 7.3 x10^3/uL (1.8-7.7); NEUT % 82 % (31-73); PLATELET COUNT 378 x10^3/uL (140-400); RED BLOOD COUNT 3.35 x10^6/uL (3.50-5.40); RED CELL DISTRIBUTION WIDTH 17.1 % (11.5-14.5); WHITE BLOOD COUNT 8.8 x10^3/uL (4.0-11.0)
[2019-04-22 07:00] VITALS: BP 144/59
[2019-04-22 07:15] LABS: CREATININE 0.6 mg/dL (0.6-1.0); GFR 99.4; POTASSIUM 3.9 mmol/L (3.5-5.1)
--- NOTE | 2019-04-22 07:47 | EKG ---
[facility] [address] [place] [address] Test Date: 2019-04-21 Test Time: 09:52:16 Pat Name: LINDSAY MORALES Department: Room: Gender: F Shrimp Header: : 1950 Requested By: VERONICA PAEZ Order Number: [id number] Reading MD: Measurements Intervals [place] Rate: 81 P: 74 GA: 188 QRS: -58 QRSD: 102 T: 58 QT: 422 QTc: 490 Interpretive Statements SINUS RHYTHM RIGHT ATRIAL ENLARGEMENT ABNORMAL LEFT AXIS DEVIATION LEFT ANTERIOR FASCICULAR BLOCK T ABNORMALITY IN HIGH LATERAL LEADS PROLONGED QT ABNORMAL ECG No previous ECG available for comparison
[2019-04-22] MEDS: BUDESONIDE 0.5 MG/2 ML NEBU. NEB SCH (08:11)
--- NOTE | 2019-04-22 08:17 | PDOC2 ---
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 She does have chronic back pain which was worsened in last few days. Multiple previous back surgeries Denies any injury or trauma No diarrhea since admission Asking about going home Past Medical History Cardiovascular: HTN Pulmonary: COPD GI: Constipation Heme/Onc: No pertinent hx Psych: Anxiety, Depression, Other Musculoskeletal: low back pain Rheumatologic: No pertinent hx Infectious disease: No pertinent hx ENT: No pertinent hx Renal/: No pertinent hx Endocrine: No pertinent hx Dermatology: No pertinent hx Past Surgical History Past Surgical History: Appendectomy, Cholecystectomy, Hysterectomy, Other (Spinal ACDF) Family History Family History: Alzheimer's Disease Social History 1 pack per day ALCOHOL: rare Drugs: None Current Problem List Problem List Problems Medical Problems: (1) Abdominal pain Status: Acute (2) MARVIN (acute kidney injury) Status: Acute (3) Diarrhea Status: Acute (4) Hypokalemia Status: Acute (5) Hyponatremia Status: Acute (6) Intractable nausea and vomiting Status: Acute (7) Leukocytosis Status: Chronic (8) Retroperitoneal hemorrhage Status: Acute (9) Transaminitis Status: Chronic Current Medications Current Medications Current Medications Sodium Chloride 1,000 ml @ 1,000 mls/hr Q1H IV Last administered on 04/21/19at 09:33; Start 04/21/19 at 09:30; Stop 04/21/19 at 10:29; Status DC Ondansetron HCl (Zofran) 4 mg 1X ONCE IV Last administered on 04/21/19at 09:34; Start 04/21/19 at 09:45; Stop 04/21/19 at 09:46; Status DC Pantoprazole Sodium (PROTONIX VIAL for IV PUSH) 40 mg 1X ONCE IVP Last administered on 04/21/19at 09:35; Start 04/21/19 at 09:45; Stop 04/21/19 at 09:46; Status DC Fentanyl Citrate (Fentanyl 2ml Vial) 50 mcg 1X ONCE IVP Last administered on 04/21/19at 09:53; Start 04/21/19 at 10:00; Stop 04/21/19 at 10:01; Status DC Potassium Chloride/Water 50 ml @ 50 mls/hr 1X ONCE IV ; Start 04/21/19 at 10:30; Stop 04/21/19 at 11:29; Status UNV Potassium Chloride/Water 100 ml @ 100 mls/hr Q1H IV Last administered on 04/21/19at 11:49; Start 04/21/19 at 11:00; Stop 04/21/19 at 12:59; Status DC Potassium Chloride (Klor-Con) 40 meq 1X ONCE PO Last administered on 04/21/19at 10:34; Start 04/21/19 at 11:00; Stop 04/21/19 at 11:01; Status DC Ringer's Solution 500 ml @ 500 mls/hr 1X ONCE IV Last administered on 04/21/19 11:00; Start 04/21/19 at 11:00; Stop 04/21/19 at 11:59; Status DC Ondansetron HCl (Zofran) 4 mg PRN Q8HRS PRN IV NAUSEA/VOMITING Last administered on 04/21/19 13:28; Start 04/21/19 at 12:15; Stop 04/21/19 at 13:44; Status DC Fentanyl Citrate (Fentanyl 2ml Vial) 50 mcg PRN Q1HR PRN IV PAIN Last administered on 04/22/19 06:32; Start 04/21/19 at 12:15; Stop 04/22/19 at 12:14 Ringer's Solution 1,000 ml @ 150 mls/hr 1X ONCE IV Last administered on 04/21/19at 12:23; Start 04/21/19 at 12:30; Stop 04/21/19 at 19:09; Status DC Ondansetron HCl (Zofran) 4 mg PRN Q6HRS PRN IV NAUSEA/VOMITING Last administered on 04/22/19at 06:31; Start 04/21/19 at 13:45 Nicotine (Nicoderm Cq 21mg) 1 patch DAILY TD Last administered on 04/21/19 14:04; Start 04/21/19 at 14:00 Hydromorphone HCl (Dilaudid) 0.4 mg PRN Q4HRS PRN IVP PAIN; Start 04/21/19 at 13:45 Albuterol Sulfate (Ventolin Neb Soln) 2.5 mg PRN Q6HRS PRN NEB SHORTNESS OF BREATH; Start 04/21/19 at 14:00 Budesonide (Pulmicort) 0.5 mg RTBID NEB Last administered on 04/22/19at 08:11; Start 04/21/19 at 14:00 Bupropion HCl (Wellbutrin Xl) 300 mg DAILY PO ; Start 04/21/19 at 14:30 Lorazepam (Ativan Inj) 0.5 mg PRN Q6HRS PRN IVP ANXIETY / AGITATION Last administered on 04/21/19at 14:04; Start 04/21/19 at 14:00 Sodium Chloride 150 ml @ 30 mls/hr 1X ONCE IV Last administered on 04/21/19at 18:06; Start 04/21/19 at 18:00; Stop 04/21/19 at 22:59; Status DC Sodium Chloride 1,000 ml @ 100 mls/hr Q10H IV Last administered on 04/22/19at 04:25; Start 04/21/19 at 18:00 Potassium Chloride/Water 100 ml @ 100 mls/hr Q1H IV Last administered on 04/22/19at 01:44; Start 04/21/19 at 21:45; Stop 04/22/19 at 01:44; Status DC Potassium Chloride (Klor-Con) 40 meq 1X ONCE PO Last administered on 04/21/19at 21:56; Start 04/21/19 at 21:45; Stop 04/21/19 at 21:46; Status DC Active Scripts Active Proair Hfa Inhaler (Albuterol Sulfate) 8.5 Gm Hfa.aer.ad 1 Puff INH PRN Q6HRS PRN 14 Days Budesonide 0.5 Mg/2 Ml Ampul.neb 0.5 Mg NEB RTBID MDD 1 Zofran (Ondansetron Hcl) 4 Mg Tablet 1 Tab PO Q6HRS PRN Reported NICODERM CQ 21mg (Nicotine) 1 Each Patch.td24 1 Patch TP DAILY Oxycodone Hcl Immed.release (Oxycodone Hcl) 10 Mg Tablet 10 Mg PO QID Probiotic (Lactobacillus Combo No.11) 1 Each Cap.sprink 3 Each PO DAILY Tylenol (Acetaminophen) 325 Mg Tablet 650 Mg PO TID PRN PRN Anoro Ellipta 62.5-25 Mcg Inh (Umeclidinium Brm/Vilanterol Tr) 1 Each Disk.w.dev 1 Each IH DAILY PRN Clonidine Hcl 0.2 Mg Tablet 1 Tab PO BID PRN Carisoprodol 350 Mg Tablet 1 Tab PO TID Alprazolam 0.5 Mg Tablet 1 Tab PO TID PRN Protonix (Pantoprazole Sodium) 20 Mg Tablet.dr 40 Mg PO DAILY Bupropion Hcl Sr (Bupropion Hcl) 200 Mg Tablet.er 300 Mg PO DAILY Paroxetine Hcl 40 Mg Tablet 1 Tab PO DAILY Losartan Potassium 100 Mg Tablet 100 Mg PO DAILY Cardizem Tablet (Diltiazem Hcl) 60 Mg Tablet 300 Mg PO DAILY Allergies Allergies: Coded Allergies: Iodinated Contrast Media (Verified Allergy, Intermediate, 01/22/18) acyclovir (Verified Allergy, Intermediate, Rash, 01/22/18) iodine (Verified Allergy, Intermediate, 01/22/18) I S O L A T I O N *CONTACT* (Verified Allergy, Unknown, 01/22/18) mrsa morphine (Verified Adverse Reaction, Intermediate, Nausea, 01/22/18) ROS General: YES: Fatigue; No: Chills PSYCHOLOGICAL ROS: No: Anxiety, Depression Eyes: No Blurry vision, No Double vision HEENT: No: Heacaches, Sore Throat Hematological and Lymphatic: YES: Bleeding Problems (none prior to this Admi ssion); No: Blood Clots Respiratory: No: Cough, Shortness of breath Cardiovascular: No Chest Pain, No Palpitations Gastrointestinal: Yes Other (see hpi) Genitourinary: YES Dysuria; No Hematuria Neurological: No Confusion, No Impaired Coord/balance Skin: No Nail Changes, No Skin Lesion Changes Physical Exam General: Alert, Oriented X3, Cooperative, No acute distress HEENT: PERRLA, Mucous membr. moist/pink Lungs: Clear to auscultation, Normal air movement Heart: Regular rate, Normal S1, Normal S2 Abdomen: Soft, No masses, Other (mild ttp left mid abdomen ) Extremities: No clubbing, No cyanosis Skin: No rashes, No breakdown Neuro: Normal speech, Sensation intact Psych/Mental Status: Mental status NL, Mood NL MUSCULOSKELETAL: No deformity, No swelling Vitals VITALS Vital Signs Date Time Temp Pulse Resp B/P (MAP) Pulse Ox O2 Delivery O2 Flow Rate FiO2 04/22/19 06:32 16 94 Room Air 04/22/19 02:54 2.0 04/22/19 02:48 98.6 88 141/70 (93) 98.6 Labs Labs Laboratory Tests Test 04/21/19 09:30 04/21/19 10:05 04/21/19 10:43 04/21/19 11:40 White Blood Count 15.7 x10^3/uL (4.0-11.0) Red Blood Count 3.94 x10^6/uL (3.50-5.40) Hemoglobin 12.8 g/dL (12.0-15.5) Hematocrit 37.2 % (36.0-47.0) Mean Corpuscular Volume 94 fL (79-100) Mean Corpuscular Hemoglobin 32 pg (25-35) Mean Corpuscular Hemoglobin Concent 34 g/dL (31-37) Red Cell Distribution Width 17.4 % (11.5-14.5) Platelet Count 375 x10^3/uL (140-400) Neutrophils (%) (Auto) 87 % (31-73) Lymphocytes (%) (Auto) 5 % (24-48) Monocytes (%) (Auto) 9 % (0-9) Eosinophils (%) (Auto) 0 % (0-3) Basophils (%) (Auto) 0 % (0-3) Neutrophils # (Auto) 13.6 x10^3/uL (1.8-7.7) Lymphocytes # (Auto) 0.7 x10^3/uL (1.0-4.8) Monocytes # (Auto) 1.3 x10^3/uL (0.0-1.1) Eosinophils # (Auto) 0.0 x10^3/uL (0.0-0.7) Basophils # (Auto) 0.0 x10^3/uL (0.0-0.2) Segmented Neutrophils % 84 % (35-66) Band Neutrophils % 1 % (0-9) Lymphocytes % 3 % (24-48) Monocytes % 12 % (0-10) Platelet Estimate Adequate (ADEQUATE) Large Platelets Few Giant Platelets Few Anisocytosis Slight Sodium Level 115 mmol/L (136-145) Potassium Level 2.2 mmol/L (3.5-5.1) Chloride Level 72 mmol/L (98-107) Carbon Dioxide Level 32 mmol/L (21-32) Anion Gap 11 (6-14) Blood Urea Nitrogen 32 mg/dL (7-20) Creatinine 1.5 mg/dL (0.6-1.0) Estimated GFR (Cockcroft-Gault) 34.5 BUN/Creatinine Ratio 21 (6-20) Glucose Level 151 mg/dL (70-99) Calcium Level 9.2 mg/dL (8.5-10.1) Magnesium Level 2.3 mg/dL (1.8-2.4) Total Bilirubin 0.7 mg/dL (0.2-1.0) Aspartate Amino Transf (AST/SGOT) 49 U/L (15-37) Alanine Aminotransferase (ALT/SGPT) 18 U/L (14-59) Alkaline Phosphatase 117 U/L (46-116) Troponin I Quantitative < 0.017 ng/mL (0.000-0.055) Total Protein 8.0 g/dL (6.4-8.2) Albumin 4.1 g/dL (3.4-5.0) Albumin/Globulin Ratio 1.1 (1.0-1.7) Lipase 150 U/L (73-393) Procalcitonin 0.27 ng/mL (0.00-0.10) Thyroid Stimulating Hormone (TSH) 0.539 uIU/mL (0.358-3.74) Urine Collection Type Unknown Urine Color Yellow Urine Clarity Clear Urine pH 6.5 Urine Specific [place] 1.015 Urine Protein Negative mg/dL (NEG-TRACE) Urine Glucose (UA) Negative mg/dL (NEG) Urine Ketones (Stick) Negative mg/dL (NEG) Urine Blood Negative (NEG) Urine Nitrite Negative (NEG) Urine Bilirubin Negative (NEG) Urine Urobilinogen Dipstick 1.0 mg/dL (0.2 mg/dL) Urine Leukocyte Esterase Negative (NEG) Urine RBC 1-2 /HPF (0-2) Urine WBC Occ /HPF (0-4) Urine Squamous Epithelial Cells Occ /LPF Urine Bacteria 0 /HPF (0-FEW) Urine Hyaline Casts Few /HPF Urine Mucus Slight /LPF Influenza Type A Antigen Negative (NEGATIVE) Influenza Type B Antigen Negative (NEGATIVE) Lactic Acid Level 1.5 mmol/L (0.4-2.0) Test 04/21/19 20:55 04/22/19 06:10 Prothrombin Time 11.5 SEC (11.7-14.0) Prothromb Time International Ratio 0.9 (0.8-1.1) Sodium Level 129 mmol/L (136-145) 135 mmol/L (136-145) Potassium Level 2.6 mmol/L (3.5-5.1) 3.9 mmol/L (3.5-5.1) Chloride Level 92 mmol/L (98-107) 99 mmol/L (98-107) Carbon Dioxide Level 32 mmol/L (21-32) 27 mmol/L (21-32) Anion Gap 5 (6-14) 9 (6-14) Blood Urea Nitrogen 17 mg/dL (7-20) 9 mg/dL (7-20) Creatinine 0.6 mg/dL (0.6-1.0) 0.6 mg/dL (0.6-1.0) Estimated GFR (Cockcroft-Gault) 99.4 99.4 Glucose Level 95 mg/dL (70-99) 93 mg/dL (70-99) Calcium Level 8.4 mg/dL (8.5-10.1) 9.0 mg/dL (8.5-10.1) White Blood Count 8.8 x10^3/uL (4.0-11.0) Red Blood Count 3.35 x10^6/uL (3.50-5.40) Hemoglobin 10.9 g/dL (12.0-15.5) Hematocrit 32.2 % (36.0-47.0) Mean Corpuscular Volume 96 fL (79-100) Mean Corpuscular Hemoglobin 33 pg (25-35) Mean Corpuscular Hemoglobin Concent 34 g/dL (31-37) Red Cell Distribution Width 17.1 % (11.5-14.5) Platelet Count 378 x10^3/uL (140-400) Neutrophils (%) (Auto) 82 % (31-73) Lymphocytes (%) (Auto) 9 % (24-48) Monocytes (%) (Auto) 9 % (0-9) Eosinophils (%) (Auto) 0 % (0-3) Basophils (%) (Auto) 0 % (0-3) Neutrophils # (Auto) 7.3 x10^3/uL (1.8-7.7) Lymphocytes # (Auto) 0.8 x10^3/uL (1.0-4.8) Monocytes # (Auto) 0.8 x10^3/uL (0.0-1.1) Eosinophils # (Auto) 0.0 x10^3/uL (0.0-0.7) Basophils # (Auto) 0.0 x10^3/uL (0.0-0.2) Laboratory Tests Test 04/21/19 09:30 04/21/19 10:05 04/21/19 10:43 04/21/19 11:40 White Blood Count 15.7 x10^3/uL (4.0-11.0) Red Blood Count 3.94 x10^6/uL (3.50-5.40) Hemoglobin 12.8 g/dL (12.0-15.5) Hematocrit 37.2 % (36.0-47.0) Mean Corpuscular Volume 94 fL (79-100) Mean Corpuscular Hemoglobin 32 pg (25-35) Mean Corpuscular Hemoglobin Concent 34 g/dL (31-37) Red Cell Distribution Width 17.4 % (11.5-14.5) Platelet Count 375 x10^3/uL (140-400) Neutrophils (%) (Auto) 87 % (31-73) Lymphocytes (%) (Auto) 5 % (24-48) Monocytes (%) (Auto) 9 % (0-9) Eosinophils (%) (Auto) 0 % (0-3) Basophils (%) (Auto) 0 % (0-3) Neutrophils # (Auto) 13.6 x10^3/uL (1.8-7.7) Lymphocytes # (Auto) 0.7 x10^3/uL (1.0-4.8) Monocytes # (Auto) 1.3 x10^3/uL (0.0-1.1) Eosinophils # (Auto) 0.0 x10^3/uL (0.0-0.7) Basophils # (Auto) 0.0 x10^3/uL (0.0-0.2) Segmented Neutrophils % 84 % (35-66) Band Neutrophils % 1 % (0-9) Lymphocytes % 3 % (24-48) Monocytes % 12 % (0-10) Platelet Estimate Adequate (ADEQUATE) Large Platelets Few Giant Platelets Few Anisocytosis Slight Sodium Level 115 mmol/L (136-145) Potassium Level 2.2 mmol/L (3.5-5.1) Chloride Level 72 mmol/L (98-107) Carbon Dioxide Level 32 mmol/L (21-32) Anion Gap 11 (6-14) Blood Urea Nitrogen 32 mg/dL (7-20) Creatinine 1.5 mg/dL (0.6-1.0) Estimated GFR (Cockcroft-Gault) 34.5 BUN/Creatinine Ratio 21 (6-20) Glucose Level 151 mg/dL (70-99) Calcium Level 9.2 mg/dL (8.5-10.1) Magnesium Level 2.3 mg/dL (1.8-2.4) Total Bilirubin 0.7 mg/dL (0.2-1.0) Aspartate Amino Transf (AST/SGOT) 49 U/L (15-37) Alanine Aminotransferase (ALT/SGPT) 18 U/L (14-59) Alkaline Phosphatase 117 U/L (46-116) Troponin I Quantitative < 0.017 ng/mL (0.000-0.055) Total Protein 8.0 g/dL (6.4-8.2) Albumin 4.1 g/dL (3.4-5.0) Albumin/Globulin Ratio 1.1 (1.0-1.7) Lipase 150 U/L (73-393) Procalcitonin 0.27 ng/mL (0.00-0.10) Thyroid Stimulating Hormone (TSH) 0.539 uIU/mL (0.358-3.74) Urine Collection Type Unknown Urine Color Yellow Urine Clarity Clear Urine pH 6.5 Urine Specific [place] 1.015 Urine Protein Negative mg/dL (NEG-TRACE) Urine Glucose (UA) Negative mg/dL (NEG) Urine Ketones (Stick) Negative mg/dL (NEG) Urine Blood Negative (NEG) Urine Nitrite Negative (NEG) Urine Bilirubin Negative (NEG) Urine Urobilinogen Dipstick 1.0 mg/dL (0.2 mg/dL) Urine Leukocyte Esterase Negative (NEG) Urine RBC 1-2 /HPF (0-2) Urine WBC Occ /HPF (0-4) Urine Squamous Epithelial Cells Occ /LPF Urine Bacteria 0 /HPF (0-FEW) Urine Hyaline Casts Few /HPF Urine Mucus Slight /LPF Influenza Type A Antigen Negative (NEGATIVE) Influenza Type B Antigen Negative (NEGATIVE) Lactic Acid Level 1.5 mmol/L (0.4-2.0) Test 04/21/19 20:55 04/22/19 06:10 Prothrombin Time 11.5 SEC (11.7-14.0) Prothromb Time International Ratio 0.9 (0.8-1.1) Sodium Level 129 mmol/L (136-145) 135 mmol/L (136-145) Potassium Level 2.6 mmol/L (3.5-5.1) 3.9 mmol/L (3.5-5.1) Chloride Level 92 mmol/L (98-107) 99 mmol/L (98-107) Carbon Dioxide Level 32 mmol/L (21-32) 27 mmol/L (21-32) Anion Gap 5 (6-14) 9 (6-14) Blood Urea Nitrogen 17 mg/dL (7-20) 9 mg/dL (7-20) Creatinine 0.6 mg/dL (0.6-1.0) 0.6 mg/dL (0.6-1.0) Estimated GFR (Cockcroft-Gault) 99.4 99.4 Glucose Level 95 mg/dL (70-99) 93 mg/dL (70-99) Calcium Level 8.4 mg/dL (8.5-10.1) 9.0 mg/dL (8.5-10.1) White Blood Count 8.8 x10^3/uL (4.0-11.0) Red Blood Count 3.35 x10^6/uL (3.50-5.40) Hemoglobin 10.9 g/dL (12.0-15.5) Hematocrit 32.2 % (36.0-47.0) Mean Corpuscular Volume 96 fL (79-100) Mean Corpuscular Hemoglobin 33 pg (25-35) Mean Corpuscular Hemoglobin Concent 34 g/dL (31-37) Red Cell Distribution Width 17.1 % (11.5-14.5) Platelet Count 378 x10^3/uL (140-400) Neutrophils (%) (Auto) 82 % (31-73) Lymphocytes (%) (Auto) 9 % (24-48) Monocytes (%) (Auto) 9 % (0-9) Eosinophils (%) (Auto) 0 % (0-3) Basophils (%) (Auto) 0 % (0-3) Neutrophils # (Auto) 7.3 x10^3/uL (1.8-7.7) Lymphocytes # (Auto) 0.8 x10^3/uL (1.0-4.8) Monocytes # (Auto) 0.8 x10^3/uL (0.0-1.1) Eosinophils # (Auto) 0.0 x10^3/uL (0.0-0.7) Basophils # (Auto) 0.0 x10^3/uL (0.0-0.2) Assessment/Plan Assessment/Plan abd pain, diarrhea, vomiting acute on chronic back pain retroperitoneal bleed INR normal monitor h/h no surgical indications NJ ARAUJO MD 04/22/19 1526: CONSULT Assessment/Plan Assessment/Plan pt seen, interviewed and examined agree with above no acute surgical recs Thanks for consult RANJIT BENAVIDES APRN Apr 22, 2019 08:17 NJ ARAUJO MD Apr 22, 2019 15:26
[2019-04-22] MEDS: buPROPion XL 150 MG TAB.ER.24H. PO SCH (08:37)
[2019-04-22] MEDS: NICOTINE 21MG PATCH. TD SCH (08:38)
--- NOTE | 2019-04-22 08:58 | PDOC ---
PROGRESS NOTES Chief Complaint Chief Complaint A/P: Intractable nausea and vomiting - likely gastroenteritis, with diarrhea, will check fecal leukocytes and with recent antibiotics will check c. difficile. Anti-emetics. GI consulted Abdominal pain - likely related to what appears to be a retroperitoneal hematoma. There is no free air that I can see. Will consult general surgery for retroperitoneal hematoma concern, hold blood thinners Diarrhea - will check fecal leukocytes and c. difficile Hyponatremia - Na 115, last normal 144 in september, this is acute, corrected with consult from nephrology with 3% NSS Hypokalemia - likely from GI losses, replaced per ED already. will trend. MARVIN - Cr 1.5. Likely vasomotor nephropathy from poor PO intake and GI losses Transaminitis - mild. Will trend Leukocytosis - WBC 15.7, meets SIRS criteria, uncertain if this is infectious or she has a source, most likely gastroenteritis FEN - Liquid diet PPX - SCDs FULL CODE (does not want to be on a vent more than 3 days) Dispo - CVC for hypokalemia, needs telemetry monitoring History of Present Illness History of Present Illness Ms Ordaz is a 68yo F w/ PMHx COPD, HTN, chronic lower back pain, smoker who presents with vomiting, body aches, pain with urination, difficulty urinating for the last 3 days. Patient started having diarrhea this morning that was voluminous. She has vomited multiple times the past 3 days and notes LLQ and severe left lower back pain and groin pain for the past 3 weeks. Patient denies any recent falls or trauma to her left side. Patient has a old fracture ninth rib on the left side. There is no bruising to the flanks. Patient finished a doxycycline and azithromycin one week ago for pneumonia and still has a cough. Pain is 10/10, radiates from LLQ to back. EKG NSR, Negative Flu screen In the ED she had 400cc PVR and had a mancera catheter placed with > 400cc out immediately. She has a contrast dye allergy, underwent non-contrast CT abdomen revealing concern for enlarged heterogeneous appearance to the left psoas muscle consistent with retroperitoneal/intramuscular hemorrhage with fluid extending to left kidney and spleen. WBC 15.7, Na 115, K 2.2, BUN 32, Cr 0.5. Received 20MEQ potassium IV and 40MEQ by mouth in ED. Over 36 hours her sodium improved to 134 with 3% NSS. She is feeling better, no surgical plans for likely left retroperitoneal hematoma. Vitals Vitals Vital Signs Date Time Temp Pulse Resp B/P (MAP) Pulse Ox O2 Delivery O2 Flow Rate FiO2 04/22/19 08:11 95 Room Air 2.0 04/22/19 07:00 98.2 93 20 144/59 (87) 98.2 Physical Exam General: Alert, Oriented X3, Cooperative, No acute distress Heart: Regular rate, Normal S1, Normal S2 Lungs: Wheezing Abdomen: Soft, No masses, Other (mild ttp left mid abdomen ) Extremities: No clubbing, No cyanosis Skin: No rashes, No breakdown Labs LABS Laboratory Tests Test 04/21/19 09:30 04/21/19 10:05 04/21/19 10:43 04/21/19 11:40 White Blood Count 15.7 x10^3/uL (4.0-11.0) Red Blood Count 3.94 x10^6/uL (3.50-5.40) Hemoglobin 12.8 g/dL (12.0-15.5) Hematocrit 37.2 % (36.0-47.0) Mean Corpuscular Volume 94 fL (79-100) Mean Corpuscular Hemoglobin 32 pg (25-35) Mean Corpuscular Hemoglobin Concent 34 g/dL (31-37) Red Cell Distribution Width 17.4 % (11.5-14.5) Platelet Count 375 x10^3/uL (140-400) Neutrophils (%) (Auto) 87 % (31-73) Lymphocytes (%) (Auto) 5 % (24-48) Monocytes (%) (Auto) 9 % (0-9) Eosinophils (%) (Auto) 0 % (0-3) Basophils (%) (Auto) 0 % (0-3) Neutrophils # (Auto) 13.6 x10^3/uL (1.8-7.7) Lymphocytes # (Auto) 0.7 x10^3/uL (1.0-4.8) Monocytes # (Auto) 1.3 x10^3/uL (0.0-1.1) Eosinophils # (Auto) 0.0 x10^3/uL (0.0-0.7) Basophils # (Auto) 0.0 x10^3/uL (0.0-0.2) Segmented Neutrophils % 84 % (35-66) Band Neutrophils % 1 % (0-9) Lymphocytes % 3 % (24-48) Monocytes % 12 % (0-10) Platelet Estimate Adequate (ADEQUATE) Large Platelets Few Giant Platelets Few Anisocytosis Slight Sodium Level 115 mmol/L (136-145) Potassium Level 2.2 mmol/L (3.5-5.1) Chloride Level 72 mmol/L (98-107) Carbon Dioxide Level 32 mmol/L (21-32) Anion Gap 11 (6-14) Blood Urea Nitrogen 32 mg/dL (7-20) Creatinine 1.5 mg/dL (0.6-1.0) Estimated GFR (Cockcroft-Gault) 34.5 BUN/Creatinine Ratio 21 (6-20) Glucose Level 151 mg/dL (70-99) Calcium Level 9.2 mg/dL (8.5-10.1) Magnesium Level 2.3 mg/dL (1.8-2.4) Total Bilirubin 0.7 mg/dL (0.2-1.0) Aspartate Amino Transf (AST/SGOT) 49 U/L (15-37) Alanine Aminotransferase (ALT/SGPT) 18 U/L (14-59) Alkaline Phosphatase 117 U/L (46-116) Troponin I Quantitative < 0.017 ng/mL (0.000-0.055) Total Protein 8.0 g/dL (6.4-8.2) Albumin 4.1 g/dL (3.4-5.0) Albumin/Globulin Ratio 1.1 (1.0-1.7) Lipase 150 U/L (73-393) Procalcitonin 0.27 ng/mL (0.00-0.10) Thyroid Stimulating Hormone (TSH) 0.539 uIU/mL (0.358-3.74) Urine Collection Type Unknown Urine Color Yellow Urine Clarity Clear Urine pH 6.5 Urine Specific [place] 1.015 Urine Protein Negative mg/dL (NEG-TRACE) Urine Glucose (UA) Negative mg/dL (NEG) Urine Ketones (Stick) Negative mg/dL (NEG) Urine Blood Negative (NEG) Urine Nitrite Negative (NEG) Urine Bilirubin Negative (NEG) Urine Urobilinogen Dipstick 1.0 mg/dL (0.2 mg/dL) Urine Leukocyte Esterase Negative (NEG) Urine RBC 1-2 /HPF (0-2) Urine WBC Occ /HPF (0-4) Urine Squamous Epithelial Cells Occ /LPF Urine Bacteria 0 /HPF (0-FEW) Urine Hyaline Casts Few /HPF Urine Mucus Slight /LPF Influenza Type A Antigen Negative (NEGATIVE) Influenza Type B Antigen Negative (NEGATIVE) Lactic Acid Level 1.5 mmol/L (0.4-2.0) Test 04/21/19 20:55 04/22/19 06:10 Prothrombin Time 11.5 SEC (11.7-14.0) Prothromb Time International Ratio 0.9 (0.8-1.1) Sodium Level 129 mmol/L (136-145) 135 mmol/L (136-145) Potassium Level 2.6 mmol/L (3.5-5.1) 3.9 mmol/L (3.5-5.1) Chloride Level 92 mmol/L (98-107) 99 mmol/L (98-107) Carbon Dioxide Level 32 mmol/L (21-32) 27 mmol/L (21-32) Anion Gap 5 (6-14) 9 (6-14) Blood Urea Nitrogen 17 mg/dL (7-20) 9 mg/dL (7-20) Creatinine 0.6 mg/dL (0.6-1.0) 0.6 mg/dL (0.6-1.0) Estimated GFR (Cockcroft-Gault) 99.4 99.4 Glucose Level 95 mg/dL (70-99) 93 mg/dL (70-99) Calcium Level 8.4 mg/dL (8.5-10.1) 9.0 mg/dL (8.5-10.1) White Blood Count 8.8 x10^3/uL (4.0-11.0) Red Blood Count 3.35 x10^6/uL (3.50-5.40) Hemoglobin 10.9 g/dL (12.0-15.5) Hematocrit 32.2 % (36.0-47.0) Mean Corpuscular Volume 96 fL (79-100) Mean Corpuscular Hemoglobin 33 pg (25-35) Mean Corpuscular Hemoglobin Concent 34 g/dL (31-37) Red Cell Distribution Width 17.1 % (11.5-14.5) Platelet Count 378 x10^3/uL (140-400) Neutrophils (%) (Auto) 82 % (31-73) Lymphocytes (%) (Auto) 9 % (24-48) Monocytes (%) (Auto) 9 % (0-9) Eosinophils (%) (Auto) 0 % (0-3) Basophils (%) (Auto) 0 % (0-3) Neutrophils # (Auto) 7.3 x10^3/uL (1.8-7.7) Lymphocytes # (Auto) 0.8 x10^3/uL (1.0-4.8) Monocytes # (Auto) 0.8 x10^3/uL (0.0-1.1) Eosinophils # (Auto) 0.0 x10^3/uL (0.0-0.7) Basophils # (Auto) 0.0 x10^3/uL (0.0-0.2) Assessment and Plan Assessmemt and Plan Problems Medical Problems: (1) Abdominal pain Status: Acute (2) MARVIN (acute kidney injury) Status: Acute (3) Diarrhea Status: Acute (4) Hypokalemia Status: Acute (5) Hyponatremia Status: Acute (6) Intractable nausea and vomiting Status: Acute (7) Leukocytosis Status: Chronic (8) Retroperitoneal hemorrhage Status: Acute (9) Transaminitis Status: Chronic Comment Review of Relevant I have reviewed the following items minh (where applicable) has been applied. Labs Laboratory Tests Test 04/21/19 09:30 04/21/19 10:05 04/21/19 10:43 04/21/19 11:40 White Blood Count 15.7 x10^3/uL (4.0-11.0) Red Blood Count 3.94 x10^6/uL (3.50-5.40) Hemoglobin 12.8 g/dL (12.0-15.5) Hematocrit 37.2 % (36.0-47.0) Mean Corpuscular Volume 94 fL (79-100) Mean Corpuscular Hemoglobin 32 pg (25-35) Mean Corpuscular Hemoglobin Concent 34 g/dL (31-37) Red Cell Distribution Width 17.4 % (11.5-14.5) Platelet Count 375 x10^3/uL (140-400) Neutrophils (%) (Auto) 87 % (31-73) Lymphocytes (%) (Auto) 5 % (24-48) Monocytes (%) (Auto) 9 % (0-9) Eosinophils (%) (Auto) 0 % (0-3) Basophils (%) (Auto) 0 % (0-3) Neutrophils # (Auto) 13.6 x10^3/uL (1.8-7.7) Lymphocytes # (Auto) 0.7 x10^3/uL (1.0-4.8) Monocytes # (Auto) 1.3 x10^3/uL (0.0-1.1) Eosinophils # (Auto) 0.0 x10^3/uL (0.0-0.7) Basophils # (Auto) 0.0 x10^3/uL (0.0-0.2) Segmented Neutrophils % 84 % (35-66) Band Neutrophils % 1 % (0-9) Lymphocytes % 3 % (24-48) Monocytes % 12 % (0-10) Platelet Estimate Adequate (ADEQUATE) Large Platelets Few Giant Platelets Few Anisocytosis Slight Sodium Level 115 mmol/L (136-145) Potassium Level 2.2 mmol/L (3.5-5.1) Chloride Level 72 mmol/L (98-107) Carbon Dioxide Level 32 mmol/L (21-32) Anion Gap 11 (6-14) Blood Urea Nitrogen 32 mg/dL (7-20) Creatinine 1.5 mg/dL (0.6-1.0) Estimated GFR (Cockcroft-Gault) 34.5 BUN/Creatinine Ratio 21 (6-20) Glucose Level 151 mg/dL (70-99) Calcium Level 9.2 mg/dL (8.5-10.1) Magnesium Level 2.3 mg/dL (1.8-2.4) Total Bilirubin 0.7 mg/dL (0.2-1.0) Aspartate Amino Transf (AST/SGOT) 49 U/L (15-37) Alanine Aminotransferase (ALT/SGPT) 18 U/L (14-59) Alkaline Phosphatase 117 U/L (46-116) Troponin I Quantitative < 0.017 ng/mL (0.000-0.055) Total Protein 8.0 g/dL (6.4-8.2) Albumin 4.1 g/dL (3.4-5.0) Albumin/Globulin Ratio 1.1 (1.0-1.7) Lipase 150 U/L (73-393) Procalcitonin 0.27 ng/mL (0.00-0.10) Thyroid Stimulating Hormone (TSH) 0.539 uIU/mL (0.358-3.74) Urine Collection Type Unknown Urine Color Yellow Urine Clarity Clear Urine pH 6.5 Urine Specific [place] 1.015 Urine Protein Negative mg/dL (NEG-TRACE) Urine Glucose (UA) Negative mg/dL (NEG) Urine Ketones (Stick) Negative mg/dL (NEG) Urine Blood Negative (NEG) Urine Nitrite Negative (NEG) Urine Bilirubin Negative (NEG) Urine Urobilinogen Dipstick 1.0 mg/dL (0.2 mg/dL) Urine Leukocyte Esterase Negative (NEG) Urine RBC 1-2 /HPF (0-2) Urine WBC Occ /HPF (0-4) Urine Squamous Epithelial Cells Occ /LPF Urine Bacteria 0 /HPF (0-FEW) Urine Hyaline Casts Few /HPF Urine Mucus Slight /LPF Influenza Type A Antigen Negative (NEGATIVE) Influenza Type B Antigen Negative (NEGATIVE) Lactic Acid Level 1.5 mmol/L (0.4-2.0) Test 04/21/19 20:55 04/22/19 06:10 Prothrombin Time 11.5 SEC (11.7-14.0) Prothromb Time International Ratio 0.9 (0.8-1.1) Sodium Level 129 mmol/L (136-145) 135 mmol/L (136-145) Potassium Level 2.6 mmol/L (3.5-5.1) 3.9 mmol/L (3.5-5.1) Chloride Level 92 mmol/L (98-107) 99 mmol/L (98-107) Carbon Dioxide Level 32 mmol/L (21-32) 27 mmol/L (21-32) Anion Gap 5 (6-14) 9 (6-14) Blood Urea Nitrogen 17 mg/dL (7-20) 9 mg/dL (7-20) Creatinine 0.6 mg/dL (0.6-1.0) 0.6 mg/dL (0.6-1.0) Estimated GFR (Cockcroft-Gault) 99.4 99.4 Glucose Level 95 mg/dL (70-99) 93 mg/dL (70-99) Calcium Level 8.4 mg/dL (8.5-10.1) 9.0 mg/dL (8.5-10.1) White Blood Count 8.8 x10^3/uL (4.0-11.0) Red Blood Count 3.35 x10^6/uL (3.50-5.40) Hemoglobin 10.9 g/dL (12.0-15.5) Hematocrit 32.2 % (36.0-47.0) Mean Corpuscular Volume 96 fL (79-100) Mean Corpuscular Hemoglobin 33 pg (25-35) Mean Corpuscular Hemoglobin Concent 34 g/dL (31-37) Red Cell Distribution Width 17.1 % (11.5-14.5) Platelet Count 378 x10^3/uL (140-400) Neutrophils (%) (Auto) 82 % (31-73) Lymphocytes (%) (Auto) 9 % (24-48) Monocytes (%) (Auto) 9 % (0-9) Eosinophils (%) (Auto) 0 % (0-3) Basophils (%) (Auto) 0 % (0-3) Neutrophils # (Auto) 7.3 x10^3/uL (1.8-7.7) Lymphocytes # (Auto) 0.8 x10^3/uL (1.0-4.8) Monocytes # (Auto) 0.8 x10^3/uL (0.0-1.1) Eosinophils # (Auto) 0.0 x10^3/uL (0.0-0.7) Basophils # (Auto) 0.0 x10^3/uL (0.0-0.2) Laboratory Tests Test 04/21/19 09:30 04/21/19 10:05 04/21/19 10:43 04/21/19 11:40 White Blood Count 15.7 x10^3/uL (4.0-11.0) Red Blood Count 3.94 x10^6/uL (3.50-5.40) Hemoglobin 12.8 g/dL (12.0-15.5) Hematocrit 37.2 % (36.0-47.0) Mean Corpuscular Volume 94 fL (79-100) Mean Corpuscular Hemoglobin 32 pg (25-35) Mean Corpuscular Hemoglobin Concent 34 g/dL (31-37) Red Cell Distribution Width 17.4 % (11.5-14.5) Platelet Count 375 x10^3/uL (140-400) Neutrophils (%) (Auto) 87 % (31-73) Lymphocytes (%) (Auto) 5 % (24-48) Monocytes (%) (Auto) 9 % (0-9) Eosinophils (%) (Auto) 0 % (0-3) Basophils (%) (Auto) 0 % (0-3) Neutrophils # (Auto) 13.6 x10^3/uL (1.8-7.7) Lymphocytes # (Auto) 0.7 x10^3/uL (1.0-4.8) Monocytes # (Auto) 1.3 x10^3/uL (0.0-1.1) Eosinophils # (Auto) 0.0 x10^3/uL (0.0-0.7) Basophils # (Auto) 0.0 x10^3/uL (0.0-0.2) Segmented Neutrophils % 84 % (35-66) Band Neutrophils % 1 % (0-9) Lymphocytes % 3 % (24-48) Monocytes % 12 % (0-10) Platelet Estimate Adequate (ADEQUATE) Large Platelets Few Giant Platelets Few Anisocytosis Slight Sodium Level 115 mmol/L (136-145) Potassium Level 2.2 mmol/L (3.5-5.1) Chloride Level 72 mmol/L (98-107) Carbon Dioxide Level 32 mmol/L (21-32) Anion Gap 11 (6-14) Blood Urea Nitrogen 32 mg/dL (7-20) Creatinine 1.5 mg/dL (0.6-1.0) Estimated GFR (Cockcroft-Gault) 34.5 BUN/Creatinine Ratio 21 (6-20) Glucose Level 151 mg/dL (70-99) Calcium Level 9.2 mg/dL (8.5-10.1) Magnesium Level 2.3 mg/dL (1.8-2.4) Total Bilirubin 0.7 mg/dL (0.2-1.0) Aspartate Amino Transf (AST/SGOT) 49 U/L (15-37) Alanine Aminotransferase (ALT/SGPT) 18 U/L (14-59) Alkaline Phosphatase 117 U/L (46-116) Troponin I Quantitative < 0.017 ng/mL (0.000-0.055) Total Protein 8.0 g/dL (6.4-8.2) Albumin 4.1 g/dL (3.4-5.0) Albumin/Globulin Ratio 1.1 (1.0-1.7) Lipase 150 U/L (73-393) Procalcitonin 0.27 ng/mL (0.00-0.10) Thyroid Stimulating Hormone (TSH) 0.539 uIU/mL (0.358-3.74) Urine Collection Type Unknown Urine Color Yellow Urine Clarity Clear Urine pH 6.5 Urine Specific [place] 1.015 Urine Protein Negative mg/dL (NEG-TRACE) Urine Glucose (UA) Negative mg/dL (NEG) Urine Ketones (Stick) Negative mg/dL (NEG) Urine Blood Negative (NEG) Urine Nitrite Negative (NEG) Urine Bilirubin Negative (NEG) Urine Urobilinogen Dipstick 1.0 mg/dL (0.2 mg/dL) Urine Leukocyte Esterase Negative (NEG) Urine RBC 1-2 /HPF (0-2) Urine WBC Occ /HPF (0-4) Urine Squamous Epithelial Cells Occ /LPF Urine Bacteria 0 /HPF (0-FEW) Urine Hyaline Casts Few /HPF Urine Mucus Slight /LPF Influenza Type A Antigen Negative (NEGATIVE) Influenza Type B Antigen Negative (NEGATIVE) Lactic Acid Level 1.5 mmol/L (0.4-2.0) Test 04/21/19 20:55 04/22/19 06:10 Prothrombin Time 11.5 SEC (11.7-14.0) Prothromb Time International Ratio 0.9 (0.8-1.1) Sodium Level 129 mmol/L (136-145) 135 mmol/L (136-145) Potassium Level 2.6 mmol/L (3.5-5.1) 3.9 mmol/L (3.5-5.1) Chloride Level 92 mmol/L (98-107) 99 mmol/L (98-107) Carbon Dioxide Level 32 mmol/L (21-32) 27 mmol/L (21-32) Anion Gap 5 (6-14) 9 (6-14) Blood Urea Nitrogen 17 mg/dL (7-20) 9 mg/dL (7-20) Creatinine 0.6 mg/dL (0.6-1.0) 0.6 mg/dL (0.6-1.0) Estimated GFR (Cockcroft-Gault) 99.4 99.4 Glucose Level 95 mg/dL (70-99) 93 mg/dL (70-99) Calcium Level 8.4 mg/dL (8.5-10.1) 9.0 mg/dL (8.5-10.1) White Blood Count 8.8 x10^3/uL (4.0-11.0) Red Blood Count 3.35 x10^6/uL (3.50-5.40) Hemoglobin 10.9 g/dL (12.0-15.5) Hematocrit 32.2 % (36.0-47.0) Mean Corpuscular Volume 96 fL (79-100) Mean Corpuscular Hemoglobin 33 pg (25-35) Mean Corpuscular Hemoglobin Concent 34 g/dL (31-37) Red Cell Distribution Width 17.1 % (11.5-14.5) Platelet Count 378 x10^3/uL (140-400) Neutrophils (%) (Auto) 82 % (31-73) Lymphocytes (%) (Auto) 9 % (24-48) Monocytes (%) (Auto) 9 % (0-9) Eosinophils (%) (Auto) 0 % (0-3) Basophils (%) (Auto) 0 % (0-3) Neutrophils # (Auto) 7.3 x10^3/uL (1.8-7.7) Lymphocytes # (Auto) 0.8 x10^3/uL (1.0-4.8) Monocytes # (Auto) 0.8 x10^3/uL (0.0-1.1) Eosinophils # (Auto) 0.0 x10^3/uL (0.0-0.7) Basophils # (Auto) 0.0 x10^3/uL (0.0-0.2) Medications Current Medications Sodium Chloride 1,000 ml @ 1,000 mls/hr Q1H IV Last administered on 04/21/19at 09:33; Start 04/21/19 at 09:30; Stop 04/21/19 at 10:29; Status DC Ondansetron HCl (Zofran) 4 mg 1X ONCE IV Last administered on 04/21/19 09:34; Start 04/21/19 at 09:45; Stop 04/21/19 at 09:46; Status DC Pantoprazole Sodium (PROTONIX VIAL for IV PUSH) 40 mg 1X ONCE IVP Last administered on 04/21/19at 09:35; Start 04/21/19 at 09:45; Stop 04/21/19 at 09:46; Status DC Fentanyl Citrate (Fentanyl 2ml Vial) 50 mcg 1X ONCE IVP Last administered on 04/21/19at 09:53; Start 04/21/19 at 10:00; Stop 04/21/19 at 10:01; Status DC Potassium Chloride/Water 50 ml @ 50 mls/hr 1X ONCE IV ; Start 04/21/19 at 10:30; Stop 04/21/19 at 11:29; Status UNV Potassium Chloride/Water 100 ml @ 100 mls/hr Q1H IV Last administered on 04/21/19at 11:49; Start 04/21/19 at 11:00; Stop 04/21/19 at 12:59; Status DC Potassium Chloride (Klor-Con) 40 meq 1X ONCE PO Last administered on 04/21/19at 10:34; Start 04/21/19 at 11:00; Stop 04/21/19 at 11:01; Status DC Ringer's Solution 500 ml @ 500 mls/hr 1X ONCE IV Last administered on 04/21/19at 11:00; Start 04/21/19 at 11:00; Stop 04/21/19 at 11:59; Status DC Ondansetron HCl (Zofran) 4 mg PRN Q8HRS PRN IV NAUSEA/VOMITING Last administered on 04/21/19 13:28; Start 04/21/19 at 12:15; Stop 04/21/19 at 13:44; Status DC Fentanyl Citrate (Fentanyl 2ml Vial) 50 mcg PRN Q1HR PRN IV PAIN Last administered on 04/22/19at 06:32; Start 04/21/19 at 12:15; Stop 04/22/19 at 12:14 Ringer's Solution 1,000 ml @ 150 mls/hr 1X ONCE IV Last administered on 04/21/19 12:23; Start 04/21/19 at 12:30; Stop 04/21/19 at 19:09; Status DC Ondansetron HCl (Zofran) 4 mg PRN Q6HRS PRN IV NAUSEA/VOMITING Last administered on 04/22/19 06:31; Start 04/21/19 at 13:45 Nicotine (Nicoderm Cq 21mg) 1 patch DAILY TD Last administered on 04/22/19 08:38; Start 04/21/19 at 14:00 Hydromorphone HCl (Dilaudid) 0.4 mg PRN Q4HRS PRN IVP PAIN; Start 04/21/19 at 13:45 Albuterol Sulfate (Ventolin Neb Soln) 2.5 mg PRN Q6HRS PRN NEB SHORTNESS OF BREATH; Start 04/21/19 at 14:00 Budesonide (Pulmicort) 0.5 mg RTBID NEB Last administered on 04/22/19 08:11; Start 04/21/19 at 14:00 Bupropion HCl (Wellbutrin Xl) 300 mg DAILY PO Last administered on 04/22/19 08:37; Start 04/21/19 at 14:30 Lorazepam (Ativan Inj) 0.5 mg PRN Q6HRS PRN IVP ANXIETY / AGITATION Last administered on 04/21/19 14:04; Start 04/21/19 at 14:00 Sodium Chloride 150 ml @ 30 mls/hr 1X ONCE IV Last administered on 04/21/19 18:06; Start 04/21/19 at 18:00; Stop 04/21/19 at 22:59; Status DC Sodium Chloride 1,000 ml @ 100 mls/hr Q10H IV Last administered on 04/22/19 04:25; Start 04/21/19 at 18:00 Potassium Chloride/Water 100 ml @ 100 mls/hr Q1H IV Last administered on 04/22/19 01:44; Start 04/21/19 at 21:45; Stop 04/22/19 at 01:44; Status DC Potassium Chloride (Klor-Con) 40 meq 1X ONCE PO Last administered on 04/21/19 21:56; Start 04/21/19 at 21:45; Stop 04/21/19 at 21:46; Status DC Active Scripts Active Proair Hfa Inhaler (Albuterol Sulfate) 8.5 Gm Hfa.aer.ad 1 Puff INH PRN Q6HRS PRN 14 Days Budesonide 0.5 Mg/2 Ml Ampul.neb 0.5 Mg NEB RTBID MDD 1 Zofran (Ondansetron Hcl) 4 Mg Tablet 1 Tab PO Q6HRS PRN Reported NICODERM CQ 21mg (Nicotine) 1 Each Patch.td24 1 Patch TP DAILY Oxycodone Hcl Immed.release (Oxycodone Hcl) 10 Mg Tablet 10 Mg PO QID Probiotic (Lactobacillus Combo No.11) 1 Each Cap.sprink 3 Each PO DAILY Tylenol (Acetaminophen) 325 Mg Tablet 650 Mg PO TID PRN PRN Anoro Ellipta 62.5-25 Mcg Inh (Umeclidinium Brm/Vilanterol Tr) 1 Each Disk.w.dev 1 Each IH DAILY PRN Clonidine Hcl 0.2 Mg Tablet 1 Tab PO BID PRN Carisoprodol 350 Mg Tablet 1 Tab PO TID Alprazolam 0.5 Mg Tablet 1 Tab PO TID PRN Protonix (Pantoprazole Sodium) 20 Mg Tablet.dr 40 Mg PO DAILY Bupropion Hcl Sr (Bupropion Hcl) 200 Mg Tablet.er 300 Mg PO DAILY Paroxetine Hcl 40 Mg Tablet 1 Tab PO DAILY Losartan Potassium 100 Mg Tablet 100 Mg PO DAILY Cardizem Tablet (Diltiazem Hcl) 60 Mg Tablet 300 Mg PO DAILY Vitals/I & O Vital Sign - Last 24 Hours 04/21/19 04/21/19 04/21/19 04/21/19 09:20 09:53 11:29 12:12 Temp 97.7 97.7 Pulse 84 88 91 Resp 17 17 B/P (MAP) 100/70 (80) 122/88 (99) 100/66 (77) Pulse Ox 95 97 O2 Delivery Room Air Room Air 04/21/19 04/21/19 04/21/19 04/21/19 12:22 12:40 12:52 13:30 Pulse 80 Resp 16 B/P (MAP) 110/70 (83) Pulse Ox 97 95 O2 Delivery Room Air Room Air Room Air Room Air 04/21/19 04/21/19 04/21/19 04/21/19 13:30 14:00 14:18 18:25 Temp 98.7 98.3 98.7 98.3 Pulse 89 83 Resp 18 18 B/P (MAP) 112/55 (74) 111/55 (73) Pulse Ox 100 89 O2 Delivery Room Air Room Air Room Air Room Air 04/21/19 04/21/19 04/21/19 04/21/19 20:00 20:25 21:55 22:10 Temp 98.7 98.7 Pulse 78 Resp 14 18 B/P (MAP) 122/58 (79) Pulse Ox 89 99 O2 Delivery Nasal Cannula Nasal Cannula Room Air Nasal Cannula O2 Flow Rate 2.0 2.0 2.0 2.0 04/21/19 04/22/19 04/22/19 04/22/19 22:25 02:48 02:54 03:24 Temp 98.6 98.6 Pulse 88 Resp 14 18 16 16 B/P (MAP) 141/70 (93) Pulse Ox 99 100 100 99 O2 Delivery Nasal Cannula Nasal Cannula Nasal Cannula Room Air O2 Flow Rate 2.0 2.0 2.0 04/22/19 04/22/19 04/22/19 06:32 07:00 08:11 Temp 98.2 98.2 Pulse 93 Resp 16 20 B/P (MAP) 144/59 (87) Pulse Ox 94 96 95 O2 Delivery Room Air Room Air Room Air O2 Flow Rate 2.0 Intake and Output 04/21/19 04/21/19 04/22/19 15:00 23:00 07:00 Intake Total 1000 ml 0 ml 250 ml Output Total 1500 ml 700 ml Balance 1000 ml -1500 ml -450 ml RICHARD ARELLANO MD Apr 22, 2019 08:58
[2019-04-22] MEDS ORDERED: cloNIDine HCL 0.2 MG TABLET PO PRN (09:00)
[2019-04-22] MEDS ORDERED: ALPRAZolam 0.5 MG TABLET PO PRN (09:00)
[2019-04-22] MEDS ORDERED: ACETAMINOPHEN 325 MG TABLET. PO PRN (09:00)
--- NOTE | 2019-04-22 09:11 | NUR ---
IP: Pt has a hx of + mrsa screens since 2016 with most current on 10/08/18. Pt also admitted with diarrhea. Pt to be in contact plus precautions until stool verified C.diff. If stool negative pt will remain i contact precautions until there are 2 negative screens 7 days apart. Recommend a mrsa screen and then initiate Nozin/CHG decolonization.
[2019-04-22] MEDS ORDERED: ALBUTEROL SULFATE 2.5 MG/3 ML NEBU. NEB PRN (09:15)
[2019-04-22] MEDS ORDERED: ONDANSETRON ODT 4 MG TAB.RAPDIS. PO PRN (09:15)
[2019-04-22] MEDS ORDERED: LOSARTAN POTASSIUM 50 MG TABLET. PO SCH (09:30)
[2019-04-22] MEDS ORDERED: PARoxetine 20 MG TABLET PO SCH (09:30)
[2019-04-22] MEDS ORDERED: PANTOPRAZOLE 40 MG TABLET.DR. PO SCH (09:30)
[2019-04-22 11:00] VITALS: BP 148/78
[2019-04-22] MEDS ORDERED: oxyCODONE IR 5 MG TABLET PO PRN (11:00)
--- NOTE | 2019-04-22 11:57 | PDOC ---
PROGRESS NOTES Subjective Subjective We were consulted for hyponatremia and hypokalemia which have since resolved with normal saline. Discussed care with Dr. Calle. No formal consult will be done. If electrolyte abnormalities to recur, we will be happy to see her in the office Objective Objective Vital Signs Date Time Temp Pulse Resp B/P (MAP) Pulse Ox O2 Delivery O2 Flow Rate FiO2 04/22/19 11:24 96 Nasal Cannula 2.0 04/22/19 11:00 97.9 95 20 148/78 (101) 97.9 Intake and Output 04/22/19 07:00 Intake Total 1250 ml Output Total 2200 ml Balance -950 ml Intake Oral 0 ml IV Total 1250 ml Output Urine Total 2200 ml Assessment Assessment Problems Medical Problems: (1) Abdominal pain Status: Acute (2) MARVIN (acute kidney injury) Status: Acute (3) Diarrhea Status: Acute (4) Hypokalemia Status: Acute (5) Hyponatremia Status: Acute (6) Intractable nausea and vomiting Status: Acute (7) Leukocytosis Status: Chronic (8) Retroperitoneal hemorrhage Status: Acute (9) Transaminitis Status: Chronic Comment Review of Relevant I have reviewed the following items minh (where applicable) has been applied. Labs Laboratory Tests Test 04/21/19 09:30 04/21/19 10:05 04/21/19 10:43 04/21/19 11:40 White Blood Count 15.7 x10^3/uL (4.0-11.0) Red Blood Count 3.94 x10^6/uL (3.50-5.40) Hemoglobin 12.8 g/dL (12.0-15.5) Hematocrit 37.2 % (36.0-47.0) Mean Corpuscular Volume 94 fL (79-100) Mean Corpuscular Hemoglobin 32 pg (25-35) Mean Corpuscular Hemoglobin Concent 34 g/dL (31-37) Red Cell Distribution Width 17.4 % (11.5-14.5) Platelet Count 375 x10^3/uL (140-400) Neutrophils (%) (Auto) 87 % (31-73) Lymphocytes (%) (Auto) 5 % (24-48) Monocytes (%) (Auto) 9 % (0-9) Eosinophils (%) (Auto) 0 % (0-3) Basophils (%) (Auto) 0 % (0-3) Neutrophils # (Auto) 13.6 x10^3/uL (1.8-7.7) Lymphocytes # (Auto) 0.7 x10^3/uL (1.0-4.8) Monocytes # (Auto) 1.3 x10^3/uL (0.0-1.1) Eosinophils # (Auto) 0.0 x10^3/uL (0.0-0.7) Basophils # (Auto) 0.0 x10^3/uL (0.0-0.2) Segmented Neutrophils % 84 % (35-66) Band Neutrophils % 1 % (0-9) Lymphocytes % 3 % (24-48) Monocytes % 12 % (0-10) Platelet Estimate Adequate (ADEQUATE) Large Platelets Few Giant Platelets Few Anisocytosis Slight Sodium Level 115 mmol/L (136-145) Potassium Level 2.2 mmol/L (3.5-5.1) Chloride Level 72 mmol/L (98-107) Carbon Dioxide Level 32 mmol/L (21-32) Anion Gap 11 (6-14) Blood Urea Nitrogen 32 mg/dL (7-20) Creatinine 1.5 mg/dL (0.6-1.0) Estimated GFR (Cockcroft-Gault) 34.5 BUN/Creatinine Ratio 21 (6-20) Glucose Level 151 mg/dL (70-99) Calcium Level 9.2 mg/dL (8.5-10.1) Magnesium Level 2.3 mg/dL (1.8-2.4) Total Bilirubin 0.7 mg/dL (0.2-1.0) Aspartate Amino Transf (AST/SGOT) 49 U/L (15-37) Alanine Aminotransferase (ALT/SGPT) 18 U/L (14-59) Alkaline Phosphatase 117 U/L (46-116) Troponin I Quantitative < 0.017 ng/mL (0.000-0.055) Total Protein 8.0 g/dL (6.4-8.2) Albumin 4.1 g/dL (3.4-5.0) Albumin/Globulin Ratio 1.1 (1.0-1.7) Lipase 150 U/L (73-393) Procalcitonin 0.27 ng/mL (0.00-0.10) Thyroid Stimulating Hormone (TSH) 0.539 uIU/mL (0.358-3.74) Urine Collection Type Unknown Urine Color Yellow Urine Clarity Clear Urine pH 6.5 Urine Specific [place] 1.015 Urine Protein Negative mg/dL (NEG-TRACE) Urine Glucose (UA) Negative mg/dL (NEG) Urine Ketones (Stick) Negative mg/dL (NEG) Urine Blood Negative (NEG) Urine Nitrite Negative (NEG) Urine Bilirubin Negative (NEG) Urine Urobilinogen Dipstick 1.0 mg/dL (0.2 mg/dL) Urine Leukocyte Esterase Negative (NEG) Urine RBC 1-2 /HPF (0-2) Urine WBC Occ /HPF (0-4) Urine Squamous Epithelial Cells Occ /LPF Urine Bacteria 0 /HPF (0-FEW) Urine Hyaline Casts Few /HPF Urine Mucus Slight /LPF Influenza Type A Antigen Negative (NEGATIVE) Influenza Type B Antigen Negative (NEGATIVE) Lactic Acid Level 1.5 mmol/L (0.4-2.0) Test 04/21/19 20:55 04/22/19 06:10 Prothrombin Time 11.5 SEC (11.7-14.0) Prothromb Time International Ratio 0.9 (0.8-1.1) Sodium Level 129 mmol/L (136-145) 135 mmol/L (136-145) Potassium Level 2.6 mmol/L (3.5-5.1) 3.9 mmol/L (3.5-5.1) Chloride Level 92 mmol/L (98-107) 99 mmol/L (98-107) Carbon Dioxide Level 32 mmol/L (21-32) 27 mmol/L (21-32) Anion Gap 5 (6-14) 9 (6-14) Blood Urea Nitrogen 17 mg/dL (7-20) 9 mg/dL (7-20) Creatinine 0.6 mg/dL (0.6-1.0) 0.6 mg/dL (0.6-1.0) Estimated GFR (Cockcroft-Gault) 99.4 99.4 Glucose Level 95 mg/dL (70-99) 93 mg/dL (70-99) Calcium Level 8.4 mg/dL (8.5-10.1) 9.0 mg/dL (8.5-10.1) White Blood Count 8.8 x10^3/uL (4.0-11.0) Red Blood Count 3.35 x10^6/uL (3.50-5.40) Hemoglobin 10.9 g/dL (12.0-15.5) Hematocrit 32.2 % (36.0-47.0) Mean Corpuscular Volume 96 fL (79-100) Mean Corpuscular Hemoglobin 33 pg (25-35) Mean Corpuscular Hemoglobin Concent 34 g/dL (31-37) Red Cell Distribution Width 17.1 % (11.5-14.5) Platelet Count 378 x10^3/uL (140-400) Neutrophils (%) (Auto) 82 % (31-73) Lymphocytes (%) (Auto) 9 % (24-48) Monocytes (%) (Auto) 9 % (0-9) Eosinophils (%) (Auto) 0 % (0-3) Basophils (%) (Auto) 0 % (0-3) Neutrophils # (Auto) 7.3 x10^3/uL (1.8-7.7) Lymphocytes # (Auto) 0.8 x10^3/uL (1.0-4.8) Monocytes # (Auto) 0.8 x10^3/uL (0.0-1.1) Eosinophils # (Auto) 0.0 x10^3/uL (0.0-0.7) Basophils # (Auto) 0.0 x10^3/uL (0.0-0.2) Laboratory Tests Test 04/21/19 20:55 04/22/19 06:10 Prothrombin Time 11.5 SEC (11.7-14.0) Prothromb Time International Ratio 0.9 (0.8-1.1) Sodium Level 129 mmol/L (136-145) 135 mmol/L (136-145) Potassium Level 2.6 mmol/L (3.5-5.1) 3.9 mmol/L (3.5-5.1) Chloride Level 92 mmol/L (98-107) 99 mmol/L (98-107) Carbon Dioxide Level 32 mmol/L (21-32) 27 mmol/L (21-32) Anion Gap 5 (6-14) 9 (6-14) Blood Urea Nitrogen 17 mg/dL (7-20) 9 mg/dL (7-20) Creatinine 0.6 mg/dL (0.6-1.0) 0.6 mg/dL (0.6-1.0) Estimated GFR (Cockcroft-Gault) 99.4 99.4 Glucose Level 95 mg/dL (70-99) 93 mg/dL (70-99) Calcium Level 8.4 mg/dL (8.5-10.1) 9.0 mg/dL (8.5-10.1) White Blood Count 8.8 x10^3/uL (4.0-11.0) Red Blood Count 3.35 x10^6/uL (3.50-5.40) Hemoglobin 10.9 g/dL (12.0-15.5) Hematocrit 32.2 % (36.0-47.0) Mean Corpuscular Volume 96 fL (79-100) Mean Corpuscular Hemoglobin 33 pg (25-35) Mean Corpuscular Hemoglobin Concent 34 g/dL (31-37) Red Cell Distribution Width 17.1 % (11.5-14.5) Platelet Count 378 x10^3/uL (140-400) Neutrophils (%) (Auto) 82 % (31-73) Lymphocytes (%) (Auto) 9 % (24-48) Monocytes (%) (Auto) 9 % (0-9) Eosinophils (%) (Auto) 0 % (0-3) Basophils (%) (Auto) 0 % (0-3) Neutrophils # (Auto) 7.3 x10^3/uL (1.8-7.7) Lymphocytes # (Auto) 0.8 x10^3/uL (1.0-4.8) Monocytes # (Auto) 0.8 x10^3/uL (0.0-1.1) Eosinophils # (Auto) 0.0 x10^3/uL (0.0-0.7) Basophils # (Auto) 0.0 x10^3/uL (0.0-0.2) Microbiology 04/21/19 Blood Culture - Preliminary, Resulted NO GROWTH AFTER 1 DAY Medications Current Medications Sodium Chloride 1,000 ml @ 1,000 mls/hr Q1H IV Last administered on 04/21/19at 09:33; Start 04/21/19 at 09:30; Stop 04/21/19 at 10:29; Status DC Ondansetron HCl (Zofran) 4 mg 1X ONCE IV Last administered on 04/21/19at 09:34; Start 04/21/19 at 09:45; Stop 04/21/19 at 09:46; Status DC Pantoprazole Sodium (PROTONIX VIAL for IV PUSH) 40 mg 1X ONCE IVP Last administered on 04/21/19at 09:35; Start 04/21/19 at 09:45; Stop 04/21/19 at 09:4 6; Status DC Fentanyl Citrate (Fentanyl 2ml Vial) 50 mcg 1X ONCE IVP Last administered on 04/21/19at 09:53; Start 04/21/19 at 10:00; Stop 04/21/19 at 10:01; Status DC Potassium Chloride/Water 50 ml @ 50 mls/hr 1X ONCE IV ; Start 04/21/19 at 10:30; Stop 04/21/19 at 11:29; Status UNV Potassium Chloride/Water 100 ml @ 100 mls/hr Q1H IV Last administered on 04/21/19at 11:49; Start 04/21/19 at 11:00; Stop 04/21/19 at 12:59; Status DC Potassium Chloride (Klor-Con) 40 meq 1X ONCE PO Last administered on 04/21/19at 10:34; Start 04/21/19 at 11:00; Stop 04/21/19 at 11:01; Status DC Ringer's Solution 500 ml @ 500 mls/hr 1X ONCE IV Last administered on 04/21/19at 11:00; Start 04/21/19 at 11:00; Stop 04/21/19 at 11:59; Status DC Ondansetron HCl (Zofran) 4 mg PRN Q8HRS PRN IV NAUSEA/VOMITING Last administered on 04/21/19at 13:28; Start 04/21/19 at 12:15; Stop 04/21/19 at 13:44; Status DC Fentanyl Citrate (Fentanyl 2ml Vial) 50 mcg PRN Q1HR PRN IV PAIN Last administered on 04/22/19at 06:32; Start 04/21/19 at 12:15; Stop 04/22/19 at 12:14 Ringer's Solution 1,000 ml @ 150 mls/hr 1X ONCE IV Last administered on 04/21/19at 12:23; Start 04/21/19 at 12:30; Stop 04/21/19 at 19:09; Status DC Ondansetron HCl (Zofran) 4 mg PRN Q6HRS PRN IV NAUSEA/VOMITING Last adminis tered on 04/22/19at 06:31; Start 04/21/19 at 13:45 Nicotine (Nicoderm Cq 21mg) 1 patch DAILY TD Last administered on 04/22/19at 0 8:38; Start 04/21/19 at 14:00 Hydromorphone HCl (Dilaudid) 0.4 mg PRN Q4HRS PRN IVP PAIN; Start 04/21/19 at 13:45 Albuterol Sulfate (Ventolin Neb Soln) 2.5 mg PRN Q6HRS PRN NEB SHORTNESS OF BREATH; Start 04/21/19 at 14:00 Budesonide (Pulmicort) 0.5 mg RTBID NEB Last administered on 04/22/19 08:11; Start 04/21/19 at 14:00 Bupropion HCl (Wellbutrin Xl) 300 mg DAILY PO Last administered on 04/22/19 08:37; Start 04/21/19 at 14:30 Lorazepam (Ativan Inj) 0.5 mg PRN Q6HRS PRN IVP ANXIETY / AGITATION Last ad ministered on 04/21/19at 14:04; Start 04/21/19 at 14:00 Sodium Chloride 150 ml @ 30 mls/hr 1X ONCE IV Last administered on 04/21/19 18:06; Start 04/21/19 at 18:00; Stop 04/21/19 at 22:59; Status DC Sodium Chloride 1,000 ml @ 100 mls/hr Q10H IV Last administered on 04/22/19 04:25; Start 04/21/19 at 18:00 Potassium Chloride/Water 100 ml @ 100 mls/hr Q1H IV Last administered on 04/22/19 01:44; Start 04/21/19 at 21:45; Stop 04/22/19 at 01:44; Status DC Potassium Chloride (Klor-Con) 40 meq 1X ONCE PO Last administered on 04/21/19 21:56; Start 04/21/19 at 21:45; Stop 04/21/19 at 21:46; Status DC Acetaminophen (Tylenol) 650 mg TID PRN PRN PO MILD PAIN 1-3; Start 04/22/19 at 09:00 Alprazolam (Xanax) 0.5 mg PRN TID PRN PO ANXIETY / AGITATION Last administered on 04/22/19at 09:59; Start 04/22/19 at 09:00 Clonidine HCl (Catapres) 0.2 mg PRN BID PRN PO ELEVATED BP, SEE COMMENTS; Start 04/22/19 at 09:00 Diltiazem HCl (Cardizem 24hr Cd) 300 mg DAILY PO Last administered on 04/22/19 09:59; Start 04/22/19 at 09:30 Losartan Potassium (Cozaar) 100 mg DAILY PO Last administered on 04/22/19at 09:59; Start 04/22/19 at 09:30 Ondansetron HCl (Zofran Odt) 4 mg PRN Q6HRS PRN PO NAUSEA/VOMITING; Start 04/22/19 at 09:15 Pantoprazole Sodium (Protonix) 40 mg DAILYAC PO Last administered on 04/22/19at 09:59; Start 04/22/19 at 09:30 Paroxetine HCl (Paxil) 40 mg DAILY PO Last administered on 04/22/19 09:59; Start 04/22/19 at 09:30 Albuterol Sulfate (Ventolin Neb Soln) 2.5 mg PRN Q6HRS PRN NEB SHORTNESS OF BREATH; Start 04/22/19 at 09:15 Oxycodone HCl (Roxicodone) 10 mg PRN QID PRN PO PAIN Last administered on 04/22/19at 11:24; Start 04/22/19 at 11:00 Active Scripts Active Proair Hfa Inhaler (Albuterol Sulfate) 8.5 Gm Hfa.aer.ad 1 Puff INH PRN Q6HRS PRN 14 Days Budesonide 0.5 Mg/2 Ml Ampul.neb 0.5 Mg NEB RTBID MDD 1 Zofran (Ondansetron Hcl) 4 Mg Tablet 1 Tab PO Q6HRS PRN Reported NICODERM CQ 21mg (Nicotine) 1 Each Patch.td24 1 Patch TP DAILY Oxycodone Hcl Immed.release (Oxycodone Hcl) 10 Mg Tablet 10 Mg PO QID Probiotic (Lactobacillus Combo No.11) 1 Each Cap.sprink 3 Each PO DAILY Tylenol (Acetaminophen) 325 Mg Tablet 650 Mg PO TID PRN PRN Anoro Ellipta 62.5-25 Mcg Inh (Umeclidinium Brm/Vilanterol Tr) 1 Each Disk.w.dev 1 Each IH DAILY PRN Clonidine Hcl 0.2 Mg Tablet 1 Tab PO BID PRN Carisoprodol 350 Mg Tablet 1 Tab PO TID Alprazolam 0.5 Mg Tablet 1 Tab PO TID PRN Protonix (Pantoprazole Sodium) 20 Mg Tablet.dr 40 Mg PO DAILY Bupropion Hcl Sr (Bupropion Hcl) 200 Mg Tablet.er 300 Mg PO DAILY Paroxetine Hcl 40 Mg Tablet 1 Tab PO DAILY Losartan Potassium 100 Mg Tablet 100 Mg PO DAILY Cardizem Tablet (Diltiazem Hcl) 60 Mg Tablet 300 Mg PO DAILY Vitals/I & O Vital Sign - Last 24 Hours 04/21/19 04/21/19 04/21/19 04/21/19 12:12 12:22 12:40 12:52 Pulse 91 80 Resp 16 B/P (MAP) 100/66 (77) 110/70 (83) Pulse Ox 97 97 95 O2 Delivery Room Air Room Air Room Air 04/21/19 04/21/19 04/21/19 04/21/19 13:30 13:30 14:00 14:18 Temp 98.7 98.7 Pulse 89 Resp 18 B/P (MAP) 112/55 (74) Pulse Ox 100 O2 Delivery Room Air Room Air Room Air Room Air 04/21/19 04/21/19 04/21/19 04/21/19 18:25 20:00 20:25 21:55 Temp 98.3 98.3 Pulse 83 Resp 18 14 B/P (MAP) 111/55 (73) Pulse Ox 89 89 O2 Delivery Room Air Nasal Cannula Nasal Cannula Room Air O2 Flow Rate 2.0 2.0 2.0 04/21/19 04/21/19 04/22/19 04/22/19 22:10 22:25 02:48 02:54 Temp 98.7 98.6 98.7 98.6 Pulse 78 88 Resp 18 14 18 16 B/P (MAP) 122/58 (79) 141/70 (93) Pulse Ox 99 99 100 100 O2 Delivery Nasal Cannula Nasal Cannula Nasal Cannula Nasal Cannula O2 Flow Rate 2.0 2.0 2.0 2.0 04/22/19 04/22/19 04/22/19 04/22/19 03:24 06:32 07:00 08:00 Temp 98.2 98.2 Pulse 93 Resp 16 16 20 B/P (MAP) 144/59 (87) Pulse Ox 99 94 96 O2 Delivery Room Air Room Air Room Air Nasal Cannula O2 Flow Rate 2.0 04/22/19 04/22/19 04/22/19 04/22/19 08:11 09:59 09:59 11:00 Temp 97.9 97.9 Pulse 93 93 95 Resp 20 B/P (MAP) 144/59 144/59 148/78 (101) Pulse Ox 95 96 O2 Delivery Room Air Room Air O2 Flow Rate 2.0 04/22/19 11:24 Pulse Ox 96 O2 Delivery Nasal Cannula O2 Flow Rate 2.0 Intake and Output 04/21/19 04/21/19 04/22/19 15:00 23:00 07:00 Intake Total 1000 ml 0 ml 250 ml Output Total 1500 ml 700 ml Balance 1000 ml -1500 ml -450 ml HUGO LOERA MD Apr 22, 2019 11:57
--- NOTE | 2019-04-22 12:33 | PDOC3 ---
Discharge Summary Visit Information Date of Admission: Apr 21, 2019 Date of Discharge: Apr 22, 2019 Admitting Diagnosis: MARVIN Final Diagnosis Problems Medical Problems: (1) Abdominal pain Status: Acute (2) MARVIN (acute kidney injury) Status: Acute (3) Diarrhea Status: Acute (4) Hypokalemia Status: Acute (5) Hyponatremia Status: Acute (6) Intractable nausea and vomiting Status: Acute (7) Leukocytosis Status: Chronic (8) Retroperitoneal hemorrhage Status: Acute (9) Transaminitis Status: Chronic Brief Hospital Course Allergies Allergies Coded Allergies Type Severity Reaction Last Updated Verified Iodinated Contrast Media Allergy Intermediate 01/22/18 Yes acyclovir Allergy Intermediate Rash 01/22/18 Yes iodine Allergy Intermediate 01/22/18 Yes I S O L A T I O N *CONTACT* Allergy Unknown 01/22/18 Yes morphine Adverse Reaction Intermediate Nausea 01/22/18 Yes Vital Signs Vital Signs Date Time Temp Pulse Resp B/P (MAP) Pulse Ox O2 Delivery O2 Flow Rate FiO2 04/22/19 11:24 96 Nasal Cannula 2.0 04/22/19 11:00 97.9 95 20 148/78 (101) 97.9 Lab Results Laboratory Tests Test 04/21/19 09:30 04/21/19 10:05 04/21/19 10:43 04/21/19 11:40 White Blood Count 15.7 x10^3/uL (4.0-11.0) Red Blood Count 3.94 x10^6/uL (3.50-5.40) Hemoglobin 12.8 g/dL (12.0-15.5) Hematocrit 37.2 % (36.0-47.0) Mean Corpuscular Volume 94 fL (79-100) Mean Corpuscular Hemoglobin 32 pg (25-35) Mean Corpuscular Hemoglobin Concent 34 g/dL (31-37) Red Cell Distribution Width 17.4 % (11.5-14.5) Platelet Count 375 x10^3/uL (140-400) Neutrophils (%) (Auto) 87 % (31-73) Lymphocytes (%) (Auto) 5 % (24-48) Monocytes (%) (Auto) 9 % (0-9) Eosinophils (%) (Auto) 0 % (0-3) Basophils (%) (Auto) 0 % (0-3) Neutrophils # (Auto) 13.6 x10^3/uL (1.8-7.7) Lymphocytes # (Auto) 0.7 x10^3/uL (1.0-4.8) Monocytes # (Auto) 1.3 x10^3/uL (0.0-1.1) Eosinophils # (Auto) 0.0 x10^3/uL (0.0-0.7) Basophils # (Auto) 0.0 x10^3/uL (0.0-0.2) Segmented Neutrophils % 84 % (35-66) Band Neutrophils % 1 % (0-9) Lymphocytes % 3 % (24-48) Monocytes % 12 % (0-10) Platelet Estimate Adequate (ADEQUATE) Large Platelets Few Giant Platelets Few Anisocytosis Slight Sodium Level 115 mmol/L (136-145) Potassium Level 2.2 mmol/L (3.5-5.1) Chloride Level 72 mmol/L (98-107) Carbon Dioxide Level 32 mmol/L (21-32) Anion Gap 11 (6-14) Blood Urea Nitrogen 32 mg/dL (7-20) Creatinine 1.5 mg/dL (0.6-1.0) Estimated GFR (Cockcroft-Gault) 34.5 BUN/Creatinine Ratio 21 (6-20) Glucose Level 151 mg/dL (70-99) Calcium Level 9.2 mg/dL (8.5-10.1) Magnesium Level 2.3 mg/dL (1.8-2.4) Total Bilirubin 0.7 mg/dL (0.2-1.0) Aspartate Amino Transf (AST/SGOT) 49 U/L (15-37) Alanine Aminotransferase (ALT/SGPT) 18 U/L (14-59) Alkaline Phosphatase 117 U/L (46-116) Troponin I Quantitative < 0.017 ng/mL (0.000-0.055) Total Protein 8.0 g/dL (6.4-8.2) Albumin 4.1 g/dL (3.4-5.0) Albumin/Globulin Ratio 1.1 (1.0-1.7) Lipase 150 U/L (73-393) Procalcitonin 0.27 ng/mL (0.00-0.10) Thyroid Stimulating Hormone (TSH) 0.539 uIU/mL (0.358-3.74) Urine Collection Type Unknown Urine Color Yellow Urine Clarity Clear Urine pH 6.5 Urine Specific [place] 1.015 Urine Protein Negative mg/dL (NEG-TRACE) Urine Glucose (UA) Negative mg/dL (NEG) Urine Ketones (Stick) Negative mg/dL (NEG) Urine Blood Negative (NEG) Urine Nitrite Negative (NEG) Urine Bilirubin Negative (NEG) Urine Urobilinogen Dipstick 1.0 mg/dL (0.2 mg/dL) Urine Leukocyte Esterase Negative (NEG) Urine RBC 1-2 /HPF (0-2) Urine WBC Occ /HPF (0-4) Urine Squamous Epithelial Cells Occ /LPF Urine Bacteria 0 /HPF (0-FEW) Urine Hyaline Casts Few /HPF Urine Mucus Slight /LPF Influenza Type A Antigen Negative (NEGATIVE) Influenza Type B Antigen Negative (NEGATIVE) Lactic Acid Level 1.5 mmol/L (0.4-2.0) Test 04/21/19 20:55 04/22/19 06:10 Prothrombin Time 11.5 SEC (11.7-14.0) Prothromb Time International Ratio 0.9 (0.8-1.1) Sodium Level 129 mmol/L (136-145) 135 mmol/L (136-145) Potassium Level 2.6 mmol/L (3.5-5.1) 3.9 mmol/L (3.5-5.1) Chloride Level 92 mmol/L (98-107) 99 mmol/L (98-107) Carbon Dioxide Level 32 mmol/L (21-32) 27 mmol/L (21-32) Anion Gap 5 (6-14) 9 (6-14) Blood Urea Nitrogen 17 mg/dL (7-20) 9 mg/dL (7-20) Creatinine 0.6 mg/dL (0.6-1.0) 0.6 mg/dL (0.6-1.0) Estimated GFR (Cockcroft-Gault) 99.4 99.4 Glucose Level 95 mg/dL (70-99) 93 mg/dL (70-99) Calcium Level 8.4 mg/dL (8.5-10.1) 9.0 mg/dL (8.5-10.1) White Blood Count 8.8 x10^3/uL (4.0-11.0) Red Blood Count 3.35 x10^6/uL (3.50-5.40) Hemoglobin 10.9 g/dL (12.0-15.5) Hematocrit 32.2 % (36.0-47.0) Mean Corpuscular Volume 96 fL (79-100) Mean Corpuscular Hemoglobin 33 pg (25-35) Mean Corpuscular Hemoglobin Concent 34 g/dL (31-37) Red Cell Distribution Width 17.1 % (11.5-14.5) Platelet Count 378 x10^3/uL (140-400) Neutrophils (%) (Auto) 82 % (31-73) Lymphocytes (%) (Auto) 9 % (24-48) Monocytes (%) (Auto) 9 % (0-9) Eosinophils (%) (Auto) 0 % (0-3) Basophils (%) (Auto) 0 % (0-3) Neutrophils # (Auto) 7.3 x10^3/uL (1.8-7.7) Lymphocytes # (Auto) 0.8 x10^3/uL (1.0-4.8) Monocytes # (Auto) 0.8 x10^3/uL (0.0-1.1) Eosinophils # (Auto) 0.0 x10^3/uL (0.0-0.7) Basophils # (Auto) 0.0 x10^3/uL (0.0-0.2) Laboratory Tests Test 04/21/19 20:55 04/22/19 06:10 Prothrombin Time 11.5 SEC (11.7-14.0) Prothromb Time International Ratio 0.9 (0.8-1.1) Sodium Level 129 mmol/L (136-145) 135 mmol/L (136-145) Potassium Level 2.6 mmol/L (3.5-5.1) 3.9 mmol/L (3.5-5.1) Chloride Level 92 mmol/L (98-107) 99 mmol/L (98-107) Carbon Dioxide Level 32 mmol/L (21-32) 27 mmol/L (21-32) Anion Gap 5 (6-14) 9 (6-14) Blood Urea Nitrogen 17 mg/dL (7-20) 9 mg/dL (7-20) Creatinine 0.6 mg/dL (0.6-1.0) 0.6 mg/dL (0.6-1.0) Estimated GFR (Cockcroft-Gault) 99.4 99.4 Glucose Level 95 mg/dL (70-99) 93 mg/dL (70-99) Calcium Level 8.4 mg/dL (8.5-10.1) 9.0 mg/dL (8.5-10.1) White Blood Count 8.8 x10^3/uL (4.0-11.0) Red Blood Count 3.35 x10^6/uL (3.50-5.40) Hemoglobin 10.9 g/dL (12.0-15.5) Hematocrit 32.2 % (36.0-47.0) Mean Corpuscular Volume 96 fL (79-100) Mean Corpuscular Hemoglobin 33 pg (25-35) Mean Corpuscular Hemoglobin Concent 34 g/dL (31-37) Red Cell Distribution Width 17.1 % (11.5-14.5) Platelet Count 378 x10^3/uL (140-400) Neutrophils (%) (Auto) 82 % (31-73) Lymphocytes (%) (Auto) 9 % (24-48) Monocytes (%) (Auto) 9 % (0-9) Eosinophils (%) (Auto) 0 % (0-3) Basophils (%) (Auto) 0 % (0-3) Neutrophils # (Auto) 7.3 x10^3/uL (1.8-7.7) Lymphocytes # (Auto) 0.8 x10^3/uL (1.0-4.8) Monocytes # (Auto) 0.8 x10^3/uL (0.0-1.1) Eosinophils # (Auto) 0.0 x10^3/uL (0.0-0.7) Basophils # (Auto) 0.0 x10^3/uL (0.0-0.2) Brief Hospital Course Ms Ordaz is a 68yo F w/ PMHx COPD, HTN, chronic lower back pain, smoker who presents with vomiting, body aches, pain with urination, difficulty urinating for the last 3 days. Patient started having diarrhea this morning that was voluminous. She has vomited multiple times the past 3 days and notes LLQ and severe left lower back pain and groin pain for the past 3 weeks. Patient denies any recent falls or trauma to her left side. Patient has a old fracture ninth rib on the left side. There is no bruising to the flanks. Patient finished a doxycycline and azithromycin one week ago for pneumonia and still has a cough. Pain is 10/10, radiates from LLQ to back. EKG NSR, Negative Flu screen In the ED she had 400cc PVR and had a mancera catheter placed with > 400cc out immediately. She has a contrast dye allergy, underwent non-contrast CT abdomen revealing con cern for enlarged heterogeneous appearance to the left psoas muscle consistent with retroperitoneal/intramuscular hemorrhage with fluid extending to left kidney and spleen. WBC 15.7, Na 115, K 2.2, BUN 32, Cr 0.5. Received 20MEQ potassium IV and 40MEQ by mouth in ED. Over 36 hours her sodium improved to 134 with 3% NSS. She is feeling better, no surgical plans for likely left retroperitoneal hematoma. Seen by general surgery, GI, nephrology A/P: Intractable nausea and vomiting - likely gastroenteritis, with diarrhea, will check fecal leukocytes and with recent antibiotics will check c. difficile. Anti-emetics. GI consulted Abdominal pain - likely related to what appears to be a retroperitoneal hematoma. There is no free air that I can see. Will consult general surgery for retroperitoneal hematoma concern, hold blood thinners Diarrhea - will check fecal leukocytes and c. difficile Hyponatremia - Na 115, last normal 144 in september, this is acute, corrected with consult from nephrology with 3% NSS Hypokalemia - likely from GI losses, replaced per ED already. will trend. MARVIN - Cr 1.5. Likely vasomotor nephropathy from poor PO intake and GI losses Transaminitis - mild. Will trend Leukocytosis - WBC 15.7, meets SIRS criteria, uncertain if this is infectious or she has a source, most likely gastroenteritis Greater than 30 minutes spent on d/c Discharge Information Condition at Discharge: Improved Follow Up: Weeks Disposition/Orders: D/C to Home Scheduled Budesonide (Budesonide) 0.5 Mg/2 Ml Ampul.neb, 0.5 MG NEB RTBID for copd MDD 1, #60 Prescribed by: KORI DEJESUS on 10/11/18 1008 Last Action: Continued on 04/21/19 1350 by RICHARD ARELLANO MD Bupropion Hcl (Bupropion Hcl Sr) 200 Mg Tablet.er, 300 MG PO DAILY, (Reported) Entered as Reported by: MADALYN DASILVA on 11/02/17 142 Last Action: Converted on 04/21/19 1350 by RICHARD ARELLANO MD Carisoprodol (Carisoprodol) 350 Mg Tablet, 1 TAB PO TID, #90 (Reported) Entered as Reported by: MADALYN DASILVA on 11/02/17 142 Last Action: Reviewed on 04/21/19 132 by LATRICE GARCIA Diltiazem Hcl (Cardizem Tablet) 60 Mg Tablet, 300 MG PO DAILY for FOR HYPERTENSION, #30 Ref 0 (Reported) Entered as Reported by: MADALYN DASILVA on 11/02/171419 Last Action: Converted on 04/22/19 0857 by RICHARD ARELLANO MD Lactobacillus Combo No.11 (Probiotic) 1 Each Cap.sprink, 3 EACH PO DAILY, (Reported) Entered as Reported by: MADALYN DASILVA on 04/12/18 1022 Last Action: Reviewed on 04/21/191319 by LATRICE GARCIA Losartan Potassium (Losartan Potassium) 100 Mg Tablet, 100 MG PO DAILY, (Reported) Entered as Reported by: MADALYN DASILVA on 11/02/171420 Last Action: Converted on 04/22/19 08 by RICHARD ARELLANO MD Nicotine (NICODERM CQ 21mg) 1 Each Patch.td24, 1 PATCH TP DAILY for smoking, #28 Ref 1 (Reported) Entered as Reported by: LATRICE GARCIA on 04/21/19 132 Last Action: New Order on 04/21/191320 by LATRICE GARCIA Oxycodone Hcl (Oxycodone Hcl Immed.release) 10 Mg Tablet, 10 MG PO QID, (Reported) Entered as Reported by: JUAN RAMON LEE RPH on 10/08/18 1224 Last Action: Converted on 04/22/19 1057 by RICHARD ARELLANO MD Pantoprazole Sodium (Protonix) 20 Mg Tablet.dr, 40 MG PO DAILY, (Reported) Entered as Reported by: MADALYN DASIVLA on 11/02/17 142 Last Action: Converted on 04/22/19 0858 by RICHARD ARELLANO MD Paroxetine Hcl (Paroxetine Hcl) 40 Mg Tablet, 1 TAB PO DAILY, #30 Ref 5 (Reported) Entered as Reported by: MADALYN DASILVA on 11/02/17 1421 Last Action: Converted on 04/22/19856 by RICHARD ARELLANO MD Scheduled PRN Acetaminophen (Tylenol) 325 Mg Tablet, 650 MG PO TID PRN PRN for PAIN, (Reported) Entered as Reported by: MADALYN DASILVA on 04/12/18 1022 Last Action: Continued on 04/22/19856 by RICHARD ARELLANO MD Albuterol Sulfate (Proair Hfa Inhaler) 8.5 Gm Hfa.aer.ad, 1 PUFF INH PRN Q6HRS PRN for SHORTNESS OF BREATH for 14 Days, Ref 0 Prescribed by: KORI DEJESUS on 10/11/18 1008 Last Action: Continued on 04/21/19 1350 by RICHARD ARELLANO MD Alprazolam (Alprazolam) 0.5 Mg Tablet, 1 TAB PO TID PRN for ANXIETY / AGITATION, #90 (Reported) Entered as Reported by: MADALYN DASILVA on 11/02/17 142 Last Action: Continued on 04/22/19856 by RICHARD ARELLANO MD Clonidine Hcl (Clonidine Hcl) 0.2 Mg Tablet, 1 TAB PO BID PRN for ELEVATED BP, SEE COMMENTS, #60 Ref 5 (Reported) Entered as Reported by: MADALYN DASILVA on 11/02/17 1427 Last Action: Continued on 04/22/19856 by RICHARD ARELLANO MD Ondansetron Hcl (Zofran) 4 Mg Tablet, 1 TAB PO Q6HRS PRN for NAUSEA/VOMITING, #20 Prescribed by: WIL CHOWDARY MD on 08/30/18 1019 Last Action: Converted on 04/22/19856 by RICHARD ARELLANO MD Umeclidinium Brm/Vilanterol Tr (Anoro Ellipta 62.5-25 Mcg Inh) 1 Each Disk.w.dev, 1 EACH IH DAILY PRN for CONGESTION, (Reported) Entered as Reported by: MADALYN DASILVA on 11/02/17 1429 Last Action: Converted on 04/22/19 0857 by MD EILEEN MADDOX CHRISTOPHER S MD Apr 22, 2019 12:32
--- NOTE | 2019-04-22 13:25 | PDOC ---
G I PROGRESS NOTE Reason for Follow-up Back pain/diarrhea Subjective Diarrhea stopped/back pain unchanged Physical Exam Lungs clear CV S1 S2 ABD +BS, soft, nontender Review of Relevant I have reviewed the following items minh (where applicable) has been applied. Labs Laboratory Tests Test 04/21/19 09:30 04/21/19 10:05 04/21/19 10:43 04/21/19 11:40 White Blood Count 15.7 x10^3/uL (4.0-11.0) Red Blood Count 3.94 x10^6/uL (3.50-5.40) Hemoglobin 12.8 g/dL (12.0-15.5) Hematocrit 37.2 % (36.0-47.0) Mean Corpuscular Volume 94 fL (79-100) Mean Corpuscular Hemoglobin 32 pg (25-35) Mean Corpuscular Hemoglobin Concent 34 g/dL (31-37) Red Cell Distribution Width 17.4 % (11.5-14.5) Platelet Count 375 x10^3/uL (140-400) Neutrophils (%) (Auto) 87 % (31-73) Lymphocytes (%) (Auto) 5 % (24-48) Monocytes (%) (Auto) 9 % (0-9) Eosinophils (%) (Auto) 0 % (0-3) Basophils (%) (Auto) 0 % (0-3) Neutrophils # (Auto) 13.6 x10^3/uL (1.8-7.7) Lymphocytes # (Auto) 0.7 x10^3/uL (1.0-4.8) Monocytes # (Auto) 1.3 x10^3/uL (0.0-1.1) Eosinophils # (Auto) 0.0 x10^3/uL (0.0-0.7) Basophils # (Auto) 0.0 x10^3/uL (0.0-0.2) Segmented Neutrophils % 84 % (35-66) Band Neutrophils % 1 % (0-9) Lymphocytes % 3 % (24-48) Monocytes % 12 % (0-10) Platelet Estimate Adequate (ADEQUATE) Large Platelets Few Giant Platelets Few Anisocytosis Slight Sodium Level 115 mmol/L (136-145) Potassium Level 2.2 mmol/L (3.5-5.1) Chloride Level 72 mmol/L (98-107) Carbon Dioxide Level 32 mmol/L (21-32) Anion Gap 11 (6-14) Blood Urea Nitrogen 32 mg/dL (7-20) Creatinine 1.5 mg/dL (0.6-1.0) Estimated GFR (Cockcroft-Gault) 34.5 BUN/Creatinine Ratio 21 (6-20) Glucose Level 151 mg/dL (70-99) Calcium Level 9.2 mg/dL (8.5-10.1) Magnesium Level 2.3 mg/dL (1.8-2.4) Total Bilirubin 0.7 mg/dL (0.2-1.0) Aspartate Amino Transf (AST/SGOT) 49 U/L (15-37) Alanine Aminotransferase (ALT/SGPT) 18 U/L (14-59) Alkaline Phosphatase 117 U/L (46-116) Troponin I Quantitative < 0.017 ng/mL (0.000-0.055) Total Protein 8.0 g/dL (6.4-8.2) Albumin 4.1 g/dL (3.4-5.0) Albumin/Globulin Ratio 1.1 (1.0-1.7) Lipase 150 U/L (73-393) Procalcitonin 0.27 ng/mL (0.00-0.10) Thyroid Stimulating Hormone (TSH) 0.539 uIU/mL (0.358-3.74) Urine Collection Type Unknown Urine Color Yellow Urine Clarity Clear Urine pH 6.5 Urine Specific [place] 1.015 Urine Protein Negative mg/dL (NEG-TRACE) Urine Glucose (UA) Negative mg/dL (NEG) Urine Ketones (Stick) Negative mg/dL (NEG) Urine Blood Negative (NEG) Urine Nitrite Negative (NEG) Urine Bilirubin Negative (NEG) Urine Urobilinogen Dipstick 1.0 mg/dL (0.2 mg/dL) Urine Leukocyte Esterase Negative (NEG) Urine RBC 1-2 /HPF (0-2) Urine WBC Occ /HPF (0-4) Urine Squamous Epithelial Cells Occ /LPF Urine Bacteria 0 /HPF (0-FEW) Urine Hyaline Casts Few /HPF Urine Mucus Slight /LPF Influenza Type A Antigen Negative (NEGATIVE) Influenza Type B Antigen Negative (NEGATIVE) Lactic Acid Level 1.5 mmol/L (0.4-2.0) Test 04/21/19 20:55 04/22/19 06:10 Prothrombin Time 11.5 SEC (11.7-14.0) Prothromb Time International Ratio 0.9 (0.8-1.1) Sodium Level 129 mmol/L (136-145) 135 mmol/L (136-145) Potassium Level 2.6 mmol/L (3.5-5.1) 3.9 mmol/L (3.5-5.1) Chloride Level 92 mmol/L (98-107) 99 mmol/L (98-107) Carbon Dioxide Level 32 mmol/L (21-32) 27 mmol/L (21-32) Anion Gap 5 (6-14) 9 (6-14) Blood Urea Nitrogen 17 mg/dL (7-20) 9 mg/dL (7-20) Creatinine 0.6 mg/dL (0.6-1.0) 0.6 mg/dL (0.6-1.0) Estimated GFR (Cockcroft-Gault) 99.4 99.4 Glucose Level 95 mg/dL (70-99) 93 mg/dL (70-99) Calcium Level 8.4 mg/dL (8.5-10.1) 9.0 mg/dL (8.5-10.1) White Blood Count 8.8 x10^3/uL (4.0-11.0) Red Blood Count 3.35 x10^6/uL (3.50-5.40) Hemoglobin 10.9 g/dL (12.0-15.5) Hematocrit 32.2 % (36.0-47.0) Mean Corpuscular Volume 96 fL (79-100) Mean Corpuscular Hemoglobin 33 pg (25-35) Mean Corpuscular Hemoglobin Concent 34 g/dL (31-37) Red Cell Distribution Width 17.1 % (11.5-14.5) Platelet Count 378 x10^3/uL (140-400) Neutrophils (%) (Auto) 82 % (31-73) Lymphocytes (%) (Auto) 9 % (24-48) Monocytes (%) (Auto) 9 % (0-9) Eosinophils (%) (Auto) 0 % (0-3) Basophils (%) (Auto) 0 % (0-3) Neutrophils # (Auto) 7.3 x10^3/uL (1.8-7.7) Lymphocytes # (Auto) 0.8 x10^3/uL (1.0-4.8) Monocytes # (Auto) 0.8 x10^3/uL (0.0-1.1) Eosinophils # (Auto) 0.0 x10^3/uL (0.0-0.7) Basophils # (Auto) 0.0 x10^3/uL (0.0-0.2) Laboratory Tests Test 04/21/19 20:55 04/22/19 06:10 Prothrombin Time 11.5 SEC (11.7-14.0) Prothromb Time International Ratio 0.9 (0.8-1.1) Sodium Level 129 mmol/L (136-145) 135 mmol/L (136-145) Potassium Level 2.6 mmol/L (3.5-5.1) 3.9 mmol/L (3.5-5.1) Chloride Level 92 mmol/L (98-107) 99 mmol/L (98-107) Carbon Dioxide Level 32 mmol/L (21-32) 27 mmol/L (21-32) Anion Gap 5 (6-14) 9 (6-14) Blood Urea Nitrogen 17 mg/dL (7-20) 9 mg/dL (7-20) Creatinine 0.6 mg/dL (0.6-1.0) 0.6 mg/dL (0.6-1.0) Estimated GFR (Cockcroft-Gault) 99.4 99.4 Glucose Level 95 mg/dL (70-99) 93 mg/dL (70-99) Calcium Level 8.4 mg/dL (8.5-10.1) 9.0 mg/dL (8.5-10.1) White Blood Count 8.8 x10^3/uL (4.0-11.0) Red Blood Count 3.35 x10^6/uL (3.50-5.40) Hemoglobin 10.9 g/dL (12.0-15.5) Hematocrit 32.2 % (36.0-47.0) Mean Corpuscular Volume 96 fL (79-100) Mean Corpuscular Hemoglobin 33 pg (25-35) Mean Corpuscular Hemoglobin Concent 34 g/dL (31-37) Red Cell Distribution Width 17.1 % (11.5-14.5) Platelet Count 378 x10^3/uL (140-400) Neutrophils (%) (Auto) 82 % (31-73) Lymphocytes (%) (Auto) 9 % (24-48) Monocytes (%) (Auto) 9 % (0-9) Eosinophils (%) (Auto) 0 % (0-3) Basophils (%) (Auto) 0 % (0-3) Neutrophils # (Auto) 7.3 x10^3/uL (1.8-7.7) Lymphocytes # (Auto) 0.8 x10^3/uL (1.0-4.8) Monocytes # (Auto) 0.8 x10^3/uL (0.0-1.1) Eosinophils # (Auto) 0.0 x10^3/uL (0.0-0.7) Basophils # (Auto) 0.0 x10^3/uL (0.0-0.2) Microbiology 04/21/19 Blood Culture - Preliminary, Resulted NO GROWTH AFTER 1 DAY Medications Current Medications Sodium Chloride 1,000 ml @ 1,000 mls/hr Q1H IV Last administered on 04/21/19at 09:33; Start 04/21/19 at 09:30; Stop 04/21/19 at 10:29; Status DC Ondansetron HCl (Zofran) 4 mg 1X ONCE IV Last administered on 04/21/19at 09:34; Start 04/21/19 at 09:45; Stop 04/21/19 at 09:46; Status DC Pantoprazole Sodium (PROTONIX VIAL for IV PUSH) 40 mg 1X ONCE IVP Last administered on 04/21/19at 09:35; Start 04/21/19 at 09:45; Stop 04/21/19 at 09:46; Status DC Fentanyl Citrate (Fentanyl 2ml Vial) 50 mcg 1X ONCE IVP Last administered on 04/21/19at 09:53; Start 04/21/19 at 10:00; Stop 04/21/19 at 10:01; Status DC Potassium Chloride/Water 50 ml @ 50 mls/hr 1X ONCE IV ; Start 04/21/19 at 10:30; Stop 04/21/19 at 11:29; Status UNV Potassium Chloride/Water 100 ml @ 100 mls/hr Q1H IV Last administered on 04/21/19 11:49; Start 04/21/19 at 11:00; Stop 04/21/19 at 12:59; Status DC Potassium Chloride (Klor-Con) 40 meq 1X ONCE PO Last administered on 04/21/19 10:34; Start 04/21/19 at 11:00; Stop 04/21/19 at 11:01; Status DC Ringer's Solution 500 ml @ 500 mls/hr 1X ONCE IV Last administered on 04/21/19 11:00; Start 04/21/19 at 11:00; Stop 04/21/19 at 11:59; Status DC Ondansetron HCl (Zofran) 4 mg PRN Q8HRS PRN IV NAUSEA/VOMITING Last administered on 04/21/19 13:28; Start 04/21/19 at 12:15; Stop 04/21/19 at 13:44; Status DC Fentanyl Citrate (Fentanyl 2ml Vial) 50 mcg PRN Q1HR PRN IV PAIN Last administered on 04/22/19 06:32; Start 04/21/19 at 12:15; Stop 04/22/19 at 12:14; Status DC Ringer's Solution 1,000 ml @ 150 mls/hr 1X ONCE IV Last administered on 04/21/19 12:23; Start 04/21/19 at 12:30; Stop 04/21/19 at 19:09; Status DC Ondansetron HCl (Zofran) 4 mg PRN Q6HRS PRN IV NAUSEA/VOMITING Last administered on 04/22/19 06:31; Start 04/21/19 at 13:45 Nicotine (Nicoderm Cq 21mg) 1 patch DAILY TD Last administered on 04/22/19 08:38; Start 04/21/19 at 14:00 Hydromorphone HCl (Dilaudid) 0.4 mg PRN Q4HRS PRN IVP PAIN; Start 04/21/19 at 13:45 Albuterol Sulfate (Ventolin Neb Soln) 2.5 mg PRN Q6HRS PRN NEB SHORTNESS OF BREATH; Start 04/21/19 at 14:00 Budesonide (Pulmicort) 0.5 mg RTBID NEB Last administered on 11/4/19at 08:11; Start 04/21/19 at 14:00 Bupropion HCl (Wellbutrin Xl) 300 mg DAILY PO Last administered on 04/22/19 08:37; Start 04/21/19 at 14:30 Lorazepam (Ativan Inj) 0.5 mg PRN Q6HRS PRN IVP ANXIETY / AGITATION Last administered on 04/21/19 14:04; Start 04/21/19 at 14:00 Sodium Chloride 150 ml @ 30 mls/hr 1X ONCE IV Last administered on 04/21/19 18:06; Start 04/21/19 at 18:00; Stop 04/21/19 at 22:59; Status DC Sodium Chloride 1,000 ml @ 100 mls/hr Q10H IV Last administered on 04/22/19 04:25; Start 04/21/19 at 18:00 Potassium Chloride/Water 100 ml @ 100 mls/hr Q1H IV Last administered on 04/22/19 01:44; Start 04/21/19 at 21:45; Stop 04/22/19 at 01:44; Status DC Potassium Chloride (Klor-Con) 40 meq 1X ONCE PO Last administered on 04/21/19 21:56; Start 04/21/19 at 21:45; Stop 04/21/19 at 21:46; Status DC Acetaminophen (Tylenol) 650 mg TID PRN PRN PO MILD PAIN 1-3; Start 04/22/19 at 09:00 Alprazolam (Xanax) 0.5 mg PRN TID PRN PO ANXIETY / AGITATION Last administered on 04/22/19at 09:59; Start 04/22/19 at 09:00 Clonidine HCl (Catapres) 0.2 mg PRN BID PRN PO ELEVATED BP, SEE COMMENTS; Start 04/22/19 at 09:00 Diltiazem HCl (Cardizem 24hr Cd) 300 mg DAILY PO Last administered on 04/22/19 09:59; Start 04/22/19 at 09:30 Losartan Potassium (Cozaar) 100 mg DAILY PO Last administered on 04/22/19 09:59; Start 04/22/19 at 09:30 Ondansetron HCl (Zofran Odt) 4 mg PRN Q6HRS PRN PO NAUSEA/VOMITING; Start 04/22/19 at 09:15 Pantoprazole Sodium (Protonix) 40 mg DAILYAC PO Last administered on 04/22/19at 09:59; Start 04/22/19 at 09:30 Paroxetine HCl (Paxil) 40 mg DAILY PO Last administered on 04/22/19at 09:59; Start 04/22/19 at 09:30 Albuterol Sulfate (Ventolin Neb Soln) 2.5 mg PRN Q6HRS PRN NEB SHORTNESS OF BREATH; Start 04/22/19 at 09:15 Oxycodone HCl (Roxicodone) 10 mg PRN QID PRN PO PAIN Last administered on 04/22/19at 11:24; Start 04/22/19 at 11:00 Active Scripts Active Proair Hfa Inhaler (Albuterol Sulfate) 8.5 Gm Hfa.aer.ad 1 Puff INH PRN Q6HRS PRN 14 Days Budesonide 0.5 Mg/2 Ml Ampul.neb 0.5 Mg NEB RTBID MDD 1 Zofran (Ondansetron Hcl) 4 Mg Tablet 1 Tab PO Q6HRS PRN Reported NICODERM CQ 21mg (Nicotine) 1 Each Patch.td24 1 Patch TP DAILY Oxycodone Hcl Immed.release (Oxycodone Hcl) 10 Mg Tablet 10 Mg PO QID Probiotic (Lactobacillus Combo No.11) 1 Each Cap.sprink 3 Each PO DAILY Tylenol (Acetaminophen) 325 Mg Tablet 650 Mg PO TID PRN PRN Anoro Ellipta 62.5-25 Mcg Inh (Umeclidinium Brm/Vilanterol Tr) 1 Each Disk.w.dev 1 Each IH DAILY PRN Clonidine Hcl 0.2 Mg Tablet 1 Tab PO BID PRN Carisoprodol 350 Mg Tablet 1 Tab PO TID Alprazolam 0.5 Mg Tablet 1 Tab PO TID PRN Protonix (Pantoprazole Sodium) 20 Mg Tablet.dr 40 Mg PO DAILY Bupropion Hcl Sr (Bupropion Hcl) 200 Mg Tablet.er 300 Mg PO DAILY Paroxetine Hcl 40 Mg Tablet 1 Tab PO DAILY Losartan Potassium 100 Mg Tablet 100 Mg PO DAILY Cardizem Tablet (Diltiazem Hcl) 60 Mg Tablet 300 Mg PO DAILY Vitals/I & O Vital Sign - Last 24 Hours 11/09/0404/21/19 04/21/19 04/21/19 13:30 13:30 14:00 14:18 Temp 98.7 98.7 Pulse 89 Resp 18 B/P (MAP) 112/55 (74) Pulse Ox 100 O2 Delivery Room Air Room Air Room Air Room Air 04/21/19 04/21/19 04/21/19 04/21/19 18:25 20:00 20:25 21:55 Temp 98.3 98.3 Pulse 83 Resp 18 14 B/P (MAP) 111/55 (73) Pulse Ox 89 89 O2 Delivery Room Air Nasal Cannula Nasal Cannula Room Air O2 Flow Rate 2.0 2.0 2.0 04/21/19 04/21/19 04/22/19 04/22/19 22:10 22:25 02:48 02:54 Temp 98.7 98.6 98.7 98.6 Pulse 78 88 Resp 18 14 18 16 B/P (MAP) 122/58 (79) 141/70 (93) Pulse Ox 99 99 100 100 O2 Delivery Nasal Cannula Nasal Cannula Nasal Cannula Nasal Cannula O2 Flow Rate 2.0 2.0 2.0 2.0 04/22/19 04/22/19 04/22/19 04/22/19 03:24 06:32 07:00 08:00 Temp 98.2 98.2 Pulse 93 Resp 16 16 20 B/P (MAP) 144/59 (87) Pulse Ox 99 94 96 O2 Delivery Room Air Room Air Room Air Nasal Cannula O2 Flow Rate 2.0 04/22/19 04/22/19 04/22/19 04/22/19 08:11 09:59 09:59 11:00 Temp 97.9 97.9 Pulse 93 93 95 Resp 20 B/P (MAP) 144/59 144/59 148/78 (101) Pulse Ox 95 96 O2 Delivery Room Air Room Air O2 Flow Rate 2.0 04/22/19 11:24 Pulse Ox 96 O2 Delivery Nasal Cannula O2 Flow Rate 2.0 Intake and Output 04/21/19 04/21/19 04/22/19 15:00 23:00 07:00 Intake Total 1000 ml 0 ml 250 ml Output Total 1500 ml 700 ml Balance 1000 ml -1500 ml -450 ml Problem List Problems Medical Problems: (1) Abdominal pain Status: Acute (2) MARVIN (acute kidney injury) Status: Acute (3) Diarrhea Status: Acute (4) Hypokalemia Status: Acute (5) Hyponatremia Status: Acute (6) Intractable nausea and vomiting Status: Acute (7) Leukocytosis Status: Chronic (8) Retroperitoneal hemorrhage Status: Acute (9) Transaminitis Status: Chronic Assessment Diarrhea- resolved, most likely multifactorial in etiology Back joelle- with apparent hematoma, CPM BENJAMÍN DE LA TORRE MD Apr 22, 2019 13:24
--- NOTE | 2019-04-22 13:50 | NUR ---
SS following for discharge planning. SS reviewed pt chart. Pt is from home with spouse and is currently on room air. Discharge order on the chart for home with self care.
--- NOTE | 2019-04-22 15:30 | NUR ---
pt has not voided since mancera removal 2 hours ago. Bladder scan shows <50 ml.
--- NOTE | 2019-04-22 15:45 | NUR ---
pt discharged home with . meds and follow up reviewed. v/u. pt indicated she did not need to hear any of it. RN went through discharge information anyway. IV removed by pt. pt stable upon dc.
== END 2019-04-22 15:45 | disposition home or self-care (01) | DRG 391 ==
LOC: ER 09:10 → 2 NORTH 12:00
PROVIDERS: ADMIT Internal Medicine; ATTEND Internal Medicine
DX: K52.9 Noninfective gastroenteritis and colitis, unspecified (principal); N17.0 Acute kidney failure with tubular necrosis; K66.1 Hemoperitoneum; E87.1 Hypo-osmolality and hyponatremia; J44.0 Chronic obstructive pulmonary disease with (acute) lower respiratory infection; E87.6 Hypokalemia; F17.210 Nicotine dependence, cigarettes, uncomplicated; G89.29 Other chronic pain; I10 Essential (primary) hypertension; K83.8 Other specified diseases of biliary tract; M51.36 Other intervertebral disc degeneration, lumbar region; Z82.0 Family history of epilepsy and other diseases of the nervous system; Z87.11 Personal history of peptic ulcer disease; Z90.49 Acquired absence of other specified parts of digestive tract; Z90.710 Acquired absence of both cervix and uterus; Z91.041 Radiographic dye allergy status; F32.9 Major depressive disorder, single episode, unspecified; F41.9 Anxiety disorder, unspecified; Z88.8 Allergy status to other drugs, medicaments and biological substances
CPT/HCPCS: 36415; 71045; 74176; 76700; 80048; 80053; 81001; 83605; 83690; 83735; 84145; 84443; 84484; 85007; 85025; 85610; 87040; 87804; 93005; 94640; 96361; 96365; 96375; C9113; J2060; J2405; J3010; J3480; J3490; J7030; J7120; J7626; 99285-25; G0378

== ENCOUNTER → 2019-05-23 | Outpatient (CLI) | payer MEDICARE, OTHER ==
[~2019-05-23] MED LIST changes: +BUPIVACAINE MPF 0.25% 10 ML VIAL. ONE; +NICO1PAT21 TP; +methylPREDNISolone ACETATE 40 MG/ML VIAL. ONE
--- NOTE | 2019-05-23 10:03 | PAIN ---
DATE OF SERVICE: 05/23/2019 PROGRESS NOTE FOR PAIN CLINIC DIAGNOSES: 1. Cervical radiculopathy with cervical post-laminectomy syndrome. 2. Lumbar radiculopathy with lumbar post-laminectomy syndrome and lumbar degenerative disk disease with spinal stenosis. 3. Myofascial pain. HISTORY OF PRESENT ILLNESS: The patient is a 68-year-old female who returns for followup status post trigger point injections as well as caudal epidural steroid injections. The patient reports she did very well with each of these with about a 75% improvement after the last caudal injection. Her main complaint today is pain in the base of the neck and shoulders as well as the upper back, mid back and low back bilaterally in the posterior hips, but not as much radiating to the lower extremities as she has had some, but not much. The patient reports that 9 on a scale of 10 at its worst over the past week, 8 on average, 7 at its least and is a 7 today. The patient reports tingling, radiating, becoming more constant at base of neck and shoulders as well as the mid back and low back. The patient reports no new motor or sensory deficits, no new bowel or bladder incontinence, better with sitting or lying down, worse with walking, standing, changing positions, does not awaken her from sleep at night. PHYSICAL EXAMINATION: VITAL SIGNS: The patient's blood pressure 116/69, pulse 77, respirations 18, temperature 97.7 degrees Fahrenheit, height is 5 feet 2 inches, weight is 89 pounds. GENERAL: The patient is awake, alert, oriented, appropriate, very pleasant demeanor. HEENT: Shows normocephalic, atraumatic. Extraocular movements are intact and symmetrical. Oral cavity: Mucous membranes moist and pink. Dentition is intact. NECK: Shows anterior throat supple without palpable lymphadenopathy noted. Swallow reflex symmetrical. CHEST: Shows normal on inspection. Breath sounds clear to auscultation bilaterally. HEART: Shows S1, S2 clear. No murmurs auscultated. ABDOMEN: Soft, nontender, nondistended. No palpable organomegaly is noted. No rebound or guarding demonstrated. BACK: Shows spine grossly in the midline. Normal appearing thoracic kyphosis as well as lumbar lordotic curvature. With palpation, cervical paraspinous muscle shows symmetrical, very tender in the inferior aspect of the cervical paraspinous muscles, very firm rope-like muscles consistent with trigger point areas of musculature bilaterally. This is true in the trapezius, greater on the right than the left, present with very firm rope-like musculature, very tender with palpation. The patient does show good rotational motion of cervical spine; however, both laterally as well as extension and flexion without significant difficulty and into the upper back, shows some moderate tenderness in the low thoracic distribution, again more on the right than the left with very firm rope-like musculature consistent with trigger point areas of musculature in this region as well as the lumbar spine, again in the middle and lower distribution of the paraspinous musculature in the lumbar distribution, worse on the right than the left, once again with very firm rope-like musculature, very tender with palpation, but without specific radiation. The patient has good rotational motion of lumbar spine, both laterally as well as extension and flexion. Well-healed surgical scars again noted. EXTREMITIES: The patient's lower extremities show deep tendon reflexes 1+ in the patellar and tendo-calcaneus tendons. Motor exam is strong with 4 on a scale of 5, but symmetrical dorsiflexion, extension, quadriceps and hamstring flexion. Peripheral pulses are 1+ posterior tibia. No peripheral edema is noted. Options were discussed with the patient. The patient's old chart was reviewed as her current medication regimen updated. Current review of systems updated today as well. We will proceed with trigger point injections of the identified musculature. Risks were again discussed including, but not limited to bleeding, infection, possibility of intravascular injection sequelae, spread of local anesthetic and numbness, pneumothorax, side effects of steroid medication and poor results regarding pain control. The patient understands and wished to proceed. The patient will return to the clinic in approximately 2 weeks for followup. She was counseled on return appointment, activity level and side effects to be aware of. DIAGNOSIS: Myofascial pain. PROCEDURE: Trigger point injections, bilateral trapezius musculature, bilateral cervical paraspinous musculature, bilateral thoracic paraspinous musculature and bilateral lumbar paraspinous musculature under sterile prep and drape using local anesthetic. MEDICATION INJECTED: A total of 12 mL of 0.25% bupivacaine and 40 mg total of Depo-Medrol after negative aspiration at each injection site. CONDITION AT DISCHARGE: Stable. The patient tolerated the procedure well, had no complications. HIRA CARBAJAL MD DR: Genesis JOB#: [id number] / [id number]
== END ==
LOC: PNCL 07:34
PROVIDERS: ATTEND Anesthesiology
DX: M79.18 Myalgia, other site (principal); M51.16 Intervertebral disc disorders with radiculopathy, lumbar region; M48.061 Spinal stenosis, lumbar region without neurogenic claudication; M50.10 Cervical disc disorder with radiculopathy, unspecified cervical region; M96.1 Postlaminectomy syndrome, not elsewhere classified
CPT/HCPCS: 20553; J1030; J3490

== ENCOUNTER 2019-06-10 15:37 | Emergency (ER) | payer MEDICARE, OTHER ==
[~2019-06-10] VITALS: Ht 157.5 cm; Wt 39.9 kg
[~2019-06-10 15:37] MED LIST changes: -BUPIVACAINE MPF 0.25% 10 ML VIAL. ONE; -methylPREDNISolone ACETATE 40 MG/ML VIAL. ONE
[2019-06-10] MEDS ORDERED: fentaNYL PF VIAL 100 MCG/2 ML VIAL IV ONE (16:15)
[2019-06-10] MEDS ORDERED: ONDANSETRON PF 4 MG/2 ML VIAL. IV ONE (16:15)
[2019-06-10] MEDS ORDERED: IV NORMAL SALINE 1000ML BAG 1,000 ML IV ONE (16:15)
--- NOTE | 2019-06-10 16:19 | PHYS DOC ---
Past Medical History Past Medical History: COPD, Hypertension Additional Past Medical Histor: CATARACTS Past Surgical History: Appendectomy, Cholecystectomy, Hysterectomy Additional Past Surgical Histo: BACK SURGERY Alcohol Use: None Drug Use: None Adult General Chief Complaint Chief Complaint: ABDOMINAL PAIN [facility] HPI Patient is a 68 year old female who presents with right lower quadrant abdominal pain. The patient states that this has been ongoing for several weeks intermittently. The patient states however it is a lot worse today. She rates her pain as 10 out of 10 in severity and sharp. She did take an oxycodone at 9 AM this morning. The patient has a history of chronic abdominal pain. Patient also has had her appendix, and gallbladder removed. Review of Systems Review of Systems Constitutional: Denies fever or chills [] Eyes: Denies change in visual acuity, redness, or eye pain [] HENT: Denies nasal congestion or sore throat [] Respiratory: Denies cough or shortness of breath [] Cardiovascular: No additional information not addressed in HPI [] GI: Reports abdominal pain, Denies nausea, vomiting, bloody stools or diarrhea [] : Denies dysuria or hematuria [] Musculoskeletal: Denies back pain or joint pain [] Integument: Denies rash or skin lesions [] Neurologic: Denies headache, focal weakness or sensory changes [] Endocrine: Denies polyuria or polydipsia [] Complete systems were reviewed and found to be within normal limits, except as documented in this note. Current Medications Current Medications Current Medications Medications (Trade) Dose Ordered Sig/John Start Time Stop Time Status Last Admin Dose Admin Fentanyl Citrate (Fentanyl 2ml Vial) 100 mcg 1X ONCE 06/10/19 16:15 06/10/19 16:16 DC 06/10/19 16:51 100 MCG Ondansetron HCl (Zofran) 4 mg 1X ONCE 06/10/19 16:15 06/10/19 16:16 DC 06/10/19 16:51 4 MG Sodium Chloride 1,000 ml @ 1,000 mls/hr 1X ONCE 06/10/19 16:15 06/10/19 17:14 DC 06/10/19 16:52 1,000 MLS/HR Allergies Allergies Allergies Coded Allergies Type Severity Reaction Last Updated Verified Iodinated Contrast Media Allergy Intermediate 01/22/18 Yes acyclovir Allergy Intermediate Rash 01/22/18 Yes iodine Allergy Intermediate 01/22/18 Yes I S O L A T I O N *CONTACT* Allergy Unknown 01/22/18 Yes morphine Adverse Reaction Intermediate Nausea 01/22/18 Yes Physical Exam Physical Exam Constitutional: Well developed, well nourished, no acute distress, non-toxic appearance. [] HENT: Normocephalic, atraumatic, bilateral external ears normal, oropharynx moist, no oral exudates, nose normal. [] Eyes: PERRLA, EOMI, conjunctiva normal, no discharge. [] Neck: Normal range of motion, no tenderness, supple, no stridor. [] Cardiovascular:Heart rate regular rhythm, no murmur [] Lungs & Thorax: Bilateral breath sounds clear to auscultation [] Abdomen: Bowel sounds normal, soft, diffuse tenderness localized to the RLQ, no masses, no pulsatile masses. [] Skin: Warm, dry, no erythema, no rash. [] Neurologic: Alert and oriented X 3, normal motor function, normal sensory function, no focal deficits noted. [] Psychologic: Affect normal, judgement normal, mood normal. [] Current Patient Data Vital Signs Vital Signs Date Time Temp Pulse Resp B/P (MAP) Pulse Ox O2 Delivery O2 Flow Rate FiO2 06/10/19 16:00 99.1 86 16 155/69 (97) 92 Room Air 99.1 Lab Values Laboratory Tests Test 06/10/19 16:03 06/10/19 16:50 White Blood Count 4.6 x10^3/uL (4.0-11.0) Red Blood Count 3.96 x10^6/uL (3.50-5.40) Hemoglobin 13.0 g/dL (12.0-15.5) Hematocrit 39.3 % (36.0-47.0) Mean Corpuscular Volume 99 fL (79-100) Mean Corpuscular Hemoglobin 33 pg (25-35) Mean Corpuscular Hemoglobin Concent 33 g/dL (31-37) Red Cell Distribution Width 16.7 % (11.5-14.5) H Platelet Count 307 x10^3/uL (140-400) Neutrophils (%) (Auto) 69 % (31-73) Lymphocytes (%) (Auto) 19 % (24-48) L Monocytes (%) (Auto) 10 % (0-9) H Eosinophils (%) (Auto) 1 % (0-3) Basophils (%) (Auto) 1 % (0-3) Neutrophils # (Auto) 3.2 x10^3/uL (1.8-7.7) Lymphocytes # (Auto) 0.9 x10^3/uL (1.0-4.8) L Monocytes # (Auto) 0.5 x10^3/uL (0.0-1.1) Eosinophils # (Auto) 0.0 x10^3/uL (0.0-0.7) Basophils # (Auto) 0.0 x10^3/uL (0.0-0.2) Urine Collection Type Unknown Urine Color Yellow Urine Clarity Clear Urine pH 6.5 Urine Specific Lynch 1.010 Urine Protein Negative mg/dL (NEG-TRACE) Urine Glucose (UA) Negative mg/dL (NEG) Urine Ketones (Stick) Negative mg/dL (NEG) Urine Blood Small (NEG) Urine Nitrite Negative (NEG) Urine Bilirubin Negative (NEG) Urine Urobilinogen Dipstick 0.2 mg/dL (0.2 mg/dL) Urine Leukocyte Esterase Negative (NEG) Urine RBC 3-5 /HPF (0-2) Urine WBC 1-4 /HPF (0-4) Urine Squamous Epithelial Cells Few /LPF Urine Bacteria Few /HPF (0-FEW) Urine Hyaline Casts Few /HPF Urine Mucus Slight /LPF Sodium Level 140 mmol/L (136-145) Potassium Level 3.7 mmol/L (3.5-5.1) Chloride Level 105 mmol/L (98-107) Carbon Dioxide Level 28 mmol/L (21-32) Anion Gap 7 (6-14) Blood Urea Nitrogen 15 mg/dL (7-20) Creatinine 0.7 mg/dL (0.6-1.0) Estimated GFR (Cockcroft-Gault) 83.2 BUN/Creatinine Ratio 21 (6-20) H Glucose Level 143 mg/dL (70-99) H Calcium Level 9.1 mg/dL (8.5-10.1) Magnesium Level 2.0 mg/dL (1.8-2.4) Total Bilirubin 0.2 mg/dL (0.2-1.0) Aspartate Amino Transferase (AST) 39 U/L (15-37) H Alanine Aminotransferase (ALT) 21 U/L (14-59) Alkaline Phosphatase 95 U/L (46-116) Total Protein 6.6 g/dL (6.4-8.2) Albumin 3.2 g/dL (3.4-5.0) L Albumin/Globulin Ratio 0.9 (1.0-1.7) L Lipase 103 U/L (73-393) Laboratory Tests 06/10/19 16:03 Laboratory Tests 06/10/19 16:50 EKG EKG [] Radiology/Procedures Radiology/Procedures [][facility] [address] [place] [address] IMAGING REPORT Signed PATIENT: LINDSAY MORALES ACCOUNT: [id number] : 1950 LOCATION: ER AGE: 68 SEX: F EXAM STATUS: REG ER ORD. PHYSICIAN: DIONNE CHAWLA APRN REASON: RLQ abdominal pain, hx of appendectomy, allergic to contrast PROCEDURE: CT ABDOMEN PELVIS WO CONTRAST Examination: CT ABDOMEN PELVIS WO CONTRAST History: Right lower quadrant abdominal pain. Appendectomy. Comparison/Correlation: 05/30/2017 CT abdomen and pelvis with contrast, 10/25/2018 CT abdomen and pelvis with contrast, 04/21/2019 CT abdomen and pelvis without contrast Findings: Axial images of the abdomen and pelvis were obtained without contrast. Sagittal and coronal reformatted images were provided. Contrast is present within the colon. Intravenous contrast was not provided due to an unspecified allergy history contrast. Emphysematous involvement of the lung bases noted. Bronchial wall thickening of the left lower lung field noted. Cholecystectomy noted. Liver is unremarkable. Mild adrenal gland nodularity is unchanged. Spleen is unremarkable. Pancreas is unremarkable. Central intrahepatic biliary prominence and common bile duct distention which may represent reservoir effect are unchanged. Kidneys are unremarkable. No radiopaque collecting system calculi or obstruction. Extensive fecalization of small bowel is present and this may represent slow transit. No extraluminal gas. No ascites or pelvic free fluid. No inflammatory findings about the cecum. Hysterectomy noted. Mild right rectal prolapse involving the right pelvic floor level is similar in appearance compared previous exams. Left psoas muscle is unremarkable with no surrounding inflammatory change or adjacent collection. T12 compression deformity is unchanged. Postoperative findings of the low lumbar spine with rods and screws at L3-4 noted. Intervertebral disc washer material noted at L4-5. Disc space narrowing at multiple levels of the lumbar spine with degenerative change. Impression: Fecalization of small bowel is notable and this may represent stasis. No inflammatory findings are evident. No significant distention of bowel to suggest obstruction. Emphysematous involvement of the lung bases with findings of chronic bronchitis. Previously evident left psoas hematoma has resolved. Findings comparison right pelvic floor region rectal prolapse are unchanged. PQRS Compliance Statement: One or more of the following individualized dose reduction techniques were utilized for this examination: 1. Automated exposure control 2. Adjustment of the mA and/or kV according to patient size 3. Use of iterative reconstruction technique Electronically signed by: Virgilio Vasques MD (06/10/2019 5:19 PM) [facility] DICTATED and SIGNED BY: VIRGILIO VASQUES MD DATE: 06/10/19 171 Course & Med Decision Making Course & Med Decision Making Pertinent Labs and Imaging studies reviewed. (See chart for details) Will get labs, CT (w/o contrast as she is allergic), and will give supportive care. Labs are unremarkable. CT is unremarkable. Will d/c home. Dragon Disclaimer Dragon Disclaimer This electronic medical record was generated, in whole or in part, using a voice recognition dictation system. Departure Departure Impression: Primary Impression: Abdominal pain Disposition: HOME, SELF-CARE Condition: STABLE Referrals: ADIEL PENNINGTON MD (PCP) Patient Instructions: Abdominal Pain (Nonspecific) Additional Instructions: Thank you for visiting [facility]. We appreciate you trusting us with your care. If any additional problems come up don't hesitate to return to visit us. Please follow up with your primary care provider so they can plan additional care if needed and know about the problem that you had. If symptoms worsen come back to the Emergency Department. Any concerning symptoms that start such as chest pain, shortness of air, weakness or numbness on one side of the body, running high fevers or any other concerning symptoms return to the ER. Problem Qualifiers Primary Impression: Abdominal pain Abdominal location: right lower quadrant Qualified Codes: R10.31 - Right lower quadrant pain DIONNE CHAWLA APRN Jun 10, 2019 16:19
[2019-06-10 16:21] LABS: BASO % 1 % (0-3); EOS % 1 % (0-3); HEMATOCRIT 39.3 % (36.0-47.0); LYMPH # 0.9 x10^3/uL (1.0-4.8); LYMPH % 19 % (24-48); MEAN CORPUSCULAR HEMOGLOBIN 33 pg (25-35); MEAN CORPUSCULAR HGB CONC 33 g/dL (31-37); MEAN CORPUSCULAR VOLUME 99 fL (79-100); MONO # 0.5 x10^3/uL (0.0-1.1); MONO % 10 % (0-9); NEUT # 3.2 x10^3/uL (1.8-7.7); NEUT % 69 % (31-73); PLATELET COUNT 307 x10^3/uL (140-400); RED BLOOD COUNT 3.96 x10^6/uL (3.50-5.40); RED CELL DISTRIBUTION WIDTH 16.7 % (11.5-14.5); WHITE BLOOD COUNT 4.6 x10^3/uL (4.0-11.0)
[2019-06-10 16:23] LABS: BILIRUBIN,URINE NEGATIVE (NEG); CLARITY,URINE CLEAR; COLOR,URINE YELLOW; NITRITE,URINE NEGATIVE (NEG); PH,URINE 6.5; PROTEIN,URINE NEGATIVE (NEG-TRACE); UROBILINOGEN,URINE 0.2 mg/dL (0.2 mg/dL)
[2019-06-10 16:29] LABS: HYALINE CASTS, URINE FEW /HPF; SQUAMOUS EPITHELIAL CELL,UR FEW /LPF
[2019-06-10 16:30] LABS: BACTERIA,URINE FEW /HPF (0-FEW)
--- NOTE | 2019-06-10 17:22 | RAD ---
Examination: CT ABDOMEN PELVIS WO CONTRAST History: Right lower quadrant abdominal pain. Appendectomy. Comparison/Correlation: 05/30/2017 CT abdomen and pelvis with contrast, 10/25/2018 CT abdomen and pelvis with contrast, 04/21/2019 CT abdomen and pelvis without contrast Findings: Axial images of the abdomen and pelvis were obtained without contrast. Sagittal and coronal reformatted images were provided. Contrast is present within the colon. Intravenous contrast was not provided due to an unspecified allergy history contrast. Emphysematous involvement of the lung bases noted. Bronchial wall thickening of the left lower lung field noted. Cholecystectomy noted. Liver is unremarkable. Mild adrenal gland nodularity is unchanged. Spleen is unremarkable. Pancreas is unremarkable. Central intrahepatic biliary prominence and common bile duct distention which may represent reservoir effect are unchanged. Kidneys are unremarkable. No radiopaque collecting system calculi or obstruction. Extensive fecalization of small bowel is present and this may represent slow transit. No extraluminal gas. No ascites or pelvic free fluid. No inflammatory findings about the cecum. Hysterectomy noted. Mild right rectal prolapse involving the right pelvic floor level is similar in appearance compared previous exams. Left psoas muscle is unremarkable with no surrounding inflammatory change or adjacent collection. T12 compression deformity is unchanged. Postoperative findings of the low lumbar spine with rods and screws at L3-4 noted. Intervertebral disc washer material noted at L4-5. Disc space narrowing at multiple levels of the lumbar spine with degenerative change. Impression: Fecalization of small bowel is notable and this may represent stasis. No inflammatory findings are evident. No significant distention of bowel to suggest obstruction. Emphysematous involvement of the lung bases with findings of chronic bronchitis. Previously evident left psoas hematoma has resolved. Findings comparison right pelvic floor region rectal prolapse are unchanged. PQRS Compliance Statement: One or more of the following individualized dose reduction techniques were utilized for this examination: 1. Automated exposure control 2. Adjustment of the mA and/or kV according to patient size 3. Use of iterative reconstruction technique Electronically signed by: Virgilio Rutherford MD (06/10/2019 5:19 PM) [facility]
[2019-06-10 17:25] LABS: CALCIUM 9.1 mg/dL (8.5-10.1); CREATININE 0.7 mg/dL (0.6-1.0); GFR 83.2; POTASSIUM 3.7 mmol/L (3.5-5.1)
[2019-06-10 17:28] VITALS: BP 127/61
[2019-06-10 17:33] LABS: ALBUMIN 3.2 g/dL (3.4-5.0); ALBUMIN/GLOBULIN RATIO 0.9 (1.0-1.7); TOTAL BILIRUBIN 0.2 mg/dL (0.2-1.0); TOTAL PROTEIN 6.6 g/dL (6.4-8.2)
[2019-06-14] MEDS ORDERED: POTA8CAP19 PO (09:28)
== END 2019-06-10 18:03 | disposition home or self-care (01) ==
LOC: ER 15:37
DX: R10.31 Right lower quadrant pain (principal); G89.29 Other chronic pain; K21.9 Gastro-esophageal reflux disease without esophagitis; I10 Essential (primary) hypertension; Z90.89 Acquired absence of other organs; Z90.49 Acquired absence of other specified parts of digestive tract; Z90.710 Acquired absence of both cervix and uterus; Z91.041 Radiographic dye allergy status; Z88.1 Allergy status to other antibiotic agents; Z88.5 Allergy status to narcotic agent; Z88.8 Allergy status to other drugs, medicaments and biological substances
CPT/HCPCS: 36415; 74176; 80053; 81001; 83690; 83735; 85025; 96374; 96375; 99285; J2405; J3010; J7030

== ENCOUNTER → 2019-06-14 | Day surgery (SDC) | payer MEDICARE, OTHER ==
[~2019-06-14] MED LIST changes: +IV RINGERS,LACTATED 1000ML 1,000 ML IV SCH; +LIDOCAINE 2% PF 5 ML VIAL. ONE; +POTA8CAP19 PO; +PROPOFOL 20 ML IV ONE
[2019-06-14 11:08] VITALS: BP 155/87
--- NOTE | 2019-06-14 12:41 | HP ---
ADMIT DATE: UPDATED HISTORY AND PHYSICAL REASON FOR ADMISSION: Dysphagia. HISTORY OF PRESENT ILLNESS: This is a 68-year-old female with past medical history which is significant for osteoporosis, hypertension, dysphagia, is seen with recurrent dysphagia for solids, mainly they stick in the substernal location with recurrence of symptoms. Upper endoscopy, possible biopsy and dilatation was recommended. She is willing to proceed. Last endoscopy was performed in 08/2017 for anemia. PAST MEDICAL HISTORY: Anxiety, arthritis, asthma, hypertension, GERD. ALLERGIES: IODINE, ACYCLOVIR, MORPHINE, LYRICA. MEDICATIONS: Include acetaminophen, alprazolam, budesonide, bupropion, carisoprodol, diltiazem, lactobacillus, losartan, Zofran, oxycodone, pantoprazole, Paxil, potassium chloride. SOCIAL HISTORY: She is a smoker and drinker. FAMILY HISTORY: Significant for stroke with her mother and hypertension with her mother. PAST SURGICAL HISTORY: Hysterectomy, cholecystectomy, appendectomy, back surgery, eye surgery. REVIEW OF SYSTEMS: As per records. PHYSICAL EXAMINATION: GENERAL: Reveals a well-nourished, well-developed female. VITAL SIGNS: Temperature is 98.4, pulse 101, respirations 20. LUNGS: Clear. CARDIOVASCULAR: Reveals an S1, S2 without S3, S4 or appreciable murmur. ABDOMEN: Reveals a soft abdomen, normoactive bowel sounds, without appreciable hepatosplenomegaly. Multiple surgical incisions are noted. IMPRESSION: Dysphagia, most likely secondary to Schatzki's ring or presbyesophagus. Differential does include eosinophilic esophagitis, malignancy, Moon's, achalasia. Therefore, recommend upper endoscopy with possible biopsy and dilatation. If this is unrevealing or unhelpful, then esophagogram and esophageal motility may be pursued. BENJAMÍN DE LA TORRE MD DR: TREV/joseph JOB#: [id number] / [id number]
--- NOTE | 2019-06-17 15:07 | PATHOLOGY ---
[facility] Accession Number: [id number] . 01 Material submitted: . PART A: stomach - BIOPSY GASTRIC ULCERS PART B: esophagus - DISTAL ESOPHAGEAL BIOPSY. Modifiers: distal . 01 Clinical history: . Gastric ulcers. . 02 Diagnosis: A. Gastric biopsies, gastric ulcers: - Reactive gastropathy showing focal ulceration and acute chronic inflammation. . B. Esophageal biopsies, distal esophagus: - Reflux esophagitis. . (JPM:varun; 06/17/2019) S 06/17/2019 0911 Local . 02 Comment: Sections of the gastric ulcer biopsy reveal segments of gastric antral mucosa showing congestion, foveolar hyperplasia, and slight inflammation. One of the biopsy segments shows ulceration and acute and chronic inflammation. A properly controlled immunoperoxidase stain for Helicobacter is negative for Helicobacter organisms. The findings are consistent with a reactive gastropathy with ulceration. . Sections of the distal esophageal biopsy reveal segments of tangentially oriented hyperplastic squamous esophageal mucosa consistent with reflux esophagitis. There is no evidence of Moon's change, dysplasia, or malignancy. (JPM:varun; 06/17/2019) . . Special stain performed: Immunoperoxidase stain for Helicobacter . 02 Electronically signed: . Kurt Fallon MD, Pathologist NPI- [id number] . 01 Gross description: . A. Received in formalin labeled "English, [place], BX gastric ulcers" is a 0.8 x 0.6 x 0.1 cm aggregate of swann-brown mucosa fragments. The specimen is submitted in A1. . B. Received in formalin labeled "English, [place], distal esophageal BX" is a 0.7 x 0.5 x 0.1 cm aggregate of swann-brown mucosa fragments. The specimen is submitted in B1. ([facility] [place] 06/16/2019) SYC/SYC 06/17/2019 0907 Local . 02 Pathologist provided ICD-10: K29.00, K29.50, K25.9, K21.0 . 02 CPT . 237564, [id number], [id number] Specimen Comment: A courtesy copy of this report has been sent to [phone], [phone] Specimen Comment: [id number] Specimen Comment: Report sent to / DR PENNINGTON Performed at: 01 [facility] [address] [id number] MD Morgan Tompkins MD Phone: [phone] Performed at: 02 [facility] [address] [place], [place] [id number] MD Kurt Fallon MD Phone: [phone]
== END ==
LOC: ENDOS 09:11
PROVIDERS: ATTEND Internal Medicine Gastroenterology
DX: R13.10 Dysphagia, unspecified (principal); K21.0 Gastro-esophageal reflux disease with esophagitis; K22.2 Esophageal obstruction; K25.9 Gastric ulcer, unspecified as acute or chronic, without hemorrhage or perforation; F41.9 Anxiety disorder, unspecified; J45.909 Unspecified asthma, uncomplicated; I10 Essential (primary) hypertension; Z88.6 Allergy status to analgesic agent; Z88.1 Allergy status to other antibiotic agents; Z88.8 Allergy status to other drugs, medicaments and biological substances; Z90.710 Acquired absence of both cervix and uterus; Z90.49 Acquired absence of other specified parts of digestive tract; Z98.890 Other specified postprocedural states
CPT/HCPCS: 43239; 43450; 88305; 88342; J2001; J2704

== ENCOUNTER → 2019-09-04 | Outpatient (CLI) | payer MEDICARE, OTHER ==
[2019-08-10 07:18] VITALS: BP 170/87
[~2019-09-04] MED LIST changes: +BUPIVACAINE MPF 0.25% 10 ML VIAL. ONE; +CEFD300C PO; +CIPR500T94 PO; +HYDR12.575 PO; +IPRA3AMP29 NEB; -IV RINGERS,LACTATED 1000ML 1,000 ML IV SCH; -LIDOCAINE 2% PF 5 ML VIAL. ONE; +LORA0.5T96 PO; +METR500T PO; +OLAN5TAB9 PO; +PRED50TA PO; -PROPOFOL 20 ML IV ONE; +methylPREDNISolone ACETATE 40 MG/ML VIAL. ONE
--- NOTE | 2019-09-04 12:22 | PAIN ---
DATE OF SERVICE: 09/04/2019 PROGRESS NOTE FOR PAIN CLINIC DIAGNOSES: 1. Cervical radiculopathy with cervical post-laminectomy syndrome. 2. Lumbar radiculopathy with lumbar degenerative disk disease, lumbar spinal stenosis and post-lumbar laminectomy syndrome. 3. Myofascial pain. HISTORY OF PRESENT ILLNESS: The patient is a 69-year-old female who returns for followup status post trigger point injections, most recently 05/23/2019. The patient did very well with about a 75% improvement for the first month after the injections made in the base of the neck and shoulders, also some pain in the low back. The patient reports it is returning now varies from day to day with activity, but she was increasing her activity with greater ease and comfort after the last injections and doing much better, was very pleased with her progress. The patient reports no new motor or sensory deficits, still significant pain in the base of the neck, shoulders, upper extremities, right greater than left, but present bilaterally, also in the low back and the bilateral lower extremities, right greater than left. The patient reports the pain is a 10 on a scale of 10 at its worst over the past week, 8 on average and 8 at its least and is an 8 today. The patient reports it is sharp and shooting, stabbing and severe in the neck and shoulders as well as the upper back, mid back and low back. The patient reports it awakens her from sleep at times, but it is variable as well, not every night. PHYSICAL EXAMINATION: VITAL SIGNS: The patient's blood pressure 132/69, pulse 91, respirations 16, temperature 98.6 degrees Fahrenheit, height is 5 feet 2 inches and weight is 91 pounds. GENERAL: The patient is awake, alert, oriented, appropriate, very pleasant demeanor. HEENT: Head shows normocephalic, atraumatic. Extraocular movements are intact and symmetrical. Oral cavity: Mucous membranes moist and pink. Dentition is intact. NECK: Shows anterior throat supple without palpable lymphadenopathy noted. Swallow reflex symmetrical. CHEST: Shows normal on inspection. Breath sounds clear to auscultation bilaterally. HEART: Shows S1, S2 clear. ABDOMEN: Soft, nontender, nondistended. BACK: Shows spine grossly in the midline, some flattening of cervical lordotic curvature, with slight exaggeration of thoracic kyphotic curvature and flattening of lumbar lordotic curvature. Well-healed surgical scars are noted in both the cervical and lumbar distributions. With palpation shows some significant tenderness and very firm rope-like musculature in the bilateral cervical paraspinous musculature upper, middle and lower distribution with very firm rope-like muscles consistent with trigger point areas of musculature. This is true into the trapezius muscles bilaterally, right greater than left as well as into the thoracic paraspinous musculature bilaterally, also low back shows some very firm rope-like musculature in the lumbar paraspinous muscles, mainly in the middle and lower distribution and equal and symmetrical, but very firm rope-like musculature, very tender with palpation without specific radiation. EXTREMITIES: The patient's upper extremities show deep tendon reflexes 2+ in the biceps, triceps tendons. Motor exam is strong with outreach analyst strength rated at 5/5 as is biceps and triceps flexion. Lower extremities show deep tendon reflexes at 1+ in the patellar and tendo calcaneus tendons. Motor exam is strong with 4/5, but symmetrical with dorsiflexion and extension. Peripheral pulses are 2+ radial and 1+ posterior tibia. No peripheral edema is noted bilaterally. Options were discussed with the patient. The patient's old chart was reviewed as her current medication regimen updated. Current review of systems updated today as well and we will proceed with trigger point injections of the identified musculature. Risks were discussed including but not limited to bleeding, infection, possibility of intravascular injection sequelae, spread of local anesthetic and numbness, pneumothorax, side effects of steroid medication as well as poor results regarding pain control. The patient understands and wished to proceed. The patient will return to clinic in approximately 2 weeks for followup, was counseled as to return appointment, activity level and side effects to be aware of. DIAGNOSIS: Myofascial pain. PROCEDURE: Trigger point injections, bilateral cervical paraspinous musculature, bilateral trapezius musculature, bilateral thoracic paraspinous musculature, bilateral lumbar paraspinous musculature under sterile prep and drape using local anesthetic. MEDICATION INJECTED: A total of 40 mg Depo-Medrol plus total of 14 mL of 0.25% bupivacaine after negative aspiration at each injection site. CONDITION AT DISCHARGE: Stable. The patient tolerated the procedure well, had no complications. HIRA CARBAJAL MD DR: BRANDON/joseph JOB#: [id number] / [id number]
== END ==
LOC: PNCL 10:47
PROVIDERS: ATTEND Anesthesiology
DX: M79.18 Myalgia, other site (principal); M51.16 Intervertebral disc disorders with radiculopathy, lumbar region; M50.10 Cervical disc disorder with radiculopathy, unspecified cervical region
CPT/HCPCS: 20553; J1030; J3490

== ENCOUNTER → 2019-10-15 | Outpatient (CLI) | payer MEDICARE, OTHER ==
[2019-08-10 07:18] VITALS: BP 170/87
[~2019-10-15] MED LIST changes: -BUPIVACAINE MPF 0.25% 10 ML VIAL. ONE; -methylPREDNISolone ACETATE 40 MG/ML VIAL. ONE
--- NOTE | 2019-10-15 16:16 | RAD ---
Examination: Bilateral digital diagnostic mammogram. INDICATION: Palpable lump left axilla. COMPARISON: Bilateral mammograms of 09/29/2008, 11/12/2009, Limited left axillary ultrasound of 09/26/2019. TECHNIQUE: Bilateral CC and MLO views were obtained with 2-D and 3-D technique and reviewed with computer-aided detection. FINDINGS: Heterogeneously dense breast parenchyma. No developing mass, suspicious calcifications or architectural distortion in either breast. However, in the left axilla in the area of palpable concern, a new 2.5 cm mass is evident that correlates with the sonographic mass identified on previous axillary ultrasound. This left axillary mass is suspicious and needs biopsy. IMPRESSION: Suspicious left axillary mass. Otherwise negative bilateral mammogram. Recommend biopsy. This can be accomplished via ultrasound-guided core needle biopsy or surgical excisional biopsy. Recommend surgical consultation. Discussed with patient. BI-RADS Category 4 Findings suspicious for malignancy Surgical consult recommended BI-RADS 4 -- suspicious abnormality, biopsy recommended
== END | disposition home or self-care (01) ==
LOC: MAMMO 10-14 13:52
PROVIDERS: ATTEND Surgery
DX: R92.2 Inconclusive mammogram (principal)
CPT/HCPCS: 77066; G0279; 77062

== ENCOUNTER → 2019-10-25 | Outpatient (CLI) | payer MEDICARE, OTHER ==
[2019-08-10 07:18] VITALS: BP 170/87
--- NOTE | 2019-10-26 11:08 | NUR ---
IP:Pt is COVID negative.
== END | disposition home or self-care (01) ==
LOC: LAB 12:51
PROVIDERS: ATTEND Surgery
DX: Z01.812 Encounter for preprocedural laboratory examination (principal); Z11.59 Encounter for screening for other viral diseases; R22.32 Localized swelling, mass and lump, left upper limb
CPT/HCPCS: 36415; 87635

== ENCOUNTER 2019-10-29 11:56 | Day surgery (SDC) | payer MEDICARE, OTHER ==
[~2019-10-29] VITALS: Ht 157.5 cm; Wt 41.7 kg
[~2019-10-29 11:56] MED LIST changes: +IV RINGERS,LACTATED 1000ML 1,000 ML IV SCH; +LIDOCAINE 1% PF 2 ML VIAL. ID PRN; +ONDANSETRON PF 4 MG/2 ML VIAL. IV PRN; +PROCHLORPERAZINE 10 MG/2 ML VIAL. IV PRN; +ceFAZolin SODIUM IV Push 1 GM VIAL. IVP ONE; +fentaNYL PF VIAL 100 MCG/2 ML VIAL IV PRN
[2019-10-29] MEDS ORDERED: ceFAZolin SODIUM IV Push 1 GM VIAL. IVP ONE (12:45)
[2019-10-29] MEDS ORDERED: BUPIVACAINE-EPI 0.5%-1:200000 MPF 30 ML VIAL. ONE (13:53)
[2019-10-29] MEDS ORDERED: PROPOFOL 10 MG/ML (20ML) VIAL. IV ONE (14:32)
[2019-10-29] MEDS ORDERED: ONDANSETRON PF 4 MG/2 ML VIAL. ONE (14:32)
[2019-10-29] MEDS ORDERED: fentaNYL PF VIAL 100 MCG/2 ML VIAL ONE ×3 (14:32→16:06)
[2019-10-29] MEDS ORDERED: LIDOCAINE 2% PF 5 ML VIAL. ONE (14:32)
[2019-10-29] MEDS ORDERED: DEXAMETHASONE SOD PHOS 4 MG/ML VIAL ONE (14:32)
[2019-10-29] MEDS ORDERED: SEVOFLURANE 31 TO 60 MINUTES. IH ONE (15:26)
[2019-10-29] MEDS: fentaNYL PF VIAL 100 MCG/2 ML VIAL IV PRN ×3 (15:40→16:10)
[2019-10-29] MEDS ORDERED: HYDR-3164 PO (16:09)
--- NOTE | 2019-10-29 16:15 | DISCH ---
DISCHARGE INSTRUCTIONS Condition on Discharge Condition on Discharge: Stable Activity After Discharge Activity Instructions for Disc: Activity as tolerated, Avoid exertion Lifting Instructions after Dis: No heavy lifting, Do not lift >10 pounds Driving Instructions after Dis: Do not drive Weight Bearing Status after Di: No restrictions Diet after Discharge Diet after Discharge: Regular Additional Diet Restrictions: resume home diet Diet Texture: Regular Wound Incision Care Wound/Incision Care: Ice to area for comfort Other wound/incision instructi: empty MARIA LUISA daily Checks after Discharge Checks after discharge: Check blood press - daily Follow-Up Follow up with: Vicente ALICIA office [place] or LUIS office Fri Treatment/Equipment after DC Adaptive Equipment Issued: None Discharge Respiratory Equipmen: Oxygen, Nebulizer NJ ARAUJO MD October 29, 2019 16:15
--- NOTE | 2019-10-29 16:19 | PDOC ---
BRIEF OPERATIVE NOTE Date: October 29, 2019 Pre-Op Diagnosis left axillary mass Post-Op Diagnosis same, 2/[address] Procedure Performed excision Surgeon Vicente Animal Care Service Worker Tali DIXON Anesthesia Type: General (LMA) Blood Loss 5cc IV Fluid 200cc Specimens Obtained 4x2x2 cm [address] Findings enlarged LN Complications none Operative Note Wk # [id number] NJ ARAUJO MD October 29, 2019 16:19
[2019-10-29 16:20] VITALS: BP 166/80
--- NOTE | 2019-10-29 16:44 | OP ---
DATE OF SURGERY: 10/29/2019 PREOPERATIVE DIAGNOSIS: Left axillary mass. POSTOPERATIVE DIAGNOSIS: Left axillary mass secondary to an enlarged lymph node. PROCEDURE: Excision. SURGEON: Feng Araujo MD RACK WASHER: ZACK Bailon ANESTHESIA: General LMA. ESTIMATED BLOOD LOSS: 5 mL. INTRAVENOUS FLUIDS: 200 mL. SPECIMEN: 4 x 2 x 2 cm lymph node. DESCRIPTION OF PROCEDURE: The patient brought to the operating suite, given a general LMA and the left axilla was prepped and draped in usual sterile fashion. An incision which had been marked preoperatively with the patient's assistance was infiltrated with local, incised and enlarged lymph node was delivered by taking down attachments with the LigaSure. Specimen sent fresh to the lab. Hemostasis was present in the wound. A 15-Dutch MARIA LUISA drain was placed and an inferolateral stab wound sewn with a silk stitch. When a correct sponge count was obtained and hemostasis was present and the wound was closed with a subcuticular 4-0 Monocryl. Steri-Strips and sterile dressings applied. The patient awakened from her anesthetic and taken to the recovery room in satisfactory condition. FENG ARAUJO MD DR: SONG/joseph JOB#: [id number] / [id number] ADIEL Hernandez MD
[2019-10-29] MEDS ORDERED: HYDROcodone/APAP 5/325MG 1 TAB TABLET PO ONE (17:00)
--- NOTE | 2019-11-01 17:06 | PATHOLOGY ---
[facility] Accession Number: [id number] . 01 Material submitted: . lymph node - LEFT AXILLARY LYMPH NODE. Modifiers: left, axillary tail . 02 Diagnosis: Lymph node, left axillary lymph node excisional biopsy: - METASTATIC SMALL CELL UNDIFFERENTIATED CARCINOMA. SEE COMMENT. (MARIA LUISAM:tyrel/isauro; 10/31/2019) MBR 11/01/2019 0912 Local . 02 Comment: Sections of the left axillary lymph node excisional biopsy show extensive hayden replacement by a malignant neoplasm. The malignant cells are present in solid nests and sheets. The malignant cells are relatively small and have a high N/C ratio. The malignant cells possess rounded to ovoid nuclei having a finely dispersed chromatin. Mitotic figures are readily demonstrated. There is focal coagulative tumor necrosis. The tumor shows no evidence of glandular or squamous differentiation. In section A4, there is a small lymph node adjacent to the larger hayden mass which shows no evidence of tumor replacement. . A portion of this specimen submitted for flow cytometric analysis has a viability of 87.9%. Flow cytometry shows increased JF53-Anrqohqi and NS15-Igodjfxm elements, most likely representing a non-hematopoietic process/tumor. There is no flow immunophenotypic evidence of a B-cell or T-cell lymphoproliferative disorder. See separate flow cytometry report. . A panel of immunoperoxidase stains is obtained on block A2 and yields the following results: . AE1/AE3: Tumor cells show focal dot-like positivity. Cytokeratin 7: Tumor cells show dot-like positivity. CD45: Tumor cells negative; residual lymphoid cells positive. P40: Tumor cells negative. TTF-1: Tumor cells diffusely positive. CD56: Tumor cells diffusely positive. Synaptophysin: Tumor cells diffusely positive. . The morphologic and immunophenotypic findings are supportive of the diagnosis of metastatic small cell undifferentiated carcinoma. Possible primary sites would include lung and breast. The case is also examined by Dr. Davis, who concurs with the diagnosis. The results are reported to Dr. Zhang on 11/01/2019 at 9:20 AM. . (JPM:tyrel/pit; 10/31/2019) . Special stains performed: Immunoperoxidase stains for AE1/AE3, cytokeratin 7, TTF-1, CD45, synaptophysin, CD56, and p40, all of which are performed on A2. . 02 Electronically signed: . Kurt Fallon MD, Pathologist NPI- [id number] . 03 Gross description: . The specimen is received fresh and is designated "left axillary lymph node". The specimen consists of a focally partially incised, well demarcated ovoid nodule of pink-swann soft tissue measuring up to 3.0 cm x 2.4 cm. There is a small amount of attached focally hemorrhagic adipose tissue to the external surface. The specimen is bisected. Sectioning reveals a pale barraza to pink fleshy-appearing cut surface. Two touch preparations are made and submitted for H and E staining. A advertising representative portion of the specimen is submitted in RPMI for lymphocyte marker studies by flow cytometry. Framing Consultant sections are submitted as A1-A4. (JPM:tyrel; 10/29/2019) /MBR 10/31/2019 1325 Local . 02 Pathologist provided ICD-10: C77.3 . 02 CPT . 444093, C56310, Q48188 Specimen Comment: A courtesy copy of this report has been sent to [phone], [phone] Specimen Comment: [id number] Specimen Comment: Report sent to / DR PENNINGTON Performed at: [address], [place] [id number] MD Morgan Tompkins MD Phone: [phone] Performed at: [address] [id number] MD Kurt Fallon MD Phone: [phone] Performed at: [address], [place], [place] [id number] MD Morgan Tompkins MD Phone: [phone]
== END 2019-10-29 17:16 | disposition home or self-care (01) ==
LOC: SURG 11:56
PROVIDERS: ATTEND Surgery
DX: R59.1 Generalized enlarged lymph nodes (principal); J44.9 Chronic obstructive pulmonary disease, unspecified; K21.9 Gastro-esophageal reflux disease without esophagitis; M79.7 Fibromyalgia; F41.9 Anxiety disorder, unspecified; F32.9 Major depressive disorder, single episode, unspecified; D64.9 Anemia, unspecified; Z87.01 Personal history of pneumonia (recurrent); Z87.891 Personal history of nicotine dependence; Z90.49 Acquired absence of other specified parts of digestive tract; Z87.39 Personal history of other diseases of the musculoskeletal system and connective tissue; Z90.710 Acquired absence of both cervix and uterus; Z90.721 Acquired absence of ovaries, unilateral; Z98.42 Cataract extraction status, left eye; Z98.41 Cataract extraction status, right eye; Z72.89 Other problems related to lifestyle
CPT/HCPCS: 38525; 88184; 88185; 88305; 88341; 88342; A7015; J0690; J1100; J2405; J2704; J3010; J3490

== ENCOUNTER → 2019-11-06 | Outpatient (CLI) | payer MEDICARE, OTHER ==
[2019-10-29 16:20] VITALS: BP 166/80
[~2019-11-06] MED LIST changes: -IV RINGERS,LACTATED 1000ML 1,000 ML IV SCH; -LIDOCAINE 1% PF 2 ML VIAL. ID PRN; -ONDANSETRON PF 4 MG/2 ML VIAL. IV PRN; -PROCHLORPERAZINE 10 MG/2 ML VIAL. IV PRN; -ceFAZolin SODIUM IV Push 1 GM VIAL. IVP ONE; -fentaNYL PF VIAL 100 MCG/2 ML VIAL IV PRN
--- NOTE | 2019-11-06 11:06 | RAD ---
CT of the chest without contrast: Clinical History: Small cell metastatic to axillary lymph node. COMPARISON: 2018 Axial helical images of the chest were obtained without contrast. There is a bulky mass in the superior mediastinum to the right of the aortic arch that measures 6.8 cm x 5.0 cm. There are calcified granuloma in the mediastinum and right hilum. The lungs are otherwise clear. There are few vertebral body compression fractures which were seen previously. There is marked chronic discogenic disease at L2-L3. There is a 5 mm x 3 mm pituitary mass in the right lung apex. There is mild bronchiectasis with mucous plugging in the lingula. Impression: 1. New large mediastinal mass lymph node complex likely secondary to the patient's known small cell carcinoma. Graft 2. Spiculated nodule right lung apex could be a second primary but is stable. 3. Mild prior bronchiectasis with mucous plugging in the lingula appears mildly worse. End impression PQRS Compliance Statement: One or more of the following individualized dose reduction techniques were utilized for this examination: 1. Automated exposure control 2. Adjustment of the mA and/or kV according to patient size 3. Use of iterative reconstruction technique Electronically signed by: Papi Craig III, MD (11/06/2019 11:03 AM) [place] [id number]
== END | disposition home or self-care (01) ==
LOC: CT 10:16
PROVIDERS: ATTEND Surgery
DX: C77.3 Secondary and unspecified malignant neoplasm of axilla and upper limb lymph nodes (principal); T17.890A Other foreign object in other parts of respiratory tract causing asphyxiation, initial encounter; M48.56XA Collapsed vertebra, not elsewhere classified, lumbar region, initial encounter for fracture; R91.8 Other nonspecific abnormal finding of lung field; X58.XXXA Exposure to other specified factors, initial encounter; Q25.49 Other congenital malformations of aorta; Y93.89 Activity, other specified; Y92.89 Other specified places as the place of occurrence of the external cause; Y99.8 Other external cause status; J47.9 Bronchiectasis, uncomplicated; R91.1 Solitary pulmonary nodule
CPT/HCPCS: 71250

== ENCOUNTER → 2019-11-15 | Outpatient (CLI) | payer MEDICARE, OTHER ==
[2019-10-29 16:20] VITALS: BP 166/80
[~2019-11-15] MED LIST changes: +GADOTERATE 5 MMOL/10ML VIAL. IVP ONE
[2019-11-15 10:55] LABS: CREATININE 0.6 mg/dL (0.6-1.0); GFR 99.1
--- NOTE | 2019-11-15 13:21 | RAD ---
MRI Brain with and without contrast History:Lung cancer Technique: Multiplanar, multi sequential pre and postcontrast MR imaging was performed of the brain. Comparison: None Findings: Radiation. There is no evidence of recent infarct or cytotoxic edema. Ventricular size is within normal limits. There is mild prominence of the supratentorial subarachnoid spaces greater near the vertex and parietal regions, may be due to mild involutional change. There is no significant hemosiderin deposition of the brain parenchyma.There is no significant midline shift, intraaxial mass effect, or focal abnormal extra-axial fluid collection. There is very minimal T2 and FLAIR hyperintense signal of the supratentorial periventricular white matter bilaterally. There is no nodular parenchymal or leptomeningeal enhancement. There is preservation of the major intracranial flow-voids at the skull base. The cerebellar tonsils are normal in location. There is no significant abnormality of the pineal gland or pituitary gland. Paranasal sinuses are mostly aerated, minimal ethmoid air cell mucosal thickening. Frontal sinus is not pneumatized. There is minimal fluid in the right mastoid air cells. There is nonspecific heterogeneity of the marrow of the nonexpanded clivus. There has been lens surgery bilaterally. There is some increased CSF signal of the optic nerve sheaths bilaterally. Impression: 1. No abnormal intracranial enhancement is identified. There is very minimal T2 and FLAIR hyperintense signal of the supratentorial parenchyma, could be due to nonspecific gliosis/chronic microvascular ischemic disease. Electronically signed by: Ralph Paula MD (11/15/2019 1:18 PM) [id number]
--- NOTE | 2019-11-15 13:36 | RAD ---
INDICATION: Initial evaluation-lung cancer COMPARISON: CT 11/06/2019 TECHNIQUE: Location of scan: [facility] Radiopharmaceutical Dose: 13.1 mCi F-18 FDG intravenous Blood glucose at time of study: 98 FDG uptake time = 60 minutes. Images were obtained from the mid head to the mid thighs. A low dose, noncontrast CT study was performed for the purpose of attenuation correction and anatomic localization. FINDINGS: Head and Neck: Physiologic activity is seen within the head and neck, particularly in the parapharyngeal soft tissues. Chest: Anterior mediastinal mass is seen extending between the SVC and aorta as well as into the right hilum with an SUV max 7.2 A 2.3 x 1.7 cm right axillary hypermetabolic lymph node has an SUV max of 5.5 A right retropectoral lymph node measuring 1.3 x 1 cm has an SUV max 3.9. A medial left supraclavicular lymph node measures 1.5 x 1.1 cm with an SUV max 6. Right apical 5 mm spiculated nodule has a neck CT max 0.5. Abdomen and Pelvis: A 1.7 x 1.2 cm hypermetabolic nodule is seen posterior to the right hepatic lobe with an SUV max of 4.7 A 2.4 x 1.9 cm hypermetabolic nodule or mass is seen between the stomach and spleen with an SUV max 7.2 A round anterior omental mass measures 8 mm within the low anterior pelvis, SUV max 2.1. A 2.5 x 1.9 cm soft tissue nodular mass just medial to the left ischial tuberosity has an SUV max of 5.5 A 1.8 x 1.2 cm soft tissue nodular mass medial to the right ischial tuberosity has an SUV max of 3.8. Physiologic activity is seen within the renal collecting system, bowel and solid organs including liver. Evaluation of the bowel is limited on this low-dose noncontrast examination. Skeletal: No suspicious hypermetabolic focus is seen within the osseous structures. Reference SUV Values: Mediastinal SUV Max: 1.9 Liver SUV Max: 2.1 IMPRESSION: 1. Hypermetabolic mediastinal mass extends into the right hilum. 2. In addition, hypermetabolic right axillary and left supraclavicular lymph nodes are seen, likely metastatic. 3. There are also hypermetabolic foci within the abdomen and pelvis including small soft tissue nodules near the right hepatic dome, medial to the ischial tuberosities bilaterally as well as between the spleen and the gastric body and anterior omentum, likely soft tissue metastases or hypermetabolic lymphadenopathy consistent with metastatic disease. 4. The right upper lobe spiculated lung nodule measures 5 mm, SUV max of 0.5, possibly related to small size. Recommend close attention on follow-up CT. Radiation Dosimetry: The radiopharmaceutical used for this exam delivers approximately 0.7 mSv/mCi (70 mRem/mCi) Source: ICRP Publication 106 Electronically signed by: Scooby Sanz MD (11/15/2019 1:33 PM) [id number]
== END | disposition home or self-care (01) ==
LOC: PETSC 10:21
PROVIDERS: ATTEND Radiology Radiation Oncology
DX: C77.3 Secondary and unspecified malignant neoplasm of axilla and upper limb lymph nodes (principal); R91.1 Solitary pulmonary nodule; R91.8 Other nonspecific abnormal finding of lung field; K76.89 Other specified diseases of liver; R19.09 Other intra-abdominal and pelvic swelling, mass and lump; J34.89 Other specified disorders of nose and nasal sinuses; Z98.890 Other specified postprocedural states; Z85.118 Personal history of other malignant neoplasm of bronchus and lung
CPT/HCPCS: 36415; 70553; 78815; 82565; A9552; A9575

== ENCOUNTER → 2019-11-25 | Outpatient (CLI) | payer MEDICARE, OTHER ==
[~2019-11-25] VITALS: Ht 157.5 cm; Wt 42.2 kg
[~2019-11-25] MED LIST changes: -GADOTERATE 5 MMOL/10ML VIAL. IVP ONE; +LIDOCAINE WITH 8.4% SOD BICARB 3 ML DISP.SYRIN. INJ ONE; +LIDOCAINE WITH 8.4% SOD BICARB 3 ML DISP.SYRIN. ONE
[2019-11-25 07:46] VITALS: BP 107/63
--- NOTE | 2019-11-25 10:15 | RAD ---
Exam: Fluoroscopic and ultrasound guided right percutaneous inserted central venous catheter placement 11/25/2019 8:11 AM .Indication: LUNG CA/CHEMO Technique: Informed oral and written consent were obtained. The right upper extremity was prepped and draped using sterile barrier technique. All elements of maximal sterile barrier technique including the use of a cap, mask, sterile gown, sterile gloves, large sterile sheet, appropriate hand hygiene, and 2% chlorhexidine for cutaneous antisepsis (or acceptable alternative antiseptic per current guidelines) were followed for this procedure.. Real-time ultrasound demonstrated a patent right basilic vein which was prepped and draped in usual sterile fashion. 1% lidocaine used for local anesthesia. Using real-time ultrasound guidance the access needle percutaneously punctured the selected right basilic vein. Reference ultrasound images were saved to the medical record. A guidewire was advanced through the needle to the cavoatrial junction, and a peel-away sheath placed. The catheter was cut to length and inserted through the peel-away sheath such that its tip is at the cavoatrial junction. The wire and sheath were removed, and the catheter secured in place, and a sterile dressing was applied. Catheter was found to flush and aspirate normally. No immediate complications are identified. FLUORO TIME: 0.1 DOSE AREA PRODUCT: 0.1 Gycm2 Impression: Ultrasound and fluoroscopically guided placement of a right upper extremity PICC line.
== END ==
LOC: INTRAD 07:08
PROVIDERS: ATTEND Internal Medicine Hematology & Oncology
DX: Z45.2 Encounter for adjustment and management of vascular access device (principal); C34.90 Malignant neoplasm of unspecified part of unspecified bronchus or lung
CPT/HCPCS: 36573; C1751; C1892; J3490; 77001

== ENCOUNTER 2019-12-09 09:06 | Inpatient (IN) | payer MEDICARE, OTHER ==
[~2019-12-09] VITALS: Ht 147.3 cm; Wt 98.2 kg
[~2019-12-09 09:06] MED LIST changes: -LIDOCAINE WITH 8.4% SOD BICARB 3 ML DISP.SYRIN. INJ ONE; -LIDOCAINE WITH 8.4% SOD BICARB 3 ML DISP.SYRIN. ONE
[2019-12-09] MEDS ORDERED: IV NORMAL SALINE 500ML BAG 500 ML IV ONE (09:30)
[2019-12-09 09:41] LABS: BASO % 2 % (0-3); EOS % 1 % (0-3); HEMATOCRIT 25.2 % (36.0-47.0); HEMOGLOBIN 8.5 g/dL (12.0-15.5); LYMPH # 0.1 x10^3/uL (1.0-4.8); LYMPH % 8 % (24-48); MEAN CORPUSCULAR HEMOGLOBIN 31 pg (25-35); MEAN CORPUSCULAR HGB CONC 34 g/dL (31-37); MEAN CORPUSCULAR VOLUME 92 fL (79-100); MONO # 0.3 x10^3/uL (0.0-1.1); MONO % 48 % (0-9); NEUT # 0.3 x10^3/uL (1.8-7.7); NEUT % 41 % (31-73); PLATELET COUNT 51 x10^3/uL (140-400); RED BLOOD COUNT 2.75 x10^6/uL (3.50-5.40); RED CELL DISTRIBUTION WIDTH 18.1 % (11.5-14.5)
[2019-12-09 09:45] LABS: CALCIUM 8.6 mg/dL (8.5-10.1); CREATININE 0.7 mg/dL (0.6-1.0)
[2019-12-09 09:51] LABS: ALBUMIN 2.6 g/dL (3.4-5.0); ALBUMIN/GLOBULIN RATIO 0.6 (1.0-1.7); MAGNESIUM 2.1 mg/dL (1.8-2.4); TOTAL BILIRUBIN 0.5 mg/dL (0.2-1.0); TOTAL PROTEIN 6.9 g/dL (6.4-8.2)
[2019-12-09] MEDS ORDERED: methylPREDNISolone SOD SUCC PF 125 MG/2 ML VIAL. IV ONE (10:00)
[2019-12-09] MEDS ORDERED: IPRATRPIUM/ALBUTEROL 0.5/2.5MG 3 ML NEBU. NEB ONE (10:00)
--- NOTE | 2019-12-09 10:03 | RAD ---
CHEST AP ONLY History: Reason: soa / Spl. Instructions: / History: Comparison: August 10, 2019 chest x-ray. CT November 06, 2019 Findings: Bilateral interstitial opacities, increased compared to prior. No pleural effusion. Left costophrenic angle excluded from the image. No pneumothorax. Right PICC with tip projecting over the cavoatrial junction. Postop changes lower cervical spine. Normal heart size. Nipple shadows projecting over the bilateral mid lungs, unchanged. Right suprahilar mass, better characterized on previous CT. Impression: 1. Increased interstitial thickening, may represent pulmonary edema or atypical infection including viral pneumonia although a component of chronic interstitial changes is possible. 2. Right suprahilar mass, better characterized on prior CT. Electronically signed by: Christian Lira DO (12/09/2019 10:00 AM) [id number]
[2019-12-09 10:13] LABS: % BANDS 10 % (0-9); % EOS 2 % (0-5); % LYMPHS 24 % (24-48); % MONOS 40 % (0-10); % SEGS 24 % (35-66); PLT ESTIMATE DECREASED (ADEQUATE)
[2019-12-09 10:36] LABS: BASE EXCESS ABG 5 mmol/L (-3-3); HCO3 ABG 30 mmol/L (21-28); PCO2 ABG 45 mmHg (35-46); PO2 ABG 54 mmHg (65-108); SAT O2 ABG 88 % (92-99)
--- NOTE | 2019-12-09 10:39 | PHYS DOC ---
Past Medical History Past Medical History: Cancer, COPD, Hypertension Additional Past Medical Histor: CATARACTS, chronic pain, LUNG CA Past Surgical History: Appendectomy, Cholecystectomy, Hysterectomy Additional Past Surgical Histo: BACK SURGERY Smoking Status: Current Every Day Smoker Alcohol Use: None Drug Use: None General Adult EDM: Chief Complaint: SHORTNESS OF BREATH HPI: HPI: Patient is a very unfortunate 69-year-old female with a history of lung cancer who is currently on chemotherapy presents directly from her oncologist office secondary to shortness of breath. Patient states that she has COPD and has been progressively more short of breath over the last couple of days. She denies any fever chills or sweats. She does complain of some body aches. She denies hemoptysis. She does states she has some chest discomfort mainly with coughing. According to the oncologist office her oxygen saturation was in the 50s when she was over there. [] Review of Systems: Review of Systems: Constitutional: Denies fever or chills. [] Eyes: Denies change in visual acuity. [] HENT: Denies nasal congestion or sore throat. [] Respiratory: Per HPI. [] Cardiovascular: Denies chest pain or edema. [] GI: Denies abdominal pain, nausea, vomiting, bloody stools or diarrhea. [] : Denies dysuria. [] Musculoskeletal: Denies back pain or joint pain. [] Integument: Denies rash. [] Neurologic: Denies headache, focal weakness or sensory changes. [] Endocrine: Denies polyuria or polydipsia. [] Lymphatic: Denies swollen glands. [] Psychiatric: Denies depression or anxiety. [] Heart Score: Risk Factors: Risk Factors: DM, Current or recent (<one month) smoker, HTN, HLP, family history of CAD, obesity. Risk Scores: Score 0 - 3: 2.5% MACE over next 6 weeks - Discharge Home Score 4 - 6: 20.3% MACE over next 6 weeks - Admit for Clinical Observation Score 7 - 10: 72.7% MACE over next 6 weeks - Early Invasive Strategies Current Medications: Current Medications Medications (Trade) Dose Ordered Sig/John Start Time Stop Time Status Last Admin Dose Admin Albuterol/ Ipratropium (Duoneb) 6 ml 1X ONCE 12/09/19 10:00 6/22/20 10:02 DC 12/09/19 10:30 6 ML Methylprednisolone Sodium Succinate (SOLU-Medrol 125MG VIAL) 125 mg 1X ONCE 12/09/19 10:00 12/09/19 10:02 DC 12/09/19 10:10 125 MG Sodium Chloride 500 ml @ 500 mls/hr 1X ONCE 12/09/19 09:30 12/09/19 10:29 DC 12/09/19 10:11 500 MLS/HR Allergies: Allergies: Allergies Coded Allergies Type Severity Reaction Last Updated Verified Iodinated Contrast Media Allergy Intermediate Unknown 11/29/19 Yes acyclovir Allergy Intermediate Rash 11/29/19 Yes iodine Allergy Intermediate Unknown 11/29/19 Yes levofloxacin Allergy Intermediate Unknown 11/29/19 Yes pregabalin Allergy Intermediate SWELLS 11/29/19 Yes I S O L A T I O N *CONTACT* Allergy Unknown Unknown 11/29/19 Yes morphine Adverse Reaction Intermediate Nausea 11/29/19 Yes Physical Exam: PE: Constitutional: Frail, elderly mild to moderate respiratory distress and acute on chronically ill [] HENT: Normocephalic, atraumatic, bilateral external ears normal, oropharynx moist, no oral exudates, nose normal. [] Eyes: PERRLA, EOMI, conjunctiva normal, no discharge. [] Neck: Normal range of motion, no tenderness, supple, no stridor. [] Cardiovascular:Heart rate regular rhythm, no murmur [] Lungs & Thorax: Scattered rales and wheezes in both lungs [] Abdomen: Bowel sounds normal, soft, no tenderness, no masses, no pulsatile masses. [] Skin: Warm, dry, no erythema, no rash. [] Back: No tenderness, no CVA tenderness. [] Extremities: No tenderness, no cyanosis, no clubbing, ROM intact, no edema. [] Neurologic: Alert and oriented X 3, normal motor function, normal sensory function, no focal deficits noted. [] Psychologic: Anxious [] Current Patient Data: Labs: Laboratory Tests Test 12/09/19 09:20 White Blood Count 0.7 x10^3/uL (4.0-11.0) *L Red Blood Count 2.75 x10^6/uL (3.50-5.40) L Hemoglobin 8.5 g/dL (12.0-15.5) L Hematocrit 25.2 % (36.0-47.0) L Mean Corpuscular Volume 92 fL (79-100) Mean Corpuscular Hemoglobin 31 pg (25-35) Mean Corpuscular Hemoglobin Concent 34 g/dL (31-37) Red Cell Distribution Width 18.1 % (11.5-14.5) H Platelet Count 51 x10^3/uL (140-400) L Neutrophils (%) (Auto) 41 % (31-73) Lymphocytes (%) (Auto) 8 % (24-48) L Monocytes (%) (Auto) 48 % (0-9) H Eosinophils (%) (Auto) 1 % (0-3) Basophils (%) (Auto) 2 % (0-3) Neutrophils # (Auto) 0.3 x10^3/uL (1.8-7.7) L Lymphocytes # (Auto) 0.1 x10^3/uL (1.0-4.8) L Monocytes # (Auto) 0.3 x10^3/uL (0.0-1.1) Eosinophils # (Auto) 0.0 x10^3/uL (0.0-0.7) Basophils # (Auto) 0.0 x10^3/uL (0.0-0.2) Segmented Neutrophils % 24 % (35-66) L Band Neutrophils % 10 % (0-9) H Lymphocytes % 24 % (24-48) Monocytes % 40 % (0-10) H Eosinophils % 2 % (0-5) Platelet Estimate Decreased (ADEQUATE) D-Dimer (Harriett) 1.40 ug/mlFEU (0.00-0.50) H Sodium Level 139 mmol/L (136-145) Potassium Level 4.0 mmol/L (3.5-5.1) Chloride Level 100 mmol/L (98-107) Carbon Dioxide Level 32 mmol/L (21-32) Anion Gap 7 (6-14) Blood Urea Nitrogen 10 mg/dL (7-20) Creatinine 0.7 mg/dL (0.6-1.0) Estimated GFR (Cockcroft-Gault) 83.0 BUN/Creatinine Ratio 14 (6-20) Glucose Level 117 mg/dL (70-99) H Lactic Acid Level 1.1 mmol/L (0.4-2.0) Calcium Level 8.6 mg/dL (8.5-10.1) Magnesium Level 2.1 mg/dL (1.8-2.4) Total Bilirubin 0.5 mg/dL (0.2-1.0) Aspartate Amino Transferase (AST) 17 U/L (15-37) Alanine Aminotransferase (ALT) 33 U/L (14-59) Alkaline Phosphatase 111 U/L (46-116) Troponin I Quantitative < 0.017 ng/mL (0.000-0.055) IH-Xmy-U-Type Natriuretic Peptide 2084 pg/mL (0-124) H Total Protein 6.9 g/dL (6.4-8.2) Albumin 2.6 g/dL (3.4-5.0) L Albumin/Globulin Ratio 0.6 (1.0-1.7) L Laboratory Tests 12/09/19 09:20 Laboratory Tests 12/09/19 09:20 Vital Signs: Vital Signs Date Time Temp Pulse Resp B/P (MAP) Pulse Ox O2 Delivery O2 Flow Rate FiO2 12/09/19 10:32 100 Nasal Cannula 6.0 12/09/19 09:06 99.6 101 30 136/64 (88) 99.6 EKG: EKG: EKG: Sinus tachycardia rate of [address]-T changes no obvious right strain [] Radiology/Procedures: Radiology/Procedures: [] Impression: REASON: soa PROCEDURE: CHEST AP ONLY CHEST AP ONLY History: Reason: soa / Spl. Instructions: / History: Comparison: August 10, 2019 chest x-ray. CT November 06, 2019 Findings: Bilateral interstitial opacities, increased compared to prior. No pleural effusion. Left costophrenic angle excluded from the image. No pneumothorax. Right PICC with tip projecting over the cavoatrial junction. Postop changes lower cervical spine. Normal heart size. Nipple shadows projecting over the bilateral mid lungs, unchanged. Right suprahilar mass, better characterized on previous CT. Impression: 1. Increased interstitial thickening, may represent pulmonary edema or atypical infection including viral pneumonia although a component of chronic interstitial changes is possible. 2. Right suprahilar mass, better characterized on prior CT. Course & Med Decision Making: Course & Med Decision Making Pertinent Labs and Imaging studies reviewed. (See chart for details) [ED course: Evaluation reveals a 69-year-old female with lung cancer and COPD. Her physical exam was consistent with a COPD exacerbation she was given [id number]-[id number] DuoNeb's and 125 of Solu-Medrol as well as supplemental oxygen after her treatment her oxygen was in the upper 90s her heart rate came down. I recognize that she has a slightly elevated d-dimer however I do not believe her symptoms are related to a pulmonary embolus at this time.] Dragon Disclaimer: Dragon Disclaimer: This electronic medical record was generated, in whole or in part, using a voice recognition dictation system. Departure Departure Impression: Primary Impression: COPD exacerbation Disposition: ADMITTED INPATIENT Admitting Physician: TANO Condition: GUARDED Referrals: ADIEL PENNINGTON MD (PCP) Justicifation of Admission Dx: Justifications for Admission: Justification of Admission Dx: Yes Acute COPD Exacerbation: Acute COPD Exacerbation TAVON PAREKH DO Dec 09, 2019 10:39
[2019-12-09] MEDS ORDERED: ONDANSETRON PF 4 MG/2 ML VIAL. IV PRN ×2 (10:45→20:15)
--- NOTE | 2019-12-09 11:08 | EKG ---
[facility] [address] [place] [address] Test Date: 2019-12-09 Test Time: 09:12:47 Pat Name: LINDSAY MORALES Department: Room: Gender: F [employer]: : 1950 Requested By: TAVON PAREKH Order Number: [id number] Reading MD: Measurements Intervals [place] Rate: 101 P: 90 CA: 134 QRS: 25 QRSD: 86 T: 75 QT: 334 QTc: 434 Interpretive Statements SINUS TACHYCARDIA QRS(T) CONTOUR ABNORMALITY CONSISTENT WITH ANTEROSEPTAL INFARCT AGE UNDETERMINED T ABNORMALITY IN HIGH LATERAL LEADS ABNORMAL ECG RI6.02 No previous ECG available for comparison
[2019-12-09] MEDS ORDERED: IPRATRPIUM/ALBUTEROL 0.5/2.5MG 3 ML NEBU. NEB SCH (12:00)
[2019-12-09] MEDS ORDERED: fentaNYL PF VIAL 100 MCG/2 ML VIAL IV ONE (13:00)
--- NOTE | 2019-12-09 14:19 | CONS ---
DATE OF CONSULTATION: PULMONARY CONSULTATION ATTENDING PHYSICIAN: Dr. Goff. REASON FOR CONSULTATION: Dyspnea, hypoxia, lung cancer. HISTORY OF PRESENT ILLNESS: The patient is a 69-year-old female who has been a smoker for 40 years and still smokes cigarettes. She was diagnosed with lung cancer approximately over a year ago. The patient has been getting chemo and also received radiation. She was seen in her oncologist's office and was noted to be increasingly short of breath. The patient states that she is on home oxygen 2 liters on a 24-hour basis. She has been having cough, but it is nonproductive. No fever, no chills, no chest pains. She did complain of some body aches. No hemoptysis. No focal weakness. There is some mild leg edema. At her oncologist's office saturations were in the 50s. As a result, she was sent to the Emergency Room for further evaluation. I have reviewed the patient's chest x-ray and it shows some prominent interstitial markings. There is also some rounded densities in both lungs, likely nipple shadows. I have reviewed her previous PET scans as well as CT chest. She is currently on 6 liters of oxygen saturation 100%. Consultation requested for further evaluation and management. Patient seen in the ER. PAST MEDICAL HISTORY: Significant for history of COPD with ongoing tobaccoism, could be severe; history of hypertension; history of lung cancer, status post chemo and radiation; chronic pains. PAST SURGICAL HISTORY: Appendectomy, cholecystectomy, hysterectomy and back surgery. SOCIAL HISTORY: Smoker for 40 years, continues to smoke half pack a day. ALLERGIES: INCLUDING IODINATED CONTRAST, ACYCLOVIR, IODINE, LEVOFLOXACIN, MORPHINE, AND PREGABALIN. MEDICATIONS: That were given in the ER were reviewed. REVIEW OF SYSTEMS: Twelve-point system obtained. Pertinent positives discussed in my history of present illness, otherwise noncontributory. All systems that were negative were reviewed as well. PHYSICAL EXAMINATION: VITAL SIGNS: Reviewed. T-max of 99.6. Pulse ox 100% on 6 liters. NECK: Supple. LUNGS: With diminished breath sounds with few wheezes. CARDIOVASCULAR: With a regular rate. ABDOMEN: Soft. EXTREMITIES: With trace pitting edema. LABORATORY DATA: Reviewed. White cell count 0.7, hemoglobin 8.5 and platelets are 51. BUN 10, creatinine 0.7. D-dimer 1.4. ABGs with a pH of 7.4, pCO2 of 45 and a pO2 of 54 on 6 liters. IMPRESSION: 1. Acute on chronic hypoxic respiratory failure secondary to multifactorial etiologies including acute exacerbation of chronic obstructive pulmonary disease with superimposed atypical pneumonia. Possibility of diastolic heart failure cannot be ruled out. Possibility of radiation-induced fibrotic changes is also another consideration. Chemo-induced interstitial infiltrates would also be in the differential diagnosis. 2. The patient with lung cancer stage 4. Last PET scan was on 11/15/2019. She had a hypermetabolic mediastinal mass, which extends into the right hilum. In addition, there were hypermetabolic right axillary and left supraclavicular lymph nodes which were metastatic. She also had hypermetabolic activity within the abdomen and pelvis including right hepatic dome and gastric body as well as anterior omentum, likely soft tissue metastasis. She also had right upper lobe spiculated nodule about 5 mm. Status post chemo and radiation. 3. Pancytopenia related to chemo. 4. Moderate protein-calorie malnutrition. 5. Chronic obstructive pulmonary disease with acute exacerbation. The patient has ongoing tobacco use since 40 years. RECOMMENDATIONS: 1. Continue present oxygen to keep saturation 92 and above. 2. Empiric antibiotic. 3. Once COVID test is ruled out, we will do a noncontrast CT chest to better assess for interstitial infiltrates and evidence of metastasis. 4. We will need to discuss advanced directives. 5. Bronchodilators. 6. IV steroids. 7. Empiric antibiotic. 8. Follow Oncology recommendations. 9. Monitor white cell count and platelet count. 10. Discussed with the ER physician. Discussed with RN and RT. Critical care time 35 minutes. GWEN KINNEY MD DR: FEMI/joseph JOB#: [id number] / [id number] LAURENCE
[2019-12-09] MEDS ORDERED: HYDROcodone/APAP 10/325 1 TAB TABLET PO PRN (14:45)
[2019-12-09 15:00] VITALS: BP 131/65
[2019-12-09] MEDS ORDERED: ALBUTEROL SULFATE 2.5 MG/3 ML NEBU. NEB PRN (15:30)
[2019-12-09 15:50] VITALS: BP 157/89
[2019-12-09] MEDS: cefTRIAXone IV Push 1 GM VIAL. IVP SCH (16:52)
[2019-12-09] MEDS: methylPREDNISolone SOD SUCC PF 40 MG/ML VIAL. IV SCH ×2 (16:52→20:35)
[2019-12-09 19:00] VITALS: BP 152/84
[2019-12-09] MEDS ORDERED: DILT300C40 PO (19:38)
[2019-12-09] MEDS ORDERED: OXYC5CAP PO (19:40)
[2019-12-09] MEDS ORDERED: CARI350T PO (19:40)
[2019-12-09] MEDS ORDERED: ALPR0.5T6 PO (19:41)
[2019-12-09] MEDS ORDERED: OLAN5TAB3 PO (19:42)
[2019-12-09] MEDS ORDERED: PARO20TA99 PO (19:42)
[2019-12-09] MEDS ORDERED: ONDA8TAB9 PO (19:43)
[2019-12-09] MEDS ORDERED: PROC10TA57 PO (19:44)
[2019-12-09] MEDS ORDERED: FURO-68 PO (19:44)
[2019-12-09] MEDS ORDERED: CLON0.2T PO (19:47)
[2019-12-09] MEDS ORDERED: POTA20TA4 PO (19:47)
[2019-12-09] MEDS ORDERED: IPRATRPIUM/ALBUTEROL 0.5/2.5MG 3 ML NEBU. NEB PRN (20:15)
[2019-12-09] MEDS ORDERED: ONDANSETRON ODT 4 MG TAB.RAPDIS. PO PRN (20:30)
--- NOTE | 2019-12-09 20:30 | NUR ---
Admit prior to shift change to [facility] room 676. Alert. Anxious. Restless. "I want to go home". "I'm just going to leave". C/O generalized chronic pain. Spoke to on the phone, . Patient and reports they use [facility]. Called [facility] , , and spoke to pharmacist and obtained patient's home med list which includes pain meds and anxiety meds. Reported meds to Dr Calle and orders placed to start home meds. Patient calms knowing home meds are being ordered.
[2019-12-09] MEDS: oxyCODONE IR 5 MG TABLET PO PRN (20:33)
[2019-12-09] MEDS: OLANZapine 5 MG TABLET PO SCH (20:33)
[2019-12-09] MEDS: ALPRAZolam 0.5 MG TABLET PO PRN (20:33)
[2019-12-09 23:00] VITALS: BP 146/83
[2019-12-10] MEDS: CYCLOBENZAPRINE 10 MG TABLET. PO PRN ×2 (00:54→14:34)
[2019-12-10] MEDS: oxyCODONE IR 5 MG TABLET PO PRN ×3 (02:16→17:38)
[2019-12-10] MEDS: ALPRAZolam 0.5 MG TABLET PO PRN ×3 (06:00→20:49)
[2019-12-10] MEDS: methylPREDNISolone SOD SUCC PF 40 MG/ML VIAL. IV SCH ×3 (06:00→20:49)
[2019-12-10 07:00] VITALS: BP 135/70
[2019-12-10] MEDS: LOSARTAN POTASSIUM 50 MG TABLET. PO SCH (07:45)
[2019-12-10] MEDS: OLANZapine 5 MG TABLET PO SCH ×2 (07:45→20:49)
[2019-12-10] MEDS: PARoxetine 20 MG TABLET PO SCH (07:46)
[2019-12-10] MEDS: ACETAMINOPHEN 325 MG TABLET. PO PRN ×3 (07:46→20:49)
[2019-12-10] MEDS: PANTOPRAZOLE 40 MG TABLET.DR. PO SCH (07:46)
[2019-12-10 09:03] LABS: WHITE BLOOD COUNT 0.7 x10^3/uL (4.0-11.0)
[2019-12-10 10:46] VITALS: BP 130/68
--- NOTE | 2019-12-10 11:29 | PDOC ---
PULMONARY PROGRESS NOTES Subjective no soa Vitals Vital Signs Date Time Temp Pulse Resp B/P (MAP) Pulse Ox O2 Delivery O2 Flow Rate FiO2 12/10/19 11:00 99 Nasal Cannula 6.0 12/10/19 10:46 97.8 98 18 130/68 (88) 97.8 General: Alert, Oriented X4, No acute distress Lungs: Other (decrease bs) Cardiovascular: S1, S2 Abdomen: Soft, Non-tender Extremities: No Edema Skin: Warm Labs Laboratory Tests Test 12/09/19 09:20 12/09/19 10:25 12/09/19 14:10 12/09/19 17:40 White Blood Count 0.7 x10^3/uL (4.0-11.0) Red Blood Count 2.75 x10^6/uL (3.50-5.40) Hemoglobin 8.5 g/dL (12.0-15.5) Hematocrit 25.2 % (36.0-47.0) Mean Corpuscular Volume 92 fL (79-100) Mean Corpuscular Hemoglobin 31 pg (25-35) Mean Corpuscular Hemoglobin Concent 34 g/dL (31-37) Red Cell Distribution Width 18.1 % (11.5-14.5) Platelet Count 51 x10^3/uL (140-400) Neutrophils (%) (Auto) 41 % (31-73) Lymphocytes (%) (Auto) 8 % (24-48) Monocytes (%) (Auto) 48 % (0-9) Eosinophils (%) (Auto) 1 % (0-3) Basophils (%) (Auto) 2 % (0-3) Neutrophils # (Auto) 0.3 x10^3/uL (1.8-7.7) Lymphocytes # (Auto) 0.1 x10^3/uL (1.0-4.8) Monocytes # (Auto) 0.3 x10^3/uL (0.0-1.1) Eosinophils # (Auto) 0.0 x10^3/uL (0.0-0.7) Basophils # (Auto) 0.0 x10^3/uL (0.0-0.2) Segmented Neutrophils % 24 % (35-66) Band Neutrophils % 10 % (0-9) Lymphocytes % 24 % (24-48) Monocytes % 40 % (0-10) Eosinophils % 2 % (0-5) Platelet Estimate Decreased (ADEQUATE) D-Dimer (Harriett) 1.40 ug/mlFEU (0.00-0.50) Sodium Level 139 mmol/L (136-145) Potassium Level 4.0 mmol/L (3.5-5.1) Chloride Level 100 mmol/L (98-107) Carbon Dioxide Level 32 mmol/L (21-32) Anion Gap 7 (6-14) Blood Urea Nitrogen 10 mg/dL (7-20) Creatinine 0.7 mg/dL (0.6-1.0) Estimated GFR (Cockcroft-Gault) 83.0 BUN/Creatinine Ratio 14 (6-20) Glucose Level 117 mg/dL (70-99) Lactic Acid Level 1.1 mmol/L (0.4-2.0) Calcium Level 8.6 mg/dL (8.5-10.1) Magnesium Level 2.1 mg/dL (1.8-2.4) Total Bilirubin 0.5 mg/dL (0.2-1.0) Aspartate Amino Transf (AST/SGOT) 17 U/L (15-37) Alanine Aminotransferase (ALT/SGPT) 33 U/L (14-59) Alkaline Phosphatase 111 U/L (46-116) Troponin I Quantitative < 0.017 ng/mL (0.000-0.055) < 0.017 ng/mL (0.000-0.055) < 0.017 ng/mL (0.000-0.055) VY-Rhz-A-Type Natriuretic Peptide 2084 pg/mL (0-124) Total Protein 6.9 g/dL (6.4-8.2) Albumin 2.6 g/dL (3.4-5.0) Albumin/Globulin Ratio 0.6 (1.0-1.7) O2 Saturation 88 % (92-99) Arterial Blood pH 7.44 (7.35-7.45) Arterial Blood pCO2 at Patient Temp 45 mmHg (35-46) Arterial Blood pO2 at Patient Temp 54 mmHg (65-108) Arterial Blood HCO3 30 mmol/L (21-28) Arterial Blood Base Excess 5 mmol/L (-3-3) FiO2 6 lpm nc Laboratory Tests Test 12/09/19 14:10 12/09/19 17:40 Troponin I Quantitative < 0.017 ng/mL (0.000-0.055) < 0.017 ng/mL (0.000-0.055) Medications Active Scripts Medications Dose Route/Sig Max Daily Dose Days Date Category Klor-Con M20 (Potassium Chloride) 20 Meq Tab.er.prt 20 Meq PO DAILY 12/09/19 Reported Clonidine Hcl 0.2 Mg Tablet 0.2 Mg PO DAILY 12/09/19 Reported Lasix (Furosemide) 40 Mg Tablet 40 Mg PO DAILY 12/09/19 Reported Compazine (Prochlorperazine Maleate) 10 Mg Tablet 1 Tab PO Q6HRS 7 12/09/19 Reported Zofran (Ondansetron Hcl) 8 Mg Tablet 1 Tab PO Q8HRS 12/09/19 Reported Zyprexa (Olanzapine) 5 Mg Tablet 5 Mg PO DAILY 12/09/19 Reported Paxil (Paroxetine Hcl) 20 Mg Tablet 20 Mg PO DAILY 12/09/19 Reported Alprazolam 0.5 Mg Tablet 1 Tab PO TID 12/09/19 Reported Soma (Carisoprodol) 350 Mg Tablet 350 Mg PO TID&HS 12/09/19 Reported Oxycodone Hcl 5 Mg Capsule 10 Mg PO PRN Q6HRS PRN 12/09/19 Reported Cartia Xt (Diltiazem Hcl) 300 Mg Cap.er.24h 1 Cap PO DAILY 30 12/09/19 Reported Duoneb 0.5-3(2.5) Mg/3 Ml (Albuterol/Ipratropium) 3 Ml Ampul.neb 3 Ml NEB Q4HRS 30 08/02/19 Rx Protonix (Pantoprazole Sodium) 20 Mg Tablet.dr 40 Mg PO DAILY 11/02/17 Reported Losartan Potassium 100 Mg Tablet 100 Mg PO DAILY 11/02/17 Reported Impression . 1. Acute on chronic hypoxic respiratory failure secondary to multifactorial etiologies including acute exacerbation of chronic obstructive pulmonary disease with superimposed atypical pneumonia. Possibility of diastolic heart failure cannot be ruled out. Possibility of radiation-induced fibrotic changes is also another consideration. Chemo-induced interstitial infiltrates would also be in the differential diagnosis. 2. The patient with lung cancer stage 4. Last PET scan was on 11/15/2019. She had a hypermetabolic mediastinal mass, which extends into the right hilum. In addition, there were hypermetabolic right axillary and left supraclavicular lymph nodes which were metastatic. She also had hypermetabolic activity within the abdomen and pelvis including right hepatic dome and gastric body as well as anterior omentum, likely soft tissue metastasis. She also had right upper lobe spiculated nodule about 5 mm. Status post chemo and radiation. 3. Pancytopenia related to chemo. 4. Moderate protein-calorie malnutrition. 5. Chronic obstructive pulmonary disease with acute exacerbation. The patient has ongoing tobacco use since 40 years. Plan . 1. Continue present oxygen to keep saturation 92 and above. 2. Empiric antibiotic. 3. Once COVID test is ruled out, we will do a noncontrast CT chest to better assess for interstitial infiltrates and evidence of metastasis. 4. We will need to discuss advanced directives. 5. Bronchodilators. 6. IV steroids. 7. Empiric antibiotic. 8. Follow Oncology recommendations. 9. Monitor white cell count and platelet count. 10. Discussed with GWEN STRONG MD Dec 10, 2019 11:29
--- NOTE | 2019-12-10 12:12 | PDOC1 ---
History and Physical Date of Admission Date of Admission DATE: 12/10/19 TIME: 12:01 Identification/Chief Complaint Chief Complaint sob Source Source: Chart review, Patient History of Present Illness History of Present Illness 69-year-old female with tobacco abuse hx of lung cancer on chemo and radiation who was at oncology office and found to be sob. at home on 2 liters of 02. reported more cough but not not productive. reports mild body ache. no fever or chills. at oncology office saturations were in 50s. she came to ED for further eval. chest x-ray and it shows some prominent interstitial markings. admitted to hospitalist service for COPD exacerbation. Past Medical History Cardiovascular: HTN Pulmonary: COPD GI: Constipation Heme/Onc: No pertinent hx Psych: Anxiety, Depression, Other Musculoskeletal: low back pain Rheumatologic: No pertinent hx Infectious disease: No pertinent hx Renal/: No pertinent hx Endocrine: No pertinent hx Past Surgical History Past Surgical History: Appendectomy, Cholecystectomy, Hysterectomy, Other Family History Family History: Alzheimer's Disease, High Cholestrol, Hypertension Social History ALCOHOL: social Drugs: None Current Medications Current Medications Current Medications Sodium Chloride 500 ml @ 500 mls/hr 1X ONCE IV Last administered on 12/09/19at 10:11; Start 12/09/19 at 09:30; Stop 12/09/19 at 10:29; Status DC Albuterol/ Ipratropium (Duoneb) 6 ml 1X ONCE NEB Last administered on 12/09/19at 10:30; Start 12/09/19 at 10:00; Stop 12/09/19 at 10:02; Status DC Methylprednisolone Sodium Succinate (SOLU-Medrol 125MG VIAL) 125 mg 1X ONCE IV Last administered on 12/09/19at 10:10; Start 12/09/19 at 10:00; Stop 12/09/19 at 10:02; Status DC Ondansetron HCl (Zofran) 4 mg PRN Q8HRS PRN IV NAUSEA/VOMITING; Start 12/09/19 at 10:45; Stop 12/09/19 at 20:08; Status DC Acetaminophen (Tylenol) 650 mg PRN Q4HRS PRN PO FEVER > 100.3'F Last administered on 12/10/19at 07:46; Start 12/09/19 at 10:45 Albuterol/ Ipratropium (Duoneb) 3 ml RTQID NEB ; Start 12/09/19 at 12:00; Stop 12/09/19 at 15:21; Status DC Fentanyl Citrate (Fentanyl 2ml Vial) 25 mcg 1X ONCE IV Last administered on 12/09/19at 13:19; Start 12/09/19 at 13:00; Stop 12/09/19 at 13:01; Status DC Ceftriaxone Sodium (Rocephin) 1 gm Q24H IVP Last administered on 12/09/19at 16:52; Start 12/09/19 at 14:00 Methylprednisolone Sodium Succinate (SOLU-Medrol 40MG VIAL) 40 mg Q8HRS IV Last administered on 12/10/19at 06:00; Start 12/09/19 at 14:15 Acetaminophen/ Hydrocodone Bitart (Lortab 10/325) 1 tab PRN Q6HRS PRN PO PAIN Last administered on 12/09/19at 14:44; Start 12/09/19 at 14:45; Stop 12/09/19 at 20:08; Status DC Albuterol Sulfate (Ventolin Neb Soln) 2.5 mg PRN Q4HRS PRN NEB SHORTNESS OF BREATH; Start 12/09/19 at 15:30 Ondansetron HCl (Zofran) 4 mg PRN Q4HRS PRN IV NAUSEA/VOMITING; Start 12/09/19 at 20:15 Alprazolam (Xanax) 0.5 mg PRN TID PRN PO anxiety Last administered on 12/10/19at 06:00; Start 12/09/19 at 20:15 Diltiazem HCl (Cardizem 24hr Cd) 300 mg DAILY PO Last administered on 12/10/19at 07:46; Start 12/10/19 at 09:00 Albuterol/ Ipratropium (Duoneb) 3 ml PRN Q4HRS PRN NEB sob; Start 12/09/19 at 20:15; Stop 12/09/19 at 20:13; Status DC Olanzapine (ZyPREXA) 5 mg BID PO Last administered on 12/10/19at 07:45; Start 12/09/19 at 21:00 Paroxetine HCl (Paxil) 20 mg DAILY PO Last administered on 12/10/19at 07:46; Start 12/10/19 at 09:00 Cyclobenzaprine HCl (Flexeril) 10 mg PRN BFRMEALHC PRN PO MUSCLE SPASMS Last administered on 12/10/19at 00:54; Start 12/09/19 at 20:30 Losartan Potassium (Cozaar) 100 mg DAILY PO Last administered on 12/10/19at 07:45; Start 12/10/19 at 09:00 Ondansetron HCl (Zofran Odt) 8 mg PRN Q8HRS PRN PO NAUSEA/VOMITING; Start 12/09/19 at 20:30 Oxycodone HCl (Roxicodone) 10 mg PRN Q6HRS PRN PO PAIN Last administered on 12/10/19at 11:00; Start 12/09/19 at 20:30 Pantoprazole Sodium (Protonix) 40 mg DAILYAC PO Last administered on 12/10/19at 07:46; Start 12/10/19 at 07:30 Active Scripts Active Duoneb 0.5-3(2.5) Mg/3 Ml (Albuterol/Ipratropium) 3 Ml Ampul.neb 3 Ml NEB Q4HRS 30 Days Reported Klor-Con M20 (Potassium Chloride) 20 Meq Tab.er.prt 20 Meq PO DAILY Clonidine Hcl 0.2 Mg Tablet 0.2 Mg PO DAILY Lasix (Furosemide) 40 Mg Tablet 40 Mg PO DAILY Compazine (Prochlorperazine Maleate) 10 Mg Tablet 1 Tab PO Q6HRS 7 Days Zofran (Ondansetron Hcl) 8 Mg Tablet 1 Tab PO Q8HRS Zyprexa (Olanzapine) 5 Mg Tablet 5 Mg PO DAILY Paxil (Paroxetine Hcl) 20 Mg Tablet 20 Mg PO DAILY Alprazolam 0.5 Mg Tablet 1 Tab PO TID Soma (Carisoprodol) 350 Mg Tablet 350 Mg PO TID&HS Oxycodone Hcl 5 Mg Capsule 10 Mg PO PRN Q6HRS PRN Cartia Xt (Diltiazem Hcl) 300 Mg Cap.er.24h 1 Cap PO DAILY 30 Days Protonix (Pantoprazole Sodium) 20 Mg Tablet.dr 40 Mg PO DAILY Losartan Potassium 100 Mg Tablet 100 Mg PO DAILY Allergies Allergies: Coded Allergies: Iodinated Contrast Media (Verified Allergy, Intermediate, Unknown, 11/29/19) acyclovir (Verified Allergy, Intermediate, Rash, 11/29/19) iodine (Verified Allergy, Intermediate, Unknown, 11/29/19) levofloxacin (Verified Allergy, Intermediate, Unknown, 11/29/19) pregabalin (Verified Allergy, Intermediate, SWELLS, 11/29/19) I S O L A T I O N *CONTACT* (Verified Allergy, Unknown, Unknown, 11/29/19) mrsa morphine (Verified Adverse Reaction, Intermediate, Nausea, 11/29/19) ROS Review of System CONSTITUTIONAL: No fever or chills EYES: No recent changes SKIN: No rash or itching CARDIOVASCULAR: No chest pain, syncope, palpitations, or edema RESPIRATORY: No SOB or cough GASTROINTESTINAL: No nausea, vomiting or abdominal pain NEUROLOGICAL: No headaches or weakness ENDOCRINE: No cold or heat intolerance GENITOURINARY: No urgency or frequency of urination MUSCULOSKELETAL: No back pain or joint pain LYMPHATICS: No enlarged lymph nodes PSYCHIATRIC: No anxiety or depression Physical Exam Physical Exam GENERAL: No apparent distress. Alert and oriented. HEENT: Head normocephalic, atraumatic. NECK: Supple LUNGS: Clear to auscultation. HEART: RRR, S1, S2 present, pulses intact ABDOMEN: Soft, positive bowel sounds. EXTREMITIES: No cyanosis or edema. NEUROLOGIC: Normal speech, normal tone PSYCHIATRIC: Normal affect, normal mood. SKIN: No ulceration. Vitals Vitals Vital Signs Date Time Temp Pulse Resp B/P (MAP) Pulse Ox O2 Delivery O2 Flow Rate FiO2 12/10/19 11:59 Nasal Cannula 6.0 12/10/19 11:00 99 12/10/19 10:46 97.8 98 18 130/68 (88) 97.8 Labs Labs Laboratory Tests Test 12/09/19 09:20 12/09/19 10:25 12/09/19 14:10 12/09/19 17:40 White Blood Count 0.7 x10^3/uL (4.0-11.0) Red Blood Count 2.75 x10^6/uL (3.50-5.40) Hemoglobin 8.5 g/dL (12.0-15.5) Hematocrit 25.2 % (36.0-47.0) Mean Corpuscular Volume 92 fL (79-100) Mean Corpuscular Hemoglobin 31 pg (25-35) Mean Corpuscular Hemoglobin Concent 34 g/dL (31-37) Red Cell Distribution Width 18.1 % (11.5-14.5) Platelet Count 51 x10^3/uL (140-400) Neutrophils (%) (Auto) 41 % (31-73) Lymphocytes (%) (Auto) 8 % (24-48) Monocytes (%) (Auto) 48 % (0-9) Eosinophils (%) (Auto) 1 % (0-3) Basophils (%) (Auto) 2 % (0-3) Neutrophils # (Auto) 0.3 x10^3/uL (1.8-7.7) Lymphocytes # (Auto) 0.1 x10^3/uL (1.0-4.8) Monocytes # (Auto) 0.3 x10^3/uL (0.0-1.1) Eosinophils # (Auto) 0.0 x10^3/uL (0.0-0.7) Basophils # (Auto) 0.0 x10^3/uL (0.0-0.2) Segmented Neutrophils % 24 % (35-66) Band Neutrophils % 10 % (0-9) Lymphocytes % 24 % (24-48) Monocytes % 40 % (0-10) Eosinophils % 2 % (0-5) Platelet Estimate Decreased (ADEQUATE) D-Dimer (Harriett) 1.40 ug/mlFEU (0.00-0.50) Sodium Level 139 mmol/L (136-145) Potassium Level 4.0 mmol/L (3.5-5.1) Chloride Level 100 mmol/L (98-107) Carbon Dioxide Level 32 mmol/L (21-32) Anion Gap 7 (6-14) Blood Urea Nitrogen 10 mg/dL (7-20) Creatinine 0.7 mg/dL (0.6-1.0) Estimated GFR (Cockcroft-Gault) 83.0 BUN/Creatinine Ratio 14 (6-20) Glucose Level 117 mg/dL (70-99) Lactic Acid Level 1.1 mmol/L (0.4-2.0) Calcium Level 8.6 mg/dL (8.5-10.1) Magnesium Level 2.1 mg/dL (1.8-2.4) Total Bilirubin 0.5 mg/dL (0.2-1.0) Aspartate Amino Transf (AST/SGOT) 17 U/L (15-37) Alanine Aminotransferase (ALT/SGPT) 33 U/L (14-59) Alkaline Phosphatase 111 U/L (46-116) Troponin I Quantitative < 0.017 ng/mL (0.000-0.055) < 0.017 ng/mL (0.000-0.055) < 0.017 ng/mL (0.000-0.055) UL-Orb-H-Type Natriuretic Peptide 2084 pg/mL (0-124) Total Protein 6.9 g/dL (6.4-8.2) Albumin 2.6 g/dL (3.4-5.0) Albumin/Globulin Ratio 0.6 (1.0-1.7) O2 Saturation 88 % (92-99) Arterial Blood pH 7.44 (7.35-7.45) Arterial Blood pCO2 at Patient Temp 45 mmHg (35-46) Arterial Blood pO2 at Patient Temp 54 mmHg (65-108) Arterial Blood HCO3 30 mmol/L (21-28) Arterial Blood Base Excess 5 mmol/L (-3-3) FiO2 6 lpm nc Laboratory Tests Test 12/09/19 14:10 12/09/19 17:40 Troponin I Quantitative < 0.017 ng/mL (0.000-0.055) < 0.017 ng/mL (0.000-0.055) VTE Prophylaxis Ordered VTE Prophylaxis Devices: Yes VTE Pharmacological Prophylaxi: Yes Assessment/Plan Assessment/Plan ASSESSMENT Acute on chronic hypoxic respiratory failure secondary to acute exacerbation of chronic obstructive pulmonary disease/ atypical pneumonia. ? radiation induced fibrotic changes. lung cancer stage 4. Last PET scan was on 11/15/2019. Pancytopenia related to chemo. Moderate protein-calorie malnutrition. Chronic obstructive pulmonary disease with acute exacerbation. Ongoing Tobacco use PLAN continue 02, abx, steroids and breathing treatments. check for covid. will need non contrast CT when covid ruled out onc and pulm consult follow labs dvt ppx Justicifation of Admission Dx: Justifications for Admission: Justification of Admission Dx: Yes Acute COPD Exacerbation: Acute COPD Exacerbation TIRSO WILKERSON MD Dec 10, 2019 12:12
[2019-12-10] MEDS: cefTRIAXone IV Push 1 GM VIAL. IVP SCH (14:34)
[2019-12-10 15:00] VITALS: BP 132/74
--- NOTE | 2019-12-10 15:44 | NUR ---
RN NOTE patient had a positive sepsis screen at 0800 ICU charge notified and had no recommendations. Dr. Dawson notified and orders received to recheck lactate in the AM. Will continue to monitor.
--- NOTE | 2019-12-10 16:22 | NUR ---
SW following. Reviewed chart and spoke with RN. Pt from home. Pt on 6l 02 and IV Rocephin. Pt COVID pending. SW to continue following.
--- NOTE | 2019-12-10 18:09 | PDOC ---
Progress Note ROS ROS No nausea No vomiting No pain No rash Vital Sign Vital Signs Vital Signs Date Time Temp Pulse Resp B/P (MAP) Pulse Ox O2 Delivery O2 Flow Rate FiO2 12/10/19 17:38 Nasal Cannula 6.0 12/10/19 15:00 97.9 97 18 132/74 (93) 99 97.9 Physical Exam PHYSICAL EXAM GENERAL: NAD, Alert HEENT: PERRL, OC/OP NECK: Supple, no JVD, no LN LUNGS: Clear HEART: S1S2, no gallop, no murmur ABD: Soft, NT, no organomegaly, no rebound EXT: No edema, no cyanosis [employer]CH[employer]ICIAN: Alert, oriented x 3, no focal neurologic deficit SKIN: No rash IV: ok Objective Assessment Interstitial changes could be related to immune therapy with Imfinzi. Plan Plan of Care 1. Would keep the patient on at least 60 mg of Prednisone equivalent while in patient. 2. Discharge on 40 mg if O2 sat improves to baseline requiring 2 L of oxygen. Justicifation of Admission Dx: Justifications for Admission: Justification of Admission Dx: Yes Acute COPD Exacerbation: Acute COPD Exacerbation BERNARD ABAD MD Dec 10, 2019 18:09
[2019-12-10 19:00] VITALS: BP 144/69
--- NOTE | 2019-12-10 23:11 | NUR ---
at 2355 this RN and Nata (RN) heard the patient yelling down the resendiz, upon entering the patient's room this RN found the patient sitting on the floor in front of the patient's home wheelchair. Normally the patient is up ad carla but uses a home wheelchair after chemo. patient states that she was trying to sit in the wheelchair when she missed the seat and slid down and sat the on the floor. patient denies pain at this time. Patient is a low fall risk, scoring <20 on the fall risk assessment. patient was helped to stand up and sit in wheelchair. further fall precautions are in place now, including a chair alarm and education on calling before getting up. this RN will continue to monitor the patient at this time.
[2019-12-10 23:40] VITALS: BP 159/60
[2019-12-11] MEDS: oxyCODONE IR 5 MG TABLET PO PRN ×3 (00:11→12:04)
[2019-12-11 03:57] VITALS: BP 146/69
[2019-12-11] MEDS: methylPREDNISolone SOD SUCC PF 40 MG/ML VIAL. IV SCH (05:29)
[2019-12-11] MEDS: ACETAMINOPHEN 325 MG TABLET. PO PRN (05:29)
[2019-12-11 07:00] VITALS: BP 151/61
[2019-12-11] MEDS: PANTOPRAZOLE 40 MG TABLET.DR. PO SCH (09:14)
[2019-12-11] MEDS: OLANZapine 5 MG TABLET PO SCH (09:14)
[2019-12-11] MEDS: PARoxetine 20 MG TABLET PO SCH (09:14)
[2019-12-11] MEDS: LOSARTAN POTASSIUM 50 MG TABLET. PO SCH (09:14)
[2019-12-11] MEDS: CYCLOBENZAPRINE 10 MG TABLET. PO PRN (09:19)
--- NOTE | 2019-12-11 09:41 | RAD ---
EXAM: CT Chest without IV contrast INDICATION: lung cancer, ? ILD drug induced/ vs CHF TECHNIQUE: Multi-detector row CT images were acquired from the thoracic inlet through the upper abdomen without the use of IV contrast. Sagittal and coronal images were acquired from the transaxial data. All CT scans performed at this facility utilize dose optimization techniques as appropriate to the exam, including the following: Automated exposure control and adjustment of the mA and/or KV according to patient size (this includes techniques or standardized protocols for targeted exams where dose is indication/reason for exam). COMPARISON: CT chest without IV contrast of 01/24/2014, 02/01/2019, 11/06/[address] of 11/15/2019. FINDINGS: The absence of IV contrast limits evaluation of soft tissue pathology. CARDIOVASCULAR: Right PICC terminates in the right atrium. Normal caliber thoracic aorta. No evidence of an intramural hematoma. Normal caliber pulmonary arteries. MEDIASTINUM & TERESE: Interval decrease in bulk of the hypermetabolic anterior mediastinal mass. LUNGS: Coarse reticular opacities are present in the predominantly lower lobe, peripheral subpleural distribution with additional patchy areas of more confluent consolidation in the lingula. These are more conspicuous in the interval since the PET/CT of approximately 3 weeks ago. Stable right apical scarring.. PLEURAL SPACE: No pleural effusions or pneumothorax. OSSEOUS & SOFT TISSUE: No acute abnormalities. ABDOMEN: The visualized portions of the upper abdomen are unremarkable. IMPRESSION: Decrease in bulk in anterior mediastinal mass, compatible with a positive treatment response but with interval development of evidence of interstitial lung disease. Pattern does not favor pulmonary edema from heart failure. Electronically signed by: Devora Simpson MD (12/11/2019 9:37 AM) [id number]
--- NOTE | 2019-12-11 10:52 | NUR ---
SW following. Discussed with RN, pt from home, COVID-[address] Dawson, pt can discharge home when oxygen is titrated to 2-3L which is what pt is on at home. RN advised no SW needs. SW will continue to follow should any discharge needs arise.
[2019-12-11 11:00] VITALS: BP 141/57
--- NOTE | 2019-12-11 11:39 | PDOC ---
PULMONARY PROGRESS NOTES Subjective no soa Vitals Vital Signs Date Time Temp Pulse Resp B/P (MAP) Pulse Ox O2 Delivery O2 Flow Rate FiO2 12/11/19 11:00 98.2 90 16 141/57 (85) 98 Nasal Cannula 3.0 98.2 General: Alert, Oriented X4, No acute distress Lungs: Other (decrease bs) Cardiovascular: S1, S2 Abdomen: Soft, Non-tender Extremities: No Edema Skin: Warm Labs Laboratory Tests Test 12/09/19 13:30 12/09/19 14:10 12/09/19 17:40 12/11/19 03:15 Coronavirus (COVID-19)(PCR) Not detected (NOT DETECT.) Troponin I Quantitative < 0.017 ng/mL (0.000-0.055) < 0.017 ng/mL (0.000-0.055) Lactic Acid Level 1.4 mmol/L (0.4-2.0) Laboratory Tests Test 12/11/19 03:15 Lactic Acid Level 1.4 mmol/L (0.4-2.0) Medications Active Scripts Medications Dose Route/Sig Max Daily Dose Days Date Category Klor-Con M20 (Potassium Chloride) 20 Meq Tab.er.prt 20 Meq PO DAILY 12/09/19 Reported Clonidine Hcl 0.2 Mg Tablet 0.2 Mg PO DAILY 12/09/19 Reported Lasix (Furosemide) 40 Mg Tablet 40 Mg PO DAILY 12/09/19 Reported Compazine (Prochlorperazine Maleate) 10 Mg Tablet 1 Tab PO Q6HRS 7 12/09/19 Reported Zofran (Ondansetron Hcl) 8 Mg Tablet 1 Tab PO Q8HRS 12/09/19 Reported Zyprexa (Olanzapine) 5 Mg Tablet 5 Mg PO DAILY 12/09/19 Reported Paxil (Paroxetine Hcl) 20 Mg Tablet 20 Mg PO DAILY 12/09/19 Reported Alprazolam 0.5 Mg Tablet 1 Tab PO TID 12/09/19 Reported Soma (Carisoprodol) 350 Mg Tablet 350 Mg PO TID&HS 12/09/19 Reported Oxycodone Hcl 5 Mg Capsule 10 Mg PO PRN Q6HRS PRN 12/09/19 Reported Cartia Xt (Diltiazem Hcl) 300 Mg Cap.er.24h 1 Cap PO DAILY 30 12/09/19 Reported Duoneb 0.5-3(2.5) Mg/3 Ml (Albuterol/Ipratropium) 3 Ml Ampul.neb 3 Ml NEB Q4HRS 30 08/02/19 Rx Protonix (Pantoprazole Sodium) 20 Mg Tablet.dr 40 Mg PO DAILY 11/02/17 Reported Losartan Potassium 100 Mg Tablet 100 Mg PO DAILY 11/02/[address] chest reviewed Impression . 1. Acute on chronic hypoxic respiratory failure secondary to multifactorial etiologies including acute exacerbation of chronic obstructive pulmonary disease and suspected Interstitial changes due to immune therapy with Imfinzi. 2. The patient with lung cancer stage 4. Last PET scan was on 11/15/2019. She had a hypermetabolic mediastinal mass, which extends into the right hilum. In addition, there were hypermetabolic right axillary and left supraclavicular lymph nodes which were metastatic. She also had hypermetabolic activity within the abdomen and pelvis including right hepatic dome and gastric body as well as anterior omentum, likely soft tissue metastasis. She also had right upper lobe spiculated nodule about 5 mm. Status post chemo and radiation. 3. Pancytopenia related to chemo. 4. Moderate protein-calorie malnutrition. 5. Chronic obstructive pulmonary disease with acute exacerbation. The patient has ongoing tobacco use since 40 years. Plan . 1. Continue present oxygen to keep saturation 92 and above. 2. Empiric antibiotic. 3. ct chest suggestive of interstitial infiltrates related to Imfinzi. F/U with Oncology regarding that 4. We will need to discuss advanced directives. 5. Bronchodilators. 6. steroids.taper 7. Empiric antibiotic. 8. Follow Oncology recommendations. 9. Monitor white cell count and platelet count. 10. Discussed with GWEN STRONG MD Dec 11, 2019 11:39
[2019-12-11] MEDS ORDERED: PRED-220 PO (11:48)
[2019-12-11] MEDS ORDERED: DOXY100C2 PO (11:48)
[2019-12-11] MEDS ORDERED: PRED50TA PO (11:48)
--- NOTE | 2019-12-11 12:59 | NUR ---
Discharge Note: LINDSAY MORALES [address] [place] [address] Discharge instructions and discharge home medications reviewed with Patient and a copy given. All questions have been answered and understanding verbalized. The following instructions and handouts were given: f/u with oncology doctor as scheduled. f/u with PCP within one week. PICC Line DL intact. Pt personal wheelchair and red suitcase with patient at the time of discharge. Patient discharged to Home or Self Care with Family Member via Wheelchair.
--- NOTE | 2019-12-11 14:03 | PDOC3 ---
Discharge Summary Visit Information Date of Admission: Dec 09, 2019 Date of Discharge: Dec 11, 2019 Brief Hospital Course Allergies Allergies Coded Allergies Type Severity Reaction Last Updated Verified Iodinated Contrast Media Allergy Intermediate Unknown 11/29/19 Yes acyclovir Allergy Intermediate Rash 11/29/19 Yes iodine Allergy Intermediate Unknown 11/29/19 Yes levofloxacin Allergy Intermediate Unknown 11/29/19 Yes pregabalin Allergy Intermediate SWELLS 11/29/19 Yes I S O L A T I O N *CONTACT* Allergy Unknown Unknown 11/29/19 Yes morphine Adverse Reaction Intermediate Nausea 11/29/19 Yes Vital Signs Vital Signs Date Time Temp Pulse Resp B/P (MAP) Pulse Ox O2 Delivery O2 Flow Rate FiO2 12/11/19 11:00 98.2 90 16 141/57 (85) 98 Nasal Cannula 3.0 98.2 Lab Results Laboratory Tests Test 12/09/19 14:10 12/09/19 17:40 12/11/19 03:15 Troponin I Quantitative < 0.017 ng/mL (0.000-0.055) < 0.017 ng/mL (0.000-0.055) Lactic Acid Level 1.4 mmol/L (0.4-2.0) Laboratory Tests Test 12/11/19 03:15 Lactic Acid Level 1.4 mmol/L (0.4-2.0) Brief Hospital Course 69-year-old female with tobacco abuse hx of lung cancer on chemo and radiation who was at oncology office and found to be sob. at home on 2 liters of 02. reported more cough but not not productive. reports mild body ache. no fever or chills. at oncology office saturations were in 50s. she came to ED for further eval. chest x-ray and it shows some prominent interstitial markings. admitted to hospitalist service for COPD exacerbation. ASSESSMENT Acute on chronic hypoxic respiratory failure secondary to acute exacerbation of chronic obstructive pulmonary disease/ atypical pneumonia. ? radiation induced fibrotic changes. lung cancer stage 4. Last PET scan was on 11/15/2019. Pancytopenia related to chemo. Moderate protein-calorie malnutrition. Chronic obstructive pulmonary disease with acute exacerbation. Ongoing Tobacco use PLAN placed on 02, steroids and abx with improvement. covid test negative. CT chest shows: Decrease in bulk in anterior mediastinal mass, compatible with a positive treatment response but with interval development of evidence of interstitial lung disease. Pattern does not favor pulmonary edema from heart failure. suspect related to Infinzi? patient on 1-2 liters of 02. feels well on wants to go home. will send home on doxy and steroids for 7 days, PO. patient to dc home today and follow up with onc as outpatient.. Discharge Information Scheduled Alprazolam (Alprazolam) 0.5 Mg Tablet, 1 TAB PO TID for anxeity, #90 (Reported) Entered as Reported by: ALEJO MOLINA on 12/09/191940 Last Action: Continued on 12/09/192007 by RICHARD ARELLANO MD Carisoprodol (Soma) 350 Mg Tablet, 350 MG PO TID&HS for pain, (Reported) Entered as Reported by: ALEJO MOLINA on 12/09/191939 Last Action: Converted on 12/09/192007 by RICHARD ARELLANO MD Clonidine Hcl (Clonidine Hcl) 0.2 Mg Tablet, 0.2 MG PO DAILY for high blood pressure, (Reported) Entered as Reported by: ALEJO MOLINA on 12/09/191946 Last Action: New Order on 12/09/191946 by ALEJO MOLINA Diltiazem Hcl (Cartia Xt) 300 Mg Cap.er.24h, 1 CAP PO DAILY for heart for 30 Days, #30 Ref 0 (Reported) Entered as Reported by: ALEJO MOLINA on 12/09/191937 Last Action: Continued on 12/09/192007 by RICHARD ARELLANO MD Doxycycline Hyclate (Doxycycline Hyclate) 100 Mg Capsule, 1 CAP PO BID for copd exac for 4 Days, #8 Prescribed by: TIRSO WILKERSON MD on 12/11/19 1148 Furosemide (Lasix) 40 Mg Tablet, 40 MG PO DAILY for fluid overload, (Reported) Entered as Reported by: ALEJO MOLINA on 12/09/191943 Last Action: New Order on 12/09/191943 by ALEJO MOLINA Ipratropium/Albuterol Sulfate (Duoneb 0.5-3(2.5) Mg/3 Ml) 3 Ml Ampul.neb, 3 ML NEB Q4HRS for copd for 30 Days, #180 Prescribed by: HALLIE COY MD on 08/02/19 1242 Last Action: Continued on 12/09/192007 by RICHARD ARELLANO MD Losartan Potassium (Losartan Potassium) 100 Mg Tablet, 100 MG PO DAILY, (Reported) Entered as Reported by: MADALYN DASILVA on 11/02/17 1421 Last Action: Converted on 12/09/192007 by RICHARD ARELLANO MD Olanzapine (Zyprexa) 5 Mg Tablet, 5 MG PO DAILY for agitation, (Reported) Entered as Reported by: ALEJO MOLINA on 12/09/191941 Last Action: Continued on 12/09/192007 by RICHARD ARELLANO MD Ondansetron Hcl (Zofran) 8 Mg Tablet, 1 TAB PO Q8HRS for nausea, #30 Ref 2 (Reported) Entered as Reported by: ALEJO MOLINA on 12/09/191942 Last Action: Converted on 12/09/192007 by RICHARD ARELLANO MD Pantoprazole Sodium (Protonix) 20 Mg Tablet.dr, 40 MG PO DAILY, (Reported) Entered as Reported by: MADALYN DASILVA on 11/02/17 1425 Last Action: Converted on 12/09/192007 by RICHARD ARELLANO MD Paroxetine Hcl (Paxil) 20 Mg Tablet, 20 MG PO DAILY for depression, (Reported) Entered as Reported by: ALEJO MOLINA on 12/09/191941 Last Action: Continued on 12/09/192007 by RICHARD ARELLANO MD Potassium Chloride (Klor-Con M20) 20 Meq Tab.er.prt, 20 MEQ PO DAILY for supplement, (Reported) Entered as Reported by: ALEJO MOLINA on 12/09/191946 Last Action: New Order on 12/09/191946 by ALEJO MOLINA Prednisone (Prednisone) 50 Mg Tablet, 50 MG PO DAILY for copd exac for 7 Days, #7 Prescribed by: TIRSO WILKERSON MD on 12/11/19 1148 Prednisone (Prednisone ) 10 Mg Tablet, 10 MG PO DAILY for copd exac for 7 Days, #7 Ref 0 Prescribed by: TIRSO WILKERSON MD on 12/11/19 1148 Prochlorperazine Maleate (Compazine) 10 Mg Tablet, 1 TAB PO Q6HRS for [place] for 7 Days, #28 Ref 0 (Reported) Entered as Reported by: ALEJO MOLINA on 12/09/191943 Last Action: New Order on 12/09/191943 by ALEJO MOLINA Scheduled PRN Oxycodone Hcl (Oxycodone Hcl) 5 Mg Capsule, 10 MG PO PRN Q6HRS PRN for PAIN, Ref 0 (Reported) Entered as Reported by: ALEJO MOLINA on 12/09/191939 Last Action: Converted on 12/09/192007 by RICHARD ARELLANO MD Justicifation of Admission Dx: Justifications for Admission: Justification of Admission Dx: Yes Acute COPD Exacerbation: Acute COPD Exacerbation TIRSO WILKERSON MD Dec 11, 2019 14:03
== END 2019-12-11 12:59 | disposition home or self-care (01) | DRG 177 ==
LOC: ER 09:06 → 6 SOUTH 11:44 → ED HOLD 11:45 → 6 SOUTH 15:55
PROVIDERS: ADMIT Family Medicine; ATTEND Family Medicine
DX: J15.6 Pneumonia due to other Gram-negative bacteria (principal); J96.21 Acute and chronic respiratory failure with hypoxia; D61.810 Antineoplastic chemotherapy induced pancytopenia; J44.1 Chronic obstructive pulmonary disease with (acute) exacerbation; C34.90 Malignant neoplasm of unspecified part of unspecified bronchus or lung; C79.89 Secondary malignant neoplasm of other specified sites; E44.0 Moderate protein-calorie malnutrition; J44.0 Chronic obstructive pulmonary disease with (acute) lower respiratory infection; Z68.42 Body mass index [BMI] 45.0-49.9, adult; F17.210 Nicotine dependence, cigarettes, uncomplicated; I10 Essential (primary) hypertension; T45.1X5A Adverse effect of antineoplastic and immunosuppressive drugs, initial encounter; Y84.2 Radiological procedure and radiotherapy as the cause of abnormal reaction of the patient, or of later complication, without mention of misadventure at the time of the procedure; Z82.49 Family history of ischemic heart disease and other diseases of the circulatory system; Z82.0 Family history of epilepsy and other diseases of the nervous system; Z85.118 Personal history of other malignant neoplasm of bronchus and lung; Z90.49 Acquired absence of other specified parts of digestive tract; Z90.710 Acquired absence of both cervix and uterus; Z92.3 Personal history of irradiation; F32.9 Major depressive disorder, single episode, unspecified; F41.9 Anxiety disorder, unspecified; G89.29 Other chronic pain; Z20.828 Contact with and (suspected) exposure to other viral communicable diseases; Z88.8 Allergy status to other drugs, medicaments and biological substances
CPT/HCPCS: 36415; 36600; 71045; 71250; 80053; 82805; 83605; 83735; 83880; 84484; 85007; 85025; 85379; 87040; 93005; 94640; 96361; 96374; 96375; 99285; J0696; J2920; J2930; J3010; J7040; G0378; U0003-CS

== ENCOUNTER → 2019-12-17 | Outpatient (CLI) | payer MEDICARE, OTHER ==
[2019-12-11 11:00] VITALS: BP 141/57
[~2019-12-17] MED LIST changes: +CARI350T PO; +FURO-68 PO; +OLAN5TAB3 PO; +ONDA8TAB9 PO; +PARO20TA99 PO; +POTA20TA4 PO; +PRED-220 PO; +PROC10TA57 PO
[2019-12-17 10:05] LABS: BASO # 0.2 x10^3/uL (0.0-0.2); BASO % 1 % (0-3); EOS % 0 % (0-3); HEMATOCRIT 33.1 % (36.0-47.0); LYMPH # 0.9 x10^3/uL (1.0-4.8); LYMPH % 4 % (24-48); MEAN CORPUSCULAR HEMOGLOBIN 31 pg (25-35); MEAN CORPUSCULAR HGB CONC 33 g/dL (31-37); MEAN CORPUSCULAR VOLUME 92 fL (79-100); MONO # 0.7 x10^3/uL (0.0-1.1); MONO % 4 % (0-9); NEUT # 18.1 x10^3/uL (1.8-7.7); NEUT % 91 % (31-73); PLATELET COUNT 373 x10^3/uL (140-400); RED BLOOD COUNT 3.59 x10^6/uL (3.50-5.40); RED CELL DISTRIBUTION WIDTH 18.3 % (11.5-14.5); WHITE BLOOD COUNT 19.9 x10^3/uL (4.0-11.0)
[2019-12-17 10:30] LABS: CALCIUM 8.8 mg/dL (8.5-10.1); CREATININE 0.6 mg/dL (0.6-1.0); GFR 99.1; POTASSIUM 4.8 mmol/L (3.5-5.1)
[2019-12-17 10:35] LABS: ALBUMIN 2.5 g/dL (3.4-5.0); DIRECT BILIRUBIN 0.1 mg/dL (0.0-0.2); TOTAL BILIRUBIN 0.1 mg/dL (0.2-1.0); TOTAL PROTEIN 6.4 g/dL (6.4-8.2)
[2019-12-17 10:44] LABS: % BANDS 4 % (0-9); % LYMPHS 2 % (24-48); % METAS 3 % (0-0); % MONOS 7 % (0-10); % MYELOS 1 % (0-0); % SEGS 83 % (35-66)
[2019-12-17 10:45] LABS: PLT ESTIMATE ADEQUATE (ADEQUATE)
[2019-12-17 10:46] LABS: ANISOCYTOSIS SLIGHT
[2019-12-17 10:47] LABS: TOXIC GRANULATION SLIGHT
[2019-12-17 11:07] LABS: FREE T4 1.01 ng/dL (0.76-1.46); THYROID STIM HORMONE (TSH) 0.159 uIU/mL (0.358-3.74)
[2019-12-20 15:12] LABS: METHYLMALONIC ACID 644 nmol/L (0-378)
== END ==
LOC: ONCLAB 09:43
PROVIDERS: ATTEND Physician Assistant
DX: C34.00 Malignant neoplasm of unspecified main bronchus (principal); Z79.899 Other long term (current) drug therapy
CPT/HCPCS: 36415; 80048; 80076; 82607; 83615; 83921; 84439; 84443; 84550; 85007; 85025

== ENCOUNTER → 2019-12-18 | Outpatient (CLI) | payer MEDICARE, OTHER ==
[2019-12-11 11:00] VITALS: BP 141/57
[2019-12-18 09:50] LABS: BILIRUBIN,URINE NEGATIVE (NEG); CLARITY,URINE CLEAR; COLOR,URINE YELLOW; NITRITE,URINE NEGATIVE (NEG); PH,URINE 7.5 (<5.0-8.0); PROTEIN,URINE NEGATIVE (NEG-TRACE); UROBILINOGEN,URINE 0.2 mg/dL (0.2 mg/dL)
[2019-12-18 10:07] LABS: BACTERIA,URINE 0 /HPF (0-FEW); RBC,URINE 0 /HPF (0-2); SQUAMOUS EPITHELIAL CELL,UR FEW /LPF; WBC,URINE 0 /HPF (0-4)
== END | disposition home or self-care (01) ==
LOC: ONCLAB 08:07
PROVIDERS: ATTEND Physician Assistant
DX: C34.00 Malignant neoplasm of unspecified main bronchus (principal); C77.3 Secondary and unspecified malignant neoplasm of axilla and upper limb lymph nodes
CPT/HCPCS: 36415; 81001; 87040

== ENCOUNTER → 2019-12-18 | Outpatient (CLI) | payer MEDICARE, OTHER ==
[2019-12-11 11:00] VITALS: BP 141/57
--- NOTE | 2019-12-18 12:19 | RAD ---
PA and lateral chest x-ray compared to CT the chest dated December 11, 2019 FINDINGS: COPD with hyperexpansion. PICC line is appropriately positioned. Heart size mildly enlarged. There are vague patchy opacities in left midlung as well as right lower lung, with somewhat nodular component appearance. These appear to correspond areas of infiltrate on the prior CT scan and likely represent evolving pneumonia. Postsurgical changes of the cervical and lumbar spine are noted. IMPRESSION: 1. Persistent patchy infiltrates in the left midlung and right lower lung, likely due to evolving pneumonic consolidation. 2. Emphysema. Electronically signed by: Urban Sin MD (12/18/2019 12:16 PM) [id number]
== END | disposition home or self-care (01) ==
LOC: RAD 09:52
PROVIDERS: ATTEND Physician Assistant
DX: C77.3 Secondary and unspecified malignant neoplasm of axilla and upper limb lymph nodes (principal); C34.00 Malignant neoplasm of unspecified main bronchus; J43.9 Emphysema, unspecified
CPT/HCPCS: 71046

== ENCOUNTER → 2019-12-24 | Outpatient (CLI) | payer MEDICARE, OTHER ==
[2019-12-11 11:00] VITALS: BP 141/57
--- NOTE | 2019-12-24 16:02 | RAD ---
EXAM: CHEST PA LATERAL INDICATION: Reason: SMALL CELL LUNG CANCER / Spl. Instructions: / History: . TECHNIQUE: PA and lateral views of the chest COMPARISON: Chest CT 11/06/2019, 12/18/2019 chest x-ray FINDINGS: Stable right PICC line with the tip near the cavoatrial junction The heart size is normal. The great vessels appear unremarkable. There is no hilar or mediastinal mass. Previously apparent perihilar mass on CT shows no evidence of recurrence Lungs show minimal patchy infiltrates bilaterally, slightly improved from prior. No discrete lung mass identified to suggest tumor recurrence. There is no pleural effusion or pneumothorax. Bones show ACDF surgical changes in the lower cervical spine on the lateral view. Also, age-indeterminate anterior wedge compression fractures are present at T11 and T12. Surgical changes from posterior nathalia and pedicle screw construct fusion of the lumbar spine at approximately L3-L4 also noted on the lateral view. IMPRESSION: Slightly improved bilateral pulmonary infiltrates. Electronically signed by: Devora Simpson MD (12/24/2019 3:59 PM) [id number]
== END | disposition home or self-care (01) ==
LOC: RAD 10:29
PROVIDERS: ATTEND Physician Assistant
DX: C34.00 Malignant neoplasm of unspecified main bronchus (principal); R91.8 Other nonspecific abnormal finding of lung field
CPT/HCPCS: 71046

== ENCOUNTER → 2019-12-24 | Outpatient (CLI) | payer MEDICARE, OTHER ==
[2019-12-11 11:00] VITALS: BP 141/57
[2019-12-24 09:23] LABS: BASO # 0.2 x10^3/uL (0.0-0.2); BASO % 1 % (0-3); EOS % 0 % (0-3); HEMATOCRIT 35.2 % (36.0-47.0); HEMOGLOBIN 11.2 g/dL (12.0-15.5); LYMPH # 0.2 x10^3/uL (1.0-4.8); LYMPH % 1 % (24-48); MEAN CORPUSCULAR HEMOGLOBIN 30 pg (25-35); MEAN CORPUSCULAR HGB CONC 32 g/dL (31-37); MEAN CORPUSCULAR VOLUME 95 fL (79-100); MONO # 0.5 x10^3/uL (0.0-1.1); MONO % 2 % (0-9); NEUT # 19.7 x10^3/uL (1.8-7.7); NEUT % 96 % (31-73); PLATELET COUNT 698 x10^3/uL (140-400); RED BLOOD COUNT 3.72 x10^6/uL (3.50-5.40); RED CELL DISTRIBUTION WIDTH 20.8 % (11.5-14.5); WHITE BLOOD COUNT 20.6 x10^3/uL (4.0-11.0)
[2019-12-24 09:33] LABS: CALCIUM 9.2 mg/dL (8.5-10.1); CREATININE 0.7 mg/dL (0.6-1.0); POTASSIUM 4.3 mmol/L (3.5-5.1)
== END ==
LOC: ONCLAB 08:45
PROVIDERS: ATTEND Physician Assistant
DX: C34.00 Malignant neoplasm of unspecified main bronchus (principal)
CPT/HCPCS: 36415; 71046; 80048; 84550; 85025

== ENCOUNTER → 2019-12-30 | Outpatient (CLI) | payer MEDICARE, OTHER ==
[2019-12-11 11:00] VITALS: BP 141/57
[2019-12-30 09:04] LABS: BASO # 0.1 x10^3/uL (0.0-0.2); BASO % 1 % (0-3); EOS % 0 % (0-3); HEMATOCRIT 36.7 % (36.0-47.0); HEMOGLOBIN 12.1 g/dL (12.0-15.5); LYMPH # 0.2 x10^3/uL (1.0-4.8); LYMPH % 1 % (24-48); MEAN CORPUSCULAR HEMOGLOBIN 31 pg (25-35); MEAN CORPUSCULAR HGB CONC 33 g/dL (31-37); MEAN CORPUSCULAR VOLUME 95 fL (79-100); MONO # 0.2 x10^3/uL (0.0-1.1); MONO % 1 % (0-9); NEUT % 97 % (31-73); PLATELET COUNT 430 x10^3/uL (140-400); RED BLOOD COUNT 3.87 x10^6/uL (3.50-5.40); RED CELL DISTRIBUTION WIDTH 22.3 % (11.5-14.5); WHITE BLOOD COUNT 17.4 x10^3/uL (4.0-11.0)
[2019-12-30 09:23] LABS: CALCIUM 9.3 mg/dL (8.5-10.1); CREATININE 0.8 mg/dL (0.6-1.0); GFR 71.1
[2019-12-30 09:26] LABS: URIC ACID 3.2 mg/dL (2.6-6.0)
[2019-12-30 09:52] LABS: % BANDS 10 % (0-9); % LYMPHS 2 % (24-48); % MONOS 1 % (0-10); % SEGS 87 % (35-66)
[2019-12-30 09:53] LABS: ANISOCYTOSIS SLIGHT; PLT ESTIMATE INCREASED (ADEQUATE)
== END ==
LOC: ONCLAB 08:47
PROVIDERS: ATTEND Physician Assistant
DX: C34.00 Malignant neoplasm of unspecified main bronchus (principal); C77.3 Secondary and unspecified malignant neoplasm of axilla and upper limb lymph nodes
CPT/HCPCS: 36415; 80048; 84550; 85007; 85025

== ENCOUNTER → 2020-01-07 | Outpatient (CLI) | payer MEDICARE, OTHER ==
[2019-12-11 11:00] VITALS: BP 141/57
[2020-01-07 10:51] LABS: BASO % 0 % (0-3); EOS # 4.7 x10^3/uL (0.0-0.7); EOS % 28 % (0-3); HEMATOCRIT 30.6 % (36.0-47.0); LYMPH # 0.1 x10^3/uL (1.0-4.8); LYMPH % 0 % (24-48); MEAN CORPUSCULAR HEMOGLOBIN 32 pg (25-35); MEAN CORPUSCULAR HGB CONC 33 g/dL (31-37); MEAN CORPUSCULAR VOLUME 97 fL (79-100); MONO # 0.5 x10^3/uL (0.0-1.1); MONO % 3 % (0-9); NEUT # 11.5 x10^3/uL (1.8-7.7); NEUT % 69 % (31-73); PLATELET COUNT 101 x10^3/uL (140-400); RED BLOOD COUNT 3.17 x10^6/uL (3.50-5.40); RED CELL DISTRIBUTION WIDTH 21.7 % (11.5-14.5); WHITE BLOOD COUNT 16.8 x10^3/uL (4.0-11.0)
[2020-01-07 11:04] LABS: CALCIUM 9.1 mg/dL (8.5-10.1); CREATININE 0.8 mg/dL (0.6-1.0); GFR 71.1; POTASSIUM 3.9 mmol/L (3.5-5.1)
[2020-01-07 11:13] LABS: ALBUMIN 2.7 g/dL (3.4-5.0); ALBUMIN/GLOBULIN RATIO 0.7 (1.0-1.7); TOTAL BILIRUBIN 0.4 mg/dL (0.2-1.0); TOTAL PROTEIN 6.8 g/dL (6.4-8.2)
[2020-01-07 13:03] LABS: % EOS 2 % (0-5); % LYMPHS 1 % (24-48); % MONOS 3 % (0-10); % SEGS 94 % (35-66); PLT ESTIMATE DECREASED (ADEQUATE); TOXIC VACUOLATION SLIGHT
[2020-01-07 13:04] LABS: ANISOCYTOSIS MOD
== END | disposition home or self-care (01) ==
LOC: ONCLAB 10:25
PROVIDERS: ATTEND Internal Medicine Hematology & Oncology
DX: C77.3 Secondary and unspecified malignant neoplasm of axilla and upper limb lymph nodes (principal)
CPT/HCPCS: 36415; 80053; 85007; 85025